=== PATIENT | female | born 1935 | race Caucasian/White ===

== ENCOUNTER 2018-08-12 13:33 | Emergency (ER) | payer OTHER, MEDICARE ==
--- OUTSIDE RECORDS SUMMARY | 2018-08-12 13:35 | XMS REPORT | Clinical Summary ---
:1935 Author Organization [facility] Address [address] [place] [address] Care Team Providers Name Role Phone Gilbert Peña MD Primary Care Provider Allergies Active Allergy Reactions Severity Noted Date Comments Gentamicin Rash Low 08/01/2018 Iodine And Iodide Containing Products Rash Low 08/01/2018 Levofloxacin Itching, Rash Low 08/01/2018 Penicillins Itching, Rash Low 08/01/2018 Current Medications Prescription Sig. Disp. Refills Start Date End Date Status furosemide (LASIX) Take 1 tablet 90 tablet 3 06/27/2018 Active 40 mg tablet (40 mg total) by 9 mouth daily. thyroid, pork, Take 120 mg by Active (ARMOUR THYROID) mouth daily. 120 mg tablet HYDROcodone-acetami Take 1 tablet by Active nophen (NORCO) mouth as needed 5-325 mg per tablet for moderate pain. metoprolol tartrate Take 25 mg by Active (LOPRESSOR) 25 mg mouth daily. tablet ciprofloxacin Take 500 mg by Active (CIPRO) 500 MG mouth 2 (two) tablet times a day. magnesium oxide Take 400 mg by Active (MAG-OX) 400 mg mouth daily. tablet pravastatin Take 40 mg by Active (PRAVACHOL) 40 MG mouth daily. tablet levETIRAcetam Take 500 mg by Active (KEPPRA) 500 MG mouth daily. tablet apixaban (ELIQUIS) Take by mouth 2 Active 5 mg tablet (two) times a day. digOXIN (LANOXIN) Take 125 mcg by Active 125 mcg tablet mouth daily. Acetic Acid 0.125% Irrigate with Active Irrigation 1,000 mL as directed once. mupirocin Apply 1 Active (BACTROBAN) 2 % application ointment topically as needed. acetic acid 0.25 % U TO WASH WOUNDS 1 06/07/2018 Discontinued irrigation D UTD. 8 ELIQUIS 5 mg tablet TK 1 T PO BID 3 05/15/2018 Discontinued 8 DIGOX 125 mcg TK 1 T PO QAM 6 06/21/2018 Discontinued tablet 8 metoprolol tartrate TK 1 T PO QD 6 06/19/2018 Discontinued (LOPRESSOR) 25 mg 8 tablet mupirocin APPLY TO WOUND 2 06/20/2018 Discontinued (BACTROBAN) 2 % QD DIRECTED. 8 ointment ARMOUR THYROID 120 TK 1 T PO QD 6 06/12/2018 Discontinued mg tablet 8 pravastatin TK 1 T PO QD 6 06/02/2018 Discontinued (PRAVACHOL) 40 MG 8 tablet metoprolol tartrate TK 1 T PO QD 90 tablet 3 06/27/2018 Discontinued (LOPRESSOR) 25 mg 8 tablet predniSONE Take 2 tablets 4 tablet 0 08/03/2018 (DELTASONE) 20 mg (40 MG total) 8 tablet night before and 2 tablet (40 MG total) the morning of procedure. Active Problems Problem Noted Date Angina pectoris 08/01/2018 Abnormal stress test 08/01/2018 SOB (shortness of breath) 06/27/2018 Atrial fibrillation 06/27/2018 Encounters Date Type Specialty Care Team Description 08/10/2018 Hospital Encounter Procedural Atilio Soler Atrial fibrillation, unspecified type; Cardiology MD Christopher Angina pectoris; SOB (shortness of breath) 08/10/2018 Procedure Pass Procedural Cardiology 08/10/2018 Surgery Procedural Atilio Soler Cv left heart cath w Silva White MD lv gram cors [89928 (CPT)] 08/08/2018 Orders Only Cardiology Atilio Soler MD 08/03/2018 Telephone Cardiology Ty Eldridge MA Appointment (CATH) 08/03/2018 Orders Only Cardiology Ty Eldridge MA 08/03/2018 Orders Only Cardiology Ty Eldridge MA Atrial fibrillation, unspecified type (Primary Dx); Angina pectoris; SOB (shortness of breath) 08/01/2018 Office Visit Cardiology Atilio Soler Angina pectoris (Primary Dx ); MD Christopher Abnormal stress test; SOB (shortness of breath); Atrial fibrillation, unspecified type 06/27/2018 Office Visit Cardiology Atilio Soler SOB (shortness of breath) ( Primary Dx); MD Christopher Dyspnea, unspecified type; Atrial fibrillation, unspecified type after 08/11/2017 Family History Medical History Relation Name Comments Stroke Father Relation Name Status Comments Father Mother Social History Tobacco Use Types Packs/Day Years Used Date Never Smoker Smokeless Tobacco: Never Used Alcohol Use Drinks/Week oz/Week Comments No Sex Assigned at Date Recorded Not on file Last Filed Vital Signs Vital Sign Reading Time Taken Blood Pressure 115/60 08/10/2018 6:30 PM CDT Pulse 80 08/10/2018 6:30 PM CDT Temperature 36.4 C (97.6 F) 08/10/2018 4:00 PM CDT Respiratory Rate 21 08/10/2018 6:30 PM CDT Oxygen Saturation 93% 08/10/2018 6:30 PM CDT Inhaled Oxygen Concentration - - Weight 79.3 kg (174 lb 12.8 oz) 08/10/2018 10:27 AM CDT Height 165.1 cm (5' 5") 08/10/2018 10:27 AM CDT Body Mass Index 29.09 08/10/2018 10:27 AM CDT Plan of Treatment Health Maintenance Due Date Last Done Comments SHINGRIX VACCINE (#1) 1985 ZOSTER VACCINE 1995 PNEUMOCOCCAL POLYSACCHARIDE VACCINE AGE 65 AND OVER 2000 PNEUMOCOCCAL-13 2000 INFLUENZA VACCINE 06/28/2018 Procedures Procedure Name Priority Date/Time Associated Comments Diagnosis CV LEFT HEART CATH LV Routine 08/10/2018 3:40 Angina pectoris Results for this GRAM WITH CORS PM CDT SOB (shortness of procedure are in breath) the results Atrial section. fibrillation, unspecified type ECG PRE/POST OP Routine 08/10/2018 11:28 Results for this AM CDT procedure are in the results section. [id number] Routine 08/08/2018 12:00 AM CDT NM MYOCARDIAL PERFUSION Routine 07/27/2018 12:00 AM CDT ECHOCARDIOGRAM 2D Routine 07/03/2018 3:40 SOB (shortness of Results for this COMPLETE W MMODE PM CDT breath) procedure are in SPECTRAL COLOR DOPPLER Atrial the results (80004) fibrillation, section. unspecified type ECG 12-LEAD Routine 06/27/2018 1:36 Dyspnea, Results for this PM CDT unspecified type procedure are in the results section. after 08/11/2017 Results Cv cardiac cath tech procedure (08/10/2018 3:40 PM) Narrative Performed At [facility] Left main- 20% ostial left main disease. LAD- Normal, 30% lesion seen in mid LAD. LCX- Normal RCA- Normal, 30% lesion seen in mid RCA. 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 The right groin was prepped and draped in normal sterile fashion. The right femoral artery was located, skin was infiltrated was lidocaine. The artery was accessed using the Modified Seldinger technique, and a 4 Fr sheath was inserted. Coronaries were visualized with JL5 and 3DRC catheters. Patient tolerated procedure without difficulty. COMPLICATIONS None PLAN Patient to be discharged home after routine post op monitoring in PACU Continue medical management for non-obstructive CAD. Performing Organization Address [facility] Phone Number [facility] [employer] [address] [place] [address] ECG Pre/Post Op (08/10/2018 11:28 AM) Ventricular rate 70 [facility] Atrial rate 79 [facility] QRSD interval 88 [facility] QT interval 372 [facility] QTC interval 401 [facility] QRS axis 1 -8 [facility] T wave axis 265 [facility] EKG impression Atrial fibrillation-Minimal voltage criteria for LVH, may be normal variant-Septal infarct (cited on or before 27-JUN-2018)-ST & T wave abnormality, consider anterolateral ischemia or digitalis effect-Abnormal ECG- In automated comparison with ECG of [facility] 27-JUN-2018 13:36,-Inverted T waves have replaced nonspecific T wave abnormality in Anterior leads- Performing Organization Address [facility] Phone Number [facility] [address] [place] [address] Miscellaneous Lab Result (08/08/2018) Specimen Blood Narrative Performed At Nm myocardial perfusion (07/27/2018) Narrative Performed At Echocardiogram complete w contrast and 3D if needed (07/03/2018 3:40 PM) Narrative Performed At [facility] Echocardiography Report Pat.Name:SHIRLEY ZULETA Pat.ID:[id number] .Date: 07/03/2018Refer.MD:ATILIO SOLER MD Exam Time: 3:57:00 PMStudy Type:Routine Echo Height:65inWeight: 178lb BSA: 1.88 m2 DOBAge:1935,82Y Sex: FEMALEBP:140/60 HR:72 bpmSonogrphr: Francisco Romero RDCS Pat. Stat.:OutpatientRoom:[address] Study Status:Final Echo Event ID:[id number] Order ID:[id number] Reason for Study:Atrial fibrillation, SOB, suspected cardiac etiology History / Clinical:Atrial Fibrillation, Obesity, Shortness of Breath Procedures:2D Echo, Colorflow Doppler Race:C SUMMARY: LV EF is normal. RV systolic function is normal. There is severe concentric LV hypertrophy. LA volume is severely enlarged. FINDINGS: LV: LV size is normal. There is severe concentric LV hypertrophy.LV EF is normal. Estimated EF is 60-64%. Overallwall motion is normal. RV: RV size is normal. RV systolic function is normal. RV wall motionis normal. LA: LA volume is severely enlarged. RA: RA size is normal. AO: Aortic root diameter is normal. ALLEN: No pericardial effusion. IAS:Interatrial septum is thickened consistent with lipomatous hypertrophy. AV: Mild calcification of AV leaflets. Mild aortic regurgitation. MV: Mild mitral annular calcification. PV: No structural PV abnormalities noted. A trace of pulmonic regurgitation. TV: No structural TV abnormalities noted. Mild tricuspid regurgitation Other:Estimated PA systolic pressure is 34 mmHg, assuming a mean RAPof 5 mmHg. MEASUREMENTS: 2D Parasternal [place] LVOT 2 cmLA Ds4 cm LVIDd4.5 cmIndex2.4 cm/m Ao Rtd 3.6 cm Index1.9 cm/m LVIDs2.5 cmLV Sjle783.1 g(87-129) LV%fs 43.8 % LVM Twpin336 g/m2 IVSd 1.3 cmRWT0.7 LVPWd1.5 cm LA Sng Plane LA Area 42.9 cm2(8.8-23.4) LA Vol 200.9 ml Zazbt480.9 ml/m LA LngAx 7.6 cm RA Sng Plane RA Area 17 cm2(8.3-19.5) RA Vol40.7 ml Index21.7 ml/m RA LngAx 6.1 cm DOPPLER LVOT For Flow LVOT Area3.1 cm2 LVOT SV 53.9 ml LVOTpkVel 98 cm/sHR72.9 bpm LVOTpkPG 3.8 mmHgLVOT CO3.9 l/min LVOTmnPG 1.9 mmHgLVOT CI2.1 l/m/m2 LVOT TVI17.1 cm Signed 07/04/2018 05:49 PM Milena No M.D. Procedure Note Interface, Radiology Results In - 07/04/2018 5:49 PM CDT [facility] Echocardiography Report Pat.Name: SHIRLEY ZULETA Pat.ID: [id number] .Date: 07/03/2018 Refer.MD: ATILIO SOLER MD Exam Time: 3:57:00 PM Study Type:Routine Echo Height: 65in Weight: 178lb BSA: 1.88 m2 Age: 8 1935,82Y Sex: FEMALE BP: 140/60 HR: 72 bpm Sonogrphr: Francisco Romero VICKI Pat. Stat.:Outpatient Room: [address] Study Status:Final Echo Event ID:[id number] Order ID: [id number] Reason for Study:Atrial fibrillation, SOB, suspected cardiac etiology History / Clinical:Atrial Fibrillation, Obesity, Shortness of Breath Procedures:2D Echo, Colorflow Doppler Race: C SUMMARY: LV EF is normal. RV systolic function is normal. There is severe concentric LV hypertrophy. LA volume is severely enlarged. FINDINGS: LV: LV size is normal. There is severe concentric LV hypertrophy. LV EF is normal. Estimated EF is 60-64%. Overall wall motion is normal. RV: RV size is normal. RV systolic function is normal. RV wall motion is normal. LA: LA volume is severely enlarged. RA: RA size is normal. AO: Aortic root diameter is normal. ALLEN: No pericardial effusion. IAS: Interatrial septum is thickened consistent with lipomatous hypertrophy. AV: Mild calcification of AV leaflets. Mild aortic regurgitation. MV: Mild mitral annular calcification. PV: No structural PV abnormalities noted. A trace of pulmonic regurgitation. TV: No structural TV abnormalities noted. Mild tricuspid regurgitation Other: Estimated PA systolic pressure is 34 mmHg, assuming a mean RAP of 5 mmHg. MEASUREMENTS: 2D Parasternal [place] LVOT 2 cm LA Ds 4 cm LVIDd 4.5 cm Index 2.4 cm/m Ao Rtd 3.6 cm Index 1.9 cm/m LVIDs 2.5 cm LV Mass 250.1 g (87-129) LV%fs 43.8 % LVM Index 133 g/m2 IVSd 1.3 cm RWT 0.7 LVPWd 1.5 cm LA Sng Plane LA Area 42.9 cm2 (8.8-23.4) LA Vol 200.9 ml Index 106.9 ml/m LA LngAx 7.6 cm RA Sng Plane RA Area 17 cm2 (8.3-19.5) RA Vol 40.7 ml Index 21.7 ml/m RA LngAx 6.1 cm DOPPLER LVOT For Flow LVOT Area 3.1 cm2 LVOT SV 53.9 ml LVOTpkVel 98 cm/s HR 72.9 bpm LVOTpkPG 3.8 mmHg LVOT CO 3.9 l/min LVOTmnPG 1.9 mmHg LVOT CI 2.1 l/m/m2 LVOT TVI 17.1 cm Signed 07/04/2018 05:49 PM Milena No M.D. Performing Organization Address [facility] Phone Number [facility] [address] [place] [address] ECG 12 lead (06/27/2018 1:36 PM) Ventricular rate 65 [facility] MUSE Atrial rate [address] [facility] MUSE QRSD interval 82 [facility] MUSE QT interval 372 [facility] QTC interval [address] [facility] MUSE QRS axis 1 40 [facility] T wave axis -[address] [facility] MUSE EKG impression Atrial fibrillation with premature ventricular or aberrantly conducted complexes-Septal infarct , age undetermined-ST & T wave abnormality, consider lateral ischemia-Abnormal ECG-No previous ECGs available- Performing Organization Address [facility] Phone Number [facility] [address] [place] [address] after 08/11/2017 Insurance Payer Benefit Plan / Group Subscriber ID Type Phone Address MEDICARE MEDICARE PART A AND B xxxxxxxxxx Medicare [place], [place] AARP AARP SUPPLEMENT xxxxxxxxxxx Commercial [phone] [place] [address]
[2018-08-12] MEDS ORDERED: predniSONE 20 MG TAB ONE (14:39)
--- NOTE | 2018-08-12 14:55 | ER ---
Nurse's Notes [facility] Name: Lilo Zuleta Age: 83 yrs Sex: Female : 1935 Arrival Date: 08/12/2018 Time: 13:36 Bed 5 Private MD: Gilbert Peña Diagnosis: Acute Allergic Reaction Presentation: 08/12 13:47 Presenting complaint: Patient states: Patient woke up this AM and was itching and felt aj flushed all over. NAD, respirations are even and unlabored. Patient has clear voice with no SOB. Transition of care: patient was not received from another setting of care. Onset: The symptoms/episode began/occurred this morning. Anaphylaxis evaluation, no signs or symptoms of anaphylaxis were noted. Onset of symptoms was August 12, 2018. Risk Assessment: Do you want to hurt yourself or someone else? Patient reports no desire to harm self or others. Initial Sepsis Screen: Does the patient meet any 2 criteria? No. Patient's initial sepsis screen is negative. Does the patient have a suspected source of infection? No. Patient's initial sepsis screen is negative. Note Patient believes she is allergic to Iodine, reports heart cath on and believes iodine may have been used. Care prior to arrival: None. 13:47 Method Of Arrival: Wheelchair aj 13:47 Acuity: HAVEN 4 aj Triage Assessment: 13:49 General: Appears in no apparent distress. comfortable, Behavior is calm, cooperative, aj appropriate for age. Pain: Denies pain. Neuro: Level of Consciousness is awake, alert, obeys commands, Oriented to person, place, time, situation, Appropriate for age. Respiratory: Airway is patent Respiratory effort is even, unlabored, Respiratory pattern is regular, symmetrical. Derm: Skin is intact, is healthy with good turgor, Skin is flushed, Reports itching. Historical: - Allergies: 13:49 gentamicin sulfate (PF); aj 13:49 Iodine; aj 13:49 Levofloxacin; aj 13:49 PENICILLINS; aj - Home Meds: 13:49 digoxin 125 mcg Oral tab 1 tab once daily [Active]; Eliquis 5 mg Oral tab 1 tab 2 times aj per day [Active]; levetiracetam 50 mg Oral [Active]; MagOx 40 mg Oral [Active]; metoprolol tartrate 25 mg Oral tab 1 tab once daily [Active]; mupirocin 2 % Topical oint 3 times per day [Active]; pravastatin 40 mg Oral tab 1 tab once daily [Active]; thyroid (pork) 2 gm Oral [Active]; Cipro 500 mg Oral tab 1 tab every 12 hours [Active]; - PMHx: 13:49 Hypertension; TIA; aj - PSHx: 13:49 skin grafts; Thyroidectomy; aj - Immunization history:: Adult Immunizations up to date. - Social history:: Smoking status: Patient/guardian denies using tobacco. - Ebola Screening: : Patient negative for fever greater than or equal to 101.5 degrees Fahrenheit, and additional compatible Ebola Virus Disease symptoms Patient denies exposure to infectious person Patient denies travel to an Ebola-affected area in the 21 days before illness onset No symptoms or risks identified at this time. Screenin:36 Abuse screen: Denies threats or abuse. Nutritional screening: No deficits noted. la1 Tuberculosis screening: No symptoms or risk factors identified. Fall Risk None identified. Assessment: 14:36 General: Appears in no apparent distress. Behavior is calm, cooperative, appropriate la1 for age. Neuro: Level of Consciousness is awake, alert, obeys commands, Oriented to person, place, time, situation. Cardiovascular: Capillary refill < 3 seconds Patient's skin is warm and dry. Respiratory: Airway is patent Respiratory effort is even, unlabored, Respiratory pattern is regular, symmetrical, Breath sounds are clear bilaterally. GI: No signs and/or symptoms were reported involving the gastrointestinal system. Vital Signs: 13:49 BP 119 / 78; Pulse 90; Resp 19; Temp 98.0; Pulse Ox 98% on R/A; Weight 78.93 kg; Height aj 5 ft. 5 in. (165.10 cm); 13:49 Body Mass Index 28.95 (78.93 kg, 165.10 cm) aj ED Course: 13:36 Patient arrived in ED. mr 13:36 Gilbert Peña MD is Private Physician. mr 13:48 Triage completed. aj 13:49 Arm band placed on left wrist. Patient placed in an exam room. aj 13:57 Luis Lynne MD is Attending Physician. wa 14:04 Josh Marley RN is Primary Nurse. la1 14:36 Bed in low position. Call light in reach. la1 14:36 No provider procedures requiring assistance completed. Patient did not have IV access la1 during this emergency room visit. Administered Medications: 14:36 Drug: predniSONE 60 mg Route: PO; la1 15:07 Follow up: Response: No adverse reaction la1 Outcome: 14:54 Discharge ordered by . heena 15:06 Discharged to home ambulatory. la1 15:06 Condition: stable 15:06 Discharge instructions given to patient, Instructed on discharge instructions, follow up and referral plans. medication usage, Demonstrated understanding of instructions, follow-up care, medications, Prescriptions given X 1. 15:06 Patient left the ED. la1 Signatures: Sabrina Walker, iMsa Avila RN, Lee, RN RN la1 Luis Lynne MD MD wa
--- NOTE | 2018-08-12 14:55 | EDPHYS ---
Physician Documentation [facility] Name: Lilo Zuleta Age: 83 yrs Sex: Female : 1935 Arrival Date: 08/12/2018 Time: 13:36 Bed 5 Private MD: Gilbert Peña ED Physician Luis Lynne HPI: 08/12 14:46 This 83 yrs old Female presents to ER via Wheelchair with complaints of wa Allergic Reaction. 14:46 The patient presents with itching, redness to chest and back. denies SOB or dizziness wa or swelling. states allergic to iodine dye. recently had heart cath and believes she was given iodine dye. itching began after the procedure. 14:50 Onset: The symptoms/episode began/occurred 3 day(s) ago. Associated signs and symptoms: wa Pertinent positives: hives, rash, Pertinent negatives: chest pain, shortness of breath, swelling. Possible causes: iodine dye. At home the patient or guardian has treated the symptoms with Benadryl. Severity of symptoms: At their worst the symptoms were mild in the emergency department the symptoms are unchanged. The patient has not experienced similar symptoms in the past. The patient has not recently seen a physician. Historical: - Allergies: 13:49 gentamicin sulfate (PF); aj 13:49 Iodine; aj 13:49 Levofloxacin; aj 13:49 PENICILLINS; aj - Home Meds: 13:49 digoxin 125 mcg Oral tab 1 tab once daily [Active]; Eliquis 5 mg Oral tab 1 tab 2 times aj per day [Active]; levetiracetam 50 mg Oral [Active]; MagOx 40 mg Oral [Active]; metoprolol tartrate 25 mg Oral tab 1 tab once daily [Active]; mupirocin 2 % Topical oint 3 times per day [Active]; pravastatin 40 mg Oral tab 1 tab once daily [Active]; thyroid (pork) 2 gm Oral [Active]; Cipro 500 mg Oral tab 1 tab every 12 hours [Active]; - PMHx: 13:49 Hypertension; TIA; aj - PSHx: 13:49 skin grafts; Thyroidectomy; aj - Immunization history:: Adult Immunizations up to date. - Social history:: Smoking status: Patient/guardian denies using tobacco. - Ebola Screening: : Patient negative for fever greater than or equal to 101.5 degrees Fahrenheit, and additional compatible Ebola Virus Disease symptoms Patient denies exposure to infectious person Patient denies travel to an Ebola-affected area in the 21 days before illness onset No symptoms or risks identified at this time. ROS: 14:51 Constitutional: Negative for fever, chills, and weight loss, Eyes: Negative for injury, wa pain, redness, and discharge, ENT: Negative for injury, pain, and discharge, Neck: Negative for injury, pain, and swelling, Cardiovascular: Negative for chest pain, palpitations, and edema, Respiratory: Negative for shortness of breath, cough, wheezing, and pleuritic chest pain, Abdomen/GI: Negative for abdominal pain, nausea, vomiting, diarrhea, and constipation, Back: Negative for injury and pain, : Negative for injury, bleeding, discharge, and swelling, MS/Extremity: Negative for injury and deformity, Neuro: Negative for headache, weakness, numbness, tingling, and seizure, Psych: Negative for depression, anxiety, suicide ideation, homicidal ideation, and hallucinations. 14:51 Skin: Positive for itching and redness to abd and back.. 14:51 All other systems are negative. Exam: 14:52 Constitutional: This is a well developed, well nourished patient who is awake, alert, wa and in no acute distress. Head/Face: Normocephalic, atraumatic. Eyes: Pupils equal round and reactive to light, extra-ocular motions intact. Lids and lashes normal. Conjunctiva and sclera are non-icteric and not injected. Cornea within normal limits. Periorbital areas with no swelling, redness, or edema. ENT: Nares patent. No nasal discharge, no septal abnormalities noted. Tympanic membranes are normal and external auditory canals are clear. Oropharynx with no redness, swelling, or masses, exudates, or evidence of obstruction, uvula midline. Mucous membranes moist. Neck: Trachea midline, no thyromegaly or masses palpated, and no cervical lymphadenopathy. Supple, full range of motion without nuchal rigidity, or vertebral point tenderness. No Meningismus. Chest/axilla: Normal chest wall appearance and motion. Nontender with no deformity. No lesions are appreciated. Cardiovascular: Regular rate and rhythm with a normal S1 and S2. No gallops, murmurs, or rubs. Normal PMI, no JVD. No pulse deficits. Respiratory: Lungs have equal breath sounds bilaterally, clear to auscultation and percussion. No rales, rhonchi or wheezes noted. No increased work of breathing, no retractions or nasal flaring. Abdomen/GI: Soft, non-tender, with normal bowel sounds. No distension or tympany. No guarding or rebound. No evidence of tenderness throughout. Back: No spinal tenderness. No costovertebral tenderness. Full range of motion. MS/ Extremity: Pulses equal, no cyanosis. Neurovascular intact. Full, normal range of motion. Neuro: Awake and alert, GCS 15, oriented to person, place, time, and situation. Cranial nerves II-XII grossly intact. Motor strength 5/5 in all extremities. Sensory grossly intact. Cerebellar exam normal. Normal gait. Psych: Awake, alert, with orientation to person, place and time. Behavior, mood, and affect are within normal limits. 14:52 Skin: on the abd and back. diffuse. fine rash with associated redness. Vital Signs: 13:49 BP 119 / 78; Pulse 90; Resp 19; Temp 98.0; Pulse Ox 98% on R/A; Weight 78.93 kg; Height aj 5 ft. 5 in. (165.10 cm); 13:49 Body Mass Index 28.95 (78.93 kg, 165.10 cm) MDM: 13:57 Patient medically screened. ia 14:52 Differential diagnosis: allergic reaction? no resp compromise. pt taking benadryl. will wa add prednisone. Data reviewed: vital signs, nurses notes. Response to treatment: the patient's symptoms have mildly improved after treatment. Administered Medications: 14:36 Drug: predniSONE 60 mg Route: PO; la1 15:07 Follow up: Response: No adverse reaction la1 Disposition: 08/12/18 14:54 Discharged to Home. Impression: Acute Allergic Reaction. - Condition is Stable. - Prescriptions for Prednisone 20 mg Oral Tablet - take 2 tablet by ORAL route once daily for 5 days; 10 tablet. - Medication Reconciliation Form, Thank You Letter, Antibiotic Education, Prescription Opioid Use form. - Follow up: Private Physician; When: 2 - 3 days; Reason: Recheck today's complaints. - Problem is new. - Symptoms have improved. - Notes: take medicine as prescribed. follow up with your doctor or return here if rapidly worsening concerns. Signatures: Sabrina Walker RN RN aj Josh Marley RN RN la1 Luis Lynne MD MD wa Corrections: (The following items were deleted from the chart) 15:06 14:54 08/12/2018 14:54 Discharged to Home. Impression: Acute Allergic Reaction. la1 Condition is Stable. Forms are Medication Reconciliation Form, Thank You Letter, Antibiotic Education, Prescription Opioid Use. Follow up: Private Physician; When: 2 - 3 days; Reason: Recheck today's complaints. Problem is new. Symptoms have improved. wa
[2018-08-12 15:18] VITALS: BP 119/78; TEMP 98; O2SAT 98
== END 2018-08-12 15:06 | disposition home or self-care (01) ==
LOC: ER 13:33
DX: T78.40XA Allergy, unspecified, initial encounter (principal); I10 Essential (primary) hypertension; X58.XXXA Exposure to other specified factors, initial encounter; Z88.0 Allergy status to penicillin; Z91.09 Other allergy status, other than to drugs and biological substances; Z88.3 Allergy status to other anti-infective agents; Z86.73 Personal history of transient ischemic attack (TIA), and cerebral infarction without residual deficits
CPT/HCPCS: 99283; J7512

== ENCOUNTER 2019-01-04 13:27 | Observation (INO) | payer OTHER, MEDICARE ==
[2019-01-04 15:18] LABS: Absolute Lymphocytes (CBC) 2.3 K/uL (0.7-4.9); Absolute Monocytes 0.7 K/uL (0.1-1.3); Absolute Neutrophil 5.3 K/uL (1.8-8.0); Basophils % 0.8 % (0-1.3); Eosinophils % 1.4 % (0-4.4); Hematocrit 44.1 % (36.0-45.0); Lymphocytes % 26.9 % (15.3-44.8); Monocytes % 8.8 % (3.3-12.3); RBC Red Blood Cell Count 4.81 M/uL (3.86-4.86)
--- NOTE | 2019-01-04 15:20 | RAD REPORT ---
EXAM DESCRIPTION: RAD - Chest Pa And Lat (2 Views) - 01/04/2019 3:03 pm CLINICAL HISTORY: hypotension Chest pain. COMPARISON: Chest Pa And Lat (2 Views) dated 05/23/2018; Chest Single View dated 01/04/2018; Chest Pa A nd Lat (2 Views) dated 09/20/2016; CHEST SINGLE VIEW dated 02/02/2016 FINDINGS: The lungs are emphysematous but clear. The heart is moderately prominent in size. No displ aced fractures. Aortic atherosclerosis. IMPRESSION: COPD suspected. Moderate cardiomegaly.
[2019-01-04 15:50] LABS: Urine Appearance CLOUDY; Urine Bilirubin NEGATIVE (NEG); Urine Blood 1+ (NEG); Urine Color DK YELLOW; Urine Glucose NEGATIVE (NEG); Urine Protein 1+ (NEG); Urine Specific Gravity >=1.030 (1.005-1.030); Urine Urobilinogen 0.2 mg/dL (0.2-1.0)
[2019-01-04 15:50] LABS: Albumin 3.5 g/dL (3.4-5.0); Bilirubin Total 0.5 mg/dL (0.2-1.0); Digoxin Level 1.2 ng/mL (0.80-2.00); Magnesium 2.2 mg/dL (1.8-2.4); Potassium 4.4 mmol/L (3.5-5.1); Thyroid Stimulating Hormone 1.75 uIU/mL (0.360-3.740)
[2019-01-04 16:08] VITALS: BMI 28.6
[2019-01-04 16:09] LABS: Urine Bacteria >50 /HPF (<20); Urine Culture Reflex Order REFLEXED; Urine RBC <5 /HPF (NONE SEEN)
[2019-01-04] MEDS: NA CHLORIDE 0.9% 1,000 ML IV SCH (16:19)
[2019-01-04] MEDS ORDERED: PNEUMOCOCCAL VACCINE 0.5 ML IMVAC ONE (17:00)
[2019-01-04] MEDS ORDERED: CEFTRIAXONE/SWI 1gm 1 GM/10 ML SYR ONE (20:10)
[2019-01-04] MEDS ORDERED: HOME MED 1 EA UNK (Apixaban [Eliquis] 5 MG) PO SCH (21:00)
[2019-01-04] MEDS ORDERED: CEFTRIAXONE 1 GM/NS 50 ML 1 GM/50 ML BAG IV SCH (21:00)
[2019-01-05] MEDS: NA CHLORIDE 0.9% 1,000 ML IV SCH ×2 (04:07→17:55)
[2019-01-05] MEDS ORDERED: D50W 25 GM/50 ML SYRINGE IV PRN (07:36)
[2019-01-05] MEDS ORDERED: GLUCAGON 1 MG/VIAL IM PRN (07:36)
[2019-01-05] MEDS ORDERED: MAGNESIUM OXIDE PO SCH (09:00)
[2019-01-05] MEDS ORDERED: HOME MED 1 EA UNK (Pravastatin [Pravachol*] 40 MG) PO SCH (09:00)
[2019-01-05] MEDS ORDERED: DIGOXIN 0.125 MG PO SCH (09:00)
[2019-01-05] MEDS ORDERED: HOME MED 1 EA UNK (Thyroid,Pork [Armour Thyroid] 120 MG) PO SCH (09:00)
[2019-01-05] MEDS ORDERED: HOME MED 1 EA UNK (Furosemide [Furosemide] 40 MG) PO SCH (09:00)
[2019-01-05] MEDS ORDERED: HOME MED 1 EA UNK (Metoprolol Tartrate [Lopressor*] 25 MG) PO SCH (09:00)
[2019-01-05] MEDS: CEFTRIAXONE/SWI 1gm 1 GM/10 ML SYR IV SCH ×2 (09:17→20:38)
[2019-01-05] MEDS: INSULIN -REGULAR HUMAN 50 UNIT/0.5 ML ML SQ SCH ×3 (11:30→20:44)
--- NOTE | 2019-01-05 17:05 | HP ---
Date of Admission: 01/04/2019 Chief Complaint: Not feeling good, tired, and fall. History Of Present Illness: This is an 83-year-old female patient who lives at home, has chronic lef t leg wound problem for which she [facility] a physician [facility] about almost every 2 w eeks and requires antibiotic use on a frequent basis. Last time she was seen by the physician at [facility] was last week on Tuesday, and she was started on Cipro 750 mg twice a day for 2 week s for infection in her left leg, which is once again is a recurrent problem for her. The patient norma es all her medications as prescribed, but in last 1 week, she is not feeling good at all. States daniel t she fell down 1 week ago as she was coming home from grocery shopping and as she was walking from t he car, she tripped over the edge of the driveway and fell forward on her right knee and had a small abrasion. No head injury and no other injury after this fall. That small right knee abrasion has he aled very well, but she says in last 1 week, she is feeling weak, tired, reduced appetite and overall just not feeling good at all. Denies any vomiting, diarrhea, no bleeding. No fever, chills, cough, cold, or congestion. After she was evaluated at office, she was admitted to the hospital. Allergies: TO IODINE, LEVAQUIN CAUSING RASH, PENICILLIN CAUSING RASH, AND SILVER SULFADIAZINE CAUSIN G SKIN IRRITATION. Medications: Ranson Thyroid 120 mg p.o. daily, digoxin 125 mcg p.o. daily, Eliquis 5 mg p.o. 2 times a day, furosemide 40 mg daily, magnesium oxide 400 mg p.o. daily, metformin 500 mg daily with evenin g meal, metoprolol 25 mg daily, pravastatin 40 mg p.o. daily and in the past she was taking levetirac etam 500 mg p.o. daily, but she has not listed it in her home medication and that was controlled by n eurologist, so we will have to confirm with her if she is still currently taking it or not. Review of Systems: Constitutional: As mentioned above. Musculoskeletal: As mentioned above. All other systems reviewed and negative. Past Surgical History: Right foot hammertoe surgery, thyroid cancer in 1969, and had thyroidectomy f or that and a cataract surgery in the past. Family History: Significant for stroke, hypertension, and coronary artery disease. Social History: Negative for smoking and alcohol use. Past Medical History: Significant for TIA, atrial fibrillation, type 2 diabetes mellitus, hypomagnes emia, depression, hyperlipidemia, osteoarthritis, hypothyroidism, and long-term anticoagulation. Physical Examination: Vital Signs: At office when she came in today with her son, her weight was 174 pounds, height 64 inc hes. Blood pressure 97/67, pulse 62, respiratory rate 15, temperature 97. General: The patient appears weaker than normal, not in any distress. HEENT: Head atraumatic, normocephalic. Conjunctivae nonerythematous. Sclerae white. Mouth, no thr ush or edema noted. Ears/Nose, no mass, lesion, discharge noted. Neck: Supple. No JVD, lymph nodes, bruit, thyromegaly noted. Lungs: Bilateral good equal air entry. Clear to auscultation. No rhonchi. No rales. Heart: Normal heart sounds, no murmur or gallop. Abdomen: Soft, bowel sounds normal. No guarding, rigidity, tenderness, mass, hepatosplenomegaly, dis tention, or bruit noted. Extremities: Left leg has dressing present which [facility] 2 [facility] when she goes there, so this was not opened for examination. Skin: No rash, ulcer, cellulitis. Lymphatics: No lymph node enlargement in neck, supraclavicular, infraclavicular region. Neuro: No focal neurological deficit. Chest: Unremarkable. External Genitalia: Deferred. Rectal: Deferred. Laboratory Data: White count 8.5, hemoglobin 14.4, platelets 201. Sodium 142, potassium 4.4, chlori de 105, bicarb 34, BUN 24, creatinine 1.1, glucose 132. Liver function tests unremarkable. Procalci tonin 0.10. TSH 1.75. Urinalysis positive for nitrite, 2+ esterase, wbc 20-50, bacteria more than 5 0, and digoxin level 1.20. Her chest x-ray COPD suspected, moderate cardiomegaly. Impression: 1.Urinary tract infection. 2.Chronic atrial fibrillation. 3.Type 2 diabetes mellitus. 4.Depression. 5.Hyperlipidemia. 6.Osteoarthritis, multiple sites. 7.Hypothyroidism. 8.Chronic anticoagulation therapy. Plan: Admit the patient to hospital for further evaluation and management of this problem. The eb ent's right knee abrasion has healed, has very small area of scratch navneet. No evidence of infection or swelling. No need for further intervention there. We will continue her home medications per yehuda chau. Follow up on urine culture results. Start her on empiric antibiotics for urinary tract infection using ceftriaxone. IV fluid will be given, and I will see her tomorrow for followup. We will go ah ead and get an echocardiogram with the Doppler to evaluate left ventricular ejection fraction. LOVE/MODL Voice ID: [id number]
--- NOTE | 2019-01-05 17:10 | ECHO ---
HEIGHT: 5 ft 5 in WEIGHT: 172 lb 4.8 oz DATE OF STUDY: 01/05/[address]: Gilbert Peña MD 2-DIMENSIONAL: YES M.MODE: YES DOPPLER: YES COLOR FLOW: YES TDS: PORTABLE: DEFINITY: BUBBLE STUDY: DIAGNOSIS: ATRIAL FIBRILLATION. CARDIAC HISTORY: CATHERIZATION: YES SURGERY: NO PROSTHETIC VALVE: NO PACEMAKER: NO MEASUREMENTS (cm) DIASTOLIC (NORMALS) SYSTOLIC (NORMALS) IVSd 1.2 (0.6-1.2) LA Diam 4.1 (1.9-4.0) LVEF 69% LVIDd 4.4 (3.5-5.7) LVIDs 2.7 (2.0-3.5) %FS 39% LVPWd 1.3 (0.6-1.2) Ao Diam 3.2 (2.0-3.7) 2 DIMENSIONAL ASSESSMENT: RIGHT ATRIUM: NORMAL LEFT ATRIUM: DILATED RIGHT VENTRICLE: NORMAL LEFT VENTRICLE: LEFT VENTRICULAR HYPERTROPHY TRICUSPID VALVE: NORMAL MITRAL VALVE: NORMAL PULMONIC VALVE: NORMAL AORTIC VALVE: NORMAL PERICARDIAL EFFUSION: NONE AORTIC ROOT: NORMAL LEFT VENTRICULAR WALL MOTION: NORMAL DOPPLER/COLOR FLOW: MILD AORTIC REGURGITATION. MILD TRICUSPID REGURGITATION. MILD PULMONARY HYPERTENSION. ESTIMATED RIGHT VENTRICULAR SYSTOLIC PRESSURE 45 mmHg. COMMENTS: NORMAL LEFT VENTRICULAR EJECTION FRACTION. LEFT VENTRICULAR HYPERTROPHY. MILD AORTIC REGURGITATION AND TRICUSPID REGURGITATION. MILD PULMONARY HYPERTENSION. TECHNOLOGIST: JOANIE LOWERY
--- NOTE | 2019-01-05 23:04 | PN ---
Date of Progress Note: 01/05/2019 Subjective: The patient was seen this morning for followup. Lying in bed, not in distress. Feeling much better than yesterday. Objective: Vital Signs: Reviewed. HEENT: Unremarkable. Lungs: Clear to auscultation. Cardiac: Heart sounds normal. Abdomen: Soft. Bowel sounds normal. No guarding, rigidity, tenderness, distention. Extremities: No leg edema on the right leg. Left leg has dressing present. Laboratory Data: Urine culture growing gram-negative rods. Impression: 1.Urinary tract infection. 2.Atrial fibrillation. 3.Hypertension. 4.Hypothyroidism. 5.Noninsulin dependent diabetes mellitus. Plan: We will continue current antibiotic. Patient has urinary tract infection with gram-negative r ods in spite of taking Cipro for almost 10 days on outpatient basis for her left leg infection. With that in mind, I am concerned about resistant bacteria, so we will continue current IV antibiotics un til we get the final culture results and then we will decide culture specific antibiotics whether it is going to be oral or IV antibiotics for her. I will see her tomorrow for followup. LOVE/MODL Voice ID: [id number] Report ID: [id number]
[2019-01-05 23:48] VITALS: O2SAT 95
[2019-01-06] MEDS: NA CHLORIDE 0.9% 1,000 ML IV SCH (05:59)
[2019-01-06 10:45] VITALS: BP 181/80; TEMP 97.3
--- NOTE | 2019-01-06 13:41 | DS ---
Date of Discharge: 01/06/2019 Disposition: Discharged to go home. Physical Examination: HEENT: Unremarkable. Lungs: Clear to auscultation. Heart: Sounds normal. Abdomen: Soft. Bowel sounds normal. No guarding, rigidity, tenderness, or distention. Extremities: No leg edema on the right leg. Left leg dressing present. Laboratory Data: Urine culture, final result came back today, growing Escherichia coli, and it is se nsitive to nitrofurantoin, Bactrim, and tetracycline as oral antibiotics, and sensitive to some other IV antibiotics. White count upon admission was 8.5, hemoglobin 14.4, platelets 201. Sodium 142, po tassium 4.4, chloride 105, bicarb 34, BUN 24, creatinine 1.11, glucose 132. Procalcitonin 0.10. Ech ocardiogram; ejection fraction 69%, left ventricular hypertrophy, mild aortic regurgitation and tricu spid regurgitation, and mild pulmonary hypertension. Hospital Course: An 83-year-old female patient admitted to the hospital after she came into office c omplaining of not feeling good, feeling tired, and falling down at home. Please see dictated H and P for more information. After patient was evaluated at the office, she was admitted to the hospital. Further evaluation revealed presence of urinary tract infection. The patient was started on IV anti biotics ceftriaxone and IV fluid was given. Her home medications were continued. Overall, her condi tion improved. Chest x-ray showed COPD type of changes and moderate cardiomegaly, so that so we did echocardiogram showing normal ejection fraction. Once the patient got IV fluid and IV antibiotics, s he started feeling much better. She started to ambulate very well without any problems. She is feel ing much better today, and she feels like she is ready to go home. Medically, she is stable for disc [facility]. Final Diagnoses: 1.Urinary tract infection. 2.Chronic atrial fibrillation. 3.Type 2 diabetes mellitus. 4.Depression. 5.Hyperlipidemia. 6.Osteoarthritis, multiple sites. 7.Hypothyroidism. 8.Chronic anticoagulation therapy. Discharge Medications And Instructions: 1.Continue all prior home medications. 2.Take nitrofurantoin 100 mg 2 times a day for 10 days. 3.Follow up at my office per scheduled appointment. LOVE/MODL Voice ID: [id number] Report ID: [id number]
== END 2019-01-06 09:55 | disposition home or self-care (01) ==
LOC: 2ND 14:12
PROVIDERS: ADMIT Internal Medicine; ATTEND Internal Medicine
DX: N39.0 Urinary tract infection, site not specified (principal); B96.20 Unspecified Escherichia coli [E. coli] as the cause of diseases classified elsewhere; I48.2 Chronic atrial fibrillation; E11.9 Type 2 diabetes mellitus without complications; F32.9 Major depressive disorder, single episode, unspecified; E78.5 Hyperlipidemia, unspecified; M19.90 Unspecified osteoarthritis, unspecified site; E03.9 Hypothyroidism, unspecified; I51.7 Cardiomegaly; Z79.01 Long term (current) use of anticoagulants; Z88.0 Allergy status to penicillin; Z86.73 Personal history of transient ischemic attack (TIA), and cerebral infarction without residual deficits
CPT/HCPCS: 36415; 71046; 80053; 80162; 81001; 82962 ×2; 83735; 84145; 84443; 85025; 87077; 87086; 87088; 87186; 93306; G0378; G0379; J0696 ×4; J7030 ×4; 90670

== ENCOUNTER 2019-09-30 16:16 | Emergency (ER) | payer OTHER, MEDICARE ==
[2019-09-30] MEDS ORDERED: TRAMADOL HCL 50 MG TAB ONE (17:23)
[2019-09-30] MEDS ORDERED: ACETAMINOPHEN 325 MG TABLET ONE (17:23)
[2019-09-30] MEDS ORDERED: IBUPROFEN 400 MG TAB ONE (17:23)
[2019-09-30] MEDS ORDERED: HYDROCODONE/APAP 5/325 MG TAB ONE (17:35)
--- NOTE | 2019-09-30 17:42 | RAD REPORT ---
EXAM DESCRIPTION: RAD - Hip Right 2 View - 09/30/2019 5:32 pm CLINICAL HISTORY: PAIN COMPARISON: No comparisons FINDINGS: Mild arthritic changes involve the right hip. No fracture, dislocation or AVN pattern.
--- NOTE | 2019-09-30 17:43 | RAD REPORT ---
EXAM DESCRIPTION: RAD - Knee Right 3 View - 09/30/2019 5:32 pm CLINICAL HISTORY: PAIN COMPARISON: Knee Right 3 View dated 01/25/2012 FINDINGS: The bones are osteopenic. Small suprapatellar joint effusion is noted. No acute fracture o r dislocation seen.
--- NOTE | 2019-09-30 18:25 | EDPHYS ---
Physician Documentation [facility] Name: Lilo Zuleta Age: 84 yrs Sex: Female : 1935 Arrival Date: 09/30/2019 Time: 16:18 Bed 15 Private MD: Gilbert Peña ED Physician Leo Melendez HPI: 09/30 16:54 This 84 yrs old Female presents to ER via Wheelchair with complaints of Knee cp Pain, Foot Pain, Hip Pain. 16:55 The patient presents with pain, that is acute, tenderness. cp 16:55 The complaints affect the right hip and right knee. Context: resulted from an unknown cp cause, the patient can fully bear weight, the patient is able to ambulate, with mild difficulty, Problem is a result from a previous injury: No. Onset: The symptoms/episode began/occurred 1 week(s) ago. Modifying factors: the symptoms are aggravated by weight bearing. Associated signs and symptoms: Pertinent negatives calf tenderness, fever, numbness, warmth, weakness. Treatment prior to arrival includes: prescription medications, Ultram or Ultracet. Severity of symptoms: in the emergency department the symptoms are unchanged, despite home interventions. Historical: - Allergies: 16:33 gentamicin sulfate (PF); la1 16:33 Iodine; la1 16:33 Levofloxacin; la1 16:33 PENICILLINS; la1 - PMHx: 16:33 Hypertension; TIA; la1 - Immunization history:: Adult Immunizations up to date. - Social history:: Smoking status: Patient/guardian denies using tobacco. - Ebola Screening: : No symptoms or risks identified at this time. ROS: 17:00 Constitutional: Negative for body aches, chills, fever, poor PO intake. cp 17:00 Eyes: Negative for injury, pain, redness, and discharge. cp 17:00 ENT: Negative for drainage from ear(s), ear pain, sore throat, difficulty swallowing, difficulty handling secretions. 17:00 Cardiovascular: Negative for chest pain, palpitations. 17:00 Respiratory: Negative for cough, shortness of breath, wheezing. 17:00 Abdomen/GI: Negative for abdominal pain, nausea, vomiting, and diarrhea, black/tarry stool, rectal bleeding. 17:00 Back: Negative for pain at rest, pain with movement, radiated pain. 17:00 : Negative for urinary symptoms. 17:00 MS/extremity: Positive for pain, of the right hip and right knee, Negative for injury or acute deformity, decreased range of motion, paresthesias. 17:00 Skin: Negative for cellulitis, rash. 17:00 Neuro: Negative for altered mental status, headache, weakness. 17:00 All other systems are negative. Exam: 17:10 Constitutional: The patient appears in no acute distress, alert, awake, non-toxic, well cp developed, well nourished. 17:10 Head/Face: Normocephalic, atraumatic. cp 17:10 Eyes: Periorbital structures: appear normal, Conjunctiva: normal, no exudate, no injection, Sclera: no appreciated abnormality, Lids and lashes: appear normal, bilaterally. 17:10 ENT: External ear(s): are unremarkable, Nose: is normal, Mouth: Lips: moist, Oral mucosa: moist, Posterior pharynx: Airway: no evidence of obstruction, patent. 17:10 Neck: ROM/movement: is normal, is supple, without pain, no range of motions limitations, no nuchal rigidity. 17:10 Chest/axilla: Inspection: normal. 17:10 Cardiovascular: Rate: normal. 17:10 Respiratory: the patient does not display signs of respiratory distress, Respirations: normal, no use of accessory muscles, no retractions, no splinting, no tachypnea. 17:10 Abdomen/GI: Inspection: abdomen appears normal, Palpation: abdomen is soft and non-tender, in all quadrants. 17:10 Back: pain, is absent, ROM is normal. 17:10 Musculoskeletal/extremity: Perfusion: the extremity is normally perfused throughout, Sensation intact. Joints: All joints are normal except the right hip displays mild tenderness, minimal pain and no restriction with passive ROM, the right knee displays pain at rest, painful range of motion, swelling, tenderness. 17:10 Skin: cellulitis, is not appreciated, no rash present. Vital Signs: 16:34 BP 114 / 76; Pulse 70; Resp 16; Temp 98.6; Pulse Ox 100% on R/A; Weight 73.94 kg; la1 Height 5 ft. 5 in. (165.10 cm); 17:32 BP 131 / 77; Pulse 65; Resp 17; Pulse Ox 95% on R/A; rb1 18:30 BP 131 / 83; Pulse 65; Resp 16; Pulse Ox 95% on R/A; Pain 5/10; rb1 16:34 Body Mass Index 27.12 (73.94 kg, 165.10 cm) la1 MDM: 16:40 Patient medically screened. cp 17:00 Differential diagnosis: sprain, joint effusion, fracture. cp 18:24 Data reviewed: vital signs, nurses notes, radiologic studies, plain films, and as a cp result, I will discharge patient. 18:24 Test interpretation: by ED physician or midlevel provider: plain radiologic studies. cp Counseling: I had a detailed discussion with the patient and/or guardian regarding: the historical points, exam findings, and any diagnostic results supporting the discharge/admit diagnosis, radiology results, the need for outpatient follow up, for definitive care, a family practitioner, a orthopedic surgeon, to return to the emergency department if symptoms worsen or persist or if there are any questions or concerns that arise at home. Response to treatment: the patient's symptoms have markedly improved after treatment, and as a result, I will discharge patient. ED course: VSS. Pain improved with meds. Will discharge to home for continued monitoring. 09/30 16:54 Order name: XRAY Hip RIGHT 2 view; Complete Time: 18:23 cp 09/30 18:23 Interpretation: Report reviewed. cp 09/30 16:54 Order name: XRAY Knee RIGHT 3 view; Complete Time: 18:23 cp 09/30 18:23 Interpretation: Report reviewed. cp Administered Medications: 17:37 Drug: Tylenol 650 mg Route: PO; rb1 18:14 Follow up: Response: No adverse reaction; Pain is decreased rb1 17:37 Drug: Gonvick 5 mg-325 mg 1 tabs Route: PO; rb1 18:14 Follow up: Response: No adverse reaction; Pain is decreased rb1 17:38 Not Given (Patient Refused): traMADol 50 mg PO once; RASS on ADMIN: Combtv4, Very rb1 Agttd3, Agttd2, Rstlss1, AlertClm0, Drwsy-1, Lt Sdtn-2, Mod Sdtn-3, Dp Sdtn-4, UnArsble-5 17:38 Drug: Ibuprofen 800 mg Route: PO; rb1 18:14 Follow up: Response: No adverse reaction; Pain is decreased rb1 Disposition: 09/30/19 18:24 Discharged to Home. Impression: Pain in right hip, Pain in right knee. - Condition is Stable. - Discharge Instructions: Knee Pain, Hip Pain. - Prescriptions for Tramadol 50 mg Oral Tablet - take 1 tablet by ORAL route every 8 hours as needed; 20 tablet. Mobic 7.5 mg Oral Tablet - take 1 tablet by ORAL route once daily take with food; 20 tablet. - Medication Reconciliation Form, Thank You Letter, Antibiotic Education, Prescription Opioid Use form. - Follow up: Jimmy Bess MD; When: 2 - 3 days; Reason: Recheck today's complaints. - Problem is new. - Symptoms have improved. Addendum: 10/03/2019 00:43 Co-signature as Attending Physician, Leo Melendez MD. r n Signatures: Dispatcher [employer] EDMS Leo Melendez MD MD rn Josh Marley RN RN la1 Radnall Day PA PA Conchis Zabala RN RN rb1 Corrections: (The following items were deleted from the chart) 09/30 19:01 18:24 09/30/2019 18:24 Discharged to Home. Impression: Pain in right hip; Pain in right rb1 knee. Condition is Stable. Forms are Medication Reconciliation Form, Thank You Letter, Antibiotic Education, Prescription Opioid Use. Follow up: Jimmy Bess; When: 2 - 3 days; Reason: Recheck today's complaints. Problem is new. Symptoms have improved. cp
--- NOTE | 2019-09-30 18:25 | ER ---
Nurse's Notes [facility] Name: Lilo Zuleta Age: 84 yrs Sex: Female : 1935 Arrival Date: 09/30/2019 Time: 16:18 Bed 15 Private MD: Gilbert Peña Diagnosis: Pain in right hip;Pain in right knee Presentation: 09/30 16:33 Presenting complaint: Patient states: right knee and right hip pain, no known trauma, la1 pain since Tuesday. Transition of care: patient was not received from another setting of care. Onset of symptoms was September 30, 2019. Risk Assessment: Do you want to hurt yourself or someone else? Patient reports no desire to harm self or others. Initial Sepsis Screen: Does the patient meet any 2 criteria? No. Patient's initial sepsis screen is negative. Does the patient have a suspected source of infection? No. Patient's initial sepsis screen is negative. Care prior to arrival: None. 16:33 Method Of Arrival: Wheelchair la1 16:33 Acuity: HAVEN 4 la1 Historical: - Allergies: 16:33 gentamicin sulfate (PF); la1 16:33 Iodine; la1 16:33 Levofloxacin; la1 16:33 PENICILLINS; la1 - PMHx: 16:33 Hypertension; TIA; la1 - Immunization history:: Adult Immunizations up to date. - Social history:: Smoking status: Patient/guardian denies using tobacco. - Ebola Screening: : No symptoms or risks identified at this time. Screenin:40 Abuse screen: Denies threats or abuse. Nutritional screening: No deficits noted. rb1 Tuberculosis screening: No symptoms or risk factors identified. Fall Risk No fall in past 12 months (0 pts). Secondary diagnosis (15 points) impaired mobility, No IV (0 pts). Ambulatory Aid- Crutches/Cane/Walker (15 pts). Gait- Impaired (20 pts.). Mental Status- Oriented to own ability (0 pts). Total Short Fall Scale indicates High Risk Score (45 or more points). Fall prevention measures have been instituted. Side Rails Up X 2 Placed Close to Nursing Station 1:1 Attendant Assigned Frequent Obs/Assessments Occuring Family Present and informed to notify staff if the need to leave the bedside As available patient and family educated on Fall Prevention Program and Strategies. Assessment: 16:40 General: Appears in no apparent distress. comfortable, Behavior is calm, cooperative, rb1 Denies fever. Pain: Complains of pain in right knee, rigth foot, right hip Pain currently is 7 out of 10 on a pain scale. Pain began last Tuesday Aggravated by weight bearing. Neuro: Level of Consciousness is awake, alert, obeys commands, Oriented to person, place, time, situation. Cardiovascular: Capillary refill < 3 seconds is brisk in bilateral toes. Respiratory: Airway is patent Respiratory effort is even, unlabored, Respiratory pattern is regular, symmetrical. GI: No signs and/or symptoms were reported involving the gastrointestinal system. : No signs and/or symptoms were reported regarding the genitourinary system. Derm: Skin is pink, warm \T\ dry. Musculoskeletal: Range of motion: intact in all extremities. 17:40 Reassessment: Patient appears in no apparent distress at this time. No changes from rb1 previously documented assessment. Daughter at the bedside. 18:39 Reassessment: Patient appears in no apparent distress at this time. Patient and/or rb1 family updated on plan of care and expected duration. Pain level reassessed. Patient is alert, oriented x 3, equal unlabored respirations, skin warm/dry/pink. Vital Signs: 16:34 BP 114 / 76; Pulse 70; Resp 16; Temp 98.6; Pulse Ox 100% on R/A; Weight 73.94 kg; la1 Height 5 ft. 5 in. (165.10 cm); 17:32 BP 131 / 77; Pulse 65; Resp 17; Pulse Ox 95% on R/A; rb1 18:30 BP 131 / 83; Pulse 65; Resp 16; Pulse Ox 95% on R/A; Pain 5/10; rb1 16:34 Body Mass Index 27.12 (73.94 kg, 165.10 cm) la1 ED Course: 16:18 Patient arrived in ED. ag5 16:18 Gilbert Peña MD is Private Physician. ag5 16:33 Triage completed. la1 16:34 Arm band placed on left wrist. la1 16:38 Randall Day PA is PHCP. cp 16:38 Leo Melendez MD is Attending Physician. cp 16:40 Patient has correct armband on for positive identification. Bed in low position. Call rb1 light in reach. Side rails up X 1. Pulse ox on. NIBP on. Warm blanket given. Pillow given. 17:15 Conchis Givens, RN is Primary Nurse. rb1 17:32 XRAY Hip RIGHT 2 view In Process Unspecified. EDMS 17:32 XRAY Knee RIGHT 3 view In Process Unspecified. EDMS 18:23 Jimmy Bess MD is Referral Physician. cp 19:00 No provider procedures requiring assistance completed. Patient did not have IV access rb1 during this emergency room visit. Administered Medications: 17:37 Drug: Tylenol 650 mg Route: PO; rb1 18:14 Follow up: Response: No adverse reaction; Pain is decreased rb1 17:37 Drug: Ruston 5 mg-325 mg 1 tabs Route: PO; rb1 18:14 Follow up: Response: No adverse reaction; Pain is decreased rb1 17:38 Not Given (Patient Refused): traMADol 50 mg PO once; RASS on ADMIN: Combtv4, Very rb1 Agttd3, Agttd2, Rstlss1, AlertClm0, Drwsy-1, Lt Sdtn-2, Mod Sdtn-3, Dp Sdtn-4, UnArsble-5 17:38 Drug: Ibuprofen 800 mg Route: PO; rb1 18:14 Follow up: Response: No adverse reaction; Pain is decreased rb1 Outcome: 18:24 Discharge ordered by MD. cp 19:00 Discharged to home via wheelchair, with family. rb1 19:00 Condition: stable 19:00 Discharge instructions given to patient, Instructed on discharge instructions, follow up and referral plans. medication usage, Demonstrated understanding of instructions, follow-up care, medications, Prescriptions given X 2. 19:01 Patient left the ED. rb1 Signatures: Dispatcher [employer] EDMS Josh Marley RN RN la1 Randall Day PA PA cp Conchis Givens, RN RN rb1 Neeraj Mercedes ag5 Corrections: (The following items were deleted from the chart) 17:43 16:40 Pain: Complains of pain in right knee Pain currently is 7 out of 10 on a pain rb1 scale. Pain began last Tuesday Aggravated by weight bearing, rb1
[2019-09-30 21:58] VITALS: TEMP 98.6
[2019-09-30 21:59] VITALS: O2SAT 95
[2019-09-30 22:01] VITALS: BP 131/83
== END 2019-09-30 19:01 | disposition home or self-care (01) ==
LOC: ER 16:16
DX: M25.561 Pain in right knee (principal); M25.551 Pain in right hip; Z88.0 Allergy status to penicillin; Z88.3 Allergy status to other anti-infective agents; Z91.09 Other allergy status, other than to drugs and biological substances
CPT/HCPCS: 99284

== ENCOUNTER 2020-01-16 15:36 | Observation (INO) | payer MEDICARE, OTHER ==
[2020-01-16] MEDS ORDERED: NA CHLORIDE 0.9% 500 ML ONE (16:40)
[2020-01-16 16:57] LABS: Urine Blood NEGATIVE (NEG); Urine Glucose NEGATIVE (NEG); Urine Protein NEGATIVE (NEG); Urine Specific Gravity 1.015 (1.005-1.030)
--- NOTE | 2020-01-16 16:57 | RAD REPORT ---
EXAM DESCRIPTION: CT - Head Brain Wo Cont - 01/16/2020 4:28 pm CLINICAL HISTORY: Alteration of awareness/confusion COMPARISON: 2018 TECHNIQUE: Computed axial tomography of the head was obtained. IV contrast was not requested. All CT scans are performed using dose optimization technique as appropriate and may include automated exposure control or mA/KV adjustment according to patient size. FINDINGS: An intracranial bleed is not seen . The ventricles are normal in caliber. No extra-axial fluid collection is noted. Moderate low-density areas within periventricular, deep and subcortical white matter bilaterally. The re has been progression in white matter low-density areas within the left parietal lobe. . Fluid within the sinuses/ mastoids is not seen. IMPRESSION: Moderate low-density areas within periventricular, deep and subcortical white matter lik pravin ischemic changes secondary to small vessel disease Progression in low-density area within the white matter left parietal lobe. This may represent progre ssion a ischemia, a demyelinating process or small infarction. MRI the brain with contrast recommende d for further evaluation
[2020-01-16 17:03] LABS: Absolute Lymphocytes (CBC) 1.6 K/uL (0.7-4.9); Basophils % 0.8 % (0-1.3); Hematocrit 42.4 % (36.0-45.0); MPV 9.8 fL (7.6-11.3); RBC Red Blood Cell Count 4.63 M/uL (3.86-4.86)
[2020-01-16 17:26] LABS: ALT/SGPT 18 U/L (12-78); AST/SGOT 14 U/L (15-37); Albumin 3.4 g/dL (3.4-5.0); Alkaline Phosphatase 59 U/L (45-117); BUN Blood Urea Nitrogen 24 mg/dL (7-18); Bicarbonate 31 mmol/L (21-32); Bilirubin Direct 0.1 mg/dL (0-0.2); Bilirubin Total 0.4 mg/dL (0.2-1.0); Glucose Level 122 mg/dL (74-106); Lipase 114 U/L (73-393); Protein, Total 6.8 g/dL (6.4-8.2); Sodium Level 141 mmol/L (136-145); Troponin (Emerg Dept Use Only) < 0.02 ng/mL (0.0-0.045)
[2020-01-16 17:40] LABS: Urine Bacteria 20-50 /HPF (<20); Urine RBC <5 /HPF (NONE SEEN); Urine Urothelial Cells <5 /HPF (NONE SEEN)
--- NOTE | 2020-01-16 17:47 | ER ---
Nurse's Notes [facility] Name: Lilo Zuleta Age: 84 yrs Sex: Female : 1935 Arrival Date: 01/16/2020 Time: 15:41 Bed 7 Private MD: Gilbert Peña Diagnosis: Altered mental status, unspecified;Dehydration Presentation: 01/16 15:47 Presenting complaint: Patient states: Pt. reports that the home health nurse said her rb1 blood sugar was high and she needed to be seen. Pt. went to Dr. Peña and he sent her here. Transition of care: patient was not received from another setting of care. Onset of symptoms was January 15, 2020. Risk Assessment: Do you want to hurt yourself or someone else? Patient reports no desire to harm self or others. Initial Sepsis Screen: Does the patient meet any 2 criteria? No. Patient's initial sepsis screen is negative. Does the patient have a suspected source of infection? No. Patient's initial sepsis screen is negative. Care prior to arrival: None. 15:47 Method Of Arrival: Wheelchair rb1 15:47 Acuity: HAVEN 3 rb1 Triage Assessment: 15:47 General: Appears in no apparent distress. comfortable, Behavior is calm, cooperative, rb1 Denies fever, Pt stated, "I feel heavy headed. I just don't feel right. My body feels heavy, like I can't maneuver.". General: Home health nurse checked her blood sugar and said that it was elevated. Pt. went to Dr. Peña and he sent her here.. Pain: Complains of pain in headache Pain currently is 2 out of 10 on a pain scale. Pain began 1 day ago. Neuro: Level of Consciousness is awake, alert, obeys commands, Oriented to person, place, time, situation. Neuro: Reports headache frontal area. Cardiovascular: Capillary refill < 3 seconds is brisk in bilateral fingers. Respiratory: Airway is patent Respiratory effort is even, unlabored, Respiratory pattern is regular, symmetrical, Denies cough, shortness of breath. GI: Reports diarrhea. GI: Reports nausea. : No signs and/or symptoms were reported regarding the genitourinary system. Derm: Skin is pink, warm \\T\\ dry. Musculoskeletal: Range of motion: intact in all extremities. Historical: - Allergies: 15:47 gentamicin sulfate (PF); rb1 15:47 Iodine; rb1 15:47 Levofloxacin; rb1 15:47 PENICILLINS; rb1 - Home Meds: 15:47 Cipro 500 mg Oral tab 1 tab every 12 hours [Active]; digoxin 125 mcg Oral tab 1 tab rb1 once daily [Active]; Eliquis 5 mg Oral tab 1 tab 2 times per day [Active]; levetiracetam 50 mg Oral [Active]; MagOx 40 mg Oral [Active]; metoprolol tartrate 25 mg Oral tab 1 tab once daily [Active]; mupirocin 2 % Topical oint 3 times per day [Active]; pravastatin 40 mg Oral tab 1 tab once daily [Active]; thyroid (pork) 2 gm Oral [Active]; - PMHx: 15:47 Hypertension; TIA; rb1 - Immunization history:: Adult Immunizations up to date. - Coronavirus screen:: The patient has NOT traveled to [place] in the past 14 days. The patient has NOT had contact with known/suspected case of Coronavirus?. - Social history:: Smoking status: Patient/guardian denies using. - Family history:: not pertinent. - Ebola Screening: : Patient negative for fever greater than or equal to 101.5 degrees Fahrenheit, and additional compatible Ebola Virus Disease symptoms. - Hospitalizations: : No recent hospitalization is reported. Screenin:47 Abuse screen: Denies threats or abuse. Nutritional screening: No deficits noted. rb1 Tuberculosis screening: No symptoms or risk factors identified. Fall Risk None identified. Assessment: 15:47 General: See triage assessment. rb1 16:47 Reassessment: Patient appears in no apparent distress at this time. Patient states rb1 feeling better. 17:45 Reassessment: Patient appears in no apparent distress at this time. Patient and/or rb1 family updated on plan of care and expected duration. Pain level reassessed. Patient is alert, oriented x 3, equal unlabored respirations, skin warm/dry/pink. Family at the bedside. 18:40 Reassessment: Patient appears in no apparent distress at this time. No changes from rb1 previously documented assessment. Patient states feeling better. 19:45 General: Appears in no apparent distress. Pain: Denies pain. Neuro: Level of ea Consciousness is awake, alert, obeys commands, Oriented to person, place, time, situation. Cardiovascular: Patient's skin is warm and dry. Respiratory: Airway is patent Respiratory effort is even, unlabored, Respiratory pattern is regular, symmetrical. Derm: Skin is fragile, is thin, Skin is pink, warm \\T\\ dry. 20:44 Reassessment: Patient and/or family updated on plan of care and expected duration. Pain ea level reassessed. Patient is alert, oriented x 3, equal unlabored respirations, skin warm/dry/pink. Pt alert and oriented to self and place, denies pain at this time. Respirations even and unlabored. Pt admitted to fourth floor, left ED via wheelchair per tech, pt tolerating well. Pt accompanied by daughter. Vital Signs: 15:47 BP 157 / 95; Pulse 89; Resp 19; Temp 97.7(O); Pulse Ox 95% on R/A; Weight 75.3 kg (R); rb1 Height 5 ft. 5 in. (165.10 cm) (R); Pain 2/10; 16:47 BP 154 / 82; Pulse 78; Resp 17; Pulse Ox 96% on R/A; rb1 17:45 BP 146 / 80; Pulse 78; Resp 21; Pulse Ox 97% on R/A; rb1 18:39 BP 144 / 90; Pulse 73; Resp 24; Pulse Ox 94% on R/A; rb1 19:46 BP 171 / 84; Pulse 90; Resp 18; Pulse Ox 95% ; ea 15:47 Body Mass Index 27.62 (75.30 kg, 165.10 cm) rb1 ED Course: 15:41 Patient arrived in ED. mr 15:42 Gilbert Peña MD is Private Physician. mr 15:47 Arm band placed on right wrist. rb1 15:47 Patient has correct armband on for positive identification. Placed in gown. Bed in low rb1 position. Call light in reach. Side rails up X 1. ekg monitor tech on. Pulse ox on. NIBP on. Warm blanket given. 15:49 Conchis Givens, ANASTASIIA is Primary Nurse. rb1 15:49 Leo Melendez MD is Attending Physician. rn 15:53 Conchis Givens, RN is Primary Nurse. rb1 16:00 Urine collected: clean catch specimen, clear, dayron colored. jp3 16:18 Triage completed. rb1 16:37 CT Head Brain wo Cont In Process Unspecified. EDMS 16:45 Inserted saline lock: 22 gauge in right antecubital area, using aseptic technique. rb1 Blood collected. 17:45 Gilbert Peña MD is Hospitalizing Provider. rn 18:36 IV discontinued, intact, bleeding controlled, No redness/swelling at site. Pressure rb1 dressing applied, IV would not flush. 19:39 No provider procedures requiring assistance completed. Inserted saline lock: 22 gauge ea in right antecubital area, using aseptic technique. Administered Medications: 16:47 Drug: NS 0.9% 500 ml Route: IV; Rate: bolus; Site: right antecubital; rb1 19:43 Drug: NS 0.9% 250 ml Route: IV; Rate: bolus; Site: right antecubital; ea 20:45 Follow up: IV Status: Completed infusion; IV Intake: 250ml ea Point of Care Testing: Blood Glucose: 16:00 Blood Glucose: 127 mg/dL; rb1 Ranges: Intake: 20:45 IV: 250ml; Total: 250ml. ea Outcome: 17:46 Decision to Hospitalize by Provider. rn 19:40 Instructed on the need for admit, Demonstrated understanding of instructions. ea 20:30 Admitted to Med/surg accompanied by tech, room 431, Report called to Maddie LAURENT ea 20:30 Condition: stable 20:45 Patient left the ED. ea Signatures: Dispatcher [employer] Sylvia Johnson Roman, MD MD rn Barber, Rebecca, RN RN Martha Scales RN RN Dameon King jp3
--- NOTE | 2020-01-16 17:47 | EDPHYS ---
Physician Documentation [facility] Name: Lilo Zuleta Age: 84 yrs Sex: Female : 1935 Arrival Date: 01/16/2020 Time: 15:41 Bed 7 Private MD: Gilbert Peña ED Physician Leo Melendez HPI: 01/16 16:23 This 84 yrs old Female presents to ER via Wheelchair with complaints of High rn Blood Sugar. 16:23 Reports doesn't feel right, began yesterday, can't describe exactly what doesn't feel rn right, states "whole body feels heavy". No recent head injury. Reports nausea but no vomiting/abd pain. + diarrhea. No fever. NO chest pain/cough. . 16:25 Onset: The symptoms/episode began/occurred yesterday. Severity of symptoms: At their rn worst the symptoms were mild in the emergency department the symptoms are unchanged. The patient has experienced a previous episode. The patient has not recently seen a physician. Historical: - Allergies: 15:47 gentamicin sulfate (PF); rb1 15:47 Iodine; rb1 15:47 Levofloxacin; rb1 15:47 PENICILLINS; rb1 - Home Meds: 15:47 Cipro 500 mg Oral tab 1 tab every 12 hours [Active]; digoxin 125 mcg Oral tab 1 tab rb1 once daily [Active]; Eliquis 5 mg Oral tab 1 tab 2 times per day [Active]; levetiracetam 50 mg Oral [Active]; MagOx 40 mg Oral [Active]; metoprolol tartrate 25 mg Oral tab 1 tab once daily [Active]; mupirocin 2 % Topical oint 3 times per day [Active]; pravastatin 40 mg Oral tab 1 tab once daily [Active]; thyroid (pork) 2 gm Oral [Active]; - PMHx: 15:47 Hypertension; TIA; rb1 - Immunization history:: Adult Immunizations up to date. - Coronavirus screen:: The patient has NOT traveled to [place] in the past 14 days. The patient has NOT had contact with known/suspected case of Coronavirus?. - Social history:: Smoking status: Patient/guardian denies using. - Family history:: not pertinent. - Ebola Screening: : Patient negative for fever greater than or equal to 101.5 degrees Fahrenheit, and additional compatible Ebola Virus Disease symptoms. - Hospitalizations: : No recent hospitalization is reported. ROS: 16:25 Constitutional: Negative for fever, chills, and weight loss, Eyes: Negative for injury, rn pain, redness, and discharge, Neck: Negative for injury, pain, and swelling, Cardiovascular: Negative for chest pain, palpitations, and edema, Respiratory: Negative for shortness of breath, cough, wheezing, and pleuritic chest pain, Abdomen/GI: Negative for abdominal pain, vomiting, and constipation, MS/Extremity: Negative for injury and deformity, Skin: Negative for injury, rash, and discoloration, Neuro: Negative for headache, numbness, tingling, and seizure. Exam: 16:25 Constitutional: This is a well developed, well nourished patient who is awake, alert, rn and in no acute distress. Seems anxious Head/Face: Normocephalic, atraumatic. Eyes: Right eye with evident previous surgery, otherwise normal sclera and periorbital regions without swelling ENT: dry MM Cardiovascular: Regular rate and rhythm. No pulse deficits. Respiratory: No increased work of breathing, no retractions or nasal flaring. Abdomen/GI: soft, non-tender Skin: Warm, dry MS/ Extremity: Pulses equal, no cyanosis. Neurovascular intact. Full, normal range of motion. Equal circumference. Neuro: Awake and alert, GCS 15, oriented to person, place, time, and situation. Cranial nerves II-XII grossly intact. Motor strength 5/5 bilateral upper ext without drift, bilateral lower ext 4/5 strength. Sensory grossly intact. Vital Signs: 15:47 BP 157 / 95; Pulse 89; Resp 19; Temp 97.7(O); Pulse Ox 95% on R/A; Weight 75.3 kg (R); rb1 Height 5 ft. 5 in. (165.10 cm) (R); Pain 2/10; 16:47 BP 154 / 82; Pulse 78; Resp 17; Pulse Ox 96% on R/A; rb1 17:45 BP 146 / 80; Pulse 78; Resp 21; Pulse Ox 97% on R/A; rb1 18:39 BP 144 / 90; Pulse 73; Resp 24; Pulse Ox 94% on R/A; rb1 19:46 BP 171 / 84; Pulse 90; Resp 18; Pulse Ox 95% ; ea 15:47 Body Mass Index 27.62 (75.30 kg, 165.10 cm) rb1 MDM: 15:49 Patient medically screened. rn 17:44 Differential Diagnosis TIA, dehydration, UTI, CVA, electrolyte disturbance. Data rn reviewed: vital signs, nurses notes, lab test result(s), EKG, radiologic studies, CT scan, and as a result, I will admit patient. Counseling: I had a detailed discussion with the patient and/or guardian regarding: the historical points, exam findings, and any diagnostic results supporting the discharge/admit diagnosis, lab results, radiology results, the need for further work-up and treatment in the hospital. Response to treatment: the patient's symptoms have mildly improved after treatment, and as a result, I will admit patient. Admission orders: after a detailed discussion of the patient's condition and case, the admit orders are written by me. 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 Peña, will observe overnight and get MRI brain in AM to rule out small changes. . 01/16 16:03 Order name: Basic Metabolic Panel; Complete Time: 17:29 rn 01/16 16:03 Order name: CBC with Diff; Complete Time: 17:29 rn 01/16 16:03 Order name: Hepatic Function; Complete Time: 17:29 rn 01/16 16:03 Order name: Lipase; Complete Time: 17:29 rn 01/16 16:03 Order name: Troponin (emerg Dept Use Only); Complete Time: 17:29 rn 01/16 16:04 Order name: Urine Dipstick--Ancillary (enter results); Complete Time: 17:04 bd 01/16 16:03 Order name: CT Head Brain wo Cont; Complete Time: 17:17 rn 01/16 16:04 Order name: Urine Microscopic Only; Complete Time: 17:42 rn 01/16 16:05 Order name: Flu; Complete Time: 17:25 rn 01/16 16:21 Order name: Glucose, Ancillary Testing; Complete Time: 16:24 EDMS 01/16 16:29 Order name: Digoxin; Complete Time: 17:42 rn 01/16 16:45 Order name: TSH rn 01/16 16:45 Order name: T4 Free rn 01/16 17:49 Order name: Urine Culture EDFL 01/16 16:03 Order name: EKG; Complete Time: 16:05 rn 01/16 16:03 Order name: Cardiac monitoring; Complete Time: 17:17 rn 01/16 16:03 Order name: EKG - Nurse/Tech; Complete Time: 17:17 rn 01/16 16:03 Order name: IV Saline Lock; Complete Time: 17:17 rn 01/16 16:03 Order name: Labs collected and sent; Complete Time: 17: rn 01/16 16:03 Order name: NPO; Complete Time: 17: rn 01/16 16:03 Order name: O2 Per Protocol; Complete Time: 17: rn 01/16 16:03 Order name: O2 Sat Monitoring; Complete Time: 17: rn 01/16 16:03 Order name: Urine Dipstick-Ancillary (obtain specimen); Complete Time: 16:23 rn 01/16 16:04 Order name: Glucose Level; Complete Time: 16:20 rn Administered Medications: 16:47 Drug: NS 0.9% 500 ml Route: IV; Rate: bolus; Site: right antecubital; rb1 19:43 Drug: NS 0.9% 250 ml Route: IV; Rate: bolus; Site: right antecubital; ea 20:45 Follow up: IV Status: Completed infusion; IV Intake: 250ml ea Point of Care Testing: Blood Glucose: 16:00 Blood Glucose: 127 mg/dL; rb1 Ranges: Critical Glucose Levels:Adult <50 mg/dl or >400 mg/dl <40 mg/dl or >180 mg/dl Disposition: 01/16/20 17:46 Hospitalization ordered by Gilbert Peña for Observation. Preliminary diagnosis are Altered mental status, unspecified, Dehydration. - Bed requested for Telemetry/MedSurg (observation). - Status is Observation. ea - Condition is Stable. - Problem is new. - Symptoms have improved. Signatures: Dispatcher [employer] EDFL Deirdre Egan Roman, MD MD rn Barber, Rebecca, RN Martha Leary RN RN ea Corrections: (The following items were deleted from the chart) 18:49 17:46 Hospitalization Ordered by Gilbert Peña MD for Observation. Preliminary diagnosis bd is Altered mental status, unspecified; Dehydration. Bed requested for Telemetry/MedSurg (observation). Status is Observation. Condition is Stable. Problem is new. Symptoms have improved. rn 20:45 18:49 01/16/2020 17:46 Hospitalization Ordered by Gilbert Peña MD for Observation. ea Preliminary diagnosis is Altered mental status, unspecified; Dehydration. Bed requested for Telemetry/MedSurg (observation). Status is Observation. Condition is Stable. Problem is new. Symptoms have improved. bd
[2020-01-16] MEDS ORDERED: NA CHLORIDE 0.9% 250 ML ONE (18:18)
[2020-01-16 18:25] LABS: Thyroid Stimulating Hormone 0.594 uIU/mL (0.360-3.740)
[2020-01-16] MEDS ORDERED: NA CHLORIDE 0.9% 1,000 ML IV SCH (20:53)
[2020-01-16] MEDS ORDERED: ONDANSETRON 4 MG/2 ML VIAL IV PRN (20:53)
[2020-01-16 21:05] VITALS: BMI 27.3
--- NOTE | 2020-01-17 00:43 | HP ---
Date of Admission: 01/16/2020 Chief Complaint: Not feeling good. History Of Present Illness: An 84-year-old very pleasant female patient, who came into office with h er son today with very vague complaints of not feeling good as of yesterday. The patient feels very tired, weak, and sleepy. She denies any other specific complaints. She has chronic wound of her lef t leg [facility] which [facility] and that has not changed in many, many yea rs. From time to time, she has infection in form of cellulitis of the left leg, but she has not had any such problem lately. She denies any fall, head injury. No cough, cold, congestion. No abdomina l pain, nausea, vomiting. No urinary complaints. She was brought into office by her son and after I talked to her, examined her, she was advised to go to the emergency room and I did call and discuss details with the ER physician, requested evaluation and after her evaluation completed, test result w as discussed with ER physician and decision was made to admit her to hospital for observation. Medications: List reviewed. Review of Systems: Constitutional: As mentioned above. All other systems reviewed and negative. Allergies: TO IODINE, LEVAQUIN CAUSING RASH, PENICILLIN CAUSING RASH, SILVER SULFADIAZINE CAUSING SK IN IRRITATION. Past Surgical History: Right foot hammertoe surgery, thyroid cancer in 1969, and had thyroidectomy f or that, and cataract surgery in the past. Family History: Significant for stroke, hypertension, and coronary artery disease. Social History: Negative for smoking and alcohol use. Past Medical History: Significant for TIA, atrial fibrillation, type 2 diabetes mellitus, hypomagnes emia, depression, hypertension, hyperlipidemia, hypothyroidism, and long-term anticoagulation. Physical Examination: Vital Signs: Blood pressure 157/95, respiratory rate 19, pulse 89, temperature 97, oxygen saturation 95%, weight 75.3 kg, height 5 feet 5 inches. General: The patient appears weaker than normal, appears tired, not in any respiratory distress. HEENT: Head atraumatic, normocephalic. Conjunctivae nonerythematous. Sclerae white. Mouth, no thr ush or edema noted. Ears/Nose, no mass, lesion, discharge noted. Neck: Supple. No JVD, lymph nodes, bruit, thyromegaly noted. Lungs: Bilateral good equal air entry. Clear to auscultation. No rhonchi. No rales. Heart: Normal heart sounds, no murmur or gallop. Abdomen: Soft, bowel sounds normal. No guarding, rigidity, tenderness, mass, hepatosplenomegaly, dis tention, or bruit noted. Extremities: No leg edema. No calf tenderness. Skin: No rash, ulcer, cellulitis. Lymphatics: No lymph node enlargement in neck, supraclavicular, infraclavicular region. Neuro: No focal neurological deficit. Chest: Unremarkable. External Genitalia: Deferred. Rectal: Deferred. Laboratory Data: White count 6.9, hemoglobin 13.9, platelets 232. Sodium 141, potassium 4, chloride 104, bicarb 31, BUN 24, creatinine 0.87, glucose 122. Liver function tests unremarkable. Troponin less than 0.02. TSH 0.594. Lipase 114 . Digoxin level 0.70. Urinalysis; 20-50 bacteria, otherwise negative. CAT scan of the brain shows moderate low density area within the periventricular region a nd deep and subcortical white matter likely due to chronic ischemic changes due to small vessel disea se, progression in low density area within white matter of left parietal lobe. Impression: 1.Volume depletion. 2.Atrial fibrillation, chronic. 3.Type 2 diabetes mellitus. 4.Hypertension. 5.Hyperlipidemia. 6.Depression. 7.Osteoarthritis, multiple sites. 8.Hypothyroidism. 9.Chronic anticoagulation therapy. Plan: We will go ahead and admit the patient to hospital for observation. We will get a chest x-ray done. Continue home medications per order. Monitor blood pressure and if necessary adjust her meto prolol dose. Continue anticoagulation therapy, IV fluid, which was started in emergency room and she started to feel better after IV fluid was given to her. I will see her tomorrow morning for followu p. Possible discharge to go home tomorrow depending on her condition. We will plan to get an MRI of the brain tomorrow. LOVE/MODL Voice ID: [id number]
[2020-01-17 04:08] LABS: Absolute Lymphocytes (CBC) 1.8 K/uL (0.7-4.9); Basophils % 0.9 % (0-1.3); Hematocrit 38.4 % (36.0-45.0); Lymphocytes % 21.2 % (15.3-44.8); MPV 10.2 fL (7.6-11.3); RBC Red Blood Cell Count 4.19 M/uL (3.86-4.86)
[2020-01-17 04:34] LABS: Potassium 4.1 mmol/L (3.5-5.1)
--- NOTE | 2020-01-17 07:20 | EKG ---
Test Date: 2020-01-16 Test Time: 17:08:52 Disposal Plant Operator: MATEO MEASUREMENT RESULTS: Intervals: Rate: 66 ND: QRSD: 82 QT: 396 QTc: 415 [place]: P: ND: QRS: 0 T: 12 INTERPRETIVE STATEMENTS: Atrial fibrillation with premature ventricular or aberrantly conducted complexes Septal infarct, age undetermined Abnormal ECG Compared to ECG 01/04/2018 17:03:53 Ventricular premature complex(es) now present Myocardial infarct finding now present T-wave abnormality no longer present Electronically Signed On 01-17-20 07:19:16 EMERGENCY MEDICAL TECHNICIAN/DRIVER by Rafael Caldera
[2020-01-17] MEDS ORDERED: THYROID 30 MG TAB PO SCH (08:00)
[2020-01-17 08:31] VITALS: O2SAT 93
[2020-01-17] MEDS ORDERED: LEVETIRACETAM 500 MG PO SCH (09:00)
[2020-01-17] MEDS ORDERED: APIXABAN 5 MG TABLET PO SCH (09:00)
[2020-01-17] MEDS ORDERED: METOPROLOL TAR 25 MG TAB PO SCH (09:00)
[2020-01-17] MEDS ORDERED: MAGNESIUM OXIDE 400 MG TAB PO SCH (09:00)
[2020-01-17] MEDS ORDERED: DIGOXIN 0.125 MG TABLET PO SCH (09:00)
[2020-01-17 09:05] VITALS: BP 140/90
--- NOTE | 2020-01-17 09:48 | RAD REPORT ---
EXAM DESCRIPTION: MRI - Brain W/Wo Cont - 01/17/2020 9:35 am CLINICAL HISTORY: DIZZINESS, NEAR SYNCOPE, AMS COMPARISON: MRA Head Wo Cont dated 01/17/2020; Head Brain Wo Cont dated 01/16/2020; Brain Wo Cont date d 01/04/2018 TECHNIQUE: Sagittal and axial T1-weighted images were obtained. Axial PD/heavily T2-weighted and T2- FLAIR images were obtained along with axial DWI/ADC mapping sequences. Coronal heavily T2 weighted s equence obtained. Axial and coronal post-contrast T1-weighted images were also obtained. A 16 ml Mul tihance contrast following utilized. FINDINGS: No intracranial hemorrhage, mass or acute infarction. There is no edema or shift of midli ne structures. No extra-axial fluid collections. Elizabeth-matter/white matter junction is preserved. Sig nal voids are seen as a normal finding in the major intracranial vessels. Patient has mild for age at rophy matching comparison study. Advanced chronic ischemic change present in the cerebral white matte r and brainstem also similar to comparison. Ventricles are in proportion to the volume loss. 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 Post-contrast images show normal enhancement. No dural thickening. Mastoid air cells and paranasal sinuses are clear. No globe or orbital content acute finding. No sella or supra sella abnormality. IMPRESSION: No acute infarction changes. No mass, hemorrhage or other acute intracranial finding. Patient atrophy is mild. Advanced chronic ischemic changes are present. These are both stable from 2017 imaging.
--- NOTE | 2020-01-17 09:50 | RAD REPORT ---
EXAM DESCRIPTION: MRI - MRA Head Wo Cont - 01/17/2020 9:35 am CLINICAL HISTORY: Dizziness, syncope, AMS COMPARISON: None. TECHNIQUE: Axial and coronal 3D [id number] image acquisition was performed. 3D rotational images were generated with source and reconstruction images reviewed. Horizontal and vertical axis rotation al views generated using MIP protocol. FINDINGS: Vertebrobasilar mild tortuosity noted with no stenosis dissection or acute finding. Modera te severity atherosclerotic change seen with multiple areas of moderate severity luminal narrowing in the each posterior cerebral artery. Significant luminal narrowing is present in the distal aspect of the right anterior cerebral artery A1 segment. Proximal middle cerebral artery show no significant d isease. Anterior communicating artery is present. Moderate atherosclerotic change present in the haresh pheral branches of each middle cerebral artery distribution. No aneurysm or vascular malformation. IMPRESSION: Moderate severity atherosclerotic change in the intracranial circulation. Severity of di sease is compatible with the extent of chronic ischemic change.
--- NOTE | 2020-01-17 09:55 | RAD REPORT ---
EXAM DESCRIPTION: MRI - MRA Neck W/Wo Cont - 01/17/2020 9:35 am CLINICAL HISTORY: Dizziness, syncope, transient alteration of awareness TECHNIQUE: MR angiography of the cervical vasculature performed. Coronal imaging plane acquisition u tilized. A 16 MultiHance contrast volume was utilized. Coronal reformatted images were generated and reviewed. Vertical axis 3D rotational projections obtained using maximum intensity projection protoco l. FINDINGS: Aortic arch is 3 vessel configuration. No origins stenoses identified. Both vertebral rigoberto augustina are tortuous with the origins mildly narrowed. Vertebral arteries are codominant. Right common c arotid artery is quite tortuous. Mild tortuosity of the left common carotid artery. No carotid artery stenosis or dissection. No significant atherosclerotic change. No aneurysm or vascular malformation. IMPRESSION: No stenosis, dissection or significant cervical vascular finding.
--- NOTE | 2020-01-17 10:09 | RAD REPORT ---
EXAM DESCRIPTION: RAD - Chest Pa And Lat (2 Views) - 01/17/2020 9:42 am CLINICAL HISTORY: fatigue COMPARISON: Chest Pa And Lat (2 Views) dated 01/04/2019; CT ABDOMEN PELVIS WO CONTRAST dated 06/13/2015 TECHNIQUE: Frontal and lateral views of the chest were obtained. FINDINGS: The lungs are clear of a peripheral mass or consolidation. Chronic interstitial lung dise ase is present. Pattern is not substantially different from comparison. Heart size is upper normal bu t stable. Vasculature stable as well. No pleural effusion or pneumothorax seen. Degenerative bony ch anges are present with prominent scoliotic curvature in the upper thoracic spine. Aortic tortuosity n oted. Aortic calcifications are seen. IMPRESSION: No focal mass or consolidation. Patient has prominent chronic interstitial lung disease present. This is similar to comparison. Sever ity could mask early interstitial edema or infiltrate.
[2020-01-17 11:51] VITALS: TEMP 97.1
--- NOTE | 2020-01-19 02:20 | DS ---
Date of Discharge: 01/17/2020 Disposition: Patient was discharged to go home. Physical Examination: HEENT: Unremarkable. Lungs: Clear to auscultation. Heart: Heart sounds normal. Abdomen: Soft, bowel sounds normal. No guarding, rigidity, tenderness, or distention. Extremities: No leg edema. Hospital Course: An 84-year-old female patient admitted to the hospital after she came into office a nd was sent to emergency room with vague complaints of not feeling good. Please see dictated H and P for more information. Patient was admitted to the hospital with volume depletion. She was given IV fluid and started to feel better in the emergency room after IV fluid was started. Her blood work w as unremarkable with white count 6.9, hemoglobin 13.9, platelets 232, sodium 141, potassium 4, chlori de 104, bicarb 31, BUN 24, and creatinine 0.87 with glucose 122. Liver function tests were unremarka ble. CAT scan of the brain shows moderate low intensity area. Please see report for details. After patient was admitted to the hospital. IV fluid continued. Home medications were continued. Today, we did obtain an MRI of the brain. Results reviewed and a chest x-ray. There was no acute intracra nial or intrathoracic changes and the patient was discharged to go home in stable condition with inst ruction to continue all prior home medications and follow up at my office next week. Final Diagnoses: 1.Volume depletion. 2.Atrial fibrillation, chronic. 3.Type 2 diabetes mellitus. 4.Hypertension. 5.Hyperlipidemia. 6.Depression. 7.Osteoarthritis, multiple sites. 8.Hypothyroidism. 9.Chronic anticoagulation therapy. LOVE/MODL Voice ID: [id number] Report ID: [id number]
== END 2020-01-17 13:15 | disposition home health service (06) ==
LOC: ER 15:36 → ERHOLD 17:48 → 4TH 20:27
PROVIDERS: ADMIT Internal Medicine; ATTEND Internal Medicine
DX: E86.9 Volume depletion, unspecified (principal); I48.20 Chronic atrial fibrillation, unspecified; E11.9 Type 2 diabetes mellitus without complications; I10 Essential (primary) hypertension; E78.5 Hyperlipidemia, unspecified; F32.9 Major depressive disorder, single episode, unspecified; M15.9 Polyosteoarthritis, unspecified; E03.9 Hypothyroidism, unspecified; Z79.01 Long term (current) use of anticoagulants
CPT/HCPCS: 93005; 87088; 85025 ×2; 87086; 80048 ×2; 36415; 80162; 82947; 80076; 84443; 87077; 87186; 84484; 84439; 83690; 87804 ×2; 70450; 71046; 70553; 70544; 70549; 96360; 99285; A9577; J7030 ×2; J7040; G0378 ×3; 81003; 81015; 96365

== ENCOUNTER 2021-01-15 11:49 | Observation (INO) | payer OTHER ==
--- NOTE | 2021-01-15 14:22 | RAD REPORT ---
EXAM DESCRIPTION: CT - [id number] - 01/15/2021 2:07 pm CLINICAL HISTORY: Trauma, head and neck injury. PAIN COMPARISON: No comparisons TECHNIQUE: Axial 5 mm thick images of the head were obtained. Axial 2 mm thick images of the cervical spine were obtained with sagittal and coronal reconstruction images generated and reviewed. All CT scans are performed using dose optimization technique as appropriate and may include automated exposure control or mA/KV adjustment according to patient size. FINDINGS: CT HEAD WITHOUT CONTRAST: No acute hemorrhage, hydrocephalus or extra-axial collection is identified.Mild generalized brain atr ophy is present with moderate periventricular and deep white matter chronic microvascular ischemic ch anges.No areas of brain edema or midline shift. The paranasal sinuses and mastoids are clear.The calvarium is intact. CT CERVICAL SPINE WITHOUT CONTRAST: No fracture or subluxation.No prevertebral soft tissues swelling is identified. IMPRESSION: No acute intracranial or cervical spine findings. Moderate cervical degenerative spondylosis.
--- NOTE | 2021-01-15 14:38 | RAD REPORT ---
EXAM DESCRIPTION: RAD - Chest Single View - 01/15/2021 2:20 pm CLINICAL HISTORY: COUGH Chest pain. COMPARISON: Chest Pa And Lat (2 Views) dated 01/17/2020; Chest Pa And Lat (2 Views) dated 01/04/2019; C hest Pa And Lat (2 Views) dated 05/23/2018; Chest Single View dated 01/04/2018 FINDINGS: Portable technique limits examination quality. The lungs are grossly clear. The heart is moderately enlarged in size. No displaced fractures. IMPRESSION: Moderate cardiomegaly.
[2021-01-15 15:09] LABS: Absolute Lymphocytes (CBC) 1.8 K/uL (0.7-4.9); Basophils % 0.8 % (0-1.3); MPV 10.1 fL (7.6-11.3); RBC Red Blood Cell Count 5.16 M/uL (3.86-4.86)
[2021-01-15] MEDS ORDERED: NA CHLORIDE 0.9% 1,000 ML ONE (15:09)
[2021-01-15 15:10] LABS: Albumin 3.6 g/dL (3.4-5.0); Bilirubin Direct 0.1 mg/dL (0-0.2); Bilirubin Total 0.5 mg/dL (0.2-1.0); Magnesium 2.5 mg/dL (1.8-2.4); Potassium 4.1 mmol/L (3.5-5.1); Protein, Total 7.2 g/dL (6.4-8.2); Protime INR 1.58; Troponin (Emerg Dept Use Only) 0.02 ng/mL (0.0-0.045)
[2021-01-15] MEDS ORDERED: NA CHLORIDE 0.9% 500 ML ONE (15:10)
[2021-01-15] MEDS ORDERED: SILVER SULFADIAZINE 1% 25 GM TOP ONE (15:10)
--- NOTE | 2021-01-15 16:00 | ER ---
Nurse's Notes [facility] Name: Lilo Zuleta Age: 85 yrs Sex: Female : 1935 Arrival Date: 01/15/2021 Time: 11:51 Bed 5 Private MD: Diagnosis: Repeated falls;Dizziness and giddiness;Atrial fibrillation and flutter;Cellulitis and acute lymphangitis of other parts of limb-LEFT LOWER EXTREMITY Presentation: 01/15 11:58 Chief complaint: Patient states: Dizziness since Tuesday. Fell yesterday. Abrasion to ll1 head that bleed a little last night. +blood thinners, eloquis. Coronavirus screen: Client denies travel out of the [place] in the last 14 days. At this time, the client does not indicate any symptoms associated with coronavirus-19. Ebola Screen: Patient denies travel to an Ebola-affected area in the 21 days before illness onset. Initial Sepsis Screen: Does the patient meet any 2 criteria? No. Patient's initial sepsis screen is negative. Does the patient have a suspected source of infection? Yes: Skin breakdown/wound. Risk Assessment: Do you want to hurt yourself or someone else? Patient reports no desire to harm self or others. Onset of symptoms was January 12, 2021. 11:58 Method Of Arrival: Wheelchair ll1 11:58 Acuity: HAVEN 3 ll1 Historical: - Allergies: 12:01 gentamicin sulfate (PF); ll1 12:01 Iodine; ll1 12:01 Levofloxacin; ll1 12:01 PENICILLINS; ll1 - Home Meds: 14:57 digoxin 125 mcg Oral tab 1 tab once daily [Active]; Eliquis 5 mg Oral tab 1 tab 2 times hb per day [Active]; levetiracetam 50 mg Oral [Active]; MagOx 40 mg Oral [Active]; metoprolol tartrate 25 mg Oral tab 1 tab once daily [Active]; mupirocin 2 % Topical oint 3 times per day [Active]; pravastatin 40 mg Oral tab 1 tab once daily [Active]; thyroid (pork) 2 gm Oral [Active]; - PMHx: 12:01 Hypertension; TIA; Seizures; ll1 - Immunization history:: Flu vaccine is not up to date. - Social history:: Smoking status: Patient denies any tobacco usage or history of. Screenin:06 Abuse screen: Denies threats or abuse. Nutritional screening: No deficits noted. jd3 Tuberculosis screening: No symptoms or risk factors identified. Fall Risk Ambulatory Aid- None/Bed Rest/Nurse Assist (0 pts). Gait- Normal/Bed Rest/Wheelchair (0 pts) Mental Status- Oriented to own ability (0 pts). Total Short Fall Scale indicates No Risk (0-24 pts). Assessment: 14:05 Reassessment: daughter giving home medication for pain of hydrocodone. jd3 14:45 General: Appears in no apparent distress. comfortable, Behavior is calm, cooperative, jd3 appropriate for age. Pain: Complains of pain in left ankle and back of head Quality of pain is described as aching. Neuro: Level of Consciousness is awake, alert, obeys commands, Oriented to person, place, time, situation. Cardiovascular: Denies chest pain, Capillary refill < 3 seconds Patient's skin is warm and dry. Respiratory: Airway is patent Respiratory effort is even, unlabored, Respiratory pattern is regular, symmetrical, Denies cough, shortness of breath. GI: No signs and/or symptoms were reported involving the gastrointestinal system. : No signs and/or symptoms were reported regarding the genitourinary system. EENT: No signs and/or symptoms were reported regarding the EENT system. Derm: Skin is intact, Skin is dry, Skin is normal, Skin temperature is warm small abrasion noted to back of head. healing chronic wound noted to inner and out aspect of left ankle, wound cleaned and wrapped. 15:40 Reassessment: Patient appears in no apparent distress at this time. Patient and/or jd3 family updated on plan of care and expected duration. Pain level reassessed. Patient is alert, oriented x 3, equal unlabored respirations, skin warm/dry/pink. 16:38 Reassessment: Patient appears in no apparent distress at this time. Patient and/or jd3 family updated on plan of care and expected duration. Pain level reassessed. Patient is alert, oriented x 3, equal unlabored respirations, skin warm/dry/pink. 17:22 Reassessment: Patient appears in no apparent distress at this time. Patient and/or jd3 family updated on plan of care and expected duration. Pain level reassessed. Patient is alert, oriented x 3, equal unlabored respirations, skin warm/dry/pink. provider at bedside discussing plan of care. report attempt made, 4th floor reported they will call back. 18:30 Reassessment: Patient appears in no apparent distress at this time. Patient and/or jd3 family updated on plan of care and expected duration. Pain level reassessed. Patient is alert, oriented x 3, equal unlabored respirations, skin warm/dry/pink. Vital Signs: 11:58 BP 104 / 51; Pulse 52; Resp 17; Temp 97.7; Pulse Ox 94% ; Weight 72.57 kg; Height 5 ft. ll1 4 in. (162.56 cm); Pain 0/10; 15:25 BP 122 / 80; Pulse 57; Resp 17 S; Pulse Ox 97% on R/A; jd3 16:38 BP 134 / 73; Pulse 60; Resp 17 S; Pulse Ox 97% on R/A; jd3 17:28 BP 112 / 61; Pulse 60; Resp 16 S; Pulse Ox 96% on R/A; jd3 19:12 BP 139 / 67; Pulse 60; Resp 17 S; Pulse Ox 95% on R/A; jd3 21:35 BP 139 / 65; Pulse 59; Resp 18; Pulse Ox 95% on R/A; mg2 11:58 Body Mass Index 27.46 (72.57 kg, 162.56 cm) ll1 ED Course: 11:51 Patient arrived in ED. as 12:00 Triage completed. ll1 12:01 Arm band placed on. ll1 13:50 Randall Weir MD is Attending Physician. [facility] 14:00 Elvis Ybarra RN is Primary Nurse. jd3 14:05 Patient has correct armband on for positive identification. Bed in low position. Call jd3 light in reach. Side rails up X 1. Adult w/ patient. desk monitor on. Pulse ox on. NIBP on. 14:07 CT Head C Spine In Process Unspecified. EDMS 14:18 XRAY Chest (1 view) In Process Unspecified. EDMS 14:45 Inserted saline lock: 22 gauge in right antecubital area, using aseptic technique. jd3 Blood collected. 15:57 Padmini Peña MD is Hospitalizing Provider. [facility] 19:16 Primary Nurse role handed off by Elvis Ybarra, ANASTASIIA mw2 19:31 Marilyn Menon, RN is Primary Nurse. iw 20:42 No provider procedures requiring assistance completed. Patient admitted, IV remains in mg2 place. 21:47 Report given to receiving RN. oseas Administered Medications: 15:26 Drug: NS 0.9% 500 ml Route: IV; Rate: bolus; Site: right antecubital; jd3 16:20 Follow up: Response: No adverse reaction; IV Status: Completed infusion jd3 15:26 Drug: NS 0.9% 1000 ml Route: IV; Rate: 125 ml/hr; Site: right antecubital; jd3 19:13 Follow up: Response: No adverse reaction; IV Status: Infusion continued upon admission jd3 15:26 Drug: Silvadene Cream 1 % 1 application Route: Topical; Site: affected area; jd3 16:20 Follow up: Response: No adverse reaction jd3 Outcome: 15:59 Decision to Hospitalize by Provider. [facility] 21:48 Admitted to Tele accompanied by tech, via stretcher, room 428. mg2 21:48 Condition: stable 21:48 Instructed on the need for admit, Demonstrated understanding of instructions. 21:48 Patient left the ED. mg2 Signatures: Dispatcher [employer] EDMS Randall Weir MD MD cha Martinez, Amelia as Ballard, Brenda, RN RN bb Williams, Irene, ANASTASIIA LAURENT Dana Silva RN RN hb Davies, Jonathon, RN RN jSu Estes mw2 Arvin Baxter RN RN mg2 Dawn Villagomez RN RN ll1
--- NOTE | 2021-01-15 16:00 | EDPHYS ---
Physician Documentation [facility] Name: Lilo Zuleta Age: 85 yrs Sex: Female : 1935 Arrival Date: 01/15/2021 Time: 11:51 Bed 5 Private MD: ED Physician Randall Weir HPI: 01/15 14:39 This 85 yrs old Female presents to ER via Wheelchair with complaints of Fall se Injury - yest, Dizziness. 14:39 Details of fall: The patient fell from an upright position, while standing, while se walking. Onset: The symptoms/episode began/occurred 1 day(s) ago. Associated injuries: The patient sustained injury to the head. Severity of symptoms: At their worst the symptoms were mild. The patient has not experienced similar symptoms in the past. Historical: - Allergies: 12:01 gentamicin sulfate (PF); ll1 12:01 Iodine; ll1 12:01 Levofloxacin; ll1 12:01 PENICILLINS; ll1 - Home Meds: 14:57 digoxin 125 mcg Oral tab 1 tab once daily [Active]; Eliquis 5 mg Oral tab 1 tab 2 times hb per day [Active]; levetiracetam 50 mg Oral [Active]; MagOx 40 mg Oral [Active]; metoprolol tartrate 25 mg Oral tab 1 tab once daily [Active]; mupirocin 2 % Topical oint 3 times per day [Active]; pravastatin 40 mg Oral tab 1 tab once daily [Active]; thyroid (pork) 2 gm Oral [Active]; - PMHx: 12:01 Hypertension; TIA; Seizures; ll1 - Immunization history:: Flu vaccine is not up to date. - Social history:: Smoking status: Patient denies any tobacco usage or history of. ROS: 14:40 Constitutional: Negative for fever, chills, and weight loss, Eyes: Negative for injury, se pain, redness, and discharge, ENT: Negative for injury, pain, and discharge, Neck: Negative for injury, pain, and swelling, Cardiovascular: Negative for chest pain, palpitations, and edema, Respiratory: Negative for shortness of breath, cough, wheezing, and pleuritic chest pain, Abdomen/GI: Negative for abdominal pain, nausea, vomiting, diarrhea, and constipation, Back: Negative for injury and pain, : Negative for injury, bleeding, discharge, and swelling, Psych: Negative for depression, anxiety, suicide ideation, homicidal ideation, and hallucinations, Allergy/Immunology: Negative for hives, rash, and allergies, Endocrine: Negative for neck swelling, polydipsia, polyuria, polyphagia, and marked weight changes, Hematologic/Lymphatic: Negative for swollen nodes, abnormal bleeding, and unusual bruising. 14:40 MS/extremity: Positive for pain, swelling, tenderness, of the lateral aspect of left calf, medial aspect of left calf and left mendes. Exam: 14:40 Constitutional: This is a well developed, well nourished patient who is awake, alert, se and in no acute distress. Head/Face: Normocephalic, atraumatic. Eyes: Pupils equal round and reactive to light, extra-ocular motions intact. Lids and lashes normal. Conjunctiva and sclera are non-icteric and not injected. Cornea within normal limits. Periorbital areas with no swelling, redness, or edema. ENT: Nares patent. No nasal discharge, no septal abnormalities noted. Tympanic membranes are normal and external auditory canals are clear. Oropharynx with no redness, swelling, or masses, exudates, or evidence of obstruction, uvula midline. Mucous membranes moist. Neck: Trachea midline, no thyromegaly or masses palpated, and no cervical lymphadenopathy. Supple, full range of motion without nuchal rigidity, or vertebral point tenderness. No Meningismus. Chest/axilla: Normal chest wall appearance and motion. Nontender with no deformity. No lesions are appreciated. Cardiovascular: Regular rate and rhythm with a normal S1 and S2. No gallops, murmurs, or rubs. Normal PMI, no JVD. No pulse deficits. Respiratory: Lungs have equal breath sounds bilaterally, clear to auscultation and percussion. No rales, rhonchi or wheezes noted. No increased work of breathing, no retractions or nasal flaring. Abdomen/GI: Soft, non-tender, with normal bowel sounds. No distension or tympany. No guarding or rebound. No evidence of tenderness throughout. Back: No spinal tenderness. No costovertebral tenderness. Full range of motion. Female : Normal external genitalia. MS/ Extremity: Pulses equal, no cyanosis. Neurovascular intact. Full, normal range of motion. Psych: Awake, alert, with orientation to person, place and time. Behavior, mood, and affect are within normal limits. 14:40 Skin: cellulitis, that is mild, on the lateral aspect of left calf, medial aspect of left calf and left mendes. 14:40 Neuro: Orientation: is normal, appropriate for stated age, no acute changes, Mentation: is normal, appropriate for stated age, no acute changes, Memory: is normal, appropriate for stated age, no acute changes, Cerebellar function: is grossly normal, Motor: is normal, moves all fours, strength is normal, Sensation: is normal, no obvious gross deficits, appropriate no acute changes, Gait: not tested. seizure activity, is not displayed by the patient. 16:17 ECG was reviewed by the Attending Physician. se Vital Signs: 11:58 BP 104 / 51; Pulse 52; Resp 17; Temp 97.7; Pulse Ox 94% ; Weight 72.57 kg; Height 5 ft. ll1 4 in. (162.56 cm); Pain 0/10; 15:25 BP 122 / 80; Pulse 57; Resp 17 S; Pulse Ox 97% on R/A; jd3 16:38 BP 134 / 73; Pulse 60; Resp 17 S; Pulse Ox 97% on R/A; jd3 17:28 BP 112 / 61; Pulse 60; Resp 16 S; Pulse Ox 96% on R/A; jd3 19:12 BP 139 / 67; Pulse 60; Resp 17 S; Pulse Ox 95% on R/A; jd3 21:35 BP 139 / 65; Pulse 59; Resp 18; Pulse Ox 95% on R/A; mg2 11:58 Body Mass Index 27.46 (72.57 kg, 162.56 cm) ll1 MDM: 13:50 Patient medically screened. se 14:45 Differential diagnosis: contusion. Differential diagnosis: closed head injury, se contusion, multiple trauma, sprain, cardiac arrhythmia, generalized weakness, head injury, sepsis, vertigo. Data reviewed: vital signs, nurses notes, lab test result(s), EKG, radiologic studies, plain films. Data interpreted: monitoring specialist: rate is 52 beats/min, rhythm is regular, Pulse oximetry: on room air is 94 %. Test interpretation: by ED physician or midlevel provider: ECG, plain radiologic studies. Counseling: I had a detailed discussion with the patient and/or guardian regarding: the historical points, exam findings, and any diagnostic results supporting the discharge/admit diagnosis, lab results, radiology results. 01/15 13:55 Order name: Basic Metabolic Panel [facility] 01/15 13:55 Order name: CBC with Diff [facility] 01/15 13:55 Order name: LFT's; Complete Time: 15:54 [facility] 01/15 13:55 Order name: Magnesium; Complete Time: 15:54 [facility] 01/15 13:55 Order name: NT PRO-BNP; Complete Time: 15:54 [facility] 01/15 13:55 Order name: PT-INR; Complete Time: 15:54 [facility] 01/15 13:55 Order name: Troponin (emerg Dept Use Only); Complete Time: 15:54 [facility] 01/15 13:55 Order name: XRAY Chest (1 view); Complete Time: 15:54 [facility] 01/15 13:55 Order name: CT Head C Spine; Complete Time: 15:54 [facility] 01/15 13:55 Order name: Basic Metabolic Panel; Complete Time: 15:54 [facility] 01/15 13:55 Order name: CBC with Automated Diff; Complete Time: 15:54 [facility] 01/15 15:04 Order name: Digoxin; Complete Time: 17:06 [facility] 01/15 16:18 Order name: COVID-19 : Document "Date of Symptom Onset" if Symptomatic. em1 01/15 19:21 Order name: SARS-COV-2 RT PCR [facility] 01/15 13:55 Order name: EKG; Complete Time: 13:56 [facility] 01/15 13:55 Order name: Cardiac monitoring; Complete Time: 14:51 [facility] 01/15 13:55 Order name: EKG - Nurse/Tech; Complete Time: 14:51 [facility] 01/15 13:55 Order name: IV Saline Lock; Complete Time: 14:38 [facility] 01/15 13:55 Order name: Labs collected and sent; Complete Time: 14:38 [facility] 01/15 13:55 Order name: O2 Per Protocol; Complete Time: 14:07 [facility] 01/15 13:55 Order name: O2 Sat Monitoring; Complete Time: 14:07 [facility] 01/15 14:38 Order name: Wound Care; Complete Time: 15:26 [facility] 01/15 16:13 Order name: CONS Physician Consult EDMS EC:17 Rate is 57 beats/min. Rhythm is irregular. QRS [place] is Normal. ID interval is normal. se QRS interval is normal. QT interval is normal. No Q waves. T waves are Normal. No ST changes noted. Clinical impression: Atrial Fibrillation. Interpreted by me. Reviewed by me. Administered Medications: 15:26 Drug: NS 0.9% 500 ml Route: IV; Rate: bolus; Site: right antecubital; jd3 16:20 Follow up: Response: No adverse reaction; IV Status: Completed infusion jd3 15:26 Drug: NS 0.9% 1000 ml Route: IV; Rate: 125 ml/hr; Site: right antecubital; jd3 19:13 Follow up: Response: No adverse reaction; IV Status: Infusion continued upon admission jd3 15:26 Drug: Silvadene Cream 1 % 1 application Route: Topical; Site: affected area; jd3 16:20 Follow up: Response: No adverse reaction jd3 Disposition: 01/15/21 15:59 Hospitalization ordered by Padmini Peña for Observation. Preliminary diagnosis are Repeated falls, Dizziness and giddiness, Atrial fibrillation and flutter, Cellulitis and acute lymphangitis of other parts of limb - LEFT LOWER EXTREMITY. - Bed requested for Telemetry/MedSurg (observation). - Status is Observation. mg2 - Condition is Fair. - Problem is new. - Symptoms have improved. Signatures: Dispatcher [employer] EDRandall Brower MD MD cha Baxter, Heather RN ANASTASIIA Elvis Ybarra RN RN jRob Roque RN RN ja1 Arvin Baxter RN RN mg2 Dawn Villagomez RN RN 1 Corrections: (The following items were deleted from the chart) 16:47 15:59 Hospitalization Ordered by A Mariana MORE for Observation. Preliminary diagnosis is ja1 Repeated falls; Dizziness and giddiness; Atrial fibrillation and flutter; Cellulitis and acute lymphangitis of other parts of limb - LEFT LOWER EXTREMITY. Bed requested for Telemetry/MedSurg (observation). Status is Observation. Condition is Fair. Problem is new. Symptoms have improved. [facility] 21:48 16:47 01/15/2021 15:59 Hospitalization Ordered by A Mariana MORE for Observation. mg2 Preliminary diagnosis is Repeated falls; Dizziness and giddiness; Atrial fibrillation and flutter; Cellulitis and acute lymphangitis of other parts of limb - LEFT LOWER EXTREMITY. Bed requested for Telemetry/MedSurg (observation). Status is Observation. Condition is Fair. Problem is new. Symptoms have improved. ja1
[2021-01-15] MEDS: INSULIN -REGULAR HUMAN 50 UNIT/0.5 ML ML SQ SCH (22:38)
[2021-01-15] MEDS ORDERED: GLUCAGON 1 MG/VIAL IM PRN (22:38)
[2021-01-15] MEDS: SILVER SULFADIAZINE 1% 25 GM TOP SCH (22:38)
[2021-01-15] MEDS ORDERED: ACETAMINOPHEN 325 MG TABLET PO PRN (22:38)
[2021-01-15] MEDS ORDERED: ONDANSETRON 4 MG/2 ML VIAL IV PRN (22:38)
[2021-01-15] MEDS ORDERED: IPRATROPIUM BROM 0.5MG/2.5ML NEB PRN (22:38)
[2021-01-15] MEDS ORDERED: D50W 25 GM/50 ML SYRINGE IV PRN (22:38)
[2021-01-15] MEDS ORDERED: ALBUTEROL 2.5 MG/3 ML NEB SOL NEB PRN (22:38)
[2021-01-15] MEDS: levETIRAcetam 500 MG TAB PO SCH (23:10)
[2021-01-15] MEDS: APIXABAN 5 MG TABLET PO SCH (23:11)
[2021-01-15] MEDS: FAMOTIDINE 20 MG/2 ML VIAL IV SCH (23:11)
[2021-01-15] MEDS: ATORVASTATIN 10 MG TAB PO SCH (23:11)
[2021-01-15] MEDS: GABAPENTIN 100 MG CAP PO SCH (23:11)
[2021-01-16 03:40] LABS: Absolute Lymphocytes (CBC) 1.6 K/uL (0.7-4.9); Basophils % 0.7 % (0-1.3); Hematocrit 39.9 % (36.0-45.0); Lymphocytes % 29.3 % (15.3-44.8); MPV 10.2 fL (7.6-11.3); RBC Red Blood Cell Count 4.43 M/uL (3.86-4.86)
[2021-01-16] MEDS ORDERED: METOPROLOL TAR 25 MG TAB PO SCH (06:00)
[2021-01-16] MEDS: THYROID 30 MG TAB PO SCH (06:22)
[2021-01-16] MEDS: INSULIN -REGULAR HUMAN 50 UNIT/0.5 ML ML SQ SCH ×4 (07:30→21:00)
[2021-01-16] MEDS ORDERED: INFLUENZA VACCINE (for 3y+) 0.5 ML DOSE IMVAC ONE (08:00)
[2021-01-16] MEDS ORDERED: PNEUMOCOCCAL VACCINE 0.5 ML IMVAC ONE (08:00)
[2021-01-16 08:19] LABS: Digoxin Level 0.9 ng/mL (0.80-2.00); Potassium 3.9 mmol/L (3.5-5.1); Thyroid Stimulating Hormone 1.19 uIU/mL (0.360-3.740)
[2021-01-16] MEDS: levETIRAcetam 500 MG TAB PO SCH ×2 (08:25→21:50)
[2021-01-16] MEDS: GABAPENTIN 100 MG CAP PO SCH ×3 (08:25→21:50)
[2021-01-16] MEDS: METFORMIN ER 500 MG TAB PO SCH ×2 (08:25→17:13)
[2021-01-16] MEDS: MAGNESIUM OXIDE 400 MG TAB PO SCH (08:25)
[2021-01-16] MEDS: APIXABAN 5 MG TABLET PO SCH ×2 (08:26→21:51)
[2021-01-16] MEDS: FAMOTIDINE 20 MG/2 ML VIAL IV SCH ×2 (08:28→21:50)
[2021-01-16] MEDS: SILVER SULFADIAZINE 1% 25 GM TOP SCH ×2 (08:29→21:00)
[2021-01-16] MEDS ORDERED: DIGOXIN 0.125 MG TABLET PO SCH (09:00)
[2021-01-16] MEDS ORDERED: FUROSEMIDE 20 MG/ 2ML VIAL IV SCH (09:00)
--- NOTE | 2021-01-16 11:25 | RAD REPORT ---
EXAM DESCRIPTION: US - CP - 01/16/2021 10:55 am CLINICAL HISTORY: dizziness, Afib Headache, drowsiness, CVA symptomology COMPARISON: Head C Spine Mpr Wo Con dated 01/15/2021; MRA Neck W/Wo Cont dated 01/17/2020; Brain W/Wo Cont dated 01/17/2020; MRA Head Wo Cont dated 01/17/2020 TECHNIQUE: Real-time sonographic evaluation of both carotid systems was performed. Doppler interroga tion was performed with waveform tracing bilaterally. FINDINGS: Normal high resistance waveforms are noted in both external carotid arteries. The common c arotid arteries and internal carotid arteries show normal low resistance waveforms. Mild soft plaque is seen in the carotid bulbs bilaterally. Peak systolic and end diastolic velocity v alues and the ICA/CCA ratios are in the non-hemodynamically significant range. Antegrade flow seen in both vertebral arteries. IMPRESSION: Mild soft plaque is seen in both carotid bulbs. No evidence of a hemodynamically significant stenosis.
--- NOTE | 2021-01-16 12:09 | RAD REPORT ---
EXAM DESCRIPTION: MRI - Brain W/Wo Cont - 01/16/2021 11:53 am CLINICAL HISTORY: dizziness, afib Headache, drowsiness, CVA symptomology. COMPARISON: MRA Head Wo Cont dated 01/16/2021; Brain W/Wo Cont dated 01/17/2020; MRA Head Wo Cont date d 01/17/2020 TECHNIQUE: Multi-sequence, multiplanar MR imaging of the brain was performed with contrast. FINDINGS: No intracranial hemorrhage, hydrocephalus, or extra-axial fluid collection.Moderate conflu ent T2/FLAIR hyperintensity in the periventricular and deep white matter is present compatible with c hronic microvascular ischemic changes. No edema or shift of midline structures. No intracranial mass. DWI is negative for acute CVA. The midline structures are normally formed. Mastoid air cells and paranasal sinuses are clear. Post-contrast images show no abnormal enhancement to suggest tumor or infection. IMPRESSION: Negative for acute CVA or other acute intracranial abnormality. No pathologic post-contr ast enhancement observed.
--- NOTE | 2021-01-16 12:12 | RAD REPORT ---
EXAM DESCRIPTION: MRI - MRA Head Wo Cont - 01/16/2021 11:49 am CLINICAL HISTORY: dizziness, afib CVA COMPARISON: Head Brain Wo Cont dated 12/29/2020 FINDINGS: 3D noncontrast [id number] MR angiography of the [place] was performed. No aneurysm, flow-limiting stenosis or vascular malformation is seen. Forward flow seen in codominant vertebral arteries. The visualized dural venous sinuses appear patent. IMPRESSION: No significant flow abnormality of the [place] is identified.
--- NOTE | 2021-01-16 12:18 | HP ---
Date of Admission: 01/16/2021 Chief Complaint: Dizziness and fall. History Of Present Illness: This is an 85-year-old female patient who has been feeling dizzy and fel l down couple of times at home recently, so she was brought into emergency room. She did have a head injury with one of this fall. No loss of consciousness. Her family member had to assist her to get up after she fell down. After she was evaluated in the emergency room, she was admitted to the [facility]. She denies any headache. Medications: List reviewed. 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 Her speech has been slow, but this has started about a month and a half ag o or so. An outpatient CAT scan done 2 weeks ago was negative for any acute changes. All other systems reviewed and negative. Allergies: TO IODINE, LEVAQUIN CAUSING RASH. PENICILLIN CAUSING RASH. SILVER SULFADIAZINE CAUSING SKIN IRRITATION. Past Surgical History: Right foot hammertoe surgery, thyroid cancer surgery in 1969 and had thyroide ctomy for that and cataract surgery in the past. Family History: Significant for stroke, hypertension, coronary artery disease. Social History: Negative for smoking or alcohol use. Past Medical History: Significant for atrial fibrillation, TIA, type 2 diabetes mellitus, hypomagnes emia, depression, hypertension, hyperlipidemia, hypothyroidism, and chronic long-term anticoagulation therapy. The patient also has chronic left leg wound for many many years and she comes to [facility] every 2-3 weeks for ongoing management of this left leg wound. Physical Examination: Vital Signs: Height 5 feet 4 inches. Weight 160 pounds, temperature 97.7, pulse 69, respiratory rat e 16, blood pressure 164/88, oxygen saturation 95% on room air. General: Awake, alert, oriented, not in distress. HEENT: Head atraumatic, normocephalic. Conjunctivae nonerythematous. Sclerae white. Mouth, no thr ush or edema noted. Ears/Nose, no mass, lesion, discharge noted. Neck: Supple. No JVD, lymph nodes, bruit, thyromegaly noted. Lungs: Bilateral good equal air entry. Clear to auscultation. No rhonchi. No rales. Heart: Normal heart sounds, no murmur or gallop. Abdomen: Soft, bowel sounds normal. No guarding, rigidity, tenderness, mass, hepatosplenomegaly, dis tention, or bruit noted. Extremities: Left leg from the knee all the way down to her foot has old scarring from the ceron and left medial and lateral lower leg has superficial excoriation of skin. This is her chronic wound pr oblem. Skin: No rash, ulcer, cellulitis. Lymphatics: No lymph node enlargement in neck, supraclavicular, infraclavicular region. Neuro: No focal neurological deficit. Chest: Unremarkable. External Genitalia: Deferred. Rectal: Deferred. Laboratory Data: Yesterday white count 6.5, hemoglobin 15, platelets 184. Today, white count 5.5, h emoglobin 13, platelets 150. Yesterday, sodium 143, potassium 4.1, chloride 104, bicarb 30, BUN 20, creatinine 1.07, glucose 127. Liver function tests unremarkable, troponin 0.02. ProBNP 1225. This morning ProBNP 946, TSH 1.19, LDL 57, sodium 143, potassium 3.9, chloride 107, bicarb 28, BUN 19, cre atinine 1.02, glucose 172. Hemoglobin A1c 6.9. Digoxin level this morning 0.9. COVID-19 test negat tawanna. Chest x-ray shows moderate cardiomegaly. CAT scan of the head, no acute intracranial changes n oted. CAT scan of the neck shows moderate cervical spondylosis. Impression: 1.Dizziness. 2.Atrial fibrillation, chronic. 3.Hypertension. 4.Hyperlipidemia. 5.Type 2 diabetes mellitus. 6.Chronic left leg wound. 7.Hypomagnesemia. 8.Depression. 9.Hypothyroidism, postsurgical. Plan: Admit patient to hospital for further evaluation and management of this problem. We will go a head and continue home medications per order. This morning her EKG had shown atrial fibrillation wit h heart rate 39 per minute. She already had received her morning dose of digoxin and metoprolol and subsequently her heart rate came up to 60-65 range. I have asked nursing staff to discontinue her di goxin and metoprolol. She takes metoprolol 12.5 mg daily and digoxin 125 mcg daily. We will discont inue both of these medications. Consult Cardiology and consult Neurology service. We will get echo with carotid Doppler and MRI per stroke protocol and once we have all those results back, we will dec noreen about further plan of treatment. Continue her chronic anticoagulation, which is Eliquis 5 mg 2 t imes a day. LOVE/MODL Voice ID: [id number]
--- NOTE | 2021-01-16 12:19 | RAD REPORT ---
EXAM DESCRIPTION: MRI - MRA Neck W/Wo Cont - 01/16/2021 12:00 pm CLINICAL HISTORY: dizziness, afib Headache, drowsiness COMPARISON: MRA Neck W/Wo Cont dated 01/17/2020 FINDINGS: Contrast enhance 2D [id number] MR angiography of the neck vessels was performed. A left-sided aortic arch is present. Both subclavian and common carotid arteries are widely patent. N o significant internal carotid artery stenosis identified. Antegrade flow is present in both vertebra l arteries. IMPRESSION: No significant flow abnormality of the neck vessels identified.
--- NOTE | 2021-01-16 13:06 | ECHO ---
HEIGHT: 5 ft 4 in WEIGHT: 160 lb 0 oz DATE OF STUDY: 01/16/[address]: Gilbert Peña MD 2-DIMENSIONAL: YES M.MODE: YES DOPPLER: YES COLOR FLOW: YES TDS: NO PORTABLE: NO DEFINITY: NO BUBBLE STUDY: NO DIAGNOSIS: DIZZINESS, ATRIAL FIBRILLATION CARDIAC HISTORY: CATHERIZATION: NO SURGERY: NO PROSTHETIC VALVE: NO PACEMAKER: NO MEASUREMENTS (cm) DIASTOLIC (NORMALS) SYSTOLIC (NORMALS) IVSd 1.2 (0.6-1.2) LA Diam 3.6 (1.9-4.0) LVEF 55-60% LVIDd 4.2 (3.5-5.7) LVIDs 2.7 (2.0-3.5) %FS 37% LVPWd 1.3 (0.6-1.2) Ao Diam 3.0 (2.0-3.7) 2 DIMENSIONAL ASSESSMENT: RIGHT ATRIUM: NORMAL LEFT ATRIUM: ENLARGED RIGHT VENTRICLE: NORMAL LEFT VENTRICLE: NORMAL TRICUSPID VALVE: MILD TRICUSPID REGURGITATION MITRAL VALVE: MILD MITRAL REGURGITATION PULMONIC VALVE: NORMAL AORTIC VALVE: MILD AORTIC INSUFFICIENCY PERICARDIAL EFFUSION: NONE AORTIC ROOT: NORMAL LEFT VENTRICULAR WALL MOTION: NORMAL. DOPPLER/COLOR FLOW: SEE BELOW. COMMENTS: NORMAL LEFT VENTRICULAR EJECTION FRACTION 55-60% WITH NORMAL WALL MOTION. MILD TRICUSPID REGURGITATION, MILD MITRAL REGURGITATION, MILD AORTIC INSUFFICIENCY. GRADE ONE DIASTOLIC DYSFUNCTION. LEFT ATRIAL ENLARGEMENT. TECHNOLOGIST: ROXANN ABEBE
[2021-01-16] MEDS: ATORVASTATIN 10 MG TAB PO SCH (21:52)
[2021-01-17] MEDS: THYROID 30 MG TAB PO SCH (06:44)
[2021-01-17] MEDS: INSULIN -REGULAR HUMAN 50 UNIT/0.5 ML ML SQ SCH ×2 (07:30→11:30)
[2021-01-17] MEDS: APIXABAN 5 MG TABLET PO SCH (08:15)
[2021-01-17] MEDS: GABAPENTIN 100 MG CAP PO SCH ×2 (08:16→14:00)
[2021-01-17] MEDS: levETIRAcetam 500 MG TAB PO SCH (08:16)
[2021-01-17] MEDS: METFORMIN ER 500 MG TAB PO SCH (08:16)
[2021-01-17] MEDS: MAGNESIUM OXIDE 400 MG TAB PO SCH (08:16)
[2021-01-17] MEDS: FAMOTIDINE 20 MG/2 ML VIAL IV SCH ×2 (08:17→08:29)
[2021-01-17] MEDS: SILVER SULFADIAZINE 1% 25 GM TOP SCH ×2 (08:26→09:00)
[2021-01-17 11:40] VITALS: O2SAT 91
[2021-01-17 14:29] VITALS: BP 130/78; TEMP 98.3
[2021-01-17] MEDS ORDERED: INFLUENZA VACCINE (for 3y+) 0.5 ML DOSE IMVAC ONE (15:00)
--- NOTE | 2021-01-18 11:35 | DS ---
Date of Discharge: 01/17/2021 Disposition: Discharged to go home. Physical Examination: HEENT: Unremarkable. Lungs: Clear to auscultation. Heart: Sounds normal. Abdomen: Soft, bowel sounds normal. No guarding, rigidity, tenderness, or distention. Extremities: No leg edema. Hospital Course: An 85-year-old female patient admitted to hospital after she came into emergency ro om with fall and complaining of feeling dizzy. Please see dictated H and P for more information. Th e patient was admitted to the hospital, was seen in consultation by neurologist and social insurance adviser. Sh neo has chronic atrial fibrillation. She was noted while she was on hall monitor that she had sig nificantly slow heart rate to the extent that she had significant pauses. Her EKG had shown atrial f ibrillation with slow ventricular response with heart rate 39 beats per minute and same day she had m ultiple pauses with the longest one was around 7 seconds. She was asymptomatic at that time. This p articular day, her digoxin and metoprolol were discontinued, so this was on January 16, 2021 and bef ore I could discontinue this medication, the patient already had received her morning doses. After w e discontinued these medications, the patient was kept on hall monitor. She still continues to have pauses, but now the longest one is around 2.5 seconds. Overall, she feels better. Details were discussed with social insurance adviser. Cardiology consultation was requested. Echocardiogram was unremarkabl e with normal ejection fraction and carotid Doppler showed some plaquing of carotid, but no evidence of stenosis. CAT scan of the head was negative for any stroke. MRI of the brain per stroke protocol was negative for stroke also. For her chronic atrial fibrillation, she is on Eliquis 5 mg 2 times a day, which was continued. I did discuss details with social insurance adviser regarding this significant long p auses and we believe that the patient has sick sinus syndrome at this point and we will evaluate her for any possibility of pacemaker placement in near future. Right now, other important thing to do is to discontinue her digoxin and metoprolol which we already have stopped it. Last dose she received was on 01/16/2021. I will see her at office for followup and the patient was advised to follow up wi social insurance adviser as well and the patient should have outpatient Holter monitor done through cardiologi st office and that should be done in next 1-2 weeks, and decision should be made if she needs any pac emaker placement or not. Details were discussed with social insurance adviser and he agrees with this plan. Eliseo elam also called the patient's daughter and details were discussed with her also. The patient was adv ised to use a walker to ambulate to avoid any risk of fall and injuries. Final Diagnoses: 1.Sick sinus syndrome. 2.Atrial fibrillation, chronic. 3.Dizziness. 4.Hypertension. 5.Hyperlipidemia. 6.Type 2 diabetes mellitus. 7.Chronic left leg wound. 8.Hypomagnesemia. 9.Depression. 10.Hypothyroidism, postsurgical. Discharge Medications And Instructions: 1.Continue all prior home medication except discontinue digoxin and discontinue metoprolol. 2.Follow up at my office this coming week on Tuesday or and follow up with social insurance adviser i n week after next and the patient also to follow up with Dr. Arellano, neurologist. LOVE/MODL Voice ID: [id number] Report ID: [id number]
--- NOTE | 2021-01-19 19:09 | CON ---
Date of Consultation: 01/16/2021 Reason For Consultation: Atrial fibrillation with slow ventricular response and dizziness. History Of Present Illness: This is an 85-year-old female who presented with dizziness and had 2 fal ls at home. No true syncope. Upon evaluation, she was running atrial fibrillation rhythm with very slow ventricular rate and pauses that were very long. At the time of evaluation, she is asymptomatic . Does not have any chest pain or dizziness. Lying comfortably in bed. Past Medical History: Atrial fibrillation, TIA, diabetes, hypertension, hypothyroidism, dyslipidemia . Medications: Refer consultation sheet for detailed list. Allergies: PENICILLIN, GENTAMICIN, IODINE, AND SOME OTHER MEDICATIONS. THE LIST WAS REVIEWED AND PL EASE REFER TO NURSE'S NOTE FOR FULL LIST. Family History: No premature coronary artery disease, cancer. Social History: Does not smoke or drink. Does not use any drugs. Review of Systems: All systems reviewed. They were negative except for mentioned in the HPI. Physical Examination: Vital Signs: Temperature was 98.4, pulse is 63, breathing at 18, blood pressure 167/85, saturating 9 9% on room air. General: Pleasant elderly female, in no apparent distress. Head and Neck: Pupils are equal, reactive to light. Intact eye movements. No JVD. No cervical lym phadenopathy. Neck: Supple. Thyroid is not enlarged. Lungs: Clear to auscultation bilaterally. No rhonchi, rales or crackles. No accessory muscle use. Heart: Irregularly irregular. No extra sounds. Abdomen: Soft, nontender. Bowel sounds positive. No organomegaly. No rigidity or rebound. Extremities: No clubbing, cyanosis. Intact pulses. Skin: No rash. Neurologic: Alert, awake, oriented x3. No acute focal deficits appreciated. Investigations: Creatinine 1.02. TSH is 1.1. Troponin is negative. Hemoglobin is 15.0. Assessment And Recommendation: 1.Atrial fibrillation with slow ventricular response. Agree with holding digoxin and metoprolol and revaluate recovery. At this point, there is no reason to consider pacemaker unless she continues to be symptomatic off beta-willi and digoxin. If the patient continues stable in the next 24 hours o ff above medications can be released home and to follow her up as an outpatient for 1 week Holter mon itor off the AV node blocking agents. 2.Atrial fibrillation with high SALVADOR-VASc stroke and risk of stroke. She is not a candidate for ant icoagulation due to multiple falls. She will be, however, a candidate for left atrial appendage clos ure, which we will discuss with the patient on outpatient settings. Thank you for consult. RICCO Voice ID: [id number] Report ID: [id number]
== END 2021-01-17 14:50 | disposition home or self-care (01) ==
LOC: ER 11:49 → ERHOLD 17:10 → 4TH 19:35
PROVIDERS: ADMIT Internal Medicine; ATTEND Internal Medicine
DX: I48.20 Chronic atrial fibrillation, unspecified (principal); I49.5 Sick sinus syndrome; I10 Essential (primary) hypertension; E11.9 Type 2 diabetes mellitus without complications; E83.42 Hypomagnesemia; E89.0 Postprocedural hypothyroidism; E78.5 Hyperlipidemia, unspecified; I48.92 Unspecified atrial flutter; S81.802S Unspecified open wound, left lower leg, sequela; L03.116 Cellulitis of left lower limb; I89.1 Lymphangitis; F32.9 Major depressive disorder, single episode, unspecified; Z86.73 Personal history of transient ischemic attack (TIA), and cerebral infarction without residual deficits; Z91.81 History of falling; Z85.850 Personal history of malignant neoplasm of thyroid; Z79.01 Long term (current) use of anticoagulants; Z88.0 Allergy status to penicillin; Z88.3 Allergy status to other anti-infective agents; Z91.041 Radiographic dye allergy status; Z20.822 Contact with and (suspected) exposure to COVID-19; Z23 Encounter for immunization
CPT/HCPCS: 96361; 93005; 93306; 85025 ×2; 80048 ×2; 36415; 83735; 85610; 80061; 80162 ×2; 82947 ×7; 80076; 84443; 83036; 84484 ×3; 83880 ×2; 70450; 72125; 71045; 90471; 93880; 70553; 70544; 70549; 97116; 97161; 96360; 99285; U0003; A9577; J1940; Q2035; J7040; J7030; G0378 ×4

== ENCOUNTER 2021-04-12 20:47 | Inpatient (IN) | payer OTHER ==
[2021-04-13] MEDS ORDERED: NA CHLORIDE 0.9% 1,000 ML ONE ×3 (00:04→22:25)
[2021-04-13 00:05] LABS: Absolute Lymphocytes (CBC) 0.9 K/uL (0.7-4.9); Basophils % 0.6 % (0-1.3); Hematocrit 42.8 % (36.0-45.0); Lymphocytes % 34.3 % (15.3-44.8); MPV 10.2 fL (7.6-11.3); RBC Red Blood Cell Count 4.88 M/uL (3.86-4.86)
[2021-04-13 00:07] LABS: Protime INR 1.36
[2021-04-13 00:10] LABS: Urine Blood Trace-intact (Negative); Urine Glucose Negative (Negative); Urine Protein 1+ (Negative); Urine Specific Gravity >=1.030 (1.005-1.030); Urine pH 5.5 (5.0-7.0)
[2021-04-13 00:16] LABS: ALT/SGPT 18 U/L (12-78); AST/SGOT 22 U/L (15-37); Albumin 3.3 g/dL (3.4-5.0); Alkaline Phosphatase 62 U/L (45-117); BUN Blood Urea Nitrogen 25 mg/dL (7-18); Bicarbonate 27 mmol/L (21-32); Bilirubin Direct 0.1 mg/dL (0-0.2); Bilirubin Total 0.3 mg/dL (0.2-1.0); Glucose Level 141 mg/dL (74-106); Magnesium 2.2 mg/dL (1.8-2.4); NT PRO-BNP 739 pg/mL (<450); Potassium 4.3 mmol/L (3.5-5.1); Protein, Total 7.4 g/dL (6.4-8.2); Sodium Level 136 mmol/L (136-145); Troponin (Emerg Dept Use Only) < 0.02 ng/mL (0.0-0.045)
[2021-04-13 00:41] LABS: Urine Specific Gravity/Preg >1.030 (1.005-1.030)
[2021-04-13 01:28] LABS: Blood Morphology Comment NOT SEEN (NOT SEEN); Platelet Estimate ADEQ; White Blood Cell Scan OK (OK)
[2021-04-13 02:15] LABS: Urine Bacteria >50 /HPF (<20); Urine RBC <5 /HPF (NONE SEEN); Urine Urothelial Cells <5 /HPF (NONE SEEN)
[2021-04-13] MEDS ORDERED: METOPROLOL XL 50 MG TAB PO ONE (02:34)
--- NOTE | 2021-04-13 05:40 | ER ---
Nurse's Notes [facility] Name: Lilo Zuleta Age: 85 yrs Sex: Female : 1935 Arrival Date: 04/12/2021 Time: 20:52 Bed 25 Private MD: Gilbert Peña Diagnosis: Altered mental status. Positive Covid 19 Presentation: 04/12 21:05 Chief complaint: Patient's son or daughter states: Tripped and fell yesterday, hurt her ca1 R elbow but seems fine. Did not hit her head and no LOC. But today, she has just been very quiet, ate just once today, she seems very weak, when we got here she couldn't recall her doctor's name. I am concerned she has a UTI, cause she's been going to the bathroom a whole lot. My daughter who lives with us, was just diagnosed of Covid. Coronavirus screen: Client denies travel out of the [place] in the last 14 days. At this time, the client does not indicate any symptoms associated with coronavirus-19. Ebola Screen: Patient negative for fever greater than or equal to 101.5 degrees Fahrenheit, and additional compatible Ebola Virus Disease symptoms Patient denies exposure to infectious person. Patient denies travel to an Ebola-affected area in the 21 days before illness onset. No symptoms or risks identified at this time. Initial Sepsis Screen: Does the patient meet any 2 criteria? No. Patient's initial sepsis screen is negative. Does the patient have a suspected source of infection? No. Patient's initial sepsis screen is negative. Risk Assessment: Do you want to hurt yourself or someone else? Patient reports no desire to harm self or others. Onset of symptoms was April 12, 2021. 21:05 Method Of Arrival: Wheelchair ca1 21:05 Acuity: HAVEN 3 ca1 Historical: - Allergies: 21:12 gentamicin sulfate (PF); ca1 21:12 Iodine; ca1 21:12 Levofloxacin; ca1 21:12 PENICILLINS; ca1 - Home Meds: 21:12 digoxin 125 mcg Oral tab 1 tab once daily [Active]; Eliquis 5 mg Oral tab 1 tab 2 times ca1 per day [Active]; levetiracetam 50 mg Oral [Active]; MagOx 40 mg Oral [Active]; metoprolol tartrate 25 mg Oral tab 1 tab once daily [Active]; pravastatin 40 mg Oral tab 1 tab once daily [Active]; thyroid (pork) 2 gm Oral [Active]; mupirocin 2 % Topical oint 3 times per day [Active]; - PMHx: 21:12 Hypertension; Seizures; TIA; ca1 - Immunization history:: Client reports having NOT received the Covid vaccine. Pneumococcal vaccine status is unknown, Flu vaccine is up to date. - Social history:: Smoking status: Patient denies any tobacco usage or history of. Screenin:42 Abuse screen: Denies threats or abuse. Nutritional screening: No deficits noted. ea Tuberculosis screening: No symptoms or risk factors identified. Fall Risk None identified. Assessment: 22:42 General: Appears in no apparent distress. Behavior is calm, cooperative, appropriate ea for age. Pain: Denies pain. Neuro: Level of Consciousness is awake, alert, obeys commands, Oriented to person, place, time. Cardiovascular: Patient's skin is warm and dry. Respiratory: Airway is patent Respiratory effort is even, unlabored, Respiratory pattern is regular, symmetrical. Derm: Skin is pink, warm \T\ dry. 23:00 Reassessment: Patient and/or family updated on plan of care and expected duration. Pain ea level reassessed. Patient is alert, oriented x 3, equal unlabored respirations, skin warm/dry/pink. 04/13 00:00 Reassessment: Patient and/or family updated on plan of care and expected duration. Pain ea level reassessed. Patient is alert, oriented x 3, equal unlabored respirations, skin warm/dry/pink. 01:50 Reassessment: Patient and/or family updated on plan of care and expected duration. Pain ea level reassessed. Patient is alert, oriented x 3, equal unlabored respirations, skin warm/dry/pink. 02:20 Reassessment: Patient and/or family updated on plan of care and expected duration. Pain ea level reassessed. Pt resting with eyes closed with respirations even and unlabored, chest expansions even and symmetrical. 04:13 Reassessment: Patient and/or family updated on plan of care and expected duration. Pain ea level reassessed. Patient is alert, oriented x 3, equal unlabored respirations, skin warm/dry/pink. Vital Signs: 04/12 21:05 BP 122 / 72; Pulse 92; Resp 16 S; Temp 97.2(TE); Pulse Ox 94% on R/A; Weight 73.03 kg ca1 (R); Height 5 ft. 5 in. (165.10 cm) (R); Pain 4/10; 23:45 BP 151 / 80; Pulse 86; Resp 18; Pulse Ox 96% on R/A; lp1 04/13 00:39 BP 134 / 92; Pulse 88; Resp 22; Pulse Ox 95% on R/A; lp1 01:24 BP 158 / 99; Pulse 82; Resp 19; Pulse Ox 95% on R/A; ea 02:53 BP 146 / 86; Pulse 92; Resp 20; Pulse Ox 95% on R/A; ea 04/12 21:05 Body Mass Index 26.79 (73.03 kg, 165.10 cm) ca1 ED Course: 04/12 20:52 Patient arrived in ED. es 20:53 Gilbert Peña MD is Private Physician. es 21:10 Triage completed. ca1 21:12 Arm band placed on right wrist. ca1 22:42 Martha Mena RN is Primary Nurse. ea 22:42 Patient has correct armband on for positive identification. Bed in low position. Call ea light in reach. Side rails up X2. 22:54 Dmitri Carpenter MD is Attending Physician. pkl 23:30 Inserted saline lock: 20 gauge in left antecubital area, using aseptic technique. Blood lp1 collected. 23:30 Initial lab(s) drawn, by ct, sent to lab. First set of blood cultures drawn. lp1 23:32 XRAY Chest (1 view) In Process Unspecified. EDMS 23:52 CT Head Brain wo Cont In Process Unspecified. EDMS 04/13 00:00 Straight cath inserted, using sterile technique, 16 Fr. Specimen obtained. lp1 00:39 Jill Avila, ANASTASIIA is Primary Nurse. lp1 05:38 Gilbert Peña MD is Hospitalizing Provider. pkl 06:43 No provider procedures requiring assistance completed. Patient admitted, IV remains in ea place. 09:49 Primary Nurse role handed off by Jill Avila, ANASTASIIA sv Administered Medications: 00:00 Drug: NS 0.9% 1000 ml Route: IV; Rate: 125 ml/hr; Site: left antecubital; lp1 02:17 Drug: Metoprolol TARTRATE 50 mg Route: PO; amandeep Outcome: 05:40 Decision to Hospitalize by Provider. pkl 06:44 Instructed on the need for admit, Demonstrated understanding of instructions. amandeep 04/14 17:12 Patient left the ED. sv Signatures: Dispatcher [employer] Monika Rodriguez RN RN sv Lam, Pin, MD MD pkl Salyer, Edna es Pena, Laura, RN RN lp1 Martha Mena RN RN ea Acob, Cheryl RN RN ca1 Corrections: (The following items were deleted from the chart) 04/12 21:12 21:05 Chief complaint: Patient's son or daughter states: Tripped and fell yesterday, ca1 hurt her R elbow but seems fine. Did not hit her head and no LOC. But today, she has just been very quiet, she seems very weak, when we got here she couldn't recall her doctor's name. I am concerned she has a UTI, cause she's been going to the bathroom a whole lot. My daughter who lives with us, was just diagnosed of Covid. ca1
--- NOTE | 2021-04-13 05:40 | EDPHYS ---
Physician Documentation [facility] Name: Lilo Zuleta Age: 85 yrs Sex: Female : 1935 Arrival Date: 04/12/2021 Time: 20:52 Bed 25 Private MD: Gilbert Peña ED Physician Dmitri Carpenter HPI: 04/12 23:18 This 85 yrs old Female presents to ER via Wheelchair with complaints of pkl General Weakness, Decreased Appetite, wITHDRAWN. 23:18 The patient presents with decreased mental status, decreased responsiveness. Onset: The pkl symptoms/episode began/occurred this morning. Patient tripped and fell and hurt her right elbow. Denies any pain or limitation of movement. Patient was exposed to her grand daughter was tested Positive for Covid 19 recently. Historical: - Allergies: 21:12 gentamicin sulfate (PF); ca1 21:12 Iodine; ca1 21:12 Levofloxacin; ca1 21:12 PENICILLINS; ca1 - Home Meds: 21:12 digoxin 125 mcg Oral tab 1 tab once daily [Active]; Eliquis 5 mg Oral tab 1 tab 2 times ca1 per day [Active]; levetiracetam 50 mg Oral [Active]; MagOx 40 mg Oral [Active]; metoprolol tartrate 25 mg Oral tab 1 tab once daily [Active]; pravastatin 40 mg Oral tab 1 tab once daily [Active]; thyroid (pork) 2 gm Oral [Active]; mupirocin 2 % Topical oint 3 times per day [Active]; - PMHx: 21:12 Hypertension; Seizures; TIA; ca1 - Immunization history:: Client reports having NOT received the Covid vaccine. Pneumococcal vaccine status is unknown, Flu vaccine is up to date. - Social history:: Smoking status: Patient denies any tobacco usage or history of. ROS: 23:18 Eyes: Negative for injury, pain, redness, and discharge, ENT: Negative for injury, pkl pain, and discharge, Neck: Negative for injury, pain, and swelling, Cardiovascular: Negative for chest pain, palpitations, and edema, Respiratory: Negative for shortness of breath, cough, wheezing, and pleuritic chest pain, Abdomen/GI: Negative for abdominal pain, nausea, vomiting, diarrhea, and constipation, Back: Negative for injury and pain, : Negative for injury, bleeding, discharge, and swelling, MS/Extremity: Negative for injury and deformity, Skin: Negative for injury, rash, and discoloration. 23:18 Neuro: Positive for altered mental status. Exam: 23:18 Head/Face: Normocephalic, atraumatic. Eyes: Pupils equal round and reactive to light, pkl extra-ocular motions intact. Lids and lashes normal. Conjunctiva and sclera are non-icteric and not injected. Cornea within normal limits. Periorbital areas with no swelling, redness, or edema. ENT: Nares patent. No nasal discharge, no septal abnormalities noted. Tympanic membranes are normal and external auditory canals are clear. Oropharynx with no redness, swelling, or masses, exudates, or evidence of obstruction, uvula midline. Mucous membranes moist. Neck: Trachea midline, no thyromegaly or masses palpated, and no cervical lymphadenopathy. Supple, full range of motion without nuchal rigidity, or vertebral point tenderness. No Meningismus. Chest/axilla: Normal chest wall appearance and motion. Nontender with no deformity. No lesions are appreciated. Cardiovascular: Regular rate and rhythm with a normal S1 and S2. No gallops, murmurs, or rubs. Normal PMI, no JVD. No pulse deficits. Respiratory: Lungs have equal breath sounds bilaterally, clear to auscultation and percussion. No rales, rhonchi or wheezes noted. No increased work of breathing, no retractions or nasal flaring. Abdomen/GI: Soft, non-tender, with normal bowel sounds. No distension or tympany. No guarding or rebound. No evidence of tenderness throughout. Back: No spinal tenderness. No costovertebral tenderness. Full range of motion. Skin: Warm, dry with normal turgor. Normal color with no rashes, no lesions, and no evidence of cellulitis. MS/ Extremity: Pulses equal, no cyanosis. Neurovascular intact. Full, normal range of motion. 23:18 Neuro: Orientation: appropriate for stated age, Mentation: is normal, Cranial nerves: grossly normal, Cerebellar function: normal finger to nose testing, Motor: is normal. Vital Signs: 21:05 BP 122 / 72; Pulse 92; Resp 16 S; Temp 97.2(TE); Pulse Ox 94% on R/A; Weight 73.03 kg ca1 (R); Height 5 ft. 5 in. (165.10 cm) (R); Pain 4/10; 23:45 BP 151 / 80; Pulse 86; Resp 18; Pulse Ox 96% on R/A; lp1 04/13 00:39 BP 134 / 92; Pulse 88; Resp 22; Pulse Ox 95% on R/A; lp1 01:24 BP 158 / 99; Pulse 82; Resp 19; Pulse Ox 95% on R/A; ea 02:53 BP 146 / 86; Pulse 92; Resp 20; Pulse Ox 95% on R/A; ea 04/12 21:05 Body Mass Index 26.79 (73.03 kg, 165.10 cm) ca1 MDM: 04/12 22:54 Patient medically screened. pkl 04/13 05:37 Data reviewed: vital signs, nurses notes, lab test result(s), EKG, radiologic studies, pkl CT scan, plain films. ED course: . 04/12 22:42 Order name: SARS-COV-2 RT PCR; Complete Time: 22:57 EDMS 04/12 23:13 Order name: Basic Metabolic Panel pkl 04/12 23:13 Order name: CBC with Diff pkl 04/12 23:13 Order name: LFT's pkl 04/12 23:13 Order name: Magnesium pkl 04/12 23:13 Order name: NT PRO-BNP pkl 04/12 23:13 Order name: PT-INR; Complete Time: 02:02 pkl 04/12 23:13 Order name: Troponin (emerg Dept Use Only); Complete Time: 02:02 pkl 04/12 23:13 Order name: Blood Culture Adult (2) pkl 04/12 23:13 Order name: Lactate; Complete Time: 02:02 pkl 04/12 23:13 Order name: D-Dimer; Complete Time: 02:02 pkl 04/12 23:13 Order name: Basic Metabolic Panel; Complete Time: 02:02 EDMS 04/12 23:13 Order name: CBC with Automated Diff; Complete Time: 02:02 EDMS 04/12 23:13 Order name: Liver (Hepatic) Function; Complete Time: 02:02 EDMS 04/12 23:13 Order name: Magnesium; Complete Time: 02:02 EDMS 04/12 23:13 Order name: NT PRO-BNP; Complete Time: 02:02 EDMS 04/13 00:10 Order name: Urine Dipstick-Ancillary; Complete Time: 00:14 EDMS 04/13 00:21 Order name: Urine Culture [facility] 04/13 00:21 Order name: Urine --Ancillary (enter results); Complete Time: 02:02 [facility] 04/13 00:24 Order name: CBC Smear Scan; Complete Time: 02:02 EDMS 04/13 02:07 Order name: Urine Microscopic Only; Complete Time: 05:51 lp1 04/13 02:07 Order name: Urine Microscopic Only [facility] 04/13 05:51 Order name: Basic Metabolic Panel EDMS 04/13 05:51 Order name: Basic Metabolic Panel EDMS 04/13 05:51 Order name: CBC with Automated Diff EDMS 04/13 05:51 Order name: CBC with Automated Diff EDMS 04/14 06:00 Order name: C-Reactive Protein EDMS 04/14 06:26 Order name: CBC Smear Scan EDMS 04/12 23:13 Order name: XRAY Chest (1 view) pkl 04/12 23:13 Order name: EKG; Complete Time: 23:14 pkl 04/12 23:13 Order name: Cardiac monitoring; Complete Time: 23:43 pkl 04/12 23:13 Order name: EKG - Nurse/Tech; Complete Time: 00:37 pkl 04/12 23:13 Order name: IV Saline Lock; Complete Time: 23:43 pkl 04/12 23:13 Order name: Labs collected and sent; Complete Time: 23:43 pkl 04/12 23:13 Order name: O2 Per Protocol; Complete Time: 23:43 pkl 04/12 23:13 Order name: O2 Sat Monitoring; Complete Time: 23:43 pkl 04/12 23:13 Order name: CT Head Brain wo Cont pkl 04/12 23:15 Order name: Straight Cath - Urine: verbal order by Dr. Carpenter; Complete Time: 00:21 [facility] 04/13 05:51 Order name: Regular EDTN 04/14 08:00 Order name: CT EDMS Administered Medications: 00:00 Drug: NS 0.9% 1000 ml Route: IV; Rate: 125 ml/hr; Site: left antecubital; 1 02:17 Drug: Metoprolol TARTRATE 50 mg Route: PO; ea Disposition: 05/17/21 05:40 Hospitalization ordered by Gilbert Peña for Inpatient Admission. Preliminary diagnosis is Altered mental status. Positive Covid 19. - Bed requested for Intensive Care Unit. - Status is Inpatient Admission. sv - Condition is Stable. - Problem is new. - Symptoms are unchanged. Signatures: Dispatcher [employer] EDTN Deirdre Egan bd Monika Sandoval RN RN sv Dmitri Carpenter MD MD pkl Jill Avila RN RN lp1 Gilbert Cummins, DELIVERY MANAGER DELIVERY MANAGER pm1 Martha Mena RN RN ea Laura May RN RN ca1 Corrections: (The following items were deleted from the chart) 04/12 21:28 21:13 CORONAVIRUS+MR.LAB.BRZ ordered. EDTN EDTN 04/13 02:08 02:08 Urine Microscopic Only ordered. EDTN EDMS 02:08 02:08 Urine Microscopic Only ordered. EDTN EDTN 07:23 05:40 Hospitalization Ordered by Gilbert Peña MD for Inpatient Admission. Preliminary sv diagnosis is Altered mental status. Positive Covid 19. Bed requested for Telemetry/MedSurg (Inpatient). Status is Inpatient Admission. Condition is Stable. Problem is new. Symptoms are unchanged. pkl 04/14 16:10 04/13 07:23 04/13/2021 05:40 Hospitalization Ordered by Gilbert Peña MD for Inpatient bd Admission. Preliminary diagnosis is Altered mental status. Positive Covid 19. Bed requested for [facility] ER HOLD. Status is Inpatient Admission. Condition is Stable. Problem is new. Symptoms are unchanged. sv 04/14 17:12 16:10 04/13/2021 05:40 Hospitalization Ordered by Gilbert Peña MD for Inpatient sv Admission. Preliminary diagnosis is Altered mental status. Positive Covid 19. Bed requested for Intensive Care Unit. Status is Inpatient Admission. Condition is Stable. Problem is new. Symptoms are unchanged. bd
--- NOTE | 2021-04-13 07:30 | RAD REPORT ---
EXAM DESCRIPTION: Gui Single View04/12/2021 11:32 pm CLINICAL HISTORY: Chest pain COMPARISON: December 2020 FINDINGS: The lungs appear clear of acute infiltrate. The heart is moderately enlarged IMPRESSION: No acute abnormalities displayed
[2021-04-13] MEDS ORDERED: MAGNESIUM OXIDE 400 MG TAB ONE (08:55)
[2021-04-13] MEDS ORDERED: CEFTRIAXONE/SWI 1gm 1 GM/10 ML SYR ONE ×2 (08:56→19:56)
[2021-04-13] MEDS ORDERED: APIXABAN 5 MG TABLET ONE ×2 (08:56→19:56)
[2021-04-13] MEDS ORDERED: CEFTRIAXONE 1000 MG/VIAL ONE (08:56)
[2021-04-13] MEDS: MAGNESIUM OXIDE 400 MG TAB PO SCH (09:00)
[2021-04-13] MEDS: NA CHLORIDE 0.9% 1,000 ML IV SCH ×3 (09:17→23:06)
[2021-04-13] MEDS: IVERMECTIN 3 MG TABLET PO SCH (09:18)
[2021-04-13] MEDS: GABAPENTIN 100 MG CAP PO SCH ×3 (09:18→21:20)
[2021-04-13] MEDS: APIXABAN 5 MG TABLET PO SCH ×2 (09:18→21:19)
[2021-04-13] MEDS: levETIRAcetam 500 MG TAB PO SCH ×2 (09:18→21:19)
[2021-04-13] MEDS: CEFTRIAXONE/SWI 1gm 1 GM/10 ML SYR IV SCH ×2 (09:18→21:19)
[2021-04-13] MEDS ORDERED: levETIRAcetam 500 MG TAB ONE ×2 (09:31→19:56)
[2021-04-13 10:19] VITALS: BMI 26.8
--- NOTE | 2021-04-13 12:19 | RAD REPORT ---
EXAM DESCRIPTION: CT - Head Brain Wo Cont - 04/13/2021 6:27 am COMPARISON: MRI brain January 16, 2021 TECHNIQUE: [facility] MAIN altered mental status TECHNIQUE: Axial images were obtained from skull base to vertex without intravenous contrast. Imag es viewed on bone and brain windows. Multiplanar reformats were performed. Automated exposure contr ol was utilized on this examination as a dose lowering technique. FINDINGS: Brain parenchyma, ventricles, dura, meninges, and extra-axial spaces: Mild generalized cer ebral and cerebellar volume loss is present. Small chronic infarct of the posterior lateral left fron seymour lobe. Moderate hypodensities in the subcortical white matter of both hemispheres are nonspecific but likely relate to chronic small vessel disease. No acute intracranial hemorrhage or abnormal extra -axial fluid collections. Vascular structures: No hyperdense arteries or veins. Calvarium, mastoid air cells, paranasal sinuses and orbits: The calvarium is normal. The mastoid air cells are clear. Visualized paranasal sinuses are unremarkable. Orbital structures are unremarkable. IMPRESSION: 1. No acute intracranial abnormality. 2. 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 3. Moderate senescent changes. Electronically signed by: Blake Green MD 04/13/2021 12:07 AM CDT Due to temporary technical issues with the PACS/Fluency reporting system, reports are being signed by the in house radiologist without review as a courtesy to ensure prompt reporting. The interpreting r adiologist is fully responsible for the content of the report.
[2021-04-13] MEDS ORDERED: ATORVASTATIN 10 MG TAB ONE (19:59)
[2021-04-13] MEDS: ATORVASTATIN 10 MG TAB PO SCH (21:19)
[2021-04-13] MEDS: HYDROCODONE/APAP 5/325 MG TAB PO PRN (22:10)
[2021-04-13] MEDS ORDERED: HYDROCODONE/APAP 5/325 MG TAB ONE (22:24)
--- NOTE | 2021-04-14 04:29 | HP ---
Date of Admission: 04/13/2021 Chief Complaint: Weakness. History Of Present Illness: 85-year-old female patient, who was living with her son until about 2 we eks ago, her son had a stroke, so patient moved into daughter's house and started living with her emmett nara. Recently, the patient's granddaughter came back positive with COVID-19 and obviously patient living in the same house got exposed to her and yesterday she was brought into emergency room with ge neralized weakness and daughter was concerned that the patient was not looking same as usual. After the patient was evaluated in the ER, she was diagnosed as having urinary tract infection and COVID-19 infection and was admitted to the hospital. This morning when I saw her, she was still in the emerg ency room lying in bed. Her room air oxygen saturation is normal and the patient has not required an y supplemental oxygen. She recognized me, communicated with me and denied any other complaints. No shortness of breath. No nausea, vomiting. No diarrhea. Allergies: TO IODINE CAUSING RASH, LEVAQUIN CAUSING RASH, PENICILLIN CAUSING RASH AND SILVADENE CAUS ING RASH AND ITCHING. Medications: [place] 5, Eliquis 5 mg 2 times a day, gabapentin 100 mg 2 times a day, levetiracetam 250 mg 2 times a day, magnesium oxide 400 mg daily, metformin 500 mg she takes 2 tablets by mouth daily with evening meal, pravastatin 40 mg daily, Clements Thyroid 120 mg daily. Review of Systems: Constitutional: As mentioned above. All other systems reviewed and negative. Past Medical History: Significant for TIA, thyroid cancer, hypothyroidism, type 2 diabetes mellitus, hypertension, hyperlipidemia, chronic diastolic congestive heart failure, chronic atrial fibrillatio n, sick sinus syndrome, osteoarthritis at multiple sites, and hypomagnesemia, anemia, and depression. Past Surgical History: Cataract surgery, thyroidectomy, which was total thyroidectomy in 1969, foot surgery. Family History: Father had stroke. Mother, coronary artery disease and hypertension. Sister had st roke. Social History: Negative for smoking and alcohol use. Physical Examination: Vital Signs: Blood pressure 122/72, pulse 92, respiratory rate 16, temperature 97.2, oxygen saturati on 94%. Height 5 feet 5 inches, weight 73 kg. General: Awake, alert, oriented, not in distress. HEENT: Head atraumatic, normocephalic. Conjunctivae nonerythematous. Sclerae white. Mouth, no thr ush or edema noted. Ears/Nose, no mass, lesion, discharge noted. Neck: Supple. No JVD, lymph nodes, bruit, thyromegaly noted. Lungs: Bilateral good equal air entry. Clear to auscultation. No rhonchi. No rales. Heart: Normal heart sounds, no murmur or gallop. Abdomen: Soft, bowel sounds normal. No guarding, rigidity, tenderness, mass, hepatosplenomegaly, dis tention, or bruit noted. Extremities: Left lower extremity has dressing present and the patient has chronic leg ulcer for whi ch she [facility]. Skin: No rash, ulcer, cellulitis. Lymphatics: No lymph node enlargement in neck, supraclavicular, infraclavicular region. Neuro: No focal neurological deficit. Chest: Unremarkable. External Genitalia: Deferred. Rectal: Deferred. Laboratory Data: White count 2.6, hemoglobin 13.9, platelets 120. INR 1.36. D-dimer 66. Sodium 136 , potassium 4.3, chloride 102, bicarb 27, BUN 25, creatinine 0.98, glucose 141. Liver function tests unremarkable. Troponin less than 0.02. Lactic acid 1.5. Urinalysis positive for nitrite, bacteria more than 50, wbc less than 5. COVID-19 test positive. Chest x-ray, no acute cardiopulmonary gutierrez e. Impression: 1.COVID-19 infection. 2.Urinary tract infection. 3.Atrial fibrillation, chronic. 4.Chronic anticoagulation therapy. 5.Hypertension. 6.Hyperlipidemia. 7.Type 2 diabetes mellitus. 8.Chronic left leg wound. 9.Hypomagnesemia. 10.Depression. 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 12.Leukocytopenia. 13.Thrombocytopenia. Plan: We will admit the patient to hospital for further evaluation and management of this problem. The patient is appropriate for inpatient and is expected to spend 2 midnights in hospital. We will c ontinue home medications per order tomorrow. We will get a CRP level done along with her routine blo od work. Empiric antibiotic for urinary tract infection will be given. We will follow up on culture results. Depending on culture results, we will decide about culture specific antibiotics. We will consult Dr. Veliz from Pulmonary Service and continue her Eliquis. Details of plan of treatment d iscussed with the patient. We will also start her on Ivermectin 5 tablets today and 5 tablets to be given day after tomorrow. LOVE/MODL Voice ID: [id number]
[2021-04-14] MEDS: THYROID 30 MG TAB PO SCH (05:18)
[2021-04-14 05:36] LABS: Absolute Lymphocytes (CBC) 0.8 K/uL (0.7-4.9); Lymphocytes % 32.7 % (15.3-44.8); RBC Red Blood Cell Count 4.31 M/uL (3.86-4.86)
[2021-04-14 05:59] LABS: C-Reactive Protein 21.8 mg/L (<3.00); Potassium 4.1 mmol/L (3.5-5.1)
[2021-04-14] MEDS: NA CHLORIDE 0.9% 1,000 ML IV SCH ×4 (06:17→23:48)
[2021-04-14 06:26] LABS: Blood Morphology Comment NOT SEEN (NOT SEEN); Platelet Estimate DECR; White Blood Cell Scan OK (OK)
[2021-04-14] MEDS ORDERED: NA CHLORIDE 0.9% 1,000 ML ONE ×2 (06:35→07:28)
[2021-04-14] MEDS ORDERED: levETIRAcetam 500 MG TAB ONE (07:27)
[2021-04-14] MEDS ORDERED: APIXABAN 5 MG TABLET ONE (07:27)
[2021-04-14] MEDS ORDERED: CEFTRIAXONE/SWI 1gm 1 GM/10 ML SYR ONE (07:28)
[2021-04-14] MEDS ORDERED: MAGNESIUM OXIDE 400 MG TAB ONE (07:28)
--- NOTE | 2021-04-14 07:59 | RAD REPORT ---
EXAM DESCRIPTION: CT - Thorax Wo Yair - 04/14/2021 7:29 am CLINICAL HISTORY: COVIDpneumonia, fall, chest pain COMPARISON: No comparisons TECHNIQUE: Axial 5 mm thick images of the chest were obtained without IV contrast. All CT scans are performed using dose optimization technique as appropriate and may include automated exposure control or mA/KV adjustment according to patient size. FINDINGS: Patient has very minimal interstitial alveolar opacification that is nonspecific. Atelecta sis and scarring account for most if not all of the opacification. Trace bilateral pleural effusions are present. No pneumothorax. No abnormal mediastinal or hilar masses or lymphadenopathy seen. Cardiomegaly is present without haresh cardial effusion. Aorta and pulmonary arterial tree assessment is very limited in the absence of cont rast. No chest wall mass or abnormal axillary lymphadenopathy. Thoracic spine degenerative changes are pre sent. No displaced rib fracture. No nondisplaced fractures suspected. IMPRESSION: Atelectasis and scarring changes are present in the chest. Trace pleural effusions.
[2021-04-14] MEDS: APIXABAN 5 MG TABLET PO SCH ×2 (08:02→20:21)
[2021-04-14] MEDS: GABAPENTIN 100 MG CAP PO SCH ×3 (08:02→20:22)
[2021-04-14] MEDS: CEFTRIAXONE/SWI 1gm 1 GM/10 ML SYR IV SCH ×2 (08:02→20:22)
[2021-04-14] MEDS: levETIRAcetam 500 MG TAB PO SCH ×2 (08:03→20:21)
[2021-04-14] MEDS: MAGNESIUM OXIDE 400 MG TAB PO SCH (08:03)
[2021-04-14] MEDS ORDERED: HYDROCODONE/APAP 5/325 MG TAB ONE (10:54)
[2021-04-14] MEDS: HYDROCODONE/APAP 5/325 MG TAB PO PRN (11:27)
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
[2021-04-14] MEDS: ATORVASTATIN 10 MG TAB PO SCH (20:21)
[2021-04-14] MEDS ORDERED: METOPROLOL TAR 25 MG TAB PO ONE (20:57)
[2021-04-14] MEDS: METHYLPREDNISOLONE 40 MG INJ IV SCH (23:48)
[2021-04-15 05:29] LABS: Absolute Lymphocytes (CBC) 0.4 K/uL (0.7-4.9); Basophils % 0.3 % (0-1.3); Hematocrit 39.1 % (36.0-45.0); Lymphocytes % 20.4 % (15.3-44.8); RBC Red Blood Cell Count 4.47 M/uL (3.86-4.86)
[2021-04-15 05:46] LABS: Potassium 4.1 mmol/L (3.5-5.1)
[2021-04-15] MEDS: METHYLPREDNISOLONE 40 MG INJ IV SCH ×4 (05:55→23:46)
[2021-04-15] MEDS ORDERED: METOPROLOL TAR 25 MG TAB PO SCH (06:00)
[2021-04-15] MEDS: THYROID 30 MG TAB PO SCH (06:00)
[2021-04-15 06:52] LABS: Blood Morphology Comment NOT SEEN (NOT SEEN); Platelet Estimate DECR; White Blood Cell Scan OK (OK)
[2021-04-15] MEDS: MAGNESIUM OXIDE 400 MG TAB PO SCH (09:00)
[2021-04-15] MEDS: CEFTRIAXONE/SWI 1gm 1 GM/10 ML SYR IV SCH ×2 (09:00→20:57)
[2021-04-15] MEDS: LOSARTAN POTASSIUM 50 MG TABLET PO SCH (09:00)
[2021-04-15] MEDS: GABAPENTIN 100 MG CAP PO SCH ×3 (09:00→20:57)
[2021-04-15] MEDS: levETIRAcetam 500 MG TAB PO SCH ×2 (09:00→20:57)
[2021-04-15] MEDS: APIXABAN 5 MG TABLET PO SCH ×2 (09:00→20:57)
--- NOTE | 2021-04-15 09:57 | PN ---
Date of Progress Note: 04/14/2021 Subjective: The patient was seen this morning for followup. New complaints or problems reported by the patient. She was lying in bed, not in distress. Objective: Vital Signs: Reviewed. HEENT: Unremarkable. Lungs: Clear to auscultation. Heart: Sounds normal. Abdomen: Soft. Bowel sounds normal. No guarding, rigidity, tenderness, or distention. Extremities: No leg edema. Laboratory Data: White count 2.3, hemoglobin 12.3, platelets 93. Sodium 135, potassium 4.1, chlorid e 106, bicarb 24, BUN 16, creatinine 0.67, glucose 95. CRP 21.8. Impression: 1.COVID-19 infection. 2.Atrial fibrillation. 3.Thrombocytopenia. 4.Leukocytopenia. Plan: Nursing staff reported that the patient was using oxygen 1-2 L/minute nasal cannula yesterday. This morning when I saw her, she was on room air oxygen, maintaining adequate oxygenation around 94 % to 95%, not in any distress. CAT scan of the chest was ordered without contrast and that came back unremarkable, showed some atelectasis in the lung base, but no evidence of COVID-19 pneumonia. We w ill see her tomorrow for followup. We will continue to follow with Dr. Veliz. LOVE/MODL Voice ID: [id number] Report ID: [id number]
[2021-04-15] MEDS: IVERMECTIN 3 MG TABLET PO SCH (10:26)
[2021-04-15] MEDS ORDERED: REMDESIVIR (EUA) 200 MG in NA CHLORIDE 0.9% 250 ML IV ONE (17:00)
[2021-04-15] MEDS: ATORVASTATIN 10 MG TAB PO SCH (20:57)
[2021-04-16 05:43] LABS: Absolute Lymphocytes (CBC) 0.5 K/uL (0.7-4.9); Basophils % 0.2 % (0-1.3); Lymphocytes % 16.7 % (15.3-44.8); MPV 10.2 fL (7.6-11.3)
[2021-04-16 05:47] LABS: Albumin 2.8 g/dL (3.4-5.0); Bilirubin Total 0.3 mg/dL (0.2-1.0); C-Reactive Protein 27.7 mg/L (<3.00); Magnesium 2.2 mg/dL (1.8-2.4); Protein, Total 6.3 g/dL (6.4-8.2)
[2021-04-16] MEDS: THYROID 30 MG TAB PO SCH (05:56)
[2021-04-16] MEDS: METHYLPREDNISOLONE 40 MG INJ IV SCH ×4 (05:56→23:58)
--- NOTE | 2021-04-16 07:47 | RAD REPORT ---
EXAM DESCRIPTION: Gui Single View04/16/2021 6:29 am CLINICAL HISTORY: Chest pain COMPARISON: April 15, 2021 FINDINGS: A few areas of subsegmental atelectasis within the lung bases are unchanged Remainder of the lungs appear clear The heart is moderately enlarged. Small pleural effusions
[2021-04-16] MEDS: GABAPENTIN 100 MG CAP PO SCH ×3 (08:16→20:40)
[2021-04-16] MEDS: LOSARTAN POTASSIUM 50 MG TABLET PO SCH (08:16)
[2021-04-16] MEDS: CEFTRIAXONE/SWI 1gm 1 GM/10 ML SYR IV SCH ×2 (08:16→20:40)
[2021-04-16] MEDS: levETIRAcetam 500 MG TAB PO SCH ×2 (08:16→20:40)
[2021-04-16] MEDS: APIXABAN 5 MG TABLET PO SCH ×2 (08:16→20:40)
[2021-04-16] MEDS: MAGNESIUM OXIDE 400 MG TAB PO SCH (08:16)
[2021-04-16] MEDS: REMDESIVIR (EUA) 100 MG in NA CHLORIDE 0.9% 250 ML IV SCH (09:21)
--- NOTE | 2021-04-16 10:13 | PN ---
Date of Progress Note: 04/15/2021 Subjective: The patient was seen for followup in the morning. No new complaints or problems reporte d. She was lying in bed in ICU. Denies any complaints. She has had some hypoxia and maintaining ad equate oxygenation with nasal cannula oxygen 2 L/minute. Denies any abdominal pain, nausea, vomiting . No chest pain. Objective: Vital Signs: Reviewed. HEENT: Unremarkable. Lungs: Clear to auscultation. Heart: Sounds normal. Abdomen: Soft. Bowel sounds normal. No guarding, rigidity, tenderness, distention. Extremities: No leg edema. Laboratory Data: White count 1.9, hemoglobin 12.7, and a platelet count of 97. Sodium 138, potassiu m 4.1, chloride 104, bicarb 28, BUN 13, creatinine 0.73, glucose 152. CRP 30, yesterday it was 21.8. Impression: 1.COVID-19 infection. 2.Thrombocytopenia. 3.Leukocytopenia. 4.Urinary tract infection. Plan: We will continue current antibiotics, follow up on urine culture results. We will continue to follow with Pulmonary physician, Dr. Veliz. We will continue IV steroid that was started for thi s COVID-19 infection with hypoxia problem now. Initially, the patient did not require oxygen supplem entation, but later on as her oxygen level dropped down, she did require oxygen supplementation and w e will need to continue to monitor her closely for any worsening. We will continue to follow with Dr Sravani Veliz from Pulmonary for further management. Continue current home medications and we will cont inue to monitor leukocytopenia and thrombocytopenia, which does not require any intervention at this point. LOVE/MODL Voice ID: [id number] Report ID: [id number]
[2021-04-16 11:55] LABS: C.diff Antigen/Toxin Ag neg : Tox neg (NEG : NEG)
[2021-04-16 17:37] LABS: ALT/SGPT 16 U/L (12-78); AST/SGOT 12 U/L (15-37); Albumin 2.9 g/dL (3.4-5.0); Alkaline Phosphatase 55 U/L (45-117); Bilirubin Direct < 0.1 mg/dL (0-0.2); Bilirubin Total 0.2 mg/dL (0.2-1.0); Protein, Total 6.4 g/dL (6.4-8.2)
[2021-04-16] MEDS: ATORVASTATIN 10 MG TAB PO SCH (20:40)
[2021-04-16] MEDS: HYDROCODONE/APAP 5/325 MG TAB PO PRN (21:30)
--- NOTE | 2021-04-17 00:19 | PN ---
Date of Progress Note: 04/16/2021 Subjective: The patient was seen this morning for followup. No new complaints or problems reported by the patient. Lying in bed, not in any distress in ICU, on supplemental nasal cannula oxygen betwe en 1.5 to 2 L/minute, maintaining adequate oxygenation. Objective: Vital Signs: Reviewed. HEENT: Unremarkable. Lungs: Clear to auscultation. Heart: Sounds normal. Abdomen: Soft. Bowel sounds normal. No guarding, rigidity, tenderness, or distention. Extremities: No leg edema. Laboratory Data: White count 3.1, hemoglobin 13.1, platelets 115. Sodium 143, potassium 4, chloride 107, bicarb 29, BUN 22, creatinine 0.77, glucose 162. Liver function tests unremarkable. CRP 27.7. Impression: 1.COVID-19 infection. 2.Acute respiratory failure with hypoxia. 3.Thrombocytopenia. 4.Leukocytopenia. 5.Hypothyroidism. 6.Atrial fibrillation. 7.Chronic anticoagulation therapy. Plan: We will continue current Eliquis and thyroid supplement therapy per order. The patient is jefferson ntaining adequate oxygenation on 2 L nasal cannula oxygen, we will continue that. She is on IV stero id, we will continue that along with remdesivir, which was started. We will continue to follow with Dr. Veliz. I will see her tomorrow for followup. LOVE/MODL Voice ID: [id number] Report ID: [id number]
[2021-04-17] MEDS: METHYLPREDNISOLONE 40 MG INJ IV SCH (05:32)
[2021-04-17] MEDS: THYROID 30 MG TAB PO SCH (05:32)
[2021-04-17] MEDS: LOSARTAN POTASSIUM 50 MG TABLET PO SCH (07:42)
[2021-04-17] MEDS: APIXABAN 5 MG TABLET PO SCH ×2 (07:42→20:32)
[2021-04-17] MEDS: MAGNESIUM OXIDE 400 MG TAB PO SCH (07:42)
[2021-04-17] MEDS: CEFTRIAXONE/SWI 1gm 1 GM/10 ML SYR IV SCH ×2 (07:42→20:35)
[2021-04-17] MEDS: GABAPENTIN 100 MG CAP PO SCH ×3 (07:42→20:33)
[2021-04-17] MEDS: levETIRAcetam 500 MG TAB PO SCH ×2 (07:42→20:32)
[2021-04-17] MEDS ORDERED: predniSONE 20 MG TAB PO ONE (09:17)
[2021-04-17] MEDS: REMDESIVIR (EUA) 100 MG in NA CHLORIDE 0.9% 250 ML IV SCH (09:24)
--- NOTE | 2021-04-17 14:32 | PN ---
Date of Progress Note: 04/17/2021 Subjective: The patient was seen this morning for followup. No new complaints or problems reported by her. She was lying in bed in ICU, not in distress and as per my discussion with the patient and [facility] staff, the patient has not required any oxygen as of yesterday afternoon and she is maintainin g adequate oxygenation on room air. When I saw her, her oxygen saturation was ranging between 91% to 94%. She was not in any respiratory distress. She denies any shortness of breath, chest pain. No vomiting, diarrhea. Has a good appetite. Objective: Vital Signs: Reviewed. HEENT: Unremarkable. Lungs: Clear to auscultation. Heart: Sounds normal. Abdomen: Soft. Bowel sounds normal. No guarding, rigidity, tenderness, distention. Extremities: No leg edema. Laboratory Data: CRP level 14.3 today. Impression: 1.COVID-19 infection. 2.Acute respiratory failure with hypoxia. 3.Atrial fibrillation with rapid ventricular rate. 4.Hypothyroidism. 5.Urinary tract infection. Plan: We will go ahead and continue ceftriaxone for urinary tract infection. Continue other home me dications. Continue Eliquis. We will continue remdesivir per order. So far patient has received IV steroid. Starting today, we will change from IV to oral steroid. We will repeat blood work tomorro w morning and depending on her condition tomorrow, we will decide if we can plan to discharge her to go home tomorrow or not. The patient is anxious to go home as she reported today. LOVE/MODL Voice ID: [id number] Report ID: [id number]
[2021-04-17] MEDS: predniSONE 20 MG TAB PO SCH (20:32)
[2021-04-17] MEDS: ATORVASTATIN 10 MG TAB PO SCH (20:33)
[2021-04-17] MEDS: HYDROCODONE/APAP 5/325 MG TAB PO PRN (20:33)
[2021-04-18 05:17] LABS: Absolute Lymphocytes (CBC) 0.6 K/uL (0.7-4.9); Basophils % 0.4 % (0-1.3); Hematocrit 37.3 % (36.0-45.0); Lymphocytes % 12.7 % (15.3-44.8); MPV 10.2 fL (7.6-11.3); RBC Red Blood Cell Count 4.29 M/uL (3.86-4.86)
[2021-04-18 05:19] VITALS: BP 119/79; TEMP 97.2
[2021-04-18 05:34] LABS: Albumin 2.7 g/dL (3.4-5.0); Bilirubin Total 0.2 mg/dL (0.2-1.0); C-Reactive Protein 11.8 mg/L (<3.00); Magnesium 2.1 mg/dL (1.8-2.4); Potassium 3.8 mmol/L (3.5-5.1); Protein, Total 5.7 g/dL (6.4-8.2)
[2021-04-18] MEDS: THYROID 30 MG TAB PO SCH (05:58)
[2021-04-18] MEDS: LOSARTAN POTASSIUM 50 MG TABLET PO SCH (08:04)
[2021-04-18] MEDS: predniSONE 20 MG TAB PO SCH (08:04)
[2021-04-18] MEDS: levETIRAcetam 500 MG TAB PO SCH (08:04)
[2021-04-18] MEDS: APIXABAN 5 MG TABLET PO SCH (08:04)
[2021-04-18] MEDS: MAGNESIUM OXIDE 400 MG TAB PO SCH (08:04)
[2021-04-18] MEDS: GABAPENTIN 100 MG CAP PO SCH (08:04)
[2021-04-18] MEDS: CEFTRIAXONE/SWI 1gm 1 GM/10 ML SYR IV SCH (08:05)
[2021-04-18 08:25] VITALS: O2SAT 94
[2021-04-18] MEDS: REMDESIVIR (EUA) 100 MG in NA CHLORIDE 0.9% 250 ML IV SCH (09:00)
--- NOTE | 2021-04-18 10:57 | P.PN ---
Subjective Date of Service: 04/18/21 Chief Complaint: Kern virus infection significant nocturnal desaturation Subjective: Improving Patient is doing much better does experience nighttime desaturation Review of Systems General: Weakness Physical Examination - Vital Signs Temperature: 97.2 F Blood Pressure: 119/79 Pulse: 74 Respirations: 15 Pulse Ox (%): 96 - Studies Microbiology Data (last 24 hrs): 04/13/21 00:50 Blood - Blood Aerobic Blood Culture - Final No growth in 5 days. 04/13/21 00:50 Blood - Blood Anaerobic Blood Culture - Final 04/12/21 23:30 Blood - Blood Aerobic Blood Culture - Final No growth in 5 days. 04/12/21 23:30 Blood - Blood Anaerobic Blood Culture - Final No growth in 5 days. Assessment & Plan - Problems (Diagnosis) (1) COVID-19 Current Visit: Yes Status: Acute Plan: Doing much better requiring O2 room-air saturation satisfactory plan to discharge (2) Sleep apnea Current Visit: Yes Status: Acute Plan: Possible sleep apnea patient experiencing significant nighttime desaturation and plan to arrange for sleep study as an outpatient patient came in with a UTI final signs stable Qualifiers: Sleep apnea type: unspecified type Qualified Code(s): G47.30 - Sleep apnea, unspecified
--- NOTE | 2021-04-19 11:10 | DS ---
Date of Discharge: 04/18/2021 Disposition: Discharged to go home. Physical Examination: HEENT: Unremarkable. Lungs: Clear to auscultation. Heart: Sounds normal. Abdomen: Soft. Bowel sounds normal. No guarding, rigidity, tenderness, distention. Extremities: No leg edema. Laboratory Data: Upon admission; white count 2.6, hemoglobin 13.9, platelets 122. Lowest white coun t during this hospital admission was on 04/15/2021 and WBC count was 1.9. Lowest platelet count was 93, which was on 04/14/2021. Last CBC today; white count 5.1, hemoglobin 12.2, platelets 141. Her l ast chemistry today; sodium 142, potassium 3.8, chloride 105, bicarb 31, BUN 25, creatinine 0.73, glu cose 186. Liver function tests unremarkable. CRP 11.80. Highest CRP during this hospital stay was 30, which was on 04/15/2021. Initial CRP was 21.80 on 04/14/2021. Her stool for C diff was negative . COVID-19 test was positive. Urine culture grew E coli. Chest x-ray and CAT scan of the chest wer e negative for any evidence of pneumonia. Hospital Course: An 85-year-old female patient, admitted to the hospital with complaints of weakness . Please see dictated H and P for more information. After the patient was evaluated in the ER, she was admitted to the hospital with COVID-19 infection and urinary tract infection. She was started on IV antibiotic ceftriaxone, which was continued throughout this hospital stay. Urine culture grew E coli and it is sensitive to ceftriaxone and also sensitive to nitrofurantoin that will be discharging her to take it on outpatient basis. Initially when she came in, her oxygen level was normal, but woods bsequently she did have hypoxia requiring supplemental oxygen anywhere between 1-2 L nasal cannula ox ygen. As of last 48 hours or so, she has not required any more supplemental oxygen. Nursing staff med elam noted that during nighttime while she was sleeping, her oxygen saturation dropped down into range of 85%, but the moment they wake her up and she starts to take a deeper breath, her oxygen saturatio n comes back up to 92% to 94% with use of oxygen. Dr. Veliz had ordered a blood gas and she refus ed that. I did talk to Dr. Veliz today and he is going to arrange for outpatient sleep study to jose curtis if she has sleep apnea or not and informed me that she would not qualify for [facility], but we will see if she has sleep apnea or not. So, overall the patient's condition is medicall y stable. She is ready to go home. Dr. Veliz has released her to go home from Pulmonary point of view and we will see her on outpatient basis. Details were discussed with her. The patient will be living with her daughter and she was instructed to continue all her prior home medications as she wa s taking before and take following new medications upon discharge: 1.Nitrofurantoin 100 mg 2 times a day for 1 week. 2.Prednisone 10 mg, the patient to take 3 tablets daily for 3 days, then 2 tablets daily for 3 days, 1 tab daily for 3 days, then stop. 3.Follow up at my office via tele visit next week and the patient will call for appointment and Dr. Veliz's office will schedule outpatient sleep study to be done at home to rule out sleep apnea. Final Diagnoses: 1.COVID-19 infection. 2.Acute respiratory failure with hypoxia. 3.Rule out sleep apnea. 4.Urinary tract infection, organism Escherichia coli. 5.Atrial fibrillation, chronic. 6.Chronic anticoagulation therapy. 7.Hypertension. 8.Hyperlipidemia. 9.Type 2 diabetes mellitus. 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 11.Depression. 12.Hypomagnesemia. 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 14.Leukocytopenia. 15.Thrombocytopenia. LOVE/MODL Voice ID: [id number] Report ID: [id number]
== END 2021-04-18 13:45 | disposition home or self-care (01) | DRG 177 ==
LOC: ER 20:47 → ERHOLD 04-13 05:45 → 3RD-ICU 04-14 16:23
PROVIDERS: ADMIT Internal Medicine; ATTEND Internal Medicine
PROC: XW033E5 Introduction of Remdesivir Anti-infective into Peripheral Vein, Percutaneous Approach, New Technology Group 5 (ICD-10-PCS; principal; 2021-04-15)
DX: U07.1 COVID-19 (principal); J96.01 Acute respiratory failure with hypoxia; N39.0 Urinary tract infection, site not specified; I50.32 Chronic diastolic (congestive) heart failure; I48.20 Chronic atrial fibrillation, unspecified; I11.0 Hypertensive heart disease with heart failure; E78.5 Hyperlipidemia, unspecified; M19.90 Unspecified osteoarthritis, unspecified site; E11.9 Type 2 diabetes mellitus without complications; W01.0XXA Fall on same level from slipping, tripping and stumbling without subsequent striking against object, initial encounter; Z88.0 Allergy status to penicillin; Z88.1 Allergy status to other antibiotic agents; Z88.8 Allergy status to other drugs, medicaments and biological substances; Z79.01 Long term (current) use of anticoagulants; Z79.899 Other long term (current) drug therapy; Z86.73 Personal history of transient ischemic attack (TIA), and cerebral infarction without residual deficits; Z79.84 Long term (current) use of oral hypoglycemic drugs; Z85.850 Personal history of malignant neoplasm of thyroid; E83.42 Hypomagnesemia; F32.9 Major depressive disorder, single episode, unspecified; E03.9 Hypothyroidism, unspecified; D72.819 Decreased white blood cell count, unspecified; D69.6 Thrombocytopenia, unspecified; G47.30 Sleep apnea, unspecified; B96.20 Unspecified Escherichia coli [E. coli] as the cause of diseases classified elsewhere
CPT/HCPCS: 36415; 51702; 70450; 71045; 71250; 80048; 80053; 80076; 81003; 81015; 81025; 83605; 83735; 83880; 84484; 85025; 85379; 85610; 86140; 87040; 87077; 87086; 87088; 87186; 87324; 87449; 93005; 99284; J0696; J2920; J7030; J7050; J7512; U0003

== ENCOUNTER 2021-05-04 11:45 | Emergency (ER) | payer OTHER ==
--- NOTE | 2021-05-04 14:16 | RAD REPORT ---
EXAM DESCRIPTION: RAD - Chest Pa And Lat (2 Views) - 05/04/2021 2:09 pm CLINICAL HISTORY: SOB Chest pain. COMPARISON: Chest Single View dated 04/16/2021; Chest Single View dated 04/12/2021; Chest Single View dated 01/15/2021; Chest Pa And Lat (2 Views) dated 01/17/2020 FINDINGS: Mild interstitial pulmonary edema is seen. Heart is moderately enlarged in size. No displa yolanda fractures. Tortuous thoracic aorta. IMPRESSION: Mild CHF.
[2021-05-04 15:18] LABS: Protime INR 1.2
[2021-05-04 15:21] LABS: ALT/SGPT 26 U/L (12-78); Albumin 3.2 g/dL (3.4-5.0); Alkaline Phosphatase 63 U/L (45-117); BUN Blood Urea Nitrogen 18 mg/dL (7-18); Bicarbonate 31 mmol/L (21-32); Bilirubin Direct 0.1 mg/dL (0-0.2); Bilirubin Total 0.6 mg/dL (0.2-1.0); Glucose Level 137 mg/dL (74-106); NT PRO-BNP 580 pg/mL (<450); Sodium Level 140 mmol/L (136-145); Troponin (Emerg Dept Use Only) < 0.02 ng/mL (0.0-0.045)
[2021-05-04 15:29] LABS: AST/SGOT 28 U/L (15-37); Magnesium 2.4 mg/dL (1.8-2.4); Potassium 4.5 mmol/L (3.5-5.1)
[2021-05-04 15:47] LABS: Absolute Lymphocytes (CBC) 1.2 K/uL (0.7-4.9); Basophils % 1.2 % (0-1.3); Hematocrit 44.1 % (36.0-45.0); Lymphocytes % 18.2 % (15.3-44.8); MPV 10.1 fL (7.6-11.3); RBC Red Blood Cell Count 4.94 M/uL (3.86-4.86)
--- NOTE | 2021-05-04 15:49 | ER ---
Nurse's Notes [facility] Name: Lilo Zuleta Age: 85 yrs Sex: Female : 1935 Arrival Date: 05/04/2021 Time: 11:47 Bed 16 Private MD: Padmini Peña C Diagnosis: Chronic diastolic (congestive) heart failure-exacerbation Presentation: 05/04 11:53 Chief complaint: Patient states: "My home health nurse said I was not breathing right. jd3 I feel like I am not getting enough oxygen. hospitalized in March with COVID.". Coronavirus screen: At this time, the client does not indicate any symptoms associated with coronavirus-19. Ebola Screen: Patient negative for fever greater than or equal to 101.5 degrees Fahrenheit, and additional compatible Ebola Virus Disease symptoms. Initial Sepsis Screen: Does the patient meet any 2 criteria? No. Patient's initial sepsis screen is negative. Does the patient have a suspected source of infection? No. Patient's initial sepsis screen is negative. Risk Assessment: Do you want to hurt yourself or someone else? Patient reports no desire to harm self or others. Onset of symptoms was May 04, 2021. 11:53 Method Of Arrival: Wheelchair jd3 11:53 Acuity: HAVEN 3 jd3 Triage Assessment: 13:00 General: Appears distressed, comfortable, Behavior is cooperative, appropriate for age, bp anxious. Pain: Denies pain. EENT: No deficits noted. Neuro: No deficits noted. Cardiovascular: No deficits noted. Respiratory: Reports shortness of breath Onset: The symptoms/episode began/occurred at an unknown time. the patient has mild shortness of breath. GI: No signs and/or symptoms were reported involving the gastrointestinal system. : No signs and/or symptoms were reported regarding the genitourinary system. Derm: No deficits noted. Musculoskeletal: No deficits noted. Historical: - Allergies: 11:56 gentamicin sulfate (PF); jd3 11:56 Iodine; jd3 11:56 Levofloxacin; jd3 11:56 PENICILLINS; jd3 - Home Meds: 11:56 digoxin 125 mcg Oral tab 1 tab once daily [Active]; Eliquis 5 mg Oral tab 1 tab 2 times jd3 per day [Active]; levetiracetam 50 mg Oral [Active]; metoprolol tartrate 25 mg Oral tab 1 tab once daily [Active]; mupirocin 2 % Topical oint 3 times per day [Active]; MagOx 40 mg Oral [Active]; pravastatin 40 mg Oral tab 1 tab once daily [Active]; thyroid (pork) 2 gm Oral [Active]; - PMHx: 11:56 Hypertension; Seizures; TIA; jd3 - Immunization history:: Adult Immunizations up to date. - Social history:: Smoking status: Patient denies any tobacco usage or history of. Patient/guardian denies using alcohol. Screenin:00 Abuse screen: Denies threats or abuse. Denies injuries from another. Nutritional bp screening: No deficits noted. Tuberculosis screening: No symptoms or risk factors identified. Fall Risk None identified. Assessment: 12:36 Reassessment: Received VO from Dr Melendez for CXR. sv 13:00 General: SEE TRIAGE NOTE. bp 14:00 Reassessment: Patient appears in no apparent distress at this time. Patient and/or bp family updated on plan of care and expected duration. Pain level reassessed. Patient is alert, oriented x 3, equal unlabored respirations, skin warm/dry/pink. 15:00 Reassessment: No changes from previously documented assessment. Patient and/or family bp updated on plan of care and expected duration. Pain level reassessed. Patient is alert, oriented x 3, equal unlabored respirations, skin warm/dry/pink. Cardiovascular: Rhythm is sinus rhythm. Respiratory: Airway is patent Respiratory effort is even, unlabored, Breath sounds are clear bilaterally. 16:14 Reassessment: PT D/C HOME VIA W/C WITH FAMILY, DX WITH CHF EXACERBATION. bp Vital Signs: 11:56 BP 135 / 79; Pulse 99; Resp 19 S; Temp 97.9(TE); Pulse Ox 97% on R/A; Weight 73.03 kg jd3 (R); Height 5 ft. 5 in. (165.10 cm) (R); Pain 4/10; 14:00 BP 141 / 81; Pulse 95; Resp 19; Pulse Ox 97% ; bp 16:00 BP 137 / 75; Pulse 94; Resp 19; Pulse Ox 97% ; bp 11:56 Body Mass Index 26.79 (73.03 kg, 165.10 cm) [facility] ED Course: 11:47 Patient arrived in ED. as 11:47 Padmini Peña MD is Private Physician. as 11:55 Triage completed. jd3 11:57 Arm band placed on. jd3 12:53 Sam Grey, RN is Primary Nurse. bp 12:57 Christine Monet FNP-C is PHCP. kb 12:57 Leo Melendez MD is Attending Physician. kb 13:00 Patient has correct armband on for positive identification. Bed in low position. Call bp light in reach. Side rails up X2. Adult w/ patient. 14:05 Chest Pa And Lat (2 Views) XRAY In Process Unspecified. EDMS 14:50 Inserted saline lock: 20 gauge in right antecubital area, using aseptic technique. sv Blood collected. Flushed right antecubital with 5 ml normal saline. 14:55 Basic Metabolic Panel Sent. sv 14:55 CBC with Diff Sent. sv 15:48 Padmini Peña MD is Referral Physician. kb 16:16 No provider procedures requiring assistance completed. IV discontinued, intact, bp bleeding controlled, No redness/swelling at site. Pressure dressing applied. Administered Medications: 15:50 Drug: Lasix (furosemide) 40 mg Route: IVP; Site: right antecubital; bp 16:14 Follow up: Response: Medication administered at discharge. bp Outcome: 15:49 Discharge ordered by MD. kb 16:00 Discharged to home via wheelchair, with family. bp 16:00 Condition: stable 16:00 Discharge instructions given to patient, family, Instructed on discharge instructions, follow up and referral plans. medication usage, Demonstrated understanding of instructions, follow-up care, medications, Prescriptions given X 1. 16:17 Patient left the ED. bp Signatures: Dispatcher [employer] EDPR Christine Monet FNP-C FNP-Ckb Verde, Stephanie, RN RN sv Martinez, Amelia as Davies, Jonathon, RN RN jd3 Peltier, Brian, RN RN bp Corrections: (The following items were deleted from the chart) 11:57 11:53 Chief complaint: Patient states: "My home health nurse said I was not breathing jd3 right. I feel like I am not getting enough oxygen." jd3 11:57 11:56 BP 135 / 79; Pulse 99bpm; Resp 19bpm; Spontaneous; Pulse Ox 97% RA; Temp 97.9F jd3 Temporal; 73.03 kg Reported; Height 5 ft. 5 in. Reported; BMI: 26.7; Pain 5/10; jd3
--- NOTE | 2021-05-04 15:49 | EDPHYS ---
Physician Documentation [facility] Name: Lilo Zuleta Age: 85 yrs Sex: Female : 1935 Arrival Date: 05/04/2021 Time: 11:47 Bed 16 Private MD: Padmini Peña C ED Physician Leo Melendez HPI: 05/04 20:14 This 85 yrs old Female presents to ER via Wheelchair with complaints of kb Shortness Of Breath. 20:14 The patient has shortness of breath at rest, with light activity. Onset: The kb symptoms/episode began/occurred last week, and became worse today. Duration: The symptoms are continuous, and are unchanged since they started. The patient's shortness of breath is aggravated by exertion, is alleviated by nothing. Associated signs and symptoms: The patient has no apparent associated signs or symptoms. Severity of symptoms: At their worst the symptoms were mild moderate in the emergency department the symptoms are unchanged. The patient has experienced similar episodes in the past, a few times. The patient has been recently been admitted at [facility], was discharged a couple of weeks ago. Pt reports she was in the hospital a couple of weeks ago for COVID. Has been having shortness of breath for the last week, worse today. . Historical: - Allergies: 11:56 gentamicin sulfate (PF); jd3 11:56 Iodine; jd3 11:56 Levofloxacin; jd3 11:56 PENICILLINS; jd3 - Home Meds: 11:56 digoxin 125 mcg Oral tab 1 tab once daily [Active]; Eliquis 5 mg Oral tab 1 tab 2 times jd3 per day [Active]; levetiracetam 50 mg Oral [Active]; metoprolol tartrate 25 mg Oral tab 1 tab once daily [Active]; mupirocin 2 % Topical oint 3 times per day [Active]; MagOx 40 mg Oral [Active]; pravastatin 40 mg Oral tab 1 tab once daily [Active]; thyroid (pork) 2 gm Oral [Active]; - PMHx: 11:56 Hypertension; Seizures; TIA; jd3 - Immunization history:: Adult Immunizations up to date. - Social history:: Smoking status: Patient denies any tobacco usage or history of. Patient/guardian denies using alcohol. ROS: 20:13 Constitutional: Negative for fever, chills, and weight loss. kb 20:13 Respiratory: Positive for dyspnea on exertion, shortness of breath, Negative for cough, hemoptysis, orthopnea, pleurisy, sputum production, wheezing. 20:13 All other systems are negative. Exam: 20:13 Constitutional: This is a well developed, well nourished patient who is awake, alert, kb and in no acute distress. Head/Face: Normocephalic, atraumatic. ENT: Moist Mucous membranes Cardiovascular: Regular rate and rhythm with a normal S1 and S2. No gallops, murmurs, or rubs. No pulse deficits. Respiratory: Respirations even and unlabored. No increased work of breathing, no retractions or nasal flaring. Abdomen/GI: Soft, non-tender. No distention Skin: Warm, dry with normal turgor. Normal color. MS/ Extremity: Pulses equal, no cyanosis. Neurovascular intact. Full, normal range of motion. Neuro: Awake and alert, GCS 15, oriented to person, place, time, and situation. Moves all extremities. Normal gait. Psych: Awake, alert, with orientation to person, place and time. Behavior, mood, and affect are within normal limits. Vital Signs: 11:56 BP 135 / 79; Pulse 99; Resp 19 S; Temp 97.9(TE); Pulse Ox 97% on R/A; Weight 73.03 kg jd3 (R); Height 5 ft. 5 in. (165.10 cm) (R); Pain 4/10; 14:00 BP 141 / 81; Pulse 95; Resp 19; Pulse Ox 97% ; bp 16:00 BP 137 / 75; Pulse 94; Resp 19; Pulse Ox 97% ; bp 11:56 Body Mass Index 26.79 (73.03 kg, 165.10 cm) jd3 MDM: 12:57 Patient medically screened. kb 15:44 Data reviewed: vital signs, nurses notes. Data interpreted: Pulse oximetry: on room air kb is 97 %. Interpretation: normal. ED course: Discussed case with ERP. Recommended lasix for 3 days and follow up with Dr Peña outpatient. 20:13 Counseling: I had a detailed discussion with the patient and/or guardian regarding: the kb historical points, exam findings, and any diagnostic results supporting the discharge/admit diagnosis, lab results, radiology results, the need for outpatient follow up, a family practitioner, to return to the emergency department if symptoms worsen or persist or if there are any questions or concerns that arise at home. 05/04 13:02 Order name: Basic Metabolic Panel kb 05/04 13:02 Order name: CBC with Diff kb 05/04 13:02 Order name: LFT's; Complete Time: 15:30 kb 05/04 13:02 Order name: Magnesium; Complete Time: 15:30 kb 05/04 13:02 Order name: NT PRO-BNP; Complete Time: 15:30 kb 05/04 13:02 Order name: PT-INR; Complete Time: 15:23 kb 05/04 12:36 Order name: Chest Pa And Lat (2 Views) XRAY; Complete Time: 14:22 sv 05/04 13:02 Order name: Troponin (emerg Dept Use Only); Complete Time: 15:30 kb 05/04 13:02 Order name: Cardiac monitoring; Complete Time: 15:06 kb 05/04 13:03 Order name: EKG - Nurse/Tech; Complete Time: 15:06 kb 05/04 13:03 Order name: Basic Metabolic Panel; Complete Time: 15:30 EDMS 05/04 13:03 Order name: CBC with Automated Diff; Complete Time: 15:48 EDMS 05/04 13:03 Order name: IV Saline Lock; Complete Time: 14:55 kb 05/04 13:03 Order name: Labs collected and sent; Complete Time: 14:55 kb 05/04 13:03 Order name: O2 Per Protocol; Complete Time: 13:08 kb 05/04 13:03 Order name: O2 Sat Monitoring; Complete Time: 13:08 kb Administered Medications: 15:50 Drug: Lasix (furosemide) 40 mg Route: IVP; Site: right antecubital; bp 16:14 Follow up: Response: Medication administered at discharge. bp Disposition: 05/05 07:03 Co-signature as Attending Physician, Leo Melendez MD. rn Disposition: 05/04/21 15:49 Discharged to Home. Impression: Chronic diastolic (congestive) heart failure - exacerbation. - Condition is Stable. - Discharge Instructions: Heart Failure, [id number]-ro-Espw. - Prescriptions for Lasix 20 mg Oral Tablet - take 1 tablet by ORAL route once daily for 3 days; 3 tablet. - Medication Reconciliation Form, Thank You Letter, Antibiotic Education, Prescription Opioid Use form. - Follow up: Emergency Department; When: As needed; Reason: Worsening of condition. Follow up: Padmini Peña MD; When: 2 - 3 days; Reason: Recheck today's complaints, Continuance of care, Re-evaluation by your physician. Signatures: Dispatcher [employer] EDUT Christine Monet, SKEIN MERCERIZING MACHINE OPERATOR-C SKEIN MERCERIZING MACHINE OPERATOR-Ckb Leo Melendez MD MD rn Davies, Jonathon, RN RN jd3 Peltier, Brian, RN RN bp Corrections: (The following items were deleted from the chart) 05/04 16:17 15:49 05/04/2021 15:49 Discharged to Home. Impression: Chronic diastolic (congestive) bp heart failure - exacerbation. Condition is Stable. Forms are Medication Reconciliation Form, Thank You Letter, Antibiotic Education, Prescription Opioid Use. Follow up: Emergency Department; When: As needed; Reason: Worsening of condition. Follow up: Padmini Peña; When: 2 - 3 days; Reason: Recheck today's complaints, Continuance of care, Re-evaluation by your physician. kb
[2021-05-04] MEDS ORDERED: FUROSEMIDE 40 MG/4 ML VIAL ONE (16:14)
[2021-05-04 16:24] VITALS: TEMP 97.9; O2SAT 97
[2021-05-04 16:26] VITALS: BP 137/75
== END 2021-05-04 16:17 | disposition home or self-care (01) ==
LOC: ER 11:45
DX: I11.0 Hypertensive heart disease with heart failure (principal); I50.33 Acute on chronic diastolic (congestive) heart failure; Z86.73 Personal history of transient ischemic attack (TIA), and cerebral infarction without residual deficits
CPT/HCPCS: 85025; 80048; 36415; 83735; 85610; 80076; 84484; 83880; 71046; 96374; 99284; J1940

== ENCOUNTER 2021-10-08 17:26 | Inpatient (IN) | payer OTHER ==
[2021-10-08 20:38] LABS: Absolute Lymphocytes (CBC) 1.3 K/uL (0.7-4.9); Basophils % 0.8 % (0-1.3); Hematocrit 40.8 % (36.0-45.0); Lymphocytes % 23.2 % (15.3-44.8); MPV 9.2 fL (7.6-11.3); RBC Red Blood Cell Count 4.62 M/uL (3.86-4.86)
--- NOTE | 2021-10-08 20:56 | RAD REPORT ---
EXAM DESCRIPTION: RAD - Chest Pa And Lat (2 Views) - 10/08/2021 8:08 pm CLINICAL HISTORY: CHF COMPARISON: September 29 TECHNIQUE: Frontal and lateral views of the chest were obtained. FINDINGS: The lungs are fibrotic. Chronic interstitial pattern is present not substantially differen t from comparison. Cardiomegaly is present. No abnormal vascular engorgement. Trachea is midline. No pleural effusion or pneumothorax seen. No acute bony finding noted. No aortic abnormality. IMPRESSION: Cardiomegaly without other findings of significant failure or volume overload. Chronic interstitial lung disease similar to comparison.
[2021-10-08] MEDS ORDERED: FUROSEMIDE 20 MG/ 2ML VIAL IV SCH (21:00)
[2021-10-08 21:02] LABS: Albumin 3.7 g/dL (3.4-5.0); Bilirubin Total 0.4 mg/dL (0.2-1.0); Magnesium 2.3 mg/dL (1.8-2.4); Potassium 4.3 mmol/L (3.5-5.1); Protein, Total 7.1 g/dL (6.4-8.2); Thyroid Stimulating Hormone 2.76 uIU/mL (0.360-3.740)
--- NOTE | 2021-10-09 08:42 | HP ---
Date of Admission: 10/08/2021 Chief Complaint: Weight gain and shortness of breath. History Of Present Illness: This is an 86-year-old female patient who progressively has gained weigh t over last 1 year. She has gained approximately 25 to 30 pounds and over a period of time she is jorgensen ving increasing shortness of breath and feeling tired with day-to-day activities. Denies any paroxys mal nocturnal dyspnea or orthopnea. No fever, chills. No expectoration. No hemoptysis. After she was evaluated in office today, she was admitted to the hospital with congestive heart failure problem . Medications: List reviewed. Review of Systems: Respiratory: As mentioned above. Constitutional: As mentioned above. Cardiovascular: As mentioned above. All other systems reviewed and negative. Allergies: TO IODINE, CAUSING RASH; LEVAQUIN, CAUSING RASH; PENICILLIN, CAUSING RASH; AND SILVADENE, CAUSING RASH AND ITCHING. Medications: List reviewed. Past Medical History: Significant for TIA, thyroid cancer, hypothyroidism, type 2 diabetes mellitus, hypertension, hyperlipidemia, chronic diastolic congestive heart failure, chronic atrial fibrillatio n, sick sinus syndrome, osteoarthritis at multiple sites, hypomagnesemia, anemia, depression. Past Surgical History: Cataract surgery; thyroidectomy, which was in form of total thyroidectomy in 1969; and foot surgery. Family History: Father had stroke. Mother had coronary artery disease, hypertension. Sister had st roke. Social History: Negative for smoking and alcohol use. Physical Examination: Vital Signs: When she first came into the hospital, height 5 feet 5 inches, weight 190 pounds. Temp erature 98.1, pulse 88, respiratory rate 18, blood pressure 186/93. General: Awake, alert, oriented, not in distress. HEENT: Head atraumatic, normocephalic. Conjunctivae nonerythematous. Sclerae white. Mouth, no thr ush or edema noted. Ears/Nose, no mass, lesion, discharge noted. Neck: Supple. No JVD, lymph nodes, bruit, thyromegaly noted. Lungs: Diminished air entry in the lower lung bass in both lungs. Not using accessory muscles of respiration. Heart: Normal heart sounds, no murmur or gallop. Abdomen: Soft, bowel sounds normal. No guarding, rigidity, tenderness, mass, hepatosplenomegaly, dis tention, or bruit noted. Extremities: Bilateral leg edema present. No calf tenderness. Skin: No rash, ulcer, cellulitis. Lymphatics: No lymph node enlargement in neck, supraclavicular, infraclavicular region. Neuro: No focal neurological deficit. Chest: Unremarkable. External Genitalia: Deferred. Rectal: Deferred. Laboratory Data: COVID-19 test negative. Sodium 142, potassium 4.3, chloride 107, bicarb 31, BUN 22 , creatinine 0.92, glucose 120. Liver function tests unremarkable. ProBNP 687. TSH 2.76. White co unt 5.6, hemoglobin 13.1, platelets 161. Chest x-ray, cardiomegaly with increased interstitial lung markings. Impression: 1.Congestive heart failure, chronic, diastolic, with acute exacerbation. 2.Atrial fibrillation, chronic. 3.Chronic anticoagulation therapy. 4.Hypertension. 5.Hyperlipidemia. 6.Type 2 diabetes mellitus. 7.Depression. 8.Hypomagnesemia. 9.Hypothyroidism, postsurgical. Plan: We will admit the patient to hospital for further evaluation and management of this problem. The patient is appropriate for inpatient and is expected to spend 2 midnights in the hospital. We wi ll continue home medications per order. We will start the patient on IV Lasix. Her thyroid test alpesh ears normal, so this weight gain that she has gained 25 to 30 pounds in last 1 year is not because of hypothyroidism. We will get echo with Doppler tomorrow and will monitor intake/output, daily weight . I will see her tomorrow for followup. LOVE/MODL Voice ID: [id number]
[2021-10-09] MEDS ORDERED: HOME MED 1 EA UNK (Pravastatin [Pravachol*] 40 MG/TAB Tab) PO SCH (09:00)
[2021-10-09] MEDS: MUPIROCIN 2% OINT 22GM TUBE TOP SCH ×3 (09:00→21:00)
[2021-10-09] MEDS: MAGNESIUM OXIDE 400 MG TAB PO SCH (09:00)
[2021-10-09] MEDS: METOPROLOL TAR 25 MG TAB PO SCH ×2 (11:05→21:03)
[2021-10-09] MEDS: APIXABAN 5 MG TABLET PO SCH ×2 (11:06→21:01)
[2021-10-09] MEDS: FUROSEMIDE 40 MG/4 ML VIAL IV SCH ×2 (11:10→21:02)
[2021-10-09] MEDS: LEVETIRACETAM 250 MG PO SCH ×2 (11:12→21:02)
--- NOTE | 2021-10-09 20:36 | EKG ---
Test Date: 2021-10-08 Test Time: 23:44:59 Core Man: AF MEASUREMENT RESULTS: Intervals: Rate: 90 [place]: QRSD: 82 QT: 378 QTc: 462 [place]: P: WA: QRS: -14 T: 10 INTERPRETIVE STATEMENTS: Atrial fibrillation Abnormal ECG Compared to ECG 04/13/2021 00:29:41 Myocardial infarct finding no longer present Electronically Signed On 10-09-21 20:35:02 CARDIOPULMONARY SUPERVISOR by Rafael Caldera
[2021-10-09] MEDS: ATORVASTATIN 10 MG TAB PO SCH (21:02)
[2021-10-10 00:59] VITALS: O2SAT 96
[2021-10-10] MEDS: THYROID 30 MG TAB PO SCH (05:24)
[2021-10-10 06:21] LABS: Magnesium 2.1 mg/dL (1.8-2.4); Potassium 3.7 mmol/L (3.5-5.1)
[2021-10-10] MEDS: MAGNESIUM OXIDE 400 MG TAB PO SCH (09:00)
[2021-10-10] MEDS: LEVETIRACETAM 250 MG PO SCH ×2 (09:00→21:40)
[2021-10-10] MEDS ORDERED: POTASSIUM CL SA 10 MEQ TAB PO ONE (09:00)
[2021-10-10] MEDS: MUPIROCIN 2% OINT 22GM TUBE TOP SCH ×3 (09:00→21:42)
[2021-10-10] MEDS: APIXABAN 5 MG TABLET PO SCH ×2 (09:01→21:41)
[2021-10-10] MEDS: METOPROLOL TAR 25 MG TAB PO SCH ×2 (09:01→21:41)
[2021-10-10] MEDS: FUROSEMIDE 40 MG/4 ML VIAL IV SCH ×2 (09:02→21:41)
[2021-10-10] MEDS: ATORVASTATIN 10 MG TAB PO SCH (21:41)
[2021-10-11] MEDS: THYROID 30 MG TAB PO SCH (06:28)
[2021-10-11] MEDS ORDERED: POTASSIUM CL SA 10 MEQ TAB PO ONE (07:33)
[2021-10-11] MEDS: METOPROLOL TAR 25 MG TAB PO SCH ×2 (08:54→20:58)
[2021-10-11] MEDS: MAGNESIUM OXIDE 400 MG TAB PO SCH (08:54)
[2021-10-11] MEDS: APIXABAN 5 MG TABLET PO SCH ×2 (08:55→20:57)
[2021-10-11] MEDS: LEVETIRACETAM 250 MG PO SCH ×2 (08:55→20:57)
[2021-10-11] MEDS: MUPIROCIN 2% OINT 22GM TUBE TOP SCH ×3 (08:56→20:59)
[2021-10-11] MEDS: FUROSEMIDE 40 MG/4 ML VIAL IV SCH ×2 (08:56→20:59)
[2021-10-11 10:03] LABS: Magnesium 1.9 mg/dL (1.8-2.4); Potassium 3.7 mmol/L (3.5-5.1)
--- NOTE | 2021-10-11 10:48 | PN ---
Date of Progress Note: 10/10/2021 Subjective: The patient was seen this morning for followup. Lying in bed, not in distress, overall feels much better. No paroxysmal nocturnal dyspnea or orthopnea. She is urinating well after Lasix and has lost 6 pounds. Today, her weight is 184. Upon admission, it was 190 pounds. Objective: Vital Signs: Reviewed. HEENT: Unremarkable. Lungs: Clear to auscultation. Heart: Sounds normal. Abdomen: Soft. Bowel sounds normal. No guarding, rigidity, tenderness, distention. Extremity: No leg edema. Laboratory Data: Sodium 141, potassium 3.7, chloride 102, bicarb 35, BUN 18, creatinine 0.84, glucos e 103, magnesium 2.1. ProBNP 751. Impression: 1.Congestive heart failure. 2.Atrial fibrillation, chronic. 3.Hypertension. 4.Chronic anticoagulation therapy. Plan: We will continue current medications. Continue diuretic therapy. Echocardiogram was done, bu t result is still not available. We will continue to monitor intake, output, daily weight. Repeat b lood work tomorrow and I will see her tomorrow for followup. LOVE/MODL Voice ID: [id number] Report ID: [id number]
--- NOTE | 2021-10-11 11:10 | PN ---
Date of Progress Note: 10/11/2021 Subjective: The patient was seen this morning for followup. No new complaints or problems reported. She was sitting in the chair. Denies any new complaints. Objective: Vital Signs: Reviewed. HEENT: Unremarkable. Lungs: Clear to auscultation. Heart: Sounds normal. Abdomen: Soft. Bowel sounds normal. No guarding, rigidity, tenderness, distention. Extremities: No leg edema. Impression: 1.Congestive heart failure. 2.Hypertension. 3.Atrial fibrillation. 4.Chronic anticoagulation therapy. Plan: We will continue current diuretic therapy which is Lasix 40 mg IV every 12 hours. Blood work from this morning result was pending, we will follow up on that. Monitor daily weight and intake and output. We will repeat blood work tomorrow morning. I will see her in the morning for followup. D epending on her overall condition, we will decide whether we can discharge her to go home tomorrow or not. Echocardiogram result is still pending. LOVE/MODL Voice ID: [id number] Report ID: [id number]
[2021-10-11] MEDS: ATORVASTATIN 10 MG TAB PO SCH (20:57)
[2021-10-12] MEDS: THYROID 30 MG TAB PO SCH (05:48)
[2021-10-12 06:12] LABS: Absolute Lymphocytes (CBC) 1.7 K/uL (0.7-4.9); Basophils % 0.5 % (0-1.3); Hematocrit 42.6 % (36.0-45.0); Lymphocytes % 25.6 % (15.3-44.8); MPV 9.1 fL (7.6-11.3); RBC Red Blood Cell Count 4.88 M/uL (3.86-4.86)
[2021-10-12 06:24] LABS: Magnesium 2.2 mg/dL (1.8-2.4); Potassium 3.8 mmol/L (3.5-5.1)
[2021-10-12] MEDS ORDERED: POTASSIUM 25 MEQ EFFERV TAB PO ONE (06:31)
--- NOTE | 2021-10-12 08:20 | ECHO ---
HEIGHT: 5 ft 5 in WEIGHT: 181 lb 12.8 oz DATE OF STUDY: 10/09/[address]: Gilbert Peña MD 2-DIMENSIONAL: YES M.MODE: YES DOPPLER: YES COLOR FLOW: YES TDS: NO PORTABLE: NO DEFINITY: NO BUBBLE STUDY: NO DIAGNOSIS: CONGESTIVE HEART FAILURE CARDIAC HISTORY: CATHERIZATION: NO SURGERY: NO PROSTHETIC VALVE: NO PACEMAKER: NO MEASUREMENTS (cm) DIASTOLIC (NORMALS) SYSTOLIC (NORMALS) IVSd 1.2 (0.6-1.2) LA Diam 3.6 (1.9-4.0) LVEF 55% LVIDd 2.7 (3.5-5.7) LVIDs 2.0 (2.0-3.5) %FS 28% LVPWd 1.2 (0.6-1.2) Ao Diam 3.4 (2.0-3.7) 2 DIMENSIONAL ASSESSMENT: RIGHT ATRIUM: NORMAL LEFT ATRIUM: NORMAL RIGHT VENTRICLE: NORMAL LEFT VENTRICLE: NORMAL TRICUSPID VALVE: NORMAL MITRAL VALVE: MITRAL ANNULAR CALCIFICATION PULMONIC VALVE: NORMAL AORTIC VALVE: SCLEROSIS PERICARDIAL EFFUSION: NONE AORTIC ROOT: NORMAL LEFT VENTRICULAR WALL MOTION: DECREASED LEFT VENTRICULAR COMPLIANCE. DOPPLER/COLOR FLOW: COMMENTS: DECREASED LEFT VENTRICULAR COMPLIANCE, CONTINOUS WITH DIASTOLIC DYSFUNCTION. MITRAL ANNULAR CALCIFICATION. AORTIC SCERLOSIS WITH NO STENOSIS. NORMAL LEFT VENTRICULAR EJECTION FRACTION. TECHNOLOGIST: Kiersten ABEBE
[2021-10-12] MEDS: APIXABAN 5 MG TABLET PO SCH ×2 (09:35→22:56)
[2021-10-12] MEDS: METOPROLOL TAR 25 MG TAB PO SCH ×2 (09:36→22:56)
[2021-10-12] MEDS: MAGNESIUM OXIDE 400 MG TAB PO SCH (09:36)
[2021-10-12] MEDS: FUROSEMIDE 40 MG/4 ML VIAL IV SCH ×2 (09:37→22:55)
[2021-10-12] MEDS: LEVETIRACETAM 250 MG PO SCH ×2 (09:37→22:56)
[2021-10-12] MEDS: MUPIROCIN 2% OINT 22GM TUBE TOP SCH ×3 (09:37→22:57)
--- NOTE | 2021-10-12 12:21 | RAD REPORT ---
EXAM DESCRIPTION: CTChest Abd Pelvis Wo Con - 10/12/2021 9:04 am CLINICAL HISTORY: weight gain COMPARISON: Thorax Wo Con dated 04/14/2021; CT ABDOMEN PELVIS WO CONTRAST dated 06/13/2015; CT ABDOMEN PELVIS WO CONTRAST dated 01/01/2015 TECHNIQUE: CT of the chest, abdomen, and pelvis was performed. All CT scans are performed using dose optimization technique as appropriate and may include automated exposure control or mA/KV adjustment according to patient size. FINDINGS: Thorax: Chest Wall: No abnormal mass Lungs: No acute abnormality. Pleura: No effusions or pneumothorax. Juliana/Mediastinum: No lymphadenopathy. Aorta/Pulmonary Arteries: Unremarkable Heart: Multi-vessel coronary artery disease. Cardiomegaly. Abdomen/Pelvis: Liver: Several low-density liver lesions which are unchanged and have benign imaging features. Larges t lesion measures 2.2 cm is present in the right hepatic lobe. Intrahepatic biliary ductal dilatation is noted. This is similar to 06/13/2015. Biliary: Similar extrahepatic biliary ductal dilatation. Cholelithiasis. Stomach: No significant focal abnormality. Duodenum: No significant focal abnormality. Pancreas: Pancreatic atrophy. There are several nodules in the pancreatic body and tail which are inc ompletely characterized without contrast. The largest measures 14 millimeters and is in the body. On previous CTs, this area was not well visualized as the pancreatic atrophy was less pronounced and the lesions were less conspicuous. . Spleen: No significant abnormality. Adrenal: No suspicious lesions. Kidney/ureter: No hydronephrosis. No renal calculi. Retroperitoneum: No retroperitoneal adenopathy. Vascular: No aneurysm. Atherosclerosis. Bowel: No significant focal abnormality. Normal appendix. Peritoneum: No ascites or free air. Bladder: Grossly unremarkable. Reproductive: Left adnexal cystic lesion measuring 3.8 cm is unchanged since 06/13/2015. Bones: No acute fracture. Other: n/a IMPRESSION: Multiple chronic incidental findings as noted above. No specific CT findings to explain reported weight gain. 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 Consider 12 month follow-up MRCP or CT to assess for stability.
--- NOTE | 2021-10-12 20:46 | PN ---
Date of Progress Note: 10/12/2021 Subjective: The patient was seen this morning for followup. She was lying in bed, not in any distre ss. Vital signs reviewed. No paroxysmal nocturnal dyspnea or orthopnea. Overall, her bloating feel ing and feeling of stuffiness that she had prior to hospital admission has improved with her diuretic therapy. Vital signs reviewed. Her weight today is 181 pounds. Her weight upon admission was 190 pounds. Objective: HEENT: Examination unremarkable. Lungs: Clear to auscultation. Heart: Sounds normal. Abdomen: Soft. Bowel sounds normal. No guarding, rigidity, tenderness, distention. Extremities: No leg edema. Laboratory Data: White count 6.8, hemoglobin 13.9, platelets 166. Sodium 142, potassium 3.8, chlori de 102, bicarb 34, BUN 34, creatinine 0.94, glucose 119. Echocardiogram had shown normal ejection fr action with diastolic dysfunction. Impression: 1.Chronic diastolic congestive heart failure, with acute exacerbation. 2.Chronic atrial fibrillation. 3.Chronic anticoagulation therapy. 4.Hypothyroidism. Plan: We will continue current diuretic therapy. Monitor intake, output, daily weight. We will rep eat blood work tomorrow morning, and depending on her blood work tomorrow, we will decide if we can c ontinue to aggressively diurese her or not, and depending on that decision will be made regarding discharge. All these details were discussed with her. I will see he r in the morning for followup. LOVE/MODL Voice ID: [id number] Report ID: [id number]
[2021-10-12] MEDS: ATORVASTATIN 10 MG TAB PO SCH (22:56)
[2021-10-13 04:07] VITALS: BMI 29.9
[2021-10-13 04:10] LABS: Magnesium 2.4 mg/dL (1.8-2.4); Potassium 3.9 mmol/L (3.5-5.1)
[2021-10-13] MEDS: THYROID 30 MG TAB PO SCH (06:00)
[2021-10-13 08:49] VITALS: BP 108/64; TEMP 97.3
[2021-10-13] MEDS: MAGNESIUM OXIDE 400 MG TAB PO SCH (09:00)
[2021-10-13] MEDS: METOPROLOL TAR 25 MG TAB PO SCH (09:39)
[2021-10-13] MEDS: APIXABAN 5 MG TABLET PO SCH (09:39)
[2021-10-13] MEDS: LEVETIRACETAM 250 MG PO SCH (09:40)
[2021-10-13] MEDS: MUPIROCIN 2% OINT 22GM TUBE TOP SCH (09:41)
--- NOTE | 2021-10-14 08:00 | DS ---
Date of Discharge: 10/13/2021 Disposition: Discharged to go home. Physical Examination: HEENT: Unremarkable. Lungs: Clear to auscultation. Heart: Heart sounds normal. Abdomen: Soft, bowel sounds normal. No guarding, rigidity, tenderness, distention. Extremities: No leg edema. Laboratory Data: Last chemistry today; sodium 141, potassium 3.9, chloride 101, bicarb 32, BUN 51, c reatinine 1.30, glucose 127. Discharge Medications And Instructions: 1.Continue all prior home medications. 2.Take furosemide 40 mg daily and potassium chloride 10 mEq daily. 3.Follow up at my office on 10/19/2021 at 10 a.m. Hospital Course: This is an 86-year-old female patient admitted to the hospital with weight gain pro blem. Please see dictated H and P for more information. After patient was evaluated in office, she was admitted to the hospital with concerns about congestive heart failure. She was started on IV Las ix. Her admission weight was 190 pounds and last weight today was 174 pounds. With IV diuretic ther apy, she diuresed very well and has lost 16 pounds in the last 5 days. The patient's weight was 160 pounds over 1 year ago, so she has gained about 30 pounds in the last 1 year. She was feeling very b loated and stuffy as she describes, but with dialysis she is feeling much better. Echocardiogram michelle wed normal ejection fraction with diastolic dysfunction. Today, she was discharged to go home in sta ble condition with above-mentioned medication instruction. Final Diagnoses: 1.Congestive heart failure, chronic, diastolic, with acute exacerbation. 2.Chronic atrial fibrillation. 3.Hypertension. 4.Hyperlipidemia. LOVE/MODL Voice ID: [id number] Report ID: [id number]
== END 2021-10-13 10:33 | disposition home health service (06) | DRG 291 ==
LOC: 2ND 17:42
PROVIDERS: ADMIT Internal Medicine; ATTEND Internal Medicine
DX: I11.0 Hypertensive heart disease with heart failure (principal); I50.33 Acute on chronic diastolic (congestive) heart failure; I48.20 Chronic atrial fibrillation, unspecified; E78.5 Hyperlipidemia, unspecified; E11.9 Type 2 diabetes mellitus without complications; F32.A Depression, unspecified; E83.42 Hypomagnesemia; E89.0 Postprocedural hypothyroidism; Z85.850 Personal history of malignant neoplasm of thyroid; Z88.0 Allergy status to penicillin; Z79.01 Long term (current) use of anticoagulants; Z20.822 Contact with and (suspected) exposure to COVID-19
CPT/HCPCS: 36415; 71046; 71250; 74176; 80048; 80053; 83735; 83880; 84443; 85025; 93005; 93306; J1940; U0003

== ENCOUNTER 2022-02-18 16:33 | Emergency (ER) | payer OTHER ==
--- OUTSIDE RECORDS SUMMARY | 2022-02-18 16:36 | XMS REPORT | Continuity of Care Document ---
:1935 Author Organization [facility] t Address [address] [place] [address] Care Team Providers Name Role Phone Leander Peña MD Primary Care Physician Problems Condition Condition Condition Status Onset Resolution Last Treating Co mments Source Name Details Category Date Date Treatment Clinician Date Angina Angina Disease Active [facility]i pectoris pectoris 08-01 00:00: Hospita 00 l Abnormal Abnormal Disease Active Metho di stress stress 08-01 test test 00:00: Hospita 00 l SOB SOB Disease Active Methodi (shortness (shortness 06-27 st of breath) of breath) 00:00: Ho spita 00 l Atrial Atrial Disease Active [facility]i fibrillati fibrillati 06-27 st on on 00:00: Hospita 00 l Allergies, Adverse Reactions, Alerts Allergy Allergy Status Severity Reaction(s) Onset Inactive Treating Comm ents Source Name Type Date Date Clinician Gentamic Propensi Active Rash Method i in ty to 08-01 st adverse 00:00: Hospita reaction 00 l s to drug Iodine Propensi Active Rash Methodi And ty to 08-01 st Iodide adverse 00:00: Hospita Containi reaction 00 l ng s to Products drug Levoflox Propensi Active Rash Method i acin ty to 08-01 st adverse 00:00: Hospita reaction 00 l s to drug Penicill Propensi Active Rash Method i ins ty to 08-01 st adverse 00:00: Hospita reaction 00 l s to drug Family History Family Member Diagnosis Comments Start Date Stop Date Source Natural father Stroke [facility] Natural mother [facility] Social History Social Habit Start Date Stop Date Quantity Comments Source Alcohol intake 2019-01-08 2019-01-08 Current [facility] 00:00:00 00:00:00 non-drinker of Hospital alcohol (finding) Tobacco use and 2018-06-27 2018-06-27 Smokeless tobacco [facility] exposure 00:00:00 00:00:00 non-user Hospital Sex Assigned At [birth year] [facility] 00:00:00 00:00:00 Hospital Smoking Status Start Date Stop Date Source Never smoked tobacco [facility] Medications Ordered Filled Start Stop Current Ordering Indication Dosage Frequency Signature Comments Components Source Medication Medication Date Date Medication? Clinician (SIG) Name Name metoprolol Yes TAKE 1 Metho di tartrate 1-[address] (LOPRESSOR) 00:00: MOUTH Hospi ta 25 mg 00 EVERY DAY l tablet furosemide Yes TAKE 1 Metho di (LASIX) 40 9-30 TABLET(40 st mg tablet 00:00: MG) BY Hospit a 00 MOUTH l DAILY thyroid, Yes 120mg QD Take 120 Meth senait pork, 9-[address] (ARMOUR 19:53: mouth Hospita THYROID) 49 daily. l 120 mg tablet HYDROcodone Yes 1{tbl} Take 1 Me thodi -acetaminop 9-[address] hen (NORCO) 19:53: mouth as Ho spita 5-325 mg 49 needed for l per tablet moderate pain. metoprolol Yes 25mg QD Take 25 mg M ethodi tartrate 9-[address] (LOPRESSOR) 19:53: daily. Hosp rosas 25 mg 49 l tablet ciprofloxac Yes 500mg Q.5D Take 500 M ethodi in (CIPRO) 9-[address] 500 MG 19:53: mouth 2 Hospita tablet 49 (two) l times a day. magnesium Yes 400mg QD Take 400 Met hodi oxide 9-[address] (MAG-OX) 19:53: mouth Hospita 400 mg 49 daily. l tablet pravastatin Yes 40mg QD Take 40 mg Methodi (PRAVACHOL) 9-[address] 40 MG 19:53: daily. Hospita tablet 49 l levETIRAcet Yes 500mg QD Take 500 M ethodi am (KEPPRA) 08-[address] 500 MG 19:53: mouth Hospita tablet 49 daily. l apixaban Yes Q.5D Take by Method i (ELIQUIS) 5 08-[address] mg tablet 19:53: (two) Hospita 49 times a l day. digOXIN Yes 125ug QD Take 125 Metho di (LANOXIN) 08-[address] 125 mcg 19:53: mouth Hospita tablet 49 daily. l Acetic Acid Yes 1000mL Irrigate Methodi 0.125% 08-[address] Irrigation 19:53: mL as Hospit a 49 directed l once. mupirocin Yes 1{appli Apply 1 Me thodi (BACTROBAN) 08-10 cation} applicatio st 2 % 19:53: n Hospita ointment 49 topically l as needed. Procedures This patient has no known procedures. Plan of Care Planned Activity Planned Date Details Comments Source Future Scheduled 2021-11-18 COVID-19 VACCINE (1) [facility] Test 18:22:21 [code = COVID-19 VACCINE (1)] Future Scheduled 2021-11-18 65+ PNEUMOCOCCAL [facility] Test 18:22:21 VACCINE (1 of 2 - PPSV23) [code = 65+ PNEUMOCOCCAL VACCINE (1 of 2 - PPSV23)] Future Scheduled 2021-11-18 SHINGLES VACCINES (#1) [facility] Test 18:22:21 [code = SHINGLES VACCINES (#1)] Future Scheduled 2021-11-18 INFLUENZA VACCINE [facility] Hospital Test 18:22:21 [code = INFLUENZA VACCINE] Encounters Start End Encounter Admission Attending Care Care Encounter Source Date/Time Date/Time Type Type Clinicians Facility Department ID 2021-12-23 Outpatient [facility] [id number] [facility] 14:25:00 [id number] [facility] Results This patient has no known results.
[2022-02-18 17:33] LABS: Absolute Lymphocytes (CBC) 1.4 K/uL (0.7-4.9); Hematocrit 39.2 % (36.0-45.0); Lymphocytes % 27.7 % (15.3-44.8); MPV 9.7 fL (7.6-11.3); RBC Red Blood Cell Count 4.41 M/uL (3.86-4.86)
--- NOTE | 2022-02-18 17:40 | RAD REPORT ---
EXAM DESCRIPTION: RAD - Chest Single View - 02/18/2022 5:30 pm CLINICAL HISTORY: CHEST PAIN Chest pain. COMPARISON: Chest Pa And Lat (2 Views) dated 10/08/2021; Chest Pa And Lat (2 Views) dated 09/29/2021; Chest Pa And Lat (2 Views) dated 05/04/2021; Chest Single View dated 04/16/2021 FINDINGS: Portable technique limits examination quality. The lungs are emphysematous but grossly clear. The heart is moderately enlarged. No displaced fractur es.
--- NOTE | 2022-02-18 17:58 | RAD REPORT ---
EXAM DESCRIPTION: CT - [id number] - 02/18/2022 5:47 pm CLINICAL HISTORY: Trauma, head and neck injury. NUMBNESS/TINGLING COMPARISON: Head C Spine Mpr Wo Con dated 01/15/2021 TECHNIQUE: Axial 5 mm thick images of the head were obtained. Axial 2 mm thick images of the cervical spine were obtained with sagittal and coronal reconstruction images generated and reviewed. All CT scans are performed using dose optimization technique as appropriate and may include automated exposure control or mA/KV adjustment according to patient size. FINDINGS: CT HEAD WITHOUT CONTRAST: No acute hemorrhage, hydrocephalus or extra-axial collection is identified.Advanced generalized brain atrophy is present with advanced periventricular and deep white matter chronic microvascular ischemi c changes.No areas of brain edema or midline shift. The paranasal sinuses and mastoids are clear.The calvarium is intact. CT CERVICAL SPINE WITHOUT CONTRAST: No fracture or subluxation.Mild cervical degenerative spondylosis.No prevertebral soft tissues swelli ng is identified. IMPRESSION: No acute intracranial or cervical spine findings.
[2022-02-18 18:03] LABS: Magnesium 2.2 mg/dL (1.8-2.4); Potassium 3.9 mmol/L (3.5-5.1); Troponin High Sensitivity 12.5 pg/mL (<58.9)
--- NOTE | 2022-02-18 19:43 | EDPHYS ---
Physician Documentation [facility] Name: Lilo Zuleta Age: 86 yrs Sex: Female : 1935 Arrival Date: 02/18/2022 Time: 16:47 Bed 27 Private MD: Gilbert Peña ED Physician Crispin Best HPI: 02/18 18:03 This 86 yrs old Female presents to ER via EMS with complaints of L hand numbness and jr8 weakness. 18:03 The patient's problem is reported as weakness, in the left upper extremity, and jr8 numbness. Onset: The symptoms/episode began/occurred acutely, this morning. Duration: The episode is continuous. 86-year-old female presents to the ER complaining of left hand numbness and weakness since this morning. She has a history of a stroke with right-sided deficits, speech deficits, and visual changes 5 years ago. The patient reported that it felt like her hand was falling asleep, and that she was unable to lift her hand to open a drawer.. Historical: - Allergies: 17:15 gentamicin sulfate (PF); lr4 17:15 Iodine; lr4 17:15 Levofloxacin; lr4 17:15 PENICILLINS; lr4 - Home Meds: 17:15 digoxin 125 mcg Oral tab 1 tab once daily [Active]; Eliquis 5 mg Oral tab 1 tab 2 times lr4 per day [Active]; levetiracetam 50 mg Oral [Active]; metoprolol tartrate 25 mg Oral tab 1 tab once daily [Active]; pravastatin 40 mg Oral tab 1 tab once daily [Active]; potassium chloride 10 mEq Oral cpER [Active]; Furosemide Oral [Active]; 17:38 MagOx 40 mg Oral [Active]; mupirocin 2 % Topical oint 3 times per day [Active]; lr4 17:38 thyroid (pork) 2 gm Oral [Active]; lr4 - PMHx: 17:25 Hypertension; Seizures; TIA; Myocardial infarction; Atrial fibrillation; Congestive lr4 heart failure; Cerebrovascular accident; - Immunization history:: Adult Immunizations not up to date, Client reports having NOT received the Covid vaccine. Flu vaccine is up to date. - Social history:: Smoking status: Patient denies any tobacco usage or history of. ROS: 18:03 Constitutional: Negative for fever, chills, and weight loss, Eyes: Negative for injury, jr8 pain, redness, and discharge, Neck: Negative for injury, pain, and swelling, Cardiovascular: Negative for chest pain, palpitations, and edema, Respiratory: Negative for shortness of breath, cough, wheezing, and pleuritic chest pain, Abdomen/GI: Negative for abdominal pain, nausea, vomiting, diarrhea, and constipation. 18:03 Neuro: Positive for numbness. Exam: 18:09 Radiologist reports: no acute findings jr8 18:09 Constitutional: This is a well developed, well nourished patient who is awake, alert, and in no acute distress. Head/Face: Normocephalic, atraumatic. Eyes: Pupils equal round and reactive to light, extra-ocular motions intact. Lids and lashes normal. Conjunctiva and sclera are non-icteric and not injected. Cornea within normal limits. Periorbital areas with no swelling, redness, or edema. Neck: Trachea midline, no thyromegaly or masses palpated, and no cervical lymphadenopathy. Supple, full range of motion without nuchal rigidity, or vertebral point tenderness. No Meningismus. Respiratory: Lungs have equal breath sounds bilaterally, clear to auscultation and percussion. No rales, rhonchi or wheezes noted. No increased work of breathing, no retractions or nasal flaring. 18:09 Cardiovascular: Rhythm: irregularly irregular. 18:09 Neuro: Orientation: is normal, Mentation: is normal, Memory: is normal, Motor: strength is 5/5 in the right arm and left arm, Sensation: numbness, that is mild, of the left hand. Vital Signs: 17:11 BP 136 / 79; Pulse 65; Resp 18; Temp 98.5(O); Pulse Ox 95% on R/A; Weight 84.82 kg; lr4 Height 5 ft. 5 in. (165.10 cm); Pain 4/10; 20:00 BP 131 / 84; Pulse 95; Resp 20; Pulse Ox 96% on R/A; lr4 17:11 Body Mass Index 31.12 (84.82 kg, 165.10 cm) lr4 NIH Stroke Scale Scores: 19:36 NIHSS Score: 4 jr8 Renate Coma Score: 18:09 Eye Response: spontaneous(4). Verbal Response: oriented(5). Motor Response: obeys jr8 commands(6). Total: 15. MDM: 16:58 Patient medically screened. jr8 19:36 Data reviewed: vital signs, nurses notes, lab test result(s), EKG, radiologic studies, jr8 CT scan, plain films. Data interpreted: Pulse oximetry: on room air is 95 %. Interpretation: normal. Counseling: I had a detailed discussion with the patient and/or guardian regarding: the historical points, exam findings, and any diagnostic results supporting the discharge/admit diagnosis, lab results, radiology results, the need for outpatient follow up, a neurologist, to return to the emergency department if symptoms worsen or persist or if there are any questions or concerns that arise at home. 19:36 ED course: The CT scan was negative for acute abnormality. Labs stable, EKG unchanged jr8 from previous visit. Patient on Eliquis currently. The patient remained hemodynamically stable throughout the entire ER visit. Advised to follow-up with neurology, if symptoms return or worsen return to the ER. The patient and family understood the plan of care. . 02/18 17:13 Order name: Glucose, Ancillary Testing; Complete Time: 17:51 EDMT 02/18 17:17 Order name: Basic Metabolic Panel; Complete Time: 18:07 jr8 02/18 17:17 Order name: CBC with Diff; Complete Time: 17:51 jr8 02/18 17:17 Order name: Magnesium; Complete Time: 18:07 jr8 02/18 17:17 Order name: Troponin HS; Complete Time: 18:07 jr8 02/18 17:17 Order name: XRAY Chest (1 view); Complete Time: 17:51 jr8 02/18 17:17 Order name: EKG; Complete Time: 17:18 jr8 02/18 17:17 Order name: Cardiac monitoring; Complete Time: 17:40 jr8 02/18 17:17 Order name: EKG - Nurse/Tech; Complete Time: 17:40 jr8 02/18 17:17 Order name: IV Saline Lock; Complete Time: 17:40 jr8 02/18 17:17 Order name: Labs collected and sent; Complete Time: 17:40 jr8 02/18 17:17 Order name: O2 Per Protocol; Complete Time: 17:40 jr8 02/18 17:17 Order name: O2 Sat Monitoring; Complete Time: 17:40 jr8 02/18 17:17 Order name: CT Head C Spine; Complete Time: 18:07 jr8 Administered Medications: No medications were administered Disposition: 19:36 Co-signature as Attending Physician, Crispin Best MD I agree with the assessment and kdr plan of care. Disposition Summary: 02/18/22 19:42 Discharge Ordered Location: Home jr8 Problem: new jr8 Symptoms: have improved jr8 Condition: Stable jr8 Diagnosis - Paresthesia of skin jr8 Followup: jr8 - With: Ambrocio Arellano MD - When: 2 - 3 days - Reason: Re-evaluation by your physician Discharge Instructions: - Discharge Summary Sheet jr8 - Paresthesia jr8 Forms: - Medication Reconciliation Form jr8 - Thank You Letter jr8 - Antibiotic Education jr8 - Prescription Opioid Use jr8 NIH Stroke Scale - NIH Stroke Score Date: 02/18/2022 Time: 19:36 Total Score = 4 1a. Level of Consciousness (LOC) - 0(Alert) 1b. Level of Consciousness (LOC) (Month \T\ Age) - 0(Both) 1c. LOC Commands (Open \T\ Closes Eyes/Psychiatric Clinician) - 0(Both) 2. Best Gaze (Lateral Gaze Paresis) - 0(Normal) 3. Visual Field Loss - 0(No visual loss) 4. Facial Palsy - 0(Normal) 5a. Left Arm: Motor (10-second hold) - 0(No drift) 5b. Right Arm: Motor (10-second hold) - 0(No drift) 6a. Left Leg: Motor (5-second hold - always test supine) - 1(Drift) 6b. Right Leg: Motor (5-second hold - always test supine) - 1(Drift) 7. Limb Ataxia (finger/nose \T\ heel/mendes - test with eyes open) - 0(Absent) 8. Sensory Loss (pinprick arms/legs/face) - 1(Mild to moderate loss) 9. Best Language: Aphasia (description/naming/reading) - 0(No aphasia) 10. Dysarthria (speech clarity - read or repeat words) - 1(Mild to Moderate) 11. Extinction and Inattention (visual/tactile/auditory/spatial/personal) - 0(No abnormality) Initials: jr8 Signatures: Dispatcher [employer] EDMT Crispin Best MD MD kdr Roszak, Josh, PA PA jr8 Sonal Valles RN RN lr4 Corrections: (The following items were deleted from the chart) 17:29 17:15 Home Meds: MagOx 40 mg Oral; lr4 lr4 17: 17:15 Home Meds: mupirocin 2 % Topical oint 3 times per day; lr4 lr4 17:29 17:15 Home Meds: thyroid (pork) 2 gm Oral; lr4 lr4 17:29 17:25 Home Meds: MagOx 40 mg Oral; lr4 lr4 17:29 17:25 Home Meds: mupirocin 2 % Topical oint 3 times per day; lr4 lr4 17:29 17:25 Home Meds: thyroid (pork) 2 gm Oral; lr4 lr4 17:38 17:37 Home Meds: MagOx 40 mg Oral; lr4 lr4 17:38 17:37 Home Meds: mupirocin 2 % Topical oint 3 times per day; lr4 lr4 17:38 17:37 Home Meds: thyroid (pork) 2 gm Oral; lr4 lr4 17:39 17:38 Home Meds: thyroid (pork) 2 gm Oral; lr4 lr4
--- NOTE | 2022-02-18 19:43 | ER ---
Nurse's Notes [facility] Name: Lilo Zuleta Age: 86 yrs Sex: Female : 1935 Arrival Date: 02/18/2022 Time: 16:47 Bed 27 Private MD: Gilbert Peña Diagnosis: Paresthesia of skin Presentation: 02/18 17:11 Chief complaint: Patient states: Pt bib EMS for L hand weakness starting this morning lr4 at 9am. Pt states she didn't "feel right" when she woke up. Pt also c/o pain on L side as well. Pt is aaox4, resp even and unlabored, vss. PMH of afib, MT, ChF, stroke in the past. Coronavirus screen: Vaccine status: Patient reports being unvaccinated. Client denies travel out of the [place] in the last 14 days. At this time, the client does not indicate any symptoms associated with coronavirus-19. Ebola Screen: Patient negative for fever greater than or equal to 101.5 degrees Fahrenheit, and additional compatible Ebola Virus Disease symptoms. Initial Sepsis Screen: Does the patient meet any 2 criteria? No. Patient's initial sepsis screen is negative. Does the patient have a suspected source of infection? No. Patient's initial sepsis screen is negative. Risk Assessment: Do you want to hurt yourself or someone else? Patient reports no desire to harm self or others. Onset of symptoms was February 18, 2022. Care prior to arrival: Medication(s) given: IV initiated. 20 GA, in the right wrist, Glucose check: 178. Activity prior to arrival: None. Transition of care: patient was not received from another setting of care. 17:11 Method Of Arrival: EMS lr4 17:11 Acuity: HAVEN 2 lr4 Triage Assessment: 17:25 General: Appears in no apparent distress. comfortable, Behavior is calm, cooperative. lr4 Pain: Complains of pain in left hand Pain currently is 4 out of 10 on a pain scale. Quality of pain is described as aching, Pain began suddenly, Is continuous. Neuro: No deficits noted. Neuro: No deficits noted. Neuro: Level of Consciousness is awake, alert, obeys commands, Oriented to person, place, time, situation, Fleet Dispatch Manager are equal bilaterally Moves all extremities. Weakness in left Speech is normal, Facial symmetry appears normal, Pupils are PERRLA, Intact. Cardiovascular: Capillary refill < 3 seconds Rhythm is atrial fibrillation with rapid ventricular response Chest pain is denied. Respiratory: No deficits noted. Historical: - Allergies: 17:15 gentamicin sulfate (PF); lr4 17:15 Iodine; lr4 17:15 Levofloxacin; lr4 17:15 PENICILLINS; lr4 - Home Meds: 17:15 digoxin 125 mcg Oral tab 1 tab once daily [Active]; Eliquis 5 mg Oral tab 1 tab 2 times lr4 per day [Active]; levetiracetam 50 mg Oral [Active]; metoprolol tartrate 25 mg Oral tab 1 tab once daily [Active]; pravastatin 40 mg Oral tab 1 tab once daily [Active]; potassium chloride 10 mEq Oral cpER [Active]; Furosemide Oral [Active]; 17:38 MagOx 40 mg Oral [Active]; mupirocin 2 % Topical oint 3 times per day [Active]; lr4 17:38 thyroid (pork) 2 gm Oral [Active]; lr4 - PMHx: 17:25 Hypertension; Seizures; TIA; Myocardial infarction; Atrial fibrillation; Congestive lr4 heart failure; Cerebrovascular accident; - Immunization history:: Adult Immunizations not up to date, Client reports having NOT received the Covid vaccine. Flu vaccine is up to date. - Social history:: Smoking status: Patient denies any tobacco usage or history of. Screenin:35 Abuse screen: Denies threats or abuse. Nutritional screening: No deficits noted. lr4 Tuberculosis screening: No symptoms or risk factors identified. Fall Risk No fall in past 12 months (0 pts). Secondary diagnosis (15 points) IV access (20 points). Ambulatory Aid- Crutches/Cane/Walker (15 pts). Gait- Weak (10 pts.). Total Short Fall Scale indicates High Risk Score (45 or more points). Frequent Obs/Assessments Occuring Family Present and informed to notify staff if the need to leave the bedside As available patient and family educated on Fall Prevention Program and Strategies. Assessment: 20:01 Reassessment: Patient is alert, oriented x 3, equal unlabored respirations, skin lr4 warm/dry/pink. Patient states feeling better. Patient states symptoms have improved. Vital Signs: 17:11 BP 136 / 79; Pulse 65; Resp 18; Temp 98.5(O); Pulse Ox 95% on R/A; Weight 84.82 kg; lr4 Height 5 ft. 5 in. (165.10 cm); Pain 4/10; 20:00 BP 131 / 84; Pulse 95; Resp 20; Pulse Ox 96% on R/A; lr4 17:11 Body Mass Index 31.12 (84.82 kg, 165.10 cm) lr4 Renate Coma Score: 18:09 Eye Response: spontaneous(4). Verbal Response: oriented(5). Motor Response: obeys jr8 commands(6). Total: 15. NIH Stroke Scale Scores: 19:36 NIHSS Score: 4 jr8 ED Course: 16:47 Patient arrived in ED. em1 16:49 EKG done, by ED staff. lr4 16:51 Gilbert Peña MD is Private Physician. am2 16:53 Moreno Perez PA is PHCP. jr8 16:53 Crispin Best MD is Attending Physician. jr8 17:11 Sonal Valles, ANASTASIIA is Primary Nurse. lr4 17:15 Triage completed. lr4 17:32 XRAY Chest (1 view) In Process Unspecified. EDMS 17:36 Arm band placed on left wrist. lr4 17:36 No provider procedures requiring assistance completed. lr4 17:39 Patient has correct armband on for positive identification. Bed in low position. Call lr4 light in reach. Side rails up X 1. Adult w/ patient. Door closed. Noise minimized. Warm blanket given. 17:40 CT Head C Spine Sent. lr4 17:40 Maintain EMS IV. Dressing intact. Good blood return noted. Site clean \\T\\ dry. Gauge \\T\\ lr 4 site: 20g Rwrist. 17:48 CT Head C Spine In Process Unspecified. EDMS 19:42 Ambrocio Arellano MD is Referral Physician. jr8 20:01 IV discontinued, intact, bleeding controlled, No redness/swelling at site. Pressure lr4 dressing applied. Administered Medications: No medications were administered Outcome: 17:39 Condition: stable lr4 19:42 Discharge ordered by . jr8 20:01 Discharged to home via wheelchair. lr4 20:01 Discharge instructions given to patient, family. 20:01 Patient left the ED. lr4 NIH Stroke Scale - NIH Stroke Score Date: 02/18/2022 Time: 19:36 Total Score = 4 1a. Level of Consciousness (LOC) - 0(Alert) 1b. Level of Consciousness (LOC) (Month \\T\\ Age) - 0(Both) 1c. LOC Commands (Open \\T\\ Closes Eyes/Starch Cooker) - 0(Both) 2. Best Gaze (Lateral Gaze Paresis) - 0(Normal) 3. Visual Field Loss - 0(No visual loss) 4. Facial Palsy - 0(Normal) 5a. Left Arm: Motor (10-second hold) - 0(No drift) 5b. Right Arm: Motor (10-second hold) - 0(No drift) 6a. Left Leg: Motor (5-second hold - always test supine) - 1(Drift) 6b. Right Leg: Motor (5-second hold - always test supine) - 1(Drift) 7. Limb Ataxia (finger/nose \\T\\ heel/mendes - test with eyes open) - 0(Absent) 8. Sensory Loss (pinprick arms/legs/face) - 1(Mild to moderate loss) 9. Best Language: Aphasia (description/naming/reading) - 0(No aphasia) 10. Dysarthria (speech clarity - read or repeat words) - 1(Mild to Moderate) 11. Extinction and Inattention (visual/tactile/auditory/spatial/personal) - 0(No abnormality) Initials: colleen Signatures: Dispatcher [employer] EDMS Carlos A Knowles em1 Moreno Perez PA PA jr8 Sabrina Cruz am2 Sonal Valles RN RN lr4 Corrections: (The following items were deleted from the chart) 17:29 17:15 Home Meds: MagOx 40 mg Oral; lr4 lr4 17:29 17:15 Home Meds: mupirocin 2 % Topical oint 3 times per day; lr4 lr4 17:29 17:15 Home Meds: thyroid (pork) 2 gm Oral; lr4 lr4 17:29 17:25 Home Meds: MagOx 40 mg Oral; lr4 lr4 17:29 17:25 Home Meds: mupirocin 2 % Topical oint 3 times per day; lr4 lr4 17:29 17:25 Home Meds: thyroid (pork) 2 gm Oral; lr4 lr4 17:37 Home Meds: MagOx 40 mg Oral; lr4 lr4 17:37 Home Meds: mupirocin 2 % Topical oint 3 times per day; lr4 lr4 17:37 Home Meds: thyroid (pork) 2 gm Oral; lr4 lr4 1739 17:38 Home Meds: thyroid (pork) 2 gm Oral; lr4 lr4
[2022-02-18 20:49] VITALS: TEMP 98.5
[2022-02-18 20:51] VITALS: BP 131/84; O2SAT 96
== END 2022-02-18 20:01 | disposition home or self-care (01) ==
LOC: ER 16:33
DX: R20.2 Paresthesia of skin (principal); R53.1 Weakness; I10 Essential (primary) hypertension; I50.9 Heart failure, unspecified; I48.91 Unspecified atrial fibrillation; Z86.73 Personal history of transient ischemic attack (TIA), and cerebral infarction without residual deficits; Z79.01 Long term (current) use of anticoagulants; Z88.0 Allergy status to penicillin; Z88.3 Allergy status to other anti-infective agents; Z88.8 Allergy status to other drugs, medicaments and biological substances; Z91.048 Other nonmedicinal substance allergy status
CPT/HCPCS: 36415; 70450; 71045; 72125; 80048; 82947; 83735; 84484; 85025; 93005; 99284

== ENCOUNTER 2022-02-20 17:02 | Inpatient (IN) | payer OTHER ==
--- OUTSIDE RECORDS SUMMARY | 2022-02-20 17:05 | XMS REPORT | Continuity of Care Document ---
:1935 Author Organization [facility] t Address [address] [place] [address] Care Team Providers Name Role Phone Leander [...] Date Stop Date Source Natural father Stroke [facility] Natural mother [facility] Social History Social Habit Start Date Stop Date Quantity Comments Source Alcohol intake 2019-01-08 2019-01-08 Current Yazidism 00:00:00 00:00:00 non-drinker of Hospital alcohol (finding) Tobacco use and 2018-06-27 2018-06-27 Smokeless tobacco [facility] exposure 00:00:00 00:00:00 non-user Hospital Sex Assigned At [birth year] Y[employer]idism 00:00:00 00:00:00 Hospital Smoking Status Start Date Stop Date Source Never smoked tobacco [facility] Medications Ordered Filled Start Stop Current [...] Source Future Scheduled 2021-11-18 COVID-19 VACCINE (1) [facility] Test 18:22:21 [code = COVID-19 VACCINE (1)] Future Scheduled 2021-11-18 65+ [facility]CCAL [facility] 18:22:21 VACCINE (1 of 2 - PPSV23) [code = 65+ PNEUMOCOCCAL VACCINE (1 of 2 - PPSV23)] Future Scheduled 2021-11-18 SHINGLES VACCINES (#1) [facility] Hospital Test 18:22:21 [code = SHINGLES VACCINES (#1)] Future Scheduled 2021-11-18 INFLUENZA VACCINE [facility] 18:22:21 [code = INFLUENZA VACCINE] Encounters Start End Encounter Admission Attending Care Care Encounter Source Date/Time Date/Time Type Type Clinicians Facility Department ID 2021-12-23 Outpatient [facility] [id number] [facility] 14:25:00 [id number] [facility] Results This patient has no known results.
[2022-02-20 19:12] LABS: Absolute Lymphocytes (CBC) 1.3 K/uL (0.7-4.9); Hematocrit 42.2 % (36.0-45.0); Lymphocytes % 23.9 % (15.3-44.8); MPV 9.7 fL (7.6-11.3); RBC Red Blood Cell Count 4.65 M/uL (3.86-4.86)
[2022-02-20 19:13] LABS: Protime INR 1.43
[2022-02-20] MEDS ORDERED: NA CHLORIDE 0.9% 1,000 ML ONE (19:17)
[2022-02-20] MEDS ORDERED: FOLIC ACID 5 MG/ML VIAL ONE (19:20)
--- NOTE | 2022-02-20 19:20 | RAD REPORT ---
EXAM DESCRIPTION: RAD - Chest Single View - 02/20/2022 7:08 pm CLINICAL HISTORY: COUGH COMPARISON: Chest Single View dated 02/18/2022; Chest Pa And Lat (2 Views) dated 10/08/2021; Chest Pa And Lat (2 Views) dated 09/29/2021; Chest Pa And Lat (2 Views) dated 05/04/2021 FINDINGS: Lines: None. Lungs: No evidence of edema or pneumonia. Pleural: No significant pleural effusions or pneumothorax. Cardiac: Cardiomegaly. Bones: No acute fractures. Other: IMPRESSION: No acute cardiopulmonary disease.
[2022-02-20] MEDS ORDERED: THIAMINE 200 MG/2 ML INJ ONE (19:21)
[2022-02-20] MEDS ORDERED: NA CHLORIDE 0.9% 100 ML IV ONE (19:22)
--- NOTE | 2022-02-20 19:22 | RAD REPORT ---
EXAM DESCRIPTION: US - Extrem Venous W Compress Ty - 02/20/2022 7:10 pm CLINICAL HISTORY: Tingling COMPARISON: None. TECHNIQUE: Real-time sonographic evaluation of the bilateral lower extremity deep venous systems was performed. FINDINGS: Normal compressibility, flow augmentation, phasic flow and spontaneous flow is identified in both the left and right lower extremity deep venous systems. No intraluminal filling defects seen. IMPRESSION: No DVT in either lower extremity.
[2022-02-20 19:35] LABS: Potassium 3.9 mmol/L (3.5-5.1)
--- NOTE | 2022-02-20 19:44 | RAD REPORT ---
EXAM DESCRIPTION: CT - CTHCSPWOC - 02/20/2022 7:24 pm CLINICAL HISTORY: Trauma, head and neck injury. PAIN COMPARISON: Extremity Nonvascular Complete dated 07/05/2018Head C Spine Mpr Wo Con dated 02/18/2022; He ad C Spine Mpr Wo Con dated 01/15/2021 TECHNIQUE: Axial 5 mm thick images of the head were obtained. Axial 2 mm thick images of the cervical spine were obtained with sagittal and coronal reconstruction images generated and reviewed. All CT scans are performed using dose optimization technique as appropriate and may include automated exposure control or mA/KV adjustment according to patient size. FINDINGS: CT HEAD WITHOUT CONTRAST: No acute hemorrhage, hydrocephalus or extra-axial collection is identified.No areas of brain edema or midline shift. Moderate alkalosis status. The paranasal sinuses and mastoids are clear.The calvarium is intact. CT CERVICAL SPINE WITHOUT CONTRAST: No fracture or subluxation.No prevertebral soft tissues swelling is identified. Multilevel cervical s pondylosis with varying degrees of foraminal narrowing. IMPRESSION: No acute intracranial or cervical spine findings.No significant change compared with .
--- NOTE | 2022-02-20 19:45 | EDPHYS ---
Physician Documentation [facility] Name: Lilo Zuleta Age: 86 yrs Sex: Female : 1935 Arrival Date: 02/20/2022 Time: 17:03 Bed 14 Private MD: LEONIDAS Physician Randall Weir HPI: 02/20 18:59 This 86 yrs old Female presents to ER via Wheelchair with complaints of se Numbness - left side. 18:59 The patient's problem is reported as paresthesias, in left upper extremity, in left se lower extremity. Onset: The symptoms/episode began/occurred 3 day(s) ago. Duration: The episode is continuous. Context: the episode(s) was witnessed, by family, daughter, occurred at an unknown location. The symptoms are alleviated by nothing. The symptoms are aggravated by nothing. Associated signs and symptoms: Pertinent positives: decreased sensation left arm and leg. Severity of symptoms: At their worst the symptoms were mild in the emergency department the symptoms are unchanged. Patient's baseline: Neuro: alert and fully oriented. It is unknown whether or not the patient has had similar symptoms in the past. Historical: - Allergies: 17:22 gentamicin sulfate (PF); iw 17:22 Levofloxacin; iw 17:22 Iodine; iw 17:22 PENICILLINS; iw - Home Meds: 17:22 digoxin 125 mcg Oral tab 1 tab once daily [Active]; Eliquis 5 mg Oral tab 1 tab 2 times iw per day [Active]; Furosemide Oral [Active]; levetiracetam 50 mg Oral [Active]; MagOx 40 mg Oral [Active]; metoprolol tartrate 25 mg Oral tab 1 tab once daily [Active]; mupirocin 2 % Topical oint 3 times per day [Active]; potassium chloride 10 mEq Oral cpER [Active]; pravastatin 40 mg Oral tab 1 tab once daily [Active]; thyroid (pork) 2 gm Oral [Active]; - PMHx: 17:22 Atrial fibrillation; Cerebrovascular accident; Congestive heart failure; Hypertension; iw Myocardial infarction; Seizures; TIA; - PSHx: 17:23 Thyroidectomy; skin grafts on left leg; iw - Immunization history:: Client reports having NOT received the Covid vaccine. - Social history:: Smoking status: Patient denies any tobacco usage or history of. - Family history:: not pertinent. ROS: 18:59 Constitutional: Negative for fever, chills, and weight loss, Eyes: Negative for injury, se pain, redness, and discharge, ENT: Negative for injury, pain, and discharge, Neck: Negative for injury, pain, and swelling, Cardiovascular: Negative for chest pain, palpitations, and edema, Respiratory: Negative for shortness of breath, cough, wheezing, and pleuritic chest pain, Abdomen/GI: Negative for abdominal pain, nausea, vomiting, diarrhea, and constipation, Back: Negative for injury and pain, : Negative for injury, bleeding, discharge, and swelling, Skin: Negative for injury, rash, and discoloration, Neuro: Negative for headache, weakness, numbness, tingling, and seizure, Psych: Negative for depression, anxiety, suicide ideation, homicidal ideation, and hallucinations, Allergy/Immunology: Negative for hives, rash, and allergies, Endocrine: Negative for neck swelling, polydipsia, polyuria, polyphagia, and marked weight changes. 18:59 MS/extremity: Positive for paresthesias, tenderness, of the left arm and left leg. Exam: 18:59 Constitutional: This is a well developed, well nourished patient who is awake, alert, se and in no acute distress. Head/Face: Normocephalic, atraumatic. Eyes: Pupils equal round and reactive to light, extra-ocular motions intact. Lids and lashes normal. Conjunctiva and sclera are non-icteric and not injected. Cornea within normal limits. Periorbital areas with no swelling, redness, or edema. ENT: Nares patent. No nasal discharge, no septal abnormalities noted. Tympanic membranes are normal and external auditory canals are clear. Oropharynx with no redness, swelling, or masses, exudates, or evidence of obstruction, uvula midline. Mucous membranes moist. Neck: Trachea midline, no thyromegaly or masses palpated, and no cervical lymphadenopathy. Supple, full range of motion without nuchal rigidity, or vertebral point tenderness. No Meningismus. Chest/axilla: Normal chest wall appearance and motion. Nontender with no deformity. No lesions are appreciated. Cardiovascular: Regular rate and rhythm with a normal S1 and S2. No gallops, murmurs, or rubs. Normal PMI, no JVD. No pulse deficits. Respiratory: Lungs have equal breath sounds bilaterally, clear to auscultation and percussion. No rales, rhonchi or wheezes noted. No increased work of breathing, no retractions or nasal flaring. Abdomen/GI: Soft, non-tender, with normal bowel sounds. No distension or tympany. No guarding or rebound. No evidence of tenderness throughout. Back: No spinal tenderness. No costovertebral tenderness. Full range of motion. Female : Normal external genitalia. Skin: Warm, dry with normal turgor. Normal color with no rashes, no lesions, and no evidence of cellulitis. MS/ Extremity: Pulses equal, no cyanosis. Neurovascular intact. Full, normal range of motion. Psych: Awake, alert, with orientation to person, place and time. Behavior, mood, and affect are within normal limits. 18:59 Neuro: Orientation: is normal, appropriate for stated age, no acute changes, Mentation: is normal, appropriate for stated age, Memory: is normal, appropriate for stated age, no acute changes, Cranial nerves: grossly normal, is grossly normal based on the patient's age, no acute changes, Cerebellar function: is grossly normal based on the patient's age, Motor: moves all fours, Sensation: numbness, Gait: not tested. Babinski testing is normal, seizure activity, is not displayed by the patient. 20:03 Radiologist reports: negative x2 [facility] 20:04 ECG was reviewed by the Attending Physician. [facility] Vital Signs: 17:18 BP 128 / 85; Pulse 114; Resp 16; Temp 97.3; Pulse Ox 96% on R/A; Weight 84.37 kg; iw Height 5 ft. 5 in. (165.10 cm); 18:24 BP 105 / 77; Pulse 100; Resp 18; Pulse Ox 95% ; bp 19:37 BP 110 / 80; Pulse 108; Resp 16; Pulse Ox 94% on R/A; st1 20:35 BP 136 / 86; Pulse 94; Resp 16; Pulse Ox 99% on R/A; st1 21:10 BP 103 / 71; Pulse 80; Resp 16; Pulse Ox 94% on R/A; st1 17:18 Body Mass Index 30.95 (84.37 kg, 165.10 cm) MDM: 18:24 Patient medically screened. [facility] 19:07 Differential diagnosis: CVA, TIA. Data reviewed: vital signs, nurses notes, lab test se result(s), EKG, radiologic studies, CT scan, plain films. Data interpreted: playground monitor: rate is 100 beats/min, rhythm is regular, Pulse oximetry: is not applicable for this patient encounter. Test interpretation: by ED physician or midlevel provider: ECG, plain radiologic studies. Counseling: I had a detailed discussion with the patient and/or guardian regarding: the historical points, exam findings, and any diagnostic results supporting the discharge/admit diagnosis, lab results, radiology results. 02/20 18:36 Order name: Basic Metabolic Panel; Complete Time: 21:25 [facility] 02/20 18:36 Order name: CBC with Diff; Complete Time: 19:32 [facility] 02/20 18:36 Order name: LFT's; Complete Time: 21:25 [facility] 02/20 18:36 Order name: Magnesium; Complete Time: 21: [facility] 02/20 18:36 Order name: NT PRO-BNP; Complete Time: 21:25 [facility] 02/20 18:36 Order name: PT-INR; Complete Time: 19:32 [facility] 02/20 18:36 Order name: Troponin HS; Complete Time: 21:25 [facility] 02/20 18:36 Order name: XRAY Chest (1 view); Complete Time: 19:32 [facility] 02/20 18:36 Order name: CT Head C Spine; Complete Time: 20:03 [facility] 02/20 19:04 Order name: SARS-COV-2 RT PCR (Document "Date of Onset" if Symptomatic); Complete Time: ds4 20:42 02/20 19:11 Order name: Extrem Venous W Compress Ty; Complete Time: 19:32 [facility] 02/20 19:18 Order name: Digoxin Level; Complete Time: 21:25 [facility] 02/20 18:36 Order name: EKG; Complete Time: 18:37 [facility] 02/20 18:36 Order name: Cardiac monitoring; Complete Time: 19:03 [facility] 02/20 18:36 Order name: EKG - Nurse/Tech; Complete Time: 19:39 [facility] 02/20 18:36 Order name: IV Saline Lock; Complete Time: 19:03 [facility] 02/20 18:36 Order name: Labs collected and sent; Complete Time: 19:03 [facility] 02/20 18:36 Order name: O2 Per Protocol; Complete Time: 18:39 [facility] 02/20 18:36 Order name: O2 Sat Monitoring; Complete Time: 18:39 se 02/20 19:51 Order name: CONS Physician Consult [facility] 02/20 20:04 Order name: C Spine Wo Cont EDMS EC:04 Rate is 108 beats/min. Rhythm is irregularly irregular. QRS Labadie is Normal. OK interval se is normal. QRS interval is normal. QT interval is normal. No Q waves. T waves are Normal. No ST changes noted. Clinical impression: Atrial Fibrillation and No evidence of ischemia. Interpreted by me. Reviewed by me. Administered Medications: 19:33 Drug: NS 0.9% 1000 ml Route: IV; Rate: 125 ml/hr; Site: left antecubital; st1 21:13 Follow up: Response: No adverse reaction st1 19:33 Drug: Thiamine 100 mg Route: IV; Rate: per protocol; Site: left antecubital; st1 21:12 Follow up: Response: No adverse reaction st1 19:33 Drug: foLIC Acid 1 mg Route: IVPB; Site: left antecubital; st1 21:12 Follow up: Response: No adverse reaction st1 19:56 Drug: Lopressor (metoprolol TARTRATE)) 25 mg Route: PO; st1 21:12 Follow up: Response: No adverse reaction st1 20:12 Drug: Decadron - Dexamethasone 6 mg Route: IVP; Site: left antecubital; st1 21:12 Follow up: Response: No adverse reaction st1 Disposition Summary: 02/20/22 19:44 Hospitalization Ordered Hospitalization Status: Observation se Provider: Padmini Peña cha Location: Telemetry/MedSurg (observation) se Condition: Stable se Problem: new se Symptoms: have improved se Bed/Room Type: Standard se Room Assignment: 212(02/20/22 20:26) mw Diagnosis - Weakness se - Persistent atrial fibrillation - with RVR se - Paresthesia of skin se Forms: - Medication Reconciliation Form se - SBAR form se Signatures: Dispatcher [employer] [facility] Christine Monet FNP-C FNP-Kasia Chavez RN RN mw Anderson, Corey, MD MD cha Williams, Irene, RN RN iw Holmes, Maurice, MD MD [facility] Tingle, Marianna, RN RN st1 Corrections: (The following items were deleted from the chart) 19:11 18:25 Extremity Venous Uni Ltd+US.RAD.BRZ ordered. EDMS EDMS 19:18 19:04 DIGOXIN+C.LAB.BRZ ordered. EDMS EDMS 19:30 19:19 Angio Aorta For Dissection+CT.RAD.BRZ ordered. EDMS EDMS 20:26 19:44 se mw
--- NOTE | 2022-02-20 19:45 | ER ---
Nurse's Notes [facility] Name: Lilo Zuleta Age: 86 yrs Sex: Female : 1935 Arrival Date: 02/20/2022 Time: 17:03 Bed 14 Private MD: Diagnosis: Weakness;Persistent atrial fibrillation-with RVR;Paresthesia of skin Presentation: 02/20 17:18 Chief complaint: Patient's son or daughter states: had numbness and tingling on her iw left side on , was seen here, she had a CT and labs and they didn't diagnose her with anything, today she can't get up and go to the bathroom by herself anymore , and her foot and hand on left side feel cooler to touch , pt is also having pain in her left arm and leg. Coronavirus screen: At this time, the client does not indicate any symptoms associated with coronavirus-19. Ebola Screen: Patient negative for fever greater than or equal to 101.5 degrees Fahrenheit, and additional compatible Ebola Virus Disease symptoms Patient denies exposure to infectious person. Patient denies travel to an Ebola-affected area in the 21 days before illness onset. No symptoms or risks identified at this time. Initial Sepsis Screen: Does the patient meet any 2 criteria? No. Patient's initial sepsis screen is negative. Does the patient have a suspected source of infection? No. Patient's initial sepsis screen is negative. Risk Assessment: Do you want to hurt yourself or someone else? Patient reports no desire to harm self or others. Onset of symptoms was February 18, 2022. 17:18 Method Of Arrival: Wheelchair iw 17:18 Acuity: HAVEN 3 iw Triage Assessment: 17:20 General: Appears in no apparent distress. comfortable, obese, Behavior is calm, bp cooperative, appropriate for age. Pain: Denies pain. EENT: No deficits noted. Neuro: Reports numbness in left leg. Cardiovascular: No deficits noted. Respiratory: No deficits noted. GI: No signs and/or symptoms were reported involving the gastrointestinal system. : No signs and/or symptoms were reported regarding the genitourinary system. Derm: No deficits noted. Musculoskeletal: No deficits noted. Historical: - Allergies: 17:22 gentamicin sulfate (PF); iw 17:22 Levofloxacin; iw 17:22 Iodine; iw 17:22 PENICILLINS; iw - Home Meds: 17:22 digoxin 125 mcg Oral tab 1 tab once daily [Active]; Eliquis 5 mg Oral tab 1 tab 2 times iw per day [Active]; Furosemide Oral [Active]; levetiracetam 50 mg Oral [Active]; MagOx 40 mg Oral [Active]; metoprolol tartrate 25 mg Oral tab 1 tab once daily [Active]; mupirocin 2 % Topical oint 3 times per day [Active]; potassium chloride 10 mEq Oral cpER [Active]; pravastatin 40 mg Oral tab 1 tab once daily [Active]; thyroid (pork) 2 gm Oral [Active]; - PMHx: 17:22 Atrial fibrillation; Cerebrovascular accident; Congestive heart failure; Hypertension; iw Myocardial infarction; Seizures; TIA; - PSHx: 17:23 Thyroidectomy; skin grafts on left leg; iw - Immunization history:: Client reports having NOT received the Covid vaccine. - Social history:: Smoking status: Patient denies any tobacco usage or history of. - Family history:: not pertinent. Screenin:20 Abuse screen: Denies threats or abuse. Denies injuries from another. Nutritional bp screening: No deficits noted. Tuberculosis screening: No symptoms or risk factors identified. Fall Risk None identified. Assessment: 17:20 General: SEE TRIAGE NOTE. bp 18:24 Reassessment: FAMILY NOW STATING NUMBNESS HAS ADVANCED UP RIGHT SIDE TO ARM AND EAR AND bp IS CONCERNED FOR CLOT CAUSING THOSE SYMPTOMS. U/S PENDING. NO NOTED CHANGE IN ROM OR NEUROMUSCULAR STATUS. 18:30 Reassessment: U/S AT B/S. bp Vital Signs: 17:18 BP 128 / 85; Pulse 114; Resp 16; Temp 97.3; Pulse Ox 96% on R/A; Weight 84.37 kg; iw Height 5 ft. 5 in. (165.10 cm); 18:24 BP 105 / 77; Pulse 100; Resp 18; Pulse Ox 95% ; bp 19:37 BP 110 / 80; Pulse 108; Resp 16; Pulse Ox 94% on R/A; st1 20:35 BP 136 / 86; Pulse 94; Resp 16; Pulse Ox 99% on R/A; st1 21:10 BP 103 / 71; Pulse 80; Resp 16; Pulse Ox 94% on R/A; st1 17:18 Body Mass Index 30.95 (84.37 kg, 165.10 cm) ED Course: 17:03 Patient arrived in ED. am2 17:20 Patient has correct armband on for positive identification. Bed in low position. Call bp light in reach. Side rails up X2. Adult w/ patient. 17:22 Triage completed. iw 17:24 Arm band placed on. iw 17:26 Sam Grey, ANASTASIIA is Primary Nurse. bp 18:24 Randall Weir MD is Attending Physician. se 19:04 Inserted saline lock: 22 gauge in left forearm, using aseptic technique. Blood bp collected. 19:06 X-ray completed. Portable x-ray completed in exam room. Patient tolerated procedure bq well. 19:10 XRAY Chest (1 view) In Process Unspecified. EDMS 19:11 Extrem Venous W Compress Ty In Process Unspecified. EDMS 19:26 CT Head C Spine In Process Unspecified. EDMS 19:34 Digoxin Level Sent. st1 19:35 SARS-COV-2 RT PCR (Document "Date of Onset" if Symptomatic) Sent. st1 19:43 Padmini Peña MD is Hospitalizing Provider. [facility] 19:56 THE PATIENT AND HER SON WERE NOTIFIED OF ADMISSION TO THE HOSPITAL. st1 19:57 No provider procedures requiring assistance completed. st1 20:35 ATTEMPTED TO CALL REPORT. WAS ON HOLD FOR 5 MINUTES, ANASTASIIA ELLIOTT IS NOT AVAILABLE TO TAKE st1 REPORT WAS TOLD SHE WILL CALL ME BACK IN A FEW MINUTES. 20:35 Patient admitted, IV remains in place. st1 20:52 ANASTASIIA ELLIOTT WAS GIVEN REPORT ON THE PATIENT. ALL QUESTIONS AND CONCERNS ADDRESSED. st1 Administered Medications: 19:33 Drug: NS 0.9% 1000 ml Route: IV; Rate: 125 ml/hr; Site: left antecubital; st1 21:13 Follow up: Response: No adverse reaction st1 19:33 Drug: Thiamine 100 mg Route: IV; Rate: per protocol; Site: left antecubital; st1 21:12 Follow up: Response: No adverse reaction st1 19:33 Drug: foLIC Acid 1 mg Route: IVPB; Site: left antecubital; st1 21:12 Follow up: Response: No adverse reaction st1 19:56 Drug: Lopressor (metoprolol TARTRATE)) 25 mg Route: PO; st1 21:12 Follow up: Response: No adverse reaction st1 20:12 Drug: Decadron - Dexamethasone 6 mg Route: IVP; Site: left antecubital; st1 21:12 Follow up: Response: No adverse reaction st1 Outcome: 19:44 Decision to Hospitalize by Provider. se 20:34 Admitted to Med/surg accompanied by tech, via stretcher, room 212, with chart. st1 20:34 Condition: good 20:34 Instructed on the need for admit, Demonstrated understanding of instructions. 21:40 Patient left the ED. st1 Signatures: Dispatcher [employer] EDMS Randall Weir MD MD cha Quilty, Betty bq Williams, Irene, ANASTASIIA RN iw Sabrina Cruz Brian, RN RN Marianna Arrieta, ANASTASIIA RN st1 Corrections: (The following items were deleted from the chart) 18:15 17:18 BP 86 / 62; Pulse 114bpm; Resp 16bpm; Pulse Ox 96% RA; Temp 97.3F; 84.37 kg; iw Height 5 ft. 5 in.; BMI: 30.9; iw
[2022-02-20] MEDS ORDERED: METOPROLOL TAR 25 MG TAB ONE (19:57)
[2022-02-20 20:03] LABS: Albumin 3.4 g/dL (3.4-5.0); Bilirubin Direct 0.1 mg/dL (0-0.2); Bilirubin Total 0.4 mg/dL (0.2-1.0); Protein, Total 6.6 g/dL (6.4-8.2)
[2022-02-20] MEDS ORDERED: dexAMETHasone 4 MG/ML VIAL ONE (20:14)
[2022-02-20 21:11] LABS: Digoxin Level 0.1 ng/mL (0.80-2.00); Magnesium 2.3 mg/dL (1.8-2.4); Troponin High Sensitivity 13.6 pg/mL (<58.9)
[2022-02-20] MEDS ORDERED: MORPHINE 4 MG/ML SYR IV PRN (22:13)
[2022-02-20] MEDS ORDERED: ONDANSETRON 4 MG/2 ML VIAL IV PRN (22:13)
[2022-02-20] MEDS ORDERED: FAMOTIDINE 20 MG/2 ML VIAL IV SCH (22:13)
[2022-02-20 22:29] VITALS: BMI 31.5
[2022-02-20] MEDS: APIXABAN 5 MG TABLET PO SCH (23:33)
[2022-02-21 03:37] LABS: Absolute Lymphocytes (CBC) 0.8 K/uL (0.7-4.9); Lymphocytes % 18.9 % (15.3-44.8); MPV 9.2 fL (7.6-11.3); RBC Red Blood Cell Count 4.46 M/uL (3.86-4.86)
[2022-02-21 04:02] LABS: Potassium 4.6 mmol/L (3.5-5.1)
[2022-02-21] MEDS: METOPROLOL TAR 25 MG TAB PO SCH ×2 (06:37→17:02)
[2022-02-21] MEDS: MAGNESIUM OXIDE 400 MG TAB PO SCH (09:00)
[2022-02-21] MEDS ORDERED: HOME MED 1 EA UNK (Pravastatin [Pravachol*] 40 MG/TAB Tab) PO SCH (09:00)
[2022-02-21] MEDS ORDERED: HOME MED 1 EA UNK (Levetiracetam [Keppra] 250 MG Tablet) PO SCH (09:00)
[2022-02-21 09:11] LABS: Folic Acid, (Folate) 15.9 ng/mL (3.1-17.5); Thyroid Stimulating Hormone 0.046 uIU/mL (0.360-3.740)
[2022-02-21] MEDS: DIGOXIN 0.125 MG TABLET PO SCH (09:23)
[2022-02-21] MEDS: APIXABAN 5 MG TABLET PO SCH ×2 (09:24→23:08)
[2022-02-21] MEDS: MUPIROCIN 2% OINT 22GM TUBE TOP SCH (15:04)
[2022-02-21] MEDS: ACETAMINOPHEN 500 MG TAB PO PRN ×2 (17:59→23:09)
[2022-02-21] MEDS ORDERED: MUPIROCIN 2% OINT 22GM TUBE TOP SCH (21:00)
[2022-02-21] MEDS: levETIRAcetam 500 MG TAB PO SCH (23:08)
[2022-02-22] MEDS: MUPIROCIN 2% OINT 22GM TUBE TOP SCH (02:52)
[2022-02-22] MEDS: THYROID 30 MG TAB PO SCH (06:17)
[2022-02-22] MEDS: METOPROLOL TAR 25 MG TAB PO SCH ×2 (06:17→17:46)
--- NOTE | 2022-02-22 08:38 | RAD REPORT ---
EXAM DESCRIPTION: MRI - Brain W/Wo Cont - 02/22/2022 8:26 am CLINICAL HISTORY: left side numbness COMPARISON: MRA Head Wo Cont dated 02/22/2022; Brain W/Wo Cont dated 01/16/2021; MRA Head Wo Cont date d 01/16/2021; Brain W/Wo Cont dated 01/17/2020 TECHNIQUE: Sagittal T1-weighted images were obtained along with PD/heavily T2-weighted and T2-FLAIR images. Axial DWI and ADC mapping sequences were also obtained along with coronal heavily T2-weighted images were obtained. Post contrast enhanced images were obtained. FINDINGS: Approximately 7 mm acute infarct in the right posterior aspect of the claire. Moderate to se rosalie chronic small vessel ischemic changes. Remote left posterior frontal lobe infarct. No extra-axia l fluid collections. Signal voids are seen as a normal finding in the major intracranial vessels. No abnormal enhancement. No mastoid effusion.Paranasal sinuses are clear. IMPRESSION: Right posterior acute pontine infarct. No abnormal enhancement. No other acute process i dentified.
--- NOTE | 2022-02-22 08:40 | RAD REPORT ---
EXAM DESCRIPTION: MRI - MRA Neck W/Wo Cont - 02/22/2022 8:26 am CLINICAL HISTORY: lefdt side numbness COMPARISON: MRA Neck W/Wo Cont dated 01/16/2021; MRA Neck W/Wo Cont dated 01/17/2020 FINDINGS: Contrast enhance 2D [id number] MR angiography of the neck vessels was performed. The bilateral carotid systems are widely patent. The bilateral vertebral arteries are patent. IMPRESSION: No significant flow abnormality within the neck vessels.
--- NOTE | 2022-02-22 08:41 | RAD REPORT ---
EXAM DESCRIPTION: MRI - MRA Head Wo Cont - 02/22/2022 8:26 am CLINICAL HISTORY: lefdt side numbness CVA COMPARISON: Brain W/Wo Cont dated 01/16/2021; MRA Head Wo Cont dated 01/16/2021; Brain W/Wo Cont dated 01/17/2020; MRA Head Wo Cont dated 01/17/2020 FINDINGS: 3D noncontrast [id number] MR angiography of the [place] was performed. No aneurysm, flow-limiting stenosis or vascular malformation is seen. Forward flow seen in codominant vertebral arteries. The visualized dural venous sinuses appear patent. IMPRESSION: No significant flow abnormality of the [place] is identified.
[2022-02-22] MEDS: MAGNESIUM OXIDE 400 MG TAB PO SCH (09:00)
[2022-02-22] MEDS ORDERED: ATORVASTATIN 10 MG TAB PO SCH (09:00)
[2022-02-22] MEDS: APIXABAN 5 MG TABLET PO SCH ×2 (09:02→21:20)
[2022-02-22] MEDS: levETIRAcetam 500 MG TAB PO SCH ×2 (09:02→21:19)
[2022-02-22] MEDS: DIGOXIN 0.125 MG TABLET PO SCH (09:03)
[2022-02-22] MEDS: ACETAMINOPHEN 500 MG TAB PO PRN ×2 (09:07→16:37)
--- NOTE | 2022-02-22 09:28 | EKG ---
Test Date: 2022-02-20 Test Time: 19:35:55 Jboss Architect: NICOLE MEASUREMENT RESULTS: Intervals: Rate: 108 WI: QRSD: 80 QT: 348 QTc: 466 Thomson: P: WI: QRS: -8 T: 35 INTERPRETIVE STATEMENTS: Atrial fibrillation with rapid ventricular response Abnormal ECG Compared to ECG 02/18/2022 16:49:10 Myocardial infarct finding no longer present Electronically Signed On 02-22-22 09:25:56 CDT by Rafael Caldera
--- NOTE | 2022-02-22 11:31 | HP ---
Date of Admission: 02/22/2022 Chief Complaint: Tingling and numbness of left arm and left leg. History Of Present Illness: This is an 86-year-old female patient, who came into emergency room yest erday with tingling and numbness of left upper and left lower extremity. The patient reports that kurtis larson started to have initially tingling and numbness of the left lower extremity several days ago and in last few days, she is having similar problem with the left upper extremity. Denies any headache. N o fall. No injury. No nausea, vomiting. No visual complaints. With this, she came into emergency room and after she was evaluated, she was admitted to the hospital. She came into ER few days prior to this with similar complaint and after CAT scan of the head and C-spine and other blood work were d one, she was released to go home, but with worsening symptoms now involving left upper extremity also , she came into ER and after she was evaluated at this time, she was admitted to hospital. Medications: List reviewed. Review of Systems: TELLER VAULT: As mentioned above. Dermatology: She has chronic left lower extremity wound. All other systems reviewed and negative. Allergies: TO IODINE CAUSING RASH, LEVAQUIN CAUSING RASH, PENICILLIN CAUSING RASH, AND SILVADENE CAU SING RASH AND ITCHING. Past Medical History: Significant for TIA and thyroid cancer, hypothyroidism, type 2 diabetes [facility], hypertension, hyperlipidemia, chronic diastolic heart failure, chronic atrial fibrillation, sick sinus syndrome, osteoarthritis at multiple sites, hypomagnesemia, anemia, depression. Past Surgical History: Cataract surgery, thyroidectomy which was in form of total thyroidectomy in , and foot surgery. Social History: Negative for smoking and alcohol use. Family History: Father had stroke. Mother had coronary artery disease and hypertension. Sister had stroke. Physical Examination: Vital Signs: This morning; temperature 97.4, pulse 87, respiratory rate 19, blood pressure 149/81, o xygen saturation 92%. Height 5 feet 5 inches, weight 189 pounds. General: Awake, alert, oriented, not in distress. HEENT: Head atraumatic, normocephalic. Conjunctivae nonerythematous. Sclerae white. Mouth, no thr ush or edema noted. Ears/Nose, no mass, lesion, discharge noted. Neck: Supple. No JVD, lymph nodes, bruit, thyromegaly noted. Lungs: Bilateral good equal air entry. Clear to auscultation. No rhonchi. No rales. Heart: Normal heart sounds, no murmur or gallop. Abdomen: Soft, bowel sounds normal. No guarding, rigidity, tenderness, mass, hepatosplenomegaly, dis tention, or bruit noted. Extremities: Left lower extremity has extensive scarring. Left lower leg just above medial and late ral malleolus has superficial chronic wounds on the medial aspect. She has 3 small wounds approximat pravin 2-3 cm in size and on the lateral aspect, she has about 3 cm to 4 cm wounds. There is no dischar ge no bleeding. No soft tissue edema. Skin: No rash, ulcer, cellulitis. Lymphatics: No lymph node enlargement in neck, supraclavicular, infraclavicular region. Neuro: No focal neurological deficit. Chest: Unremarkable. External Genitalia: Deferred. Rectal: Deferred. Laboratory Data: Yesterday; white count 5.3, hemoglobin 13.7, platelets 176. Today; white count 4, hemoglobin 13.1, platelets 177. Yesterday; sodium 141, potassium 3.9, chloride 103, bicarb 33, BUN 2 5, creatinine 1.13, glucose 140. Liver function tests unremarkable. Troponin 13.6. This morning; s odium 139, potassium 4.6, chloride 107, bicarb 28, BUN 25, creatinine 0.99, glucose 178. Digoxin lev el yesterday was 0.1, today 0.20. COVID-19 test negative. CAT scan of the head and cervical spine s hows no acute intracranial or cervical spine changes. Chest x-ray, no acute cardiopulmonary changes. Venous Doppler of lower extremity was negative for DVT. Impression: 1.Tingling and numbness of left upper and left lower extremity. 2.Chronic atrial fibrillation. 3.Chronic anticoagulation therapy. 4.Congestive heart failure, chronic, diastolic. 5.Hypertension. 6.Hyperlipidemia. 7.Type 2 diabetes mellitus. 8.Hypothyroidism, postsurgical. 9.Depression. 10.Hypomagnesemia. Plan: We will admit the patient to hospital for further evaluation and management of this problem. The patient is appropriate for inpatient and is expected to spend 2 midnights in hospital. We will g o ahead and continue home medications per order including her Eliquis. Continue her thyroid medicati on and metoprolol per order. We will continue to provide daily dressing changes to her left lower ex tremity wound. Consult Dr. Arellano from Neurology Service and we will get MRI of the brain and MRI of her cervical spine tomorrow. Fall precaution was ordered and we will consult Physical Therapy to help ambulate. Details and plan of treatment discussed with the patient. I will see her tomorrow fo r followup. LOVE/MODL Voice ID: [id number]
[2022-02-22] MEDS ORDERED: AMLODIPINE 5 MG TAB PO ONE (17:00)
--- NOTE | 2022-02-22 22:13 | CON ---
Consultation called because of stroke. History Of Present Illness: Ms. Zuleta is an 86-year-old right-handed patient with multip le strokes, localization-related seizures, hypertension, atrial fibrillation, congestive heart failur e, and she is on chronic Eliquis, who developed more left arm and leg weakness 3 days prior to her [facility] on 02[facility]20/2022. She had some more difficulty ambulating, tendency to lose balance on the left side, and did not hold onto objects on the left hand. She came to [facility] well past the window for possible tissue plasminogen activator and was therefore never considered a rosa date for tPA. Her head CT scan showed no acute ischemic or hemorrhagic changes. She had a cervical spine MRI due to concern of trauma and there was no fracture or subluxation. There was multilevel ce rvical spondylosis with varying degrees of foraminal narrowing. She was admitted and a brain MRI don e earlier today identified a 7 mm acute infarction in the right posterior aspect of the claire, in jaz tion to moderate to severe chronic small-vessel ischemic disease, also a remote left posterior fronta l lobe infarct. MRA of the head and neck showed normal findings in the major arteries. No abnormali ties there. Her extremity Doppler study showed no DVT in either lower extremity. She was evaluated by the physical therapist earlier today and ambulated 250 feet with contact guard assistance using a rolling walker with gait belt. It should be noted that earlier in her admission, her electrocardiogr am did confirm atrial fibrillation with a rapid ventricular response. She is managed by Dr. Mariana tello h rate control on the Eliquis. Past Medical History: As noted. Allergies: GENTAMICIN, LEVOFLOXACIN, IODINE, AND PENICILLIN. Home Medications: Digoxin 125 mcg daily, Eliquis 5 mg twice daily, furosemide daily, levetiracetam 5 00 mg twice daily, magnesium oxide 400 mg daily, metoprolol 25 mg daily, potassium 10 mEq daily, prav astatin 40 mg at night, and she is on Synthroid. Past Surgical History: Thyroidectomy, skin graft on the left leg, and she has ongoing infection of t he left leg. Social History: No alcohol, tobacco, or IV drug use. Review of Systems: She did mention difficulty using left upper and lower extremity due to more weakness, difficulty with coordination, balance, and gait. No problems with her speech or swallowing. No shortness of breath or cough. No abdominal pain. No gastrointestinal issues such as diarrhea or bleeding. No rash. Physical Examination: Vital Signs: Blood pressure 131 up to 182 over 70 up to 85, pulse 61 to 72, respiratory rate 14 to 1 8, temperature 97.5, oxygen saturation 94% on room air. Weight 189 pounds, height 5 feet 5 inches, B DC 31.5. General: Ms. Zuleta is resting in bed. She is in no acute distress. She is normocephalic, atrauma tic. Sclerae are anicteric. Oropharynx is pink and moist. Neck: Supple. Chest: Clear. Heart: Irregularly irregular. Abdomen: Soft. Extremities: No significant edema in the right lower extremity. Left lower extremity is bandaged fr om recent wound. Neurologic: Alert and oriented to situation, place, and person. Follows commands appropriately. Cr anial nerves, no obvious deficits despite the patient's stroke. In terms of motor, she has 4/5 stren gth in the left upper and lower extremity, 5/5 on the right. Decreased sensation in the left upper a nd lower extremity compared to the right side. Coordination intact in upper and lower extremities. Gait, she has tendency to drift to the left side when ambulating with a walker. Laboratory Studies: Complete blood count, differential is unremarkable. Coagulation panel, INR 1.43 . Chemistries show normal creatinine of 0.99, glucose range of 178. Hemoglobin A1c 6.0. TSH very l ow at 0.046. B12 of 384, folate 15.9. Liver function studies are normal. Digoxin level was low at 0.1 on her admission, now 0.2. Subsequently, COVID-19 test is negative. Assessment: Ms. Zuleta is an 86-year-old patient with multiple stroke risk factors including atrial fibrillation with rapid ventricular response. Digoxin level is low. She has had elevated high bloo d pressure and multiple stroke risk factors as noted above. Her stroke is not likely to be cardioemb olic given it is in the posterior circulation in the claire and those are typical right angle vessels a nd the etiology for those strokes are usually hypertension, but also things like diabetes or dyslipid emia or other factors. Therefore, she will not necessarily benefit from additional blood thinning me dication on top of Eliquis, but may be at higher risk of hemorrhagic conversion, especially brainstem , which could be catastrophic. At this point, hydration and blood pressure management and rate contr ol of the heart are probably the best options to reduce her risk of worsening. Plan: 1.We will evaluate to determine if she is a candidate for acute inpatient rehabilitation. 2.Aggressive management of hypertension, although in the acute setting of stroke within the first we ek to 2 weeks. Mild permissive hypertension. 3.She was advised on options for therapy, which will include both outpatient if she is doing well or inpatient therapy within our rehab unit as well as the options such as home health or skilled nursin g. She will make a choice in addition to our recommendation as to what is helpful. At this point, t he more aggressive therapy often provides the best results, which would be inpatient rehabilitation. ARIEL/NING Voice ID: [id number] Report ID: [id number]
--- NOTE | 2022-02-23 01:57 | PN ---
Date of Progress Note: 02/22/2022 Subjective: The patient was seen this morning for followup. No new complaints or problems reported by the patient. Her tingling and numbness of left upper and left lower extremity is somewhat better, but still persistent. No trouble swallowing. No speech difficulty. No headache. No nausea, vomit ing. No visual complaints. Objective: Vital Signs: Reviewed. HEENT: Unremarkable. Lungs: Clear to auscultation. Heart: Sounds normal. Abdomen: Soft. Bowel sounds normal. No guarding, rigidity, tenderness, or distention. Extremities: No leg edema. Laboratory Data: MRI of the brain and MRA of intracranial arteries and neck reviewed. The patient h as acute known hemorrhagic stroke in the right claire region. Impression: 1.Stroke. 2.Atrial fibrillation. 3.Hypertension. 4.Hyperlipidemia. 5.Hypothyroidism. Plan: We will go ahead and continue Eliquis. Dr. Arellano from Neurology evaluated her and we will have physical therapy continue to work with her. We did talk about any other intervention at this po int for her stroke and risk of adding aspirin on top of Eliquis will be more than the benefit and enrique l increase the risk of bleeding complications. So at this point, Dr. Arellano has suggested not to a dd any aspirin and continue her Eliquis the way she is taking. We will get a fasting lipid profile tomorrow and the patient to take high dose statin therapy. We will consult rehab. LOVE/MODL Voice ID: [id number] Report ID: [id number]
[2022-02-23 02:36] VITALS: O2SAT 92
[2022-02-23] MEDS: THYROID 30 MG TAB PO SCH (05:11)
[2022-02-23] MEDS: METOPROLOL TAR 25 MG TAB PO SCH (05:16)
[2022-02-23 08:31] VITALS: BP 129/80; TEMP 97.3
[2022-02-23] MEDS: MUPIROCIN 2% OINT 22GM TUBE TOP SCH (09:00)
[2022-02-23] MEDS ORDERED: ACETAMINOPHEN 325 MG TABLET PO PRN (09:00)
[2022-02-23] MEDS: DIGOXIN 0.125 MG TABLET PO SCH (09:24)
[2022-02-23] MEDS: levETIRAcetam 500 MG TAB PO SCH (09:24)
[2022-02-23] MEDS: APIXABAN 5 MG TABLET PO SCH (09:24)
[2022-02-23] MEDS: MAGNESIUM OXIDE 400 MG TAB PO SCH (09:24)
[2022-02-23] MEDS ORDERED: ATORVASTATIN 80 MG TAB PO ONE (09:30)
--- NOTE | 2022-02-24 06:25 | DS ---
Date of Discharge: 02/23/2022 Disposition: Discharged to go home. Physical Examination: HEENT: Unremarkable. Lungs: Clear to auscultation. Heart: Sounds normal. Abdomen: Soft. Bowel sounds normal. No guarding, rigidity, tenderness, or distention. Extremities: No leg edema. Neurological Exam: No focal neurological deficits. No weakness of upper or lower extremities. Laboratory Data: Upon admission, white count 5.3, hemoglobin 13.7, and platelets and on 0 02/21/2022, white count 4, hemoglobin 13.1, and platelets 176. Upon admission sodium , pota ssium 3.9, chloride 103, bicarb 33, BUN 25, creatinine 1.13, and glucose 140. Liver function tests u nremarkable. Vitamin B12 of 384, folic acid level 15.9, TSH was low at 0.046 and LDL 79. Total chol esterol 144, triglyceride 111, and HDL 43. Repeat BUN 25 and creatinine 0.99 on 02/21/2022. CAT sca n of the head and neck done upon admission was negative for any acute intracranial changes and no acu te cervical spine findings. MRI of brain done yesterday shows right posterior acute infarct in claire. No abnormal enhancement. No hemorrhage. Yibevqnh-qs-maywps chronic small-vessel ischemic changes noted. MRA of intracranial and neck arteries were unremarkable. Chest x-ray, no acute cardiopulmona ry changes. Discharge Medications And Instructions: 1.Continue all prior home medications except stop pravastatin 40 mg dose. 2.Start taking following new medication: a.Folic acid 1 mg take 1 tablet by mouth daily. b.Atorvastatin 80 mg take 1 tablet by mouth daily at bedtime starting tomorrow. 3.Follow up at my office next week on Tuesday, which is 03/02/2022. Hospital Course: This is an 86-year-old very pleasant female patient who was admitted to the [facility] with complaints of tingling and numbness of left arm and left leg that was going on for few days pr ior to her presentation to the emergency room. After she came into ER, she was evaluated and admitte d to the hospital. CAT scan of the brain was negative for any acute changes, but we were concerned a bout her presentation, so she was kept in the hospital over the weekend and yesterday, Dr. Adan patel [facility] evaluated her and she had MRI of the brain done yesterday, which definitely michelle ws acute right claire infarct. The patient is on chronic anticoagulation, which is Eliquis 5 mg 2 time s a day that she takes because of her atrial fibrillation and she claims that she is compliant with h er medications and takes it regularly as prescribed. Risk of adding aspirin on top of Eliquis is mor e than the benefit in terms of bleeding complications, so Dr. Arellano has suggested not to add any a spirin. We will continue her Eliquis the way she takes at home. Her TSH was suppressed and last we k outpatient blood work also showed TSH was suppressed, so she was given instruction as of last week to change her Lynn Thyroid to take 1 tablet daily from Tuesday through Tuesday and do not take it o n Tuesday and these changes were just made last week so we do not need to make any further changes on the thyroid medication at this time. Physical therapy was consulted. She ambulated very well yester day. She uses a walker to ambulate and does not have any focal deficit and she feels very comfortabl e going home. She does not need to go to inpatient rehab and she does not want to do that either and medically, she is stable for discharge. I talk to physical therapist this morning and he also recom mends the patient can go home. Final Diagnoses: 1.Stroke, right claire. 2.Chronic atrial fibrillation. 3.Chronic anticoagulation therapy. 4.Congestive heart failure, chronic, diastolic. 5.Hypertension. 6.Hyperlipidemia. 7.Type 2 diabetes mellitus. 8.Hypothyroidism, postsurgical. 9.Depression. 10.Hypomagnesemia. LOVE/MODL Voice ID: [id number] Report ID: [id number]
== END 2022-02-23 10:57 | disposition home or self-care (01) | DRG 65 ==
LOC: ER 17:02 → ERHOLD 20:13 → 2ND 20:34 → OBSVTOIN 02-22 09:59
PROVIDERS: ADMIT Internal Medicine; ATTEND Internal Medicine
DX: I63.9 Cerebral infarction, unspecified (principal); I50.32 Chronic diastolic (congestive) heart failure; I48.20 Chronic atrial fibrillation, unspecified; R20.2 Paresthesia of skin; E83.42 Hypomagnesemia; E11.9 Type 2 diabetes mellitus without complications; I11.0 Hypertensive heart disease with heart failure; E78.5 Hyperlipidemia, unspecified; M19.90 Unspecified osteoarthritis, unspecified site; E89.0 Postprocedural hypothyroidism; F32.A Depression, unspecified; Z86.73 Personal history of transient ischemic attack (TIA), and cerebral infarction without residual deficits; Z85.850 Personal history of malignant neoplasm of thyroid; Z79.01 Long term (current) use of anticoagulants; Z88.0 Allergy status to penicillin; Z20.822 Contact with and (suspected) exposure to COVID-19
CPT/HCPCS: 36415; 70450; 70544; 70549; 70553; 71045; 72125; 80048; 80061; 80076; 80162; 82607; 82746; 83036; 83735; 83880; 84443; 84484; 85025; 85610; 93005; 93970; 96374; 96375; 97112; 97116; 97161; 97530; 99285; A9577; G0378; J1100; J3411; J7030; U0003

== ENCOUNTER 2022-05-18 12:51 | Emergency (ER) | payer OTHER ==
--- OUTSIDE RECORDS SUMMARY | 2022-05-18 12:54 | XMS REPORT | Continuity of Care Document ---
:1935 Author Organization [facility] t Address [address] [place] [address] Care Team Providers Name Role Phone Leander [...] Date Stop Date Source Natural father Stroke [facility] Natural mother [facility] Social History Social Habit Start Date Stop Date Quantity Comments Source Alcohol intake 2019-01-08 2019-01-08 Current [facility] 00:00:00 00:00:00 non-drinker of Hospital alcohol (finding) Tobacco use and 2018-06-27 2018-06-27 Smokeless tobacco [facility] exposure 00:00:00 00:00:00 non-user Hospital Sex Assigned At [birth year] [facility] 00:00:00 00:00:00 Hospital Smoking Status Start Date Stop Date Source Never smoked tobacco [facility] Medications Ordered Filled Start Stop Current [...] Source Future Scheduled 2021-11-18 COVID-19 VACCINE (1) [facility] Test 18:22:21 [code = COVID-19 VACCINE (1)] Future Scheduled 2021-11-18 65+ [facility]AL [facility] 18:22:21 VACCINE (1 of 2 - PPSV23) [code = 65+ PNEUMOCOCCAL VACCINE (1 of 2 - PPSV23)] Future Scheduled 2021-11-18 SHINGLES VACCINES (#1) [facility] Test 18:22:21 [code = SHINGLES VACCINES (#1)] Future Scheduled 2021-11-18 INFLUENZA VACCINE [facility] 18:22:21 [code = INFLUENZA VACCINE] Encounters Start End Encounter Admission Attending Care Care Encounter Source Date/Time Date/Time Type Type Clinicians Facility Department ID 2021-12-[address] [facility] [id number] Common 14:25:00 [id number] [facility] Results This patient has no known results.
[2022-05-18 13:20] LABS: Absolute Lymphocytes (CBC) 1.1 K/uL (0.7-4.9); Hematocrit 41.6 % (36.0-45.0); Lymphocytes % 14.2 % (15.3-44.8); MPV 8.8 fL (7.6-11.3); RBC Red Blood Cell Count 4.57 M/uL (3.86-4.86)
[2022-05-18 13:23] LABS: Protime INR 1.34
[2022-05-18 13:39] LABS: Urine Blood Negative (Negative); Urine Glucose Negative (Negative); Urine Protein 2+ (Negative); Urine Specific Gravity 1.025 (1.005-1.030)
--- NOTE | 2022-05-18 13:43 | RAD REPORT ---
EXAM DESCRIPTION: RAD - Chest Single View - 05/18/2022 1:23 pm CLINICAL HISTORY: COUGH COMPARISON: Chest Single View dated 02/20/2022; Chest Single View dated 02/18/2022; Chest Pa And Lat ( 2 Views) dated 10/08/2021; Chest Pa And Lat (2 Views) dated 09/29/2021 FINDINGS: Lines: None. Lungs: No evidence of edema or pneumonia. Pleural: No significant pleural effusions or pneumothorax. Cardiac: Cardiomegaly. Bones: No acute fractures. Other: IMPRESSION: No acute cardiopulmonary disease.
[2022-05-18] MEDS ORDERED: NA CHLORIDE 0.9% 1,000 ML ONE (13:50)
[2022-05-18] MEDS ORDERED: FOLIC ACID 5 MG/ML VIAL ONE (13:52)
[2022-05-18 14:13] LABS: Albumin 3.4 g/dL (3.4-5.0); Bilirubin Direct 0.2 mg/dL (0-0.2); Bilirubin Total 0.7 mg/dL (0.2-1.0); Magnesium 2.1 mg/dL (1.8-2.4); Potassium 4.2 mmol/L (3.5-5.1); Protein, Total 7.1 g/dL (6.4-8.2); Troponin High Sensitivity 30.7 pg/mL (<58.9)
--- NOTE | 2022-05-18 14:13 | RAD REPORT ---
EXAM DESCRIPTION: CT - Head Brain Wo Cont - 05/18/2022 1:59 pm CLINICAL HISTORY: Mental status change, unknown cause COMPARISON: Head Brain Wo Cont dated 04/12/2021; Head Brain Wo Cont dated 12/29/2020; Brain W/Wo Cont d ated 02/22/2022Head Brain Wo Cont dated 04/12/2021; Head Brain Wo Cont dated 12/29/2020; Brain W/Wo Cont dated 02/22/2022; Head C Spine Mpr Wo Con dated 02/20/[address]: [address] scans are performed using dose optimization technique as appropriate and may inclu de automated exposure control or mA/KV adjustment according to patient size. FINDINGS: 19 mm by 14 mm intraparenchymal hemorrhage in the left basal ganglia. Chronic small vessel ischemic changes. No hydrocephalus. No intraventricular extension of hemorrhage.No areas of brain ed clarice or evidence of midline shift. Small remote right basal ganglia and remote pontine infarct. The paranasal sinuses and mastoids are clear. The calvarium is intact. IMPRESSION: Left basal ganglia hemorrhage. No interventricular extension or midline shift. Conveyed to Dr. Weir by Dr. Ramírez at 1405 on 05/18/22.
--- NOTE | 2022-05-18 14:40 | EDPHYS ---
Physician Documentation [facility] Name: Lilo Zuleta Age: 86 yrs Sex: Female : 1935 Arrival Date: 05/18/2022 Time: 12:59 Bed 5 Private MD: ED Physician Randall Weir HPI: 05/18 15:50 This 86 yrs old Female presents to ER via EMS with complaints of General se Weakness - family reports yesterday pt was walking, today son was unable to get her out of bed due to significant weakness, family reports worse on the left side, lkw 2300pm on 05/17/22. 15:37 Onset: The symptoms/episode began/occurred this morning. Possible causes: CVA or TIA, se head injury, low blood sugar, seizure, sepsis. Associated signs and symptoms: Pertinent positives: dizziness, headache, lightheadedness. Current symptoms: In the emergency department the patient's symptoms are unchanged from the initial presentation. Patient's baseline: Neuro: alert and fully oriented. Severity of symptoms: At their worst the symptoms were mild in the emergency department the symptoms are unchanged. The patient has experienced a previous episode, last month. 15:50 The patient complains of pain to the top of head and forehead. The patient describes se the headache as aching. Onset: The symptoms/episode began/occurred this morning. weak, jorgensen, ams , not acting normally, weal on left arm and leg. The patient presents with trouble concentrating. Associated signs and symptoms: Pertinent positives: dizziness. Severity of symptoms: At its worst the pain was mild, in the emergency department the pain is unchanged. Headache History: Denies prior headaches. Historical: - Allergies: 13:03 gentamicin sulfate (PF); jg9 13:03 Iodine; jg9 13:03 Levofloxacin; jg9 13:03 PENICILLINS; jg9 - Home Meds: 13:03 digoxin 125 mcg Oral tab 1 tab once daily [Active]; Eliquis 5 mg Oral tab 1 tab 2 times jg9 per day [Active]; Furosemide Oral [Active]; levetiracetam 50 mg Oral [Active]; MagOx 40 mg Oral [Active]; metoprolol tartrate 25 mg Oral tab 1 tab once daily [Active]; mupirocin 2 % Topical oint 3 times per day [Active]; potassium chloride 10 mEq Oral cpER [Active]; pravastatin 40 mg Oral tab 1 tab once daily [Active]; thyroid (pork) 2 gm Oral [Active]; - PMHx: 13:03 Atrial fibrillation; Cerebrovascular accident; Congestive heart failure; Hypertension; jg9 Myocardial infarction; Seizures; TIA; - PSHx: 13:03 skin grafts on left leg; Thyroidectomy; jg9 - Immunization history:: Client reports having NOT received the Covid vaccine. Pneumococcal vaccine is not up to date, Flu vaccine is up to date. - Social history:: Smoking status: Patient denies any tobacco usage or history of. ROS: 15:48 Constitutional: Negative for fever, chills, and weight loss, Eyes: Negative for injury, se pain, redness, and discharge, ENT: Negative for injury, pain, and discharge, Neck: Negative for injury, pain, and swelling, Cardiovascular: Negative for chest pain, palpitations, and edema, Respiratory: Negative for shortness of breath, cough, wheezing, and pleuritic chest pain, Abdomen/GI: Negative for abdominal pain, nausea, vomiting, diarrhea, and constipation, Back: Negative for injury and pain, : Negative for injury, bleeding, discharge, and swelling, MS/Extremity: Negative for injury and deformity, Skin: Negative for injury, rash, and discoloration, Psych: Negative for depression, anxiety, suicide ideation, homicidal ideation, and hallucinations, Allergy/Immunology: Negative for hives, rash, and allergies, Endocrine: Negative for neck swelling, polydipsia, polyuria, polyphagia, and marked weight changes, Hematologic/Lymphatic: Negative for swollen nodes, abnormal bleeding, and unusual bruising. 15:48 Neuro: Positive for altered mental status, gait disturbance, headache, weakness, of the left arm and left leg. Exam: 15:48 Constitutional: This is a well developed, well nourished patient who is awake, alert, se and in no acute distress. Head/Face: Normocephalic, atraumatic. Eyes: Pupils equal round and reactive to light, extra-ocular motions intact. Lids and lashes normal. Conjunctiva and sclera are non-icteric and not injected. Cornea within normal limits. Periorbital areas with no swelling, redness, or edema. ENT: Nares patent. No nasal discharge, no septal abnormalities noted. Tympanic membranes are normal and external auditory canals are clear. Oropharynx with no redness, swelling, or masses, exudates, or evidence of obstruction, uvula midline. Mucous membranes moist. Neck: Trachea midline, no thyromegaly or masses palpated, and no cervical lymphadenopathy. Supple, full range of motion without nuchal rigidity, or vertebral point tenderness. No Meningismus. Chest/axilla: Normal chest wall appearance and motion. Nontender with no deformity. No lesions are appreciated. Respiratory: Lungs have equal breath sounds bilaterally, clear to auscultation and percussion. No rales, rhonchi or wheezes noted. No increased work of breathing, no retractions or nasal flaring. Abdomen/GI: Soft, non-tender, with normal bowel sounds. No distension or tympany. No guarding or rebound. No evidence of tenderness throughout. Back: No spinal tenderness. No costovertebral tenderness. Full range of motion. Female : Normal external genitalia. Skin: Warm, dry with normal turgor. Normal color with no rashes, no lesions, and no evidence of cellulitis. MS/ Extremity: Pulses equal, no cyanosis. Neurovascular intact. Full, normal range of motion. Psych: Awake, alert, with orientation to person, place and time. Behavior, mood, and affect are within normal limits. 15:48 Cardiovascular: Rate: tachycardic, Rhythm: irregularly irregular, Pulses: Pulses are 4+ in bilateral radial, brachial, femoral, popliteal, posterior tibial and and dorsalis pedis arteries.. Heart sounds: normal, Edema: is not appreciated, JVD: is not appreciated. 15:48 ECG was reviewed by the Attending Physician. Vital Signs: 12:50 BP 166 / 96; Pulse 105; Resp 24 S; Temp 97.8(O); Pulse Ox 100% on R/A; Weight 81.65 kg jg9 (R); Height 5 ft. 5 in. (165.10 cm) (R); Pain 0/10; 13:56 BP 147 / 103; Pulse 108; Resp 19; Pulse Ox 99% ; jl7 14:00 BP 166 / 107; Pulse 105; Resp 20; Pulse Ox 100% ; jl7 14:30 BP 164 / 122; Pulse 112; Resp 16; Pulse Ox 100% ; jl7 14:45 BP 145 / 116; Pulse 109; Resp 20; Pulse Ox 99% ; jl7 15:15 BP 161 / 85; Pulse 108; Resp 20; Pulse Ox 94% ; jl7 15:25 BP 142 / 91; Pulse 103; Resp 20; Pulse Ox 97% on R/A; jl7 15:30 BP 153 / 90; Pulse 109; Resp 18; Pulse Ox 100% ; jl7 15:40 BP 139 / 72; Pulse 102; Resp 19; Pulse Ox 97% ; jl7 15:50 BP 133 / 95; Pulse 126; Resp 23; Pulse Ox 100% ; jl7 12:50 Body Mass Index 29.95 (81.65 kg, 165.10 cm) jg9 NIH Stroke Scale Scores: 13:05 NIHSS Score: 2 jl7 16:02 NIHSS Score: 2 se [place] Coma Score: 15:51 Eye Response: spontaneous(4). Verbal Response: oriented(5). Motor Response: obeys se commands(6). Total: 15. MDM: 13:04 Patient medically screened. se 15:51 Differential diagnosis: cerebral vascular accident, hypertensive headache, se hypoglycemia, hyponatremia, migraine, neoplasm, subarachnoid bleed, subdural hematoma, tension headache, vasomotor headache. Differential Diagnosis altered mental status. Differential Diagnosis: CVA, electrolyte abnormality, hypoglycemia, intracranial bleed, seizure, TIA, volume depletion. Data reviewed: vital signs, nurses notes, old medical records, lab test result(s), EKG, radiologic studies, CT scan, plain films. Data interpreted: monitoring manager: rate is 108 beats/min, rhythm is atrial fibrillation. Test interpretation: by ED physician or midlevel provider: ECG, plain radiologic studies. Counseling: I had a detailed discussion with the patient and/or guardian regarding: the historical points, exam findings, and any diagnostic results supporting the discharge/admit diagnosis, the presence of at least one elevated blood pressure reading (>120/80) during this emergency department visit, lab results, radiology results, the need to transfer to another facility. 05/18 13:07 Order name: Basic Metabolic Panel; Complete Time: 15:32 [facility] 05/18 13:07 Order name: CBC with Diff; Complete Time: 14:35 [facility] 05/18 13:07 Order name: LFT's; Complete Time: 15:32 [facility] 05/18 13:07 Order name: Magnesium; Complete Time: 15:32 [facility] 05/18 13:07 Order name: NT PRO-BNP; Complete Time: 15:32 [facility] 05/18 13:07 Order name: PT-INR; Complete Time: 14:35 [facility] 05/18 13:07 Order name: Troponin HS; Complete Time: 15:32 [facility] 05/18 13:07 Order name: Lipase; Complete Time: 15:32 [facility] 05/18 13:07 Order name: SARS-COV-2 RT PCR (Document "Date of Onset" if Symptomatic); Complete Time: [facility] 15:19 05/18 13:07 Order name: Urine Culture [facility] 05/18 13:07 Order name: Digoxin; Complete Time: 15:32 [facility] 05/18 13:23 Order name: Glucose, Ancillary Testing; Complete Time: 14:35 EDMN 05/18 13:39 Order name: Urine Dipstick-Ancillary; Complete Time: 14:35 EDMN 05/18 13:07 Order name: XRAY Chest (1 view); Complete Time: 14:35 [facility] 05/18 13:07 Order name: EKG; Complete Time: 13:07 [facility] 05/18 13:07 Order name: Cardiac monitoring; Complete Time: 13:11 [facility] 05/18 13:07 Order name: EKG - Nurse/Tech; Complete Time: 13:37 [facility] 05/18 13:07 Order name: CT Head Brain wo Cont; Complete Time: 14:35 [facility] 05/18 15:23 Order name: ABO/RH typing EDMS 05/18 15:26 Order name: Bb Add On bd 05/18 13:07 Order name: IV Saline Lock; Complete Time: 13:11 [facility] 05/18 13:07 Order name: Labs collected and sent; Complete Time: 13:11 [facility] 05/18 13:07 Order name: O2 Per Protocol; Complete Time: 13:11 [facility] 05/18 13:07 Order name: O2 Sat Monitoring; Complete Time: 13:11 [facility] 05/18 13:07 Order name: Urine Dipstick-Ancillary (obtain specimen); Complete Time: 13:37 [facility] 05/18 14:36 Order name: [place]; Complete Time: 16:06 [facility] EC:48 Rate is 102 beats/min. Rhythm is irregularly irregular. QRS [place] is Normal. VT interval se is normal. QRS interval is normal. QT interval is normal. No Q waves. T waves are Normal. No ST changes noted. Clinical impression: Atrial Fibrillation. Interpreted by me. Reviewed by me. Administered Medications: 13:30 Drug: foLIC Acid 1 mg Route: IVPB; Site: right wrist; 7 13:32 Follow up: Response: No adverse reaction; IV Status: Completed infusion jl7 13:45 Drug: NS 0.9% 500 ml Route: IV; Rate: bolus; Site: right wrist; 7 16:07 Follow up: IV Status: Completed infusion; IV Intake: 500ml j9 14:34 Drug: NS 0.9% 1000 ml Route: IV; Rate: 125 ml/hr; Site: right wrist; 7 16:27 Follow up: Response: No adverse reaction; IV Status: Infusion continued upon transfer jl 15:20 Drug: niCARdipine 5 mg/hr Route: IV; Rate: calculated rate; Site: right wrist; 7 16:26 Follow up: Response: No adverse reaction; IV Status: Infusion continued upon transfer [facility] 15:21 Not Given (Duplicate Order): Cardene (niCARdipine) 5 mg/hr IV at per protocol iw continuous; 5mg/hr 16:05 Drug: Digoxin 0.25 mg Route: IVP; Site: right wrist; j9 16:08 Follow up: Response: No adverse reaction j9 16:05 Drug: Keppra (levETIRAcetam) 1000 mg Route: IV; Rate: calculated rate; Site: left wrist;j9 16:26 Follow up: IV Status: Infusion continued upon transfer [facility] 16:08 CANCELLED (Duplicate Order): Zofran (Ondansetron) 4 mg IVP once; over 2 minutes se 16:10 Not Given (Physician Discretion): Rocephin (cefTRIAXone) 1 grams IV at per protocol jg9 once; Given slow IV push per pharmacy instructions Disposition Summary: 05/18/22 14:39 Transfer Ordered Transfer Location: [facility] se Reason: Higher level of care se Condition: Serious se Problem: new se Symptoms: have improved se Accepting Physician: to (05/18/22 16:30) jl7 Diagnosis - Nontraumatic intracranial hemorrhage, unspecified - [id number] MM LEFT basal ganglia se - Essential (primary) hypertension se - Chronic atrial fibrillation se - snf (current) use of anticoagulants se Forms: - Medication Reconciliation Form se - SBAR form se NIH Stroke Scale - NIH Stroke Score Date: 05/18/2022 Time: 13:05 Total Score = 2 1a. Level of Consciousness (LOC) - 0(Alert) 1b. Level of Consciousness (LOC) (Month \\T\\ Age) - 0(Both) 1c. LOC Commands (Open \\T\\ Closes Eyes/School Librarian) - 0(Both) 2. Best Gaze (Lateral Gaze Paresis) - 0(Normal) 3. Visual Field Loss - 0(No visual loss) 4. Facial Palsy - 0(Normal) 5a. Left Arm: Motor (10-second hold) - 1(Drift) 5b. Right Arm: Motor (10-second hold) - 0(No drift) 6a. Left Leg: Motor (5-second hold - always test supine) - 1(Drift) 6b. Right Leg: Motor (5-second hold - always test supine) - 0(No drift) 7. Limb Ataxia (finger/nose \\T\\ heel/mendes - test with eyes open) - 0(Absent) 8. Sensory Loss (pinprick arms/legs/face) - 0(Normal) 9. Best Language: Aphasia (description/naming/reading) - 0(No aphasia) 10. Dysarthria (speech clarity - read or repeat words) - 0(Normal) 11. Extinction and Inattention (visual/tactile/auditory/spatial/personal) - 0(No abnormality) Initials: jl7 NIH Stroke Scale - NIH Stroke Score Date: 05/18/2022 Time: 16:02 Total Score = 2 1a. Level of Consciousness (LOC) - 0(Alert) 1b. Level of Consciousness (LOC) (Month \\T\\ Age) - 0(Both) 1c. LOC Commands (Open \\T\\ Closes Eyes/School Librarian) - 0(Both) 2. Best Gaze (Lateral Gaze Paresis) - 0(Normal) 3. Visual Field Loss - 0(No visual loss) 4. Facial Palsy - 0(Normal) 5a. Left Arm: Motor (10-second hold) - 1(Drift) 5b. Right Arm: Motor (10-second hold) - 0(No drift) 6a. Left Leg: Motor (5-second hold - always test supine) - 1(Drift) 6b. Right Leg: Motor (5-second hold - always test supine) - 0(No drift) 7. Limb Ataxia (finger/nose \\T\\ heel/mendes - test with eyes open) - 0(Absent) 8. Sensory Loss (pinprick arms/legs/face) - 0(Normal) 9. Best Language: Aphasia (description/naming/reading) - 0(No aphasia) 10. Dysarthria (speech clarity - read or repeat words) - 0(Normal) 11. Extinction and Inattention (visual/tactile/auditory/spatial/personal) - 0(No abnormality) Initials: [facility] Signatures: Dispatcher [employer] EDMS Randall Weir MD MD cha Williams, Irene, RN RN iw Ginette Crespo RN RN jl7 Maria Alejandra Vasquez RN RN jg9 Corrections: (The following items were deleted from the chart) 14:39 14:39 to [facility] 16:08 16:08 Zofran (Ondansetron) 4 mg IVP once; over 2 minutes ordered. [facility] 16:27 15:20 FRESH FROZEN PLASMA+[id number].BRZ ordered. EDMS EDMS 16:30 14:39 to [facility] jl7
--- NOTE | 2022-05-18 14:40 | ER ---
Nurse's Notes [facility] Name: Lilo Zuleta Age: 86 yrs Sex: Female : 1935 Arrival Date: 05/18/2022 Time: 12:59 Bed 5 Private MD: Diagnosis: Nontraumatic intracranial hemorrhage, unspecified-[id number] MM LEFT basal ganglia;Essential (primary) hypertension;Chronic atrial fibrillation;MCFP (current) use of anticoagulants Presentation: 05/18 12:50 Chief complaint: EMS states: family believed patient was having a stroke because son allie was unable to get her out of bed, pt is weak and it's reported as worst on the left, however pt. was seen here 2 weeks ago for stroke like symptoms and the findings were negative, however pt had a follow up scan that showed she had a bleed-details vague. Coronavirus screen: Vaccine status: Patient reports being unvaccinated. Ebola Screen: Patient negative for fever greater than or equal to 101.5 degrees Fahrenheit, and additional compatible Ebola Virus Disease symptoms Patient denies exposure to infectious person. Patient denies travel to an Ebola-affected area in the 21 days before illness onset. Initial Sepsis Screen: Does the patient meet any 2 criteria? RR > 20 per min. No. Patient's initial sepsis screen is negative. Does the patient have a suspected source of infection? No. Patient's initial sepsis screen is negative. Risk Assessment: Do you want to hurt yourself or someone else? Patient reports no desire to harm self or others. Onset of symptoms is unknown. 12:50 Method Of Arrival: EMS: [facility] 9 12:50 Acuity: HAVEN 3 jg9 Triage Assessment: 12:50 General: Appears in no apparent distress. Behavior is calm, cooperative. Pain: Denies jg9 pain. EENT: No deficits noted. Neuro: Level of Consciousness is awake, Oriented to person, Hx of Alzheimer's/dementia. Historical: - Allergies: 13:03 gentamicin sulfate (PF); jg9 13:03 Iodine; jg9 13:03 Levofloxacin; jg9 13:03 PENICILLINS; jg9 - Home Meds: 13:03 digoxin 125 mcg Oral tab 1 tab once daily [Active]; Eliquis 5 mg Oral tab 1 tab 2 times jg9 per day [Active]; Furosemide Oral [Active]; levetiracetam 50 mg Oral [Active]; MagOx 40 mg Oral [Active]; metoprolol tartrate 25 mg Oral tab 1 tab once daily [Active]; mupirocin 2 % Topical oint 3 times per day [Active]; potassium chloride 10 mEq Oral cpER [Active]; pravastatin 40 mg Oral tab 1 tab once daily [Active]; thyroid (pork) 2 gm Oral [Active]; - PMHx: 13:03 Atrial fibrillation; Cerebrovascular accident; Congestive heart failure; Hypertension; jg9 Myocardial infarction; Seizures; TIA; - PSHx: 13:03 skin grafts on left leg; Thyroidectomy; jg9 - Immunization history:: Client reports having NOT received the Covid vaccine. Pneumococcal vaccine is not up to date, Flu vaccine is up to date. - Social history:: Smoking status: Patient denies any tobacco usage or history of. Screenin:05 Abuse screen: Denies threats or abuse. Denies injuries from another. Nutritional jg9 screening: No deficits noted. Tuberculosis screening: No symptoms or risk factors identified. Fall Risk None identified. 13:15 The patient has not been NPO before screening. The patient is currently on the jl7 following diet: home The patient is alert, able to follow commands. The patient does not exhibit slurred or garbled speech The patient is not exhibiting difficulty speaking. The patient does not exhibit difficulty understanding words. The patient is able to swallow own secretions with no drooling or need for suction. Patient tolerated one teaspoon of water. No drooling, immediate coughing, gurgling, or clearing of the throat was noted. The patient tolerated 90mL of water. No drooling, immediate coughing, gurgling, or clearing of the throat was noted. The patient passed the bedside swallow screening. Oral medications may be given as ordered. Contact Physician for further diet orders. Provider notified of bedside swallow screening results: Randall Weir MD. Assessment: 13:00 General: Appears in no apparent distress. uncomfortable, Behavior is cooperative, jl7 restless. Pain: Denies pain. Neuro: Level of Consciousness is awake, alert, obeys commands, Oriented to person, place. Cardiovascular: Patient's skin is warm and dry. Rhythm is atrial fibrillation with rapid ventricular response. Respiratory: Airway is patent Respiratory effort is even, unlabored, Respiratory pattern is regular, symmetrical. Derm: Skin is pink, warm \T\ dry. 13:00 Reassessment: EMS reports last known normal was last night prior to bed, pt reports jl7 going to sleep at 2300 last night. EMS reports pt has a hx of Alzheimer's, pt's family report's she hasn't been diagnosed by a neurologist but that Dr. Peña gave a preliminary diagnosis of dementia based off recent behaviors. 14:00 Reassessment: Patient appears in no apparent distress at this time. No changes from jl7 previously documented assessment. Patient and/or family updated on plan of care and expected duration. Pain level reassessed. 16:00 Reassessment: [facility] at bedside to transport pt. jl7 Vital Signs: 12:50 BP 166 / 96; Pulse 105; Resp 24 S; Temp 97.8(O); Pulse Ox 100% on R/A; Weight 81.65 kg j9 (R); Height 5 ft. 5 in. (165.10 cm) (R); Pain 0/10; 13:56 BP 147 / 103; Pulse 108; Resp 19; Pulse Ox 99% ; jl7 14:00 BP 166 / 107; Pulse 105; Resp 20; Pulse Ox 100% ; jl7 14:30 BP 164 / 122; Pulse 112; Resp 16; Pulse Ox 100% ; jl7 14:45 BP 145 / 116; Pulse 109; Resp 20; Pulse Ox 99% ; jl7 15:15 BP 161 / 85; Pulse 108; Resp 20; Pulse Ox 94% ; jl7 15:25 BP 142 / 91; Pulse 103; Resp 20; Pulse Ox 97% on R/A; jl7 15:30 BP 153 / 90; Pulse 109; Resp 18; Pulse Ox 100% ; jl7 15:40 BP 139 / 72; Pulse 102; Resp 19; Pulse Ox 97% ; jl7 15:50 BP 133 / 95; Pulse 126; Resp 23; Pulse Ox 100% ; jl7 12:50 Body Mass Index 29.95 (81.65 kg, 165.10 cm) jg9 Renate Coma Score: 15:51 Eye Response: spontaneous(4). Verbal Response: oriented(5). Motor Response: obeys se commands(6). Total: 15. NIH Stroke Scale Scores: 13:05 NIHSS Score: 2 jl7 16:02 NIHSS Score: 2 se ED Course: 12:59 Patient arrived in ED. bd 13:01 Maria Alejandra Vasquez, RN is Primary Nurse. jg9 13:03 Triage completed. jg9 13:04 Randall Weir MD is Attending Physician. se 13:05 Arm band placed on right wrist. jg9 13:05 Client placed on continuous cardiac and pulse oximetry monitoring. NIBP monitoring jl7 applied. 13:05 Warm blanket given. Pillow given. jl7 13:06 Patient has correct armband on for positive identification. Bed in low position. Call jg9 light in reach. Side rails up X 1. 13:25 XRAY Chest (1 view) In Process Unspecified. EDMS 13:30 Initial lab(s) drawn, by me, sent to lab. EKG done, by ED staff, reviewed by Randall Weir MD. Urine collected: straight cath specimen, clear. Straight cath inserted, using sterile technique, 14 Fr. Specimen obtained. Returned clear yellow urine. Inserted saline lock: 20 gauge in right wrist, using aseptic technique. Blood collected. 13:56 Primary Nurse role handed off by Maria Alejandra Vasquez, ANASTASIIA jl7 13:56 Ginette Crespo, RN is Primary Nurse. jl7 14:00 CT Head Brain wo Cont In Process Unspecified. EDMS 15:36 initiated transfer to [facility] as requested by pts family. bd 15:45 Branham cath inserted, using sterile technique, 16 Fr., by nc, balloon inflated, to jl7 gravity drainage. Inserted saline lock: 22 gauge in right wrist, using aseptic technique. 16:00 pt accepted in transfer to [facility] by dr alegria, admin approval given by Charu Andrade. 16:05 Bb Add On Sent. jg9 16:28 No provider procedures requiring assistance completed. jl7 16:28 Patient transferred, IV remains in place. intact, No redness/swelling at site. jl7 Administered Medications: 13:30 Drug: foLIC Acid 1 mg Route: IVPB; Site: right wrist; jl7 13:32 Follow up: Response: No adverse reaction; IV Status: Completed infusion jl7 13:45 Drug: NS 0.9% 500 ml Route: IV; Rate: bolus; Site: right wrist; 7 16:07 Follow up: IV Status: Completed infusion; IV Intake: 500ml j9 14:34 Drug: NS 0.9% 1000 ml Route: IV; Rate: 125 ml/hr; Site: right wrist; 7 16:27 Follow up: Response: No adverse reaction; IV Status: Infusion continued upon transfer jl7 15:20 Drug: niCARdipine 5 mg/hr Route: IV; Rate: calculated rate; Site: right wrist; 7 16:26 Follow up: Response: No adverse reaction; IV Status: Infusion continued upon transfer jl 15:21 Not Given (Duplicate Order): Cardene (niCARdipine) 5 mg/hr IV at per protocol iw continuous; 5mg/hr 16:05 Drug: Digoxin 0.25 mg Route: IVP; Site: right wrist; j9 16:08 Follow up: Response: No adverse reaction j9 16:05 Drug: Keppra (levETIRAcetam) 1000 mg Route: IV; Rate: calculated rate; Site: left wrist;j9 16:26 Follow up: IV Status: Infusion continued upon transfer jl 16:08 CANCELLED (Duplicate Order): Zofran (Ondansetron) 4 mg IVP once; over 2 minutes se 16:10 Not Given (Physician Discretion): Rocephin (cefTRIAXone) 1 grams IV at per protocol j9 once; Given slow IV push per pharmacy instructions Medication: 13:06 VIS not applicable for this client. jg9 Intake: 16:07 IV: 500ml; Total: 500ml. jg9 Outcome: 14:39 ER care complete, transfer ordered by . se 16:30 Transferred by helicopter to [facility], Transfer form completed. X-rays sent [facility] w/ patient. 16:30 Condition: stable 16:30 Discharge instructions given to patient, family, Instructed on the need for transfer, Demonstrated understanding of instructions. 16:30 Patient left the ED. jl7 NIH Stroke Scale - NIH Stroke Score Date: 05/18/2022 Time: 13:05 Total Score = 2 1a. Level of Consciousness (LOC) - 0(Alert) 1b. Level of Consciousness (LOC) (Month \T\ Age) - 0(Both) 1c. LOC Commands (Open \T\ Closes Eyes/Invoice Checker) - 0(Both) 2. Best Gaze (Lateral Gaze Paresis) - 0(Normal) 3. Visual Field Loss - 0(No visual loss) 4. Facial Palsy - 0(Normal) 5a. Left Arm: Motor (10-second hold) - 1(Drift) 5b. Right Arm: Motor (10-second hold) - 0(No drift) 6a. Left Leg: Motor (5-second hold - always test supine) - 1(Drift) 6b. Right Leg: Motor (5-second hold - always test supine) - 0(No drift) 7. Limb Ataxia (finger/nose \T\ heel/mendes - test with eyes open) - 0(Absent) 8. Sensory Loss (pinprick arms/legs/face) - 0(Normal) 9. Best Language: Aphasia (description/naming/reading) - 0(No aphasia) 10. Dysarthria (speech clarity - read or repeat words) - 0(Normal) 11. Extinction and Inattention (visual/tactile/auditory/spatial/personal) - 0(No abnormality) Initials: jl7 NIH Stroke Scale - NIH Stroke Score Date: 05/18/2022 Time: 16:02 Total Score = 2 1a. Level of Consciousness (LOC) - 0(Alert) 1b. Level of Consciousness (LOC) (Month \T\ Age) - 0(Both) 1c. LOC Commands (Open \T\ Closes Eyes/Invoice Checker) - 0(Both) 2. Best Gaze (Lateral Gaze Paresis) - 0(Normal) 3. Visual Field Loss - 0(No visual loss) 4. Facial Palsy - 0(Normal) 5a. Left Arm: Motor (10-second hold) - 1(Drift) 5b. Right Arm: Motor (10-second hold) - 0(No drift) 6a. Left Leg: Motor (5-second hold - always test supine) - 1(Drift) 6b. Right Leg: Motor (5-second hold - always test supine) - 0(No drift) 7. Limb Ataxia (finger/nose \T\ heel/mendes - test with eyes open) - 0(Absent) 8. Sensory Loss (pinprick arms/legs/face) - 0(Normal) 9. Best Language: Aphasia (description/naming/reading) - 0(No aphasia) 10. Dysarthria (speech clarity - read or repeat words) - 0(Normal) 11. Extinction and Inattention (visual/tactile/auditory/spatial/personal) - 0(No abnormality) Initials: se Signatures: Dispatcher [employer] Deirdre Matos Corey, MD MD cha Leal, Jahala RN RN jl7 Maria Alejandra Vasquze RN RN jg9 Marilyn Menon RN iw Corrections: (The following items were deleted from the chart) 16:14 15:45 niCARdipine 5 mg/hr IV at calculated rate in right wrist allie jl7
[2022-05-18] MEDS ORDERED: Nicardipine/NS 25 MG/250 ML KIT IV ONE (15:21)
[2022-05-18 15:26] LABS: Digoxin Level 0.2 ng/mL (0.80-2.00)
[2022-05-18] MEDS ORDERED: CEFTRIAXONE 1000 MG/VIAL ONE (15:32)
[2022-05-18] MEDS ORDERED: NA CHLORIDE 0.9% 50 ML ONE ×2 (15:33→15:53)
[2022-05-18] MEDS ORDERED: LEVETIRACETAM 500 MG/5 ML VIAL IV ONE ×2 (15:52→16:19)
[2022-05-18] MEDS ORDERED: DIGOXIN 0.25 MG/ML AMP ONE (15:56)
[2022-05-18 17:18] VITALS: BP 133/95; O2SAT 100
--- NOTE | 2022-05-19 07:20 | EKG ---
Test Date: 2022-05-18 Test Time: 13:19:17 Park Maintenance Technician: [place] MEASUREMENT RESULTS: Intervals: Rate: 102 IL: QRSD: 76 QT: 308 QTc: 401 [place]: P: IL: QRS: -13 T: 2 INTERPRETIVE STATEMENTS: Atrial fibrillation with rapid ventricular response Abnormal ECG Compared to ECG 02/20/2022 19:35:55 No significant changes Electronically Signed On 05-19-22 07:17:31 CDT by Rafael Caldera
== END 2022-05-18 16:30 | disposition short-term general hospital (02) ==
LOC: ER 12:51
DX: I62.9 Nontraumatic intracranial hemorrhage, unspecified (principal); I10 Essential (primary) hypertension; R29.702 NIHSS score 2; I48.19 Other persistent atrial fibrillation; I50.9 Heart failure, unspecified; I25.2 Old myocardial infarction; Z79.01 Long term (current) use of anticoagulants; Z20.822 Contact with and (suspected) exposure to COVID-19; Z88.0 Allergy status to penicillin; Z88.3 Allergy status to other anti-infective agents; Z88.8 Allergy status to other drugs, medicaments and biological substances; Z91.048 Other nonmedicinal substance allergy status
CPT/HCPCS: 93005; 87088; 85025; 87086; 80048; 36415; 86900; 83735; 85610; 80162; 86901; 82947; 80076; 81003; 84484; 83690; 83880; 70450; 71045; U0003; J1160; J1953 ×2; J7030

== ENCOUNTER 2022-07-21 11:03 | Observation (INO) | payer OTHER ==
--- OUTSIDE RECORDS SUMMARY | 2022-07-21 11:06 | XMS REPORT | Continuity of Care Document ---
:1935 Author Organization [facility] t Address [address] [place] [address] Care Team Providers Name Role Phone Gilbert Peña MD Primary Care Physician Dereck Romero MD Attending Clinician BRANDY WHITE Attending Clinician Unavailable WASHINGTON GODDARD Admitting Clinician Unavailable Payers Payer Name Policy Type Policy Number Effective Date Expiration Date S ource Problems Condition Condition Condition Status Onset Resolution Last Treating Co mments Source Name Details Category Date Date Treatment Clinician Date Angina Angina Disease Active [facility] pectoris pectoris 9 [facility] 00 l Abnormal Abnormal Disease Active Metho di stress stress 904 st test test 00:00: Hospita 00 l SOB SOB Disease Active Methodi (shortness (shortness 7-31 st of breath) of breath) 00:00: Ho spita 00 l Atrial Atrial Disease Active [facility] fibrillati fibrillati 06-27 st on on 00:00: Hospita 00 l No known No known Disease UT active active Health problems problems Allergies, Adverse Reactions, Alerts Allergy Allergy Status Severity Reaction(s) Onset Inactive Treating Comm ents Source Name Type Date Date Clinician Codeine Allergy Active [facility] to 8-12 Health substanc 00:00: e 00 Iodide Propensi Active UT ty to 8-12 Health adverse 00:00: reaction 00 s Doxycycl Allergy Active Unknown Other UT ine to 2-19 reaction( Health substanc 00:00: s): e 00 swelling, peeling of skin, hair loss, fingernai l/toenail loss Iodine Allergy Active Other [place] to 01-16 reaction( Health substanc 00:00: s): e 00 Hives/Jaime h Gentamic Allergy Active Rash Other UT in to 08-01 reaction( Health substanc 00:00: s): e 00 Itching/H mariama/Rash Levoflox Allergy Active Rash Other UT acin to 08-01 reaction( Health substanc 00:00: s): e 00 Itching/H mariama/Rash Penicill Allergy Active Rash Other UT ins to 08-01 reaction( Health substanc 00:00: s): e 00 rashes Gentamic Propensi Active Rash Method i in ty to 08-01 adverse 00:00: Hospita reaction 00 l s to drug Iodine Propensi Active Rash Methodi And ty to 08-01 Iodide adverse 00:00: Hospita Containi reaction 00 l ng s to Products drug Levoflox Propensi Active Rash Method i acin ty to 08-01 st adverse 00:00: Hospita reaction 00 l s to drug Penicill Propensi Active Rash Method i ins ty to 08-01 adverse 00:00: Hospita reaction 00 l s to drug Family History Family Member Diagnosis Comments Start Date Stop Date Source Natural father Stroke [facility] mother [facility] Social History Social Habit Start Date Stop Date Quantity Comments Source Exposure to 2022-06-29 2022-07-09 Not sure [facility] SARS-CoV-2 (event) 00:00:00 14:01:00 Tobacco use and 2022-07-09 2022-07-09 Smokeless tobacco [facility] exposure 00:00:00 00:00:00 non-user Alcohol intake 2022-07-09 2022-07-09 Ex-drinker [facility] 00:00:00 00:00:00 (finding) Sex Ass[birth year] At [birth year] [facility] 00:00:00 00:00:00 Smoking Status Start Date Stop Date Source Never smoked tobacco [facility] Medications Ordered Filled Start Stop Current Ordering Indication Dosage Frequency Signature Comments Components Source Medication Medication Date Date Medication? Clinician (SIG) Name Name levETIRAcet Yes 500mg QD Take 500 U T am (Keppra) 8-12 mg by Health 500 MG 14:39: mouth 1 tablet 39 (one) time each day. metoprolol Yes 25mg Q.5D Take 25 mg U T tartrate 8-02 by mouth Health (Lopressor) 00:00: in the 25 MG 00 morning tablet and 25 mg in the evening. furosemide Yes 40mg Q.5D Take 40 mg U T (Lasix) 40 5-20 by mouth Healt h MG tablet 00:00: in the 00 morning and 40 mg before bedtime. atorvastati Yes 80mg Take 80 mg UT n (Lipitor) 3-29 by mouth Heal th 80 MG 00:00: every tablet 00 night. metoprolol Yes TAKE 1 Metho di tartrate [...] Source Future Scheduled 2021-11-18 COVID-19 VACCINE (1) [facility] Test 18:22:21 [code = COVID-19 VACCINE (1)] Future Scheduled 2021-11-18 65+ [facility] 18:22:21 VACCINE (1 of 2 - PPSV23) [code = 65+ PNEUMOCOCCAL VACCINE (1 of 2 - PPSV23)] Future Scheduled 2021-11-18 SHINGLES VACCINES (#1) [facility] Test 18:22:21 [code = SHINGLES VACCINES (#1)] Future Scheduled 2021-11-18 [facility]ACCINE [facility] 18:22:21 [code = INFLUENZA VACCINE] Encounters Start End Encounter Admission Attending Care Care Encounter Source Date/Time Date/Time Type Type Clinicians Facility Department ID 2021-12-23 Outpatient [facility] [id number] Common 14:25:00 [id number] [facility] 2022-07-09 2022-07-09 Telemedici Heather, [facility] [id number] [place] 14:00:00 14:30:[address] [id number] [facility] [id number] 2022-05-18 2022-05-26 Inpatient U [facility] [address] [facility] 17:14:00 18:53:00 BRANDY Results This patient has no known results.
[2022-07-21 13:21] LABS: Absolute Lymphocytes (CBC) 1.6 K/uL (0.7-4.9); Hematocrit 41.3 % (36.0-45.0); Lymphocytes % 29.6 % (15.3-44.8); MCV 90.4 fL (80-100); MPV 9.4 fL (7.6-11.3); RBC Red Blood Cell Count 4.57 M/uL (3.86-4.86)
[2022-07-21 13:33] LABS: Protime INR 1.1
[2022-07-21 13:37] LABS: Albumin 3.5 g/dL (3.4-5.0); Bilirubin Total 0.8 mg/dL (0.2-1.0); Potassium 3.8 mmol/L (3.5-5.1); Protein, Total 6.9 g/dL (6.4-8.2)
--- NOTE | 2022-07-21 13:52 | RAD REPORT ---
EXAM DESCRIPTION: US - Extremity Venous Uni Ltd - 07/21/2022 1:42 pm CLINICAL HISTORY: Pain COMPARISON: None. TECHNIQUE: Real-time sonographic evaluation of the left lower extremity deep venous system was perfo rmed. FINDINGS: Normal compressibility, flow augmentation, phasic flow and spontaneous flow is identified in the left lower extremity deep venous system. No intraluminal filling defects seen. IMPRESSION: No DVT in the left lower extremity.
--- NOTE | 2022-07-21 13:54 | RAD REPORT ---
EXAM DESCRIPTION: US - Lower Extremity Artery Uni Ltd - 07/21/2022 1:42 pm CLINICAL HISTORY: Leg pain COMPARISON: None FINDINGS: Color Doppler, grayscale, and spectral analysis was performed. The common femoral artery has biphasic waveforms. The superficial femoral artery, popliteal artery, a nd posterior tibial artery has triphasic waveforms. The dorsalis pedis artery has monophasic waveform s. IMPRESSION: Monophasic waveform in the left dorsalis pedis artery is consistent with at least a mode rate stenosis. No flow limiting stenosis in the left lower extremity is otherwise identified.
[2022-07-21] MEDS ORDERED: ACETAMINOPHEN 500 MG TAB PO PRN (15:29)
[2022-07-21 16:27] LABS: SARS-CoV-2 Antigen Rapid Res Negative (Negative)
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
--- NOTE | 2022-07-21 16:50 | RAD REPORT ---
EXAM DESCRIPTION: RAD - Foot Left 3 View - 07/21/2022 4:42 pm CLINICAL HISTORY: Pain COMPARISON: No comparisons FINDINGS/IMPRESSION: No acute fracture.Pes planus. Midfoot degenerative changes. No radiographic claudette dence of osteomyelitis. MRI is more sensitive in the acute phase.
[2022-07-21] MEDS ORDERED: NA CHLORIDE 0.9% 100 ML ONE (17:59)
[2022-07-21] MEDS ORDERED: CEFAZOLIN SODIUM 1 GM/VIAL ONE (17:59)
[2022-07-21 18:29] VITALS: BMI 27.1
--- NOTE | 2022-07-21 21:22 | CON ---
Date of Consultation: 07/21/2022 Reason For Consultation: Possible limb ischemia. History Of Present Illness: This is an 87-year-old female, very poor historian. She presented to [facility] because of increased swelling of the left lower extremity and left foot, has been going on for significant time. She has an ulceration on the dorsal aspect of her left foot and denies having any significant pain, but she claimed that it feels tingly and has some numbness to it with no resti ng pain. Able to move her toes very well. Denies having any fever. No other complaints. Past Medical History: Atrial fibrillation, diastolic heart failure, hypertension, dyslipidemia, diab etes. Medications: Refer reconciliation sheet for detailed list. Allergies: PENICILLINS, LEVAQUIN, IODINE, SILVADENE. Past Surgical History: Cataract surgery, thyroidectomy. Social History: Does not smoke or drink. Does not use drugs. Family History: No premature coronary artery disease or cancer. Review of Systems: All systems reviewed and they were negative except as mentioned in the HPI. Physical Examination: Vital Signs: Reviewed. Head and Neck: Pupils are equal, reactive to light. Intact eye movements. No JVD. No cervical lym phadenopathy. Neck is supple. Thyroid is not enlarged. Lungs: Clear to auscultation bilaterally. No rhonchi, wheezing, or crackles. No accessory muscle u se. Heart: Regular rate and rhythm. No extra sounds. Abdomen: Soft, nontender. Bowel sounds positive. No organomegaly. No mass or hernia. No rigidity or rebound. Extremities: Right lower extremity appears normal. Left lower extremity, she has swelling with outside sales professional lala ulcerations of the foot, however, with some surrounding redness and erythema, but there are no si gns of acute limb ischemia. Pulses are intact. Neurologic: Alert, awake, oriented x3. No acute focal deficits appreciated. Lymph Nodes: No cervical lymphadenopathy. Investigations: Venous Doppler of lower extremity, no DVT and the arterial Doppler of lower extremit y showed no severe focal stenosis whether is a monophasic waveform of the dorsalis pedis on the left. Assessment And Recommendations: 1.Diabetic foot ulcer not healing. I recommend hospitalization, IV antibiotics, and obtain possible MRI or bone scan to look for osteomyelitis. This patient will benefit from peripheral angiogram, wh ich we can plan for it to be done at a later time once the infection of the ulcer is under good contr ol. 2.Atrial fibrillation. She is in sinus rhythm right now. We will continue her home medications. 3.Hypertension. Blood pressure is acceptable. I will follow the patient with you. Thank you for the consult. /NING Voice ID: [id number] Report ID: [id number]
[2022-07-22] MEDS: CEFAZOLIN 1 GM in NA CHLORIDE 0.9% 50 ML IVPB SCH ×2 (01:06→09:27)
[2022-07-22 05:48] LABS: Absolute Lymphocytes (CBC) 1.3 K/uL (0.7-4.9); Hematocrit 36.3 % (36.0-45.0); Lymphocytes % 24.8 % (15.3-44.8); MCV 89.8 fL (80-100); MPV 9.8 fL (7.6-11.3); RBC Red Blood Cell Count 4.04 M/uL (3.86-4.86)
[2022-07-22 05:58] LABS: Potassium 3.3 mmol/L (3.5-5.1)
[2022-07-22] MEDS ORDERED: MAGNESIUM OXIDE 400 MG TAB PO SCH (09:00)
[2022-07-22] MEDS ORDERED: METOPROLOL TAR 25 MG TAB PO SCH (09:00)
[2022-07-22] MEDS ORDERED: levETIRAcetam 500 MG TAB PO SCH (09:00)
[2022-07-22] MEDS ORDERED: THYROID 30 MG TAB PO SCH (09:00)
[2022-07-22] MEDS ORDERED: FOLIC ACID 1 MG TABLET PO SCH (09:00)
[2022-07-22] MEDS ORDERED: FUROSEMIDE 40 MG TABLET PO SCH (09:00)
[2022-07-22] MEDS ORDERED: POTASSIUM CL SA 10 MEQ TAB PO SCH (09:00)
[2022-07-22 09:11] VITALS: O2SAT 91
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
[2022-07-22] MEDS: GABAPENTIN 100 MG CAP PO SCH ×2 (09:27→13:22)
[2022-07-22 12:16] VITALS: BP 107/62; TEMP 97
--- NOTE | 2022-07-22 14:32 | PN ---
Date of Progress Note: 07/22/2022 Ms. Zuleta is 87, was admitted with left foot pain. Arterial Doppler yesterday showed stenosis that is moderate in the left dorsalis pedis. Rest of the arteries appeared to be normal. She is on Synt hroid, Pravachol, metoprolol, Keppra, and Eliquis. I think we need to continue her present regimen. She is allergic to iodine and she is on Eliquis. We will eventually consider an abdominal angiogram as an outpatient, at which time, she needs to be treated with steroids and her Eliquis held, but she can go home from our standpoint and we will see her in the office as an outpatient. GEETHA/NING Voice ID: [id number] Report ID: [id number]
--- NOTE | 2022-07-22 16:11 | RAD REPORT ---
EXAM DESCRIPTION: MRI - Foot Left Wo Cont - 07/22/2022 3:42 pm CLINICAL HISTORY: Left foot pain and swelling COMPARISON: X-ray June 2022 TECHNIQUE: Axial, sagittal and coronal magnetic resonance imaging left foot FINDINGS: No significant abnormal signal within the bones to suggest osteomyelitis No fracture or dislocation Edema within the subcutaneous tissues. This may indicate a cellulitis or venous stasis No abscess IMPRESSION: No evidence of osteomyelitis
--- NOTE | 2022-07-22 16:12 | RAD REPORT ---
EXAM DESCRIPTION: MRI - Ankle Left Wo Cont - 07/22/2022 3:42 pm CLINICAL HISTORY: Ankle pain and swelling COMPARISON: 2018 TECHNIQUE: Axial, sagittal, and coronal magnetic images of the left ankle obtained FINDINGS: Soft tissue ulceration involves lateral aspect of ankle. The adjacent lateral malleolus does not demonstrate significant abnormal signal to suggest osteomyeli tis. Areas of ill-defined increased signal are present within portions of the distal fibula and tibia as w ell as the calcaneus. This is without significant change from prior exam. It is of uncertain etiology but is unlikely to indicate osteomyelitis No soft tissue abscess IMPRESSION: Soft tissue ulceration lateral aspect of ankle No evidence of osteomyelitis
[2022-07-22] MEDS ORDERED: ATORVASTATIN 80 MG TAB PO SCH (21:00)
--- NOTE | 2022-07-23 03:22 | DS ---
Date of Discharge: 07/22/2022 Disposition: Discharged to go home. Physical Examination: HEENT: Unremarkable. Lungs: Clear to auscultation. Heart: Sounds normal. Abdomen: Soft. No guarding, rigidity, tenderness, distention. Extremities: No leg edema. Superficial wound on the left lower medial and lateral aspect remains un changed from yesterday in the left foot fourth toe and lateral aspect of the left foot. Redness has resolved and soft tissue swelling also has completely resolved. Discharge Diagnoses: 1.Cellulitis, left foot. 2.Left leg wound, chronic. 3.Peripheral arterial disease, left leg. 4.Hypothyroidism. 5.Type 2 diabetes mellitus. 6.Hypertension. 7.Hyperlipidemia. 8.Chronic diastolic heart failure. 9.Chronic atrial fibrillation. 10.Osteoarthritis, multiple sites. 11.History of stroke and transient ischemic attack. Discharge Medications/instruction: Continue all prior home medications that after she cam e into emergency room with left foot problem. Please see dictated H and P for more information. Aft er patient was evaluated in the ER, she was admitted to the hospital. Cardiology consultation from Jose Honeycutt was obtained and he has suggested elective outpatient evaluation for peripheral vascular di sease problem. The patient has mild to moderate stenosis of left dorsalis pedis artery, otherwise, n o other significant flow restrictive lesion noted. So at this point, I really do not believe that th e patient will need to undergo any angiogram or any intervention and medical management will be recom mended and I did call the patient's daughter and discussed details with her and she also understands and agrees and she has informed me that this is nothing new for patient and she does not wish to have patient undergo any intervention unless it is absolutely necessary and I agree with that also. The patient will come see me next week for followup and I will have further discussion with the patient a t that time. MRI of the foot was ordered to rule out any osteomyelitis and we will follow up on the results on outpatient basis. If the patient has any osteomyelitis in view of her chronic left leg wo und, the best thing which we may need to do is, probably chronic suppressive antibiotic and all these details were discussed with the patient's daughter. LOVE/MODL Voice ID: [id number] Report ID: [id number]
== END 2022-07-22 16:37 | disposition home health service (06) ==
LOC: ER 11:03 → INTOOBSV 15:30 → ERHOLD 15:30 → 2ND 21:02
PROVIDERS: ADMIT Internal Medicine; ATTEND Internal Medicine
DX: E11.621 Type 2 diabetes mellitus with foot ulcer (principal); L03.116 Cellulitis of left lower limb; I70.202 Unspecified atherosclerosis of native arteries of extremities, left leg; I11.0 Hypertensive heart disease with heart failure; I50.32 Chronic diastolic (congestive) heart failure; I48.19 Other persistent atrial fibrillation; E78.5 Hyperlipidemia, unspecified; E89.0 Postprocedural hypothyroidism; R56.9 Unspecified convulsions; I25.2 Old myocardial infarction; M15.9 Polyosteoarthritis, unspecified; I49.5 Sick sinus syndrome; E83.42 Hypomagnesemia; D64.9 Anemia, unspecified; F32.A Depression, unspecified; Z86.73 Personal history of transient ischemic attack (TIA), and cerebral infarction without residual deficits; Z85.850 Personal history of malignant neoplasm of thyroid; Z79.01 Long term (current) use of anticoagulants; Z79.899 Other long term (current) drug therapy; Z88.0 Allergy status to penicillin; Z88.1 Allergy status to other antibiotic agents; Z91.041 Radiographic dye allergy status; Z28.310 Unvaccinated for COVID-19; Z20.822 Contact with and (suspected) exposure to COVID-19; Z82.3 Family history of stroke; Z82.49 Family history of ischemic heart disease and other diseases of the circulatory system
CPT/HCPCS: 96365; 87070; 85025 ×2; 80048; 36415; 87205; 85610; 87077; 87186; 80053; 73630; 93926; 93971; 73721; 73718; 99284; 87811; J0690 ×4; G0378 ×3

== ENCOUNTER 2022-08-15 11:40 | Emergency (ER) | payer OTHER ==
--- OUTSIDE RECORDS SUMMARY | 2022-08-15 11:48 | XMS REPORT | Continuity of Care Document ---
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 Coumadin) Famotidine No Notes: Memor ia 20 MG Oral 7-12 (Same as: l Tablet 18:00: Pepcid) [place] No Notes: [facility] Thyroid 7-12 (Same As: l 18:00: [place] Thyroid, S-P-T) Famotidine No Notes: Memor ia 20 MG Oral 7-12 (Same as: l Tablet 18:00: Pepcid) No Notes: [facility] Thyroid 7-12 (Same As: l 18:00: [place] 00 Thyroid, S-P-T) Aspirin No Notes: Do Memor ia -12 not crush l 17:39: or chew. [place] 00 (Same As: Ecotrin) Aspirin No Notes: Do Memor ia 7-12 not crush l 17:39: or chew. [place] 00 (Same As: Ecotrin) Lyrica No Notes: Memoria 7-12 Same as l 17:37: Lyrica Nik 00 Lyrica No Notes: Memoria 7-12 Same as l 17:37: Lyrica [place] 00 tramadol No Notes: Not Mem oria hydrochlori 12 to exceed l de 50 MG 17:32: 400mg/day. Her luis Oral Tablet 00 (Same As: Ultram) tramadol No Notes: Not Mem oria hydrochlori 12 to exceed l de 50 MG 17:32: 400mg/day. Her luis Oral Tablet 00 (Same As: Ultram) thyroid Yes 120 mg = 1 Brenton kota (FPC) 120 12 tab, PO, l MG Oral 17:07: Daily, 0 Norman n Tablet 00 Refill(s) [[place] Thyroid] metoprolol No Notes: Memor ia tartrate 12 (Same as: l 17:07: Lopressor) Nik 00 12.5mg=1/4 X 50 mg tab. Famotidine Yes 20 mg = 1 Me moria 20 MG Oral 12 tab, PO, l Tablet 17:07: Daily, 0 Nik 00 Refill(s) Clotrimazol Yes 10 mg, PO, Memoria e 7-12 5X Day, 0 l 17:07: Refill(s) [place] 00 Voltaren Yes 2 gm =, Memori a Topical 712 TOP, TID, l 17:07: PRN Pain [place] 00 Score 1-3, 0 Refill(s) pravastatin No 40 mg = 1 M emoria 40 mg oral 7-12 tab, PO, l tablet 17:07: Daily, 0 Nik 00 Refill(s) metoprolol No 12.5 mg = Me moria tartrate 25 7-12 0.5 tab, l mg oral 17:07: PO, BID, 0 Herm dorina tablet 00 Refill(s) tramadol Yes 1-2 tabs, Brenton kota hydrochlori 7-12 PO, Q8H, l de 50 MG 17:07: PRN Pain Giovanna nn Oral Tablet 00 Score 1-5, 0 Refill(s) pregabalin Yes 50 mg = 1 Me moria 50 MG Oral 7-12 cap, PO, l Capsule 17:07: BID, 0 Nik [Lyrica] 00 Refill(s) digoxin 125 Yes 125 Memori a mcg (0.125 7-12 microgram l mg) oral 17:07: = 1 tab, Giovanna nn tablet 00 PO, Daily, 0 Refill(s) warfarin 3 No 3 mg = 1 Mem oria mg oral 7-12 tab, PO, l tablet 17:07: Daily, 0 Nik 00 Refill(s) metoprolol No Notes: Memor ia tartrate 12 (Same as: l 17:07: Lopressor) [place] 00 12.5mg=1/4 X 50 mg tab. Famotidine Yes 20 mg = 1 Me moria 20 MG Oral 7-12 tab, PO, l Tablet 17:07: Daily, 0 [place] 00 Refill(s) Clotrimazol Yes 10 mg, PO, Memoria e 712 5X Day, 0 l 17:07: Refill(s) [place] 00 Voltaren Yes 2 gm =, Memori a Topical 712 TOP, TID, l 17:07: PRN Pain [place] 00 Score 1-3, 0 Refill(s) pravastatin No 40 mg = 1 M emoria 40 mg oral 7-12 tab, PO, l tablet 17:07: Daily, 0 [place] 00 Refill(s) metoprolol No 12.5 mg = Me moria tartrate 25 -12 0.5 tab, l mg oral 17:07: PO, BID, 0 Herm dorina tablet 00 Refill(s) tramadol Yes 1-2 tabs, Brenton kota hydrochlori 7-12 PO, Q8H, l de 50 MG 17:07: PRN Pain Giovanna nn Oral Tablet 00 Score 1-5, 0 Refill(s) pregabalin Yes 50 mg = 1 Me moria 50 MG Oral 7-12 cap, PO, l Capsule 17:07: BID, 0 Nik [Lyrica] 00 Refill(s) digoxin 125 Yes 125 Memori a mcg (0.125 7-12 microgram l mg) oral 17:07: = 1 tab, Giovanna nn tablet 00 PO, Daily, 0 Refill(s) warfarin 3 No 3 mg = 1 Mem oria mg oral 7-12 tab, PO, l tablet 17:07: Daily, 0 Nik 00 Refill(s) thyroid Yes 120 mg = 1 Brenton kota (FPC) 120 7-12 tab, PO, l MG Oral 17:07: Daily, 0 Norman n Tablet 00 Refill(s) [[place] Thyroid] iodixanol No Notes: Memori a 7-12 (Same as: l 14:32: Visipaque) [place] 00 . iodixanol No Notes: Memori a 7-12 (Same as: l 14:32: Visipaque) [place] 00 . Aspirin 325 No Notes: (Do Memoria MG Enteric 7-12 Not Crush) l Coated 14:00: Do not Nik Tablet 00 crush or chew. pneumococca No Notes: Brenton kota l capsular 7-12 (Same as: l polysacchar 14:00: Pneumovax H ermann noreen type 1 00 23) vaccine / Refrigerat pneumococca e l capsular polysacchar noreen type 10A vaccine / pneumococca l capsular polysacchar noreen type 11A vaccine / pneumococca l capsular polysacchar noreen type 12F vaccine / pneumococca l capsular polysacchar Lipitor No Notes: Memoria 7-12 Same as l 14:00: Lipitor Nik 00 docusate No Notes: [facility]oria sodium 100 7-12 (Same as: l mg oral 14:00: Colace) [place] capsule 00 (Do Not Crush) senna 8.6 No Notes: Memori a mg oral 7-12 (Same as: l tablet 14:00: Senokot) [place] 00 Aspirin 325 No Notes: (Do Memoria MG Enteric 7-12 Not Crush) l Coated 14:00: Do not [place] Tablet 00 crush or chew. pneumococca No Notes: Brenton kota l capsular 7-12 (Same as: l polysacchar 14:00: Pneumovax H ermann noreen type 1 00 23) vaccine / Refrigerat pneumococca e l capsular polysacchar noreen type 10A vaccine / pneumococca l capsular polysacchar noreen type 11A vaccine / pneumococca l capsular polysacchar noreen type 12F vaccine / pneumococca l capsular polysacchar Lipitor No Notes: [facility]oria 7-12 Same as l 14:00: Lipitor [place] 00 docusate No Notes: [facility] sodium 100 7-12 (Same as: l mg oral 14:00: Colace) Nik capsule 00 (Do Not Crush) senna 8.6 No Notes: Memori a mg oral 7-12 (Same as: l tablet 14:00: Senokot) Nik 00 heparin No Notes: Memoria 7-12 porcine l 05:00: heparin [place] 00 heparin No Notes: Memoria 7-12 porcine l 05:00: heparin [place] 00 Saline No Notes: [facility] Flush 0.9% 7-12 (Same as: l 02:00: BD [place] 00 Posiflush) Saline No Notes: [facility]oria Flush 0.9% 7-12 (Same as: l 02:00: BD [place] 00 Posiflush) Labetalol No 10 mg, 2 Brenton kota 7-12 mL, Route: l 00:06: IVP, Drug [place] 00 form: INJ, Q15Min, kg, PRN Hypertensi on, Start date: 06/07/15 19:06:00, Duration: 30 day, Stop date: 07/07/15 19:05:00 Labetalol No 10 mg, 2 Brenton kota 7-12 mL, Route: l 00:06: IVP, Drug [place] 00 form: INJ, Q15Min, kg, PRN Hypertensi on, Start date: 06/07/15 19:06:00, Duration: 30 day, Stop date: 07/07/15 19:05:00 Saline No Notes: [facility] Flush 0.9% 7-12 (Same as: l 00:03: BD Nik 00 Posiflush) Acetaminoph No Notes: Do M emoria en 06-08 not exceed l 00:03: 4 gm/day. [place] 00 (Same as: Tylenol) Sodium No 1,000 mL, Memori a Chloride 7-12 Rate: 75 l 0.154 00:03: ml/hr, [place] MEQ/ML 00 Infuse Injectable over: 13.3 Solution hr, Route: IV, Total Volume: 1,000, Start date: 06/07/15 19:03:00, Duration: 30 day, Stop date: 07/07/15 19:02:00 Saline No Notes: [facility] Flush 0.9% 7-12 (Same as: l 00:03: BD [place] 00 Posiflush) Acetaminoph No Notes: Do M emoria en 06-08 not exceed l 00:03: 4 gm/day. Nik 00 (Same as: Tylenol) Sodium No 1,000 mL, Memori a Chloride 7-12 Rate: 75 l 0.154 00:03: ml/hr, [place] MEQ/ML 00 Infuse Injectable over: 13.3 Solution hr, Route: IV, Total Volume: 1,000, Start date: 06/07/15 19:03:00, Duration: 30 day, Stop date: 07/07/15 19:02:00 Immunizations Ordered Immunization Filled Immunization Date Status Commen ts Source Name Name pneumococcal 2015-06-08 Completed [facility] 23-valent vaccine 14:09:00 Nik pneumococcal 2015-06-08 Completed [facility] 23-valent vaccine 14:09:00 Nik Vital Signs Vital Name Observation Time Observation Value Comments Source Systolic blood 2022-07-26 14:37:00 93 mm[Hg] [facility] pressure Diastolic blood 2022-07-26 14:37:00 63 mm[Hg] [facility] pressure Heart rate 2022-07-26 14:37:00 72 /[facility] height 2022-07-26 14:37:00 152.4 [facility] Body weight 2022-07-26 14:37:00 81.194 kg [facility] BMI 2022-07-26 14:37:00 34.96 kg/m2 [facility] Oxygen saturation in 2022-07-26 14:37:00 95 /min [facility] Arterial blood by Pulse oximetry Heart Rate 2022-05-27 01:13:53 [facility] [place] Respitory Rate 2022-05-27 01:13:53 Memori al Nik Temperature Oral (F) 2022-05-27 01:13:39 99.6 F [facility] Nik Systolic (mm Hg) 2022-05-27 01:13:19 Brenton rial Nik Diastolic (mm Hg) 2022-05-27 01:13:19 Mem orial Nik Heart Rate 2022-05-27 01:13:19 [facility] Nik Heart Rate 2022-05-26 16:27:29 [facility] Nik Respitory Rate 2022-05-26 16:27:29 Memori al Nik Temperature Oral (F) 2022-05-26 16:27:18 98.1 F [facility] [place] Systolic (mm Hg) 2022-05-26 16:26:55 Brenton rial [place] Diastolic (mm Hg) 2022-05-26 16:26:55 Mem orial [place] Respitory Rate 2022-05-26 12:54:55 Memori al [place] Temperature Oral (F) 2022-05-26 12:53:58 98.1 F [facility] [place] Systolic (mm Hg) 2022-05-26 12:53:28 Brenton rial Nik Diastolic (mm Hg) 2022-05-26 12:53:28 Mem orial Nik Heart Rate 2022-05-24 05:13:19 [facility] Nik Respitory Rate 2022-05-24 05:13:19 Memori al Nik Systolic (mm Hg) 2022-05-24 05:13:03 Brenton rial [place] Diastolic (mm Hg) 2022-05-24 05:13:03 Mem orial Nik Heart Rate 2022-05-24 05:13:03 [facility] [place] Temperature Oral (F) 2022-05-24 05:13:00 97.7 F [facility] [place] Heart Rate 2022-05-24 00:51:48 [facility] Nik Systolic (mm Hg) 2022-05-24 00:51:44 Brenton rial Nik Diastolic (mm Hg) 2022-05-24 00:51:44 Mem orial [place] Temperature Oral (F) 2022-05-24 00:51:34 98 F [facility] Nik Systolic (mm Hg) 2022-05-23 20:17:56 Brenton rial Nik Diastolic (mm Hg) 2022-05-23 20:17:56 Mem orial Nik Temperature Oral (F) 2022-05-23 20:17:42 98.2 F [facility] [place] Respitory Rate 2022-05-23 08:50:00 Memori al [place] Respitory Rate 2022-05-23 04:10:00 Memori al Nik Height 2022-05-18 22:41:00 165.1 cm [facility] [place] Weight 2022-05-18 22:41:00 [facility] Nik BMI Calculated 2022-05-18 22:41:00 Memori al Nik Systolic (mm Hg) 2015-07-01 12:19:00 Brenton rial Nik Diastolic (mm Hg) 2015-07-01 12:19:00 Mem orial [place] Respitory Rate 2015-07-01 12:19:00 Memori al [place] Temperature Oral (F) 2015-07-01 12:19:00 95.9 F [facility] Nik Heart Rate 2015-07-01 12:19:00 [facility] Nik Temperature Oral (F) 2015-07-01 09:15:00 97.0 F [facility] [place] Respitory Rate 2015-07-01 09:15:00 Memori al [place] Systolic (mm Hg) 2015-07-01 09:15:00 Brenton rial Nik Diastolic (mm Hg) 2015-07-01 09:15:00 Mem orial Nik Respitory Rate 2015-07-01 06:28:00 Memori al [place] Systolic (mm Hg) 2015-07-01 06:28:00 Brenton rial Nik Diastolic (mm Hg) 2015-07-01 06:28:00 Mem orial [place] Heart Rate 2015-07-01 06:28:00 [facility] Nik Height 2015-07-01 02:24:00 165.1 cm [facility] [place] Weight 2015-07-01 02:24:00 [facility] [place] BMI Calculated 2015-07-01 02:24:00 Memori al [place] BMI Calculated 2015-07-01 02:23:00 Memori al [place] Height 2015-07-01 02:23:00 165.1 cm [facility] [place] Weight 2015-07-01 02:23:00 [facility] Nik Temperature Oral (F) 2015-07-01 01:17:00 97.6 F [facility] [place] Heart Rate 2015-06-30 18:14:00 [facility] [place] Systolic (mm Hg) 2015-06-09 23:00:00 Brenton rial [place] Diastolic (mm Hg) 2015-06-09 23:00:00 Mem orial [place] Respitory Rate 2015-06-09 23:00:00 Memori al Nik Systolic (mm Hg) 2015-06-09 22:00:00 Brenton rial Nik Diastolic (mm Hg) 2015-06-09 22:00:00 Mem orial [place] Respitory Rate 2015-06-09 22:00:00 Memori al [place] Temperature Oral (F) 2015-06-09 21:00:00 97.4 F [facility] Nik Respitory Rate 2015-06-09 21:00:00 Memori al [place] Systolic (mm Hg) 2015-06-09 21:00:00 Brenton rial [place] Diastolic (mm Hg) 2015-06-09 21:00:00 Mem orial [place] Temperature Oral (F) 2015-06-09 17:00:00 97.3 F [facility] Nik Temperature Oral (F) 2015-06-09 13:00:00 97.2 F [facility] Nik BMI Calculated 2015-06-08 14:00:00 Memori al Nik Weight 2015-06-08 14:00:00 [facility] [place] Height 2015-06-08 14:00:00 162.56 cm [facility] Nik Heart Rate 2015-06-08 07:57:00 [facility] [place] Heart Rate 2015-06-08 07:51:00 [facility] [place] Heart Rate 2015-06-08 07:38:00 [facility] Nik BMI Calculated 2015-06-08 04:06:00 Memori al Nik Weight 2015-06-08 04:06:00 [facility] [place] Height 2015-06-08 04:06:00 162.56 cm [facility] [place] Procedures Procedure Date / Time Performing Clinician Source Performed T3 2022-07-26 16:34:00 Vignesh Nunez T4 2022-07-26 16:34:00 Vignesh Nunez COMPREHENSIVE METABOLIC 2022-07-26 16:34:00 Vignesh Nunez [facility] PANEL [place] LIPID PANEL 2022-07-26 16:34:00 Vignesh Nunez HEMOGLOBIN A1C 2022-07-26 16:34:00 Vignesh Nunez THYROID STIMULATING 2022-07-26 16:34[facility] [place] [facility] COMPLETE BLD COUNT 2022-07-26 16:34:00 Vignesh Nunez [facility] W/AUTO DIFF [place] ESTIMATED GFR 2022-07-26 16:34:00 Vignesh Nunez ECG 12-LEAD 2022-07-26 14:36:34 Vignesh Nunez Skin grafting<sup>1</sup> Varun al [place] Thyroidectomy [facility] Plan of Care Planned Activity Planned Date Details Comments Source Future Scheduled Test 2022-08-14 HEPATITIS B VACCINES [facility] 09:37:09 (1 of 3 - 3-dose series) [code = HEPATITIS B VACCINES (1 of 3 - 3-dose series)] Future Scheduled Test 2022-08-14 COVID-19 VACCINE (#1) [facility] 09:37:09 [code = COVID-19 VACCINE (#1)] Future Scheduled Test 2022-08-14 SHINGLES VACCINES (1 [facility] 09:37:09 of 2) [code = SHINGLES VACCINES (1 of 2)] Future Scheduled Test 2022-08-14 65+ PNEUMOCOCCAL [facility] 09:37:09 VACCINE (2 - PCV) [code = 65+ PNEUMOCOCCAL VACCINE (2 - PCV)] Future Scheduled Test 2022-08-14 INFLUENZA VACCINE [facility] 09:37:09 [code = INFLUENZA VACCINE] Future Scheduled Test 2021-11-18 COVID-19 VACCINE (1) [facility] 18:22:21 [code = COVID-19 VACCINE (1)] Future Scheduled Test 2021-11-18 65+ PNEUMOCOCCAL [facility] 18:22:21 VACCINE (1 of 2 - PPSV23) [code = 65+ PNEUMOCOCCAL VACCINE (1 of 2 - PPSV23)] Future Scheduled Test 2021-11-18 SHINGLES VACCINES [facility] 18:22:21 (#1) [code = SHINGLES VACCINES (#1)] Future Scheduled Test 2021-11-18 INFLUENZA VACCINE [facility] 18:22:21 [code = INFLUENZA VACCINE] Future Appointment 2022-08-16 Vignesh Nunez MD, [facility] 11:45:[address] [place] [address]; [address], [place] [address] Encounters Start End Encounter Admission Attending Care Care Encounter Source Date/Time Date/Time Type Type Clinicians Facility Department ID 2021-12-23 [facility] [id number] Common 14:25:00 [id number] [facility] 2022-08-13 2022-08-13 Telephone [place] 1.2.840.1 [id number] Methodi 00:00:00 00:00:00 , Mary Lou [address].1.[address] 3.430.2.7 Hospit a .3.248954 l .8 2022-08-09 2022-08-09 Travel 1.2.840.1 1.2.936.398 [id number] Methodi 00:00:00 00:00:[address] 3.430.2.7 0.2.7.3.698 spita .3.844016 084.8 l .8 2022-07-26 2022-07-26 Lab Mayra 1.2.840.1 [id number] Methodi 11:10:00 11:15:00 Vignesh Lloyd [address].1.[address] 3.430.2.7 Hospit a .3.008593 l .8 2022-07-26 2022-07-26 Office Mayra 1.2.840.1 [id number] Methodi 09:40:00 11:04:51 Visit Vignesh Ashley.1.[address] 3.430.2.7 Hospit a .3.069222 l .8 2022-07-26 2022-07-26 Outpatient [facility] [id number] [place] 00:00:00 00:00:00 VIGNESH Mistry[address] [facility] 2022-07-26 2022-07-26 Telephone Michele, 1.2.840.1 [id number] Methodi 00:00:00 00:00:[address] 3.430.2.7 Hospit a .3.275026 l .8 2022-07-26 2022-07-26 Travel 1.2.840.1 1.2.443.011 [id number] Methodi 00:00:00 00:00:[address] 3.430.2.7 0.2.7.3.698 Ho spita .3.223438 084.8 l .8 2022-07-26 2022-07-26 Outpatient [facility] [id number] [place] 00:00:00 00:00:00 VIGNESH Reed [facility] 2022-07-09 2022-07-09 Telemedici Katelyn, UTP 6410 1.2.840.114 [id number] [place] 14:00:00 14:30:[address] 350.1.13.58 Health 9.2.7.2.686 [id number] 8 2022-06-21 2022-06-21 Travel 1.2.840.1 1.2.356.049 [id number] Methodi 00:00:00 00:00:[address] 3.430.2.7 0.2.7.3.698 Ho spita .3.671471 084.8 l .8 2022-05-18 2022-05-26 [facility]patient [facility] [id number] Memoria 22:14:00 23:53:00 kandi Zaragoza 72 l [facility] 2022-05-18 2022-05-26 Inpatient [facility] hospital [id number] Memoria 22:14:00 23:53:00 kandi SultanaNik 72 l [facility] 2022-05-18 2022-05-26 Inpatient U [id number] 17:14:00 18:53:00 BRANDY 2022-05-18 2022-05-26 Outpatient Christopher [facility] [id number] 17:14:00 18:53:00 Brandy Winters Abbi 2022-05-18 2022-05-26 Outpatient Christopher [facility] [id number] 17:14:00 18:53:00 Brandy Winters [facility] 2022-05-18 2022-05-18 Outpatient Shankar [facility] [id number] 17:14:00 17:14:00 [place] 2015-07-14 2015-07-15 Outpatient nullFlavo [facility] [id number] Memoria 18:00:00 04:59:00 r [facility] 00 l [facility] 2015-07-14 2015-07-15 Outpatient nullFlavo [facility] [id number] Memoria 18:00:00 04:59:00 r [facility] 00 l [facility] 2015-07-14 2015-07-14 Outpatient Physician, M[facility] M[facility] [id number] 13:00:00 23:59:00 Non 00 Associated 2015-06-30 2015-07-01 OBS nullFlavo [facility] [id number] Memoria 18:11:00 17:00:00 Observatio r Nik 15 l n [facility] 2015-06-30 2015-07-01 OBS nullFlavo [facility] [id number] Memoria 18:11:00 17:00:00 Observatio r [place] 15 l n [facility] 2015-06-30 2015-07-01 Outpatient Tj [facility] [id number] 13:11:00 12:00:00 Benjamin Abreu 2015-06-08 2015-06-09 OBS nullFlavo [facility] [id number] Memoria 00:05:00 23:35:00 Observatio r [place] 92 l n [facility] 2015-06-08 2015-06-09 OBS nullFlavo [facility] [id number] Memoria 00:05:00 23:35:00 Observatio Nik 92 l n Patient [facility] 2015-06-07 2015-06-09 Outpatient Skyler [facility] [id number] 19:05:00 18:35:00 Ron Jones 92 Results Test Description Test Time Test Comments Results Result Comments Source ECG 12 lead 2022-07-27 03:49:32 Test Item Value Reference Range Interpretation Comme nts Ventricular rate (test code = 253) Atrial rate (test code = 255) QRSD interval (test code = 260) QT interval (test code = 264) QTC interval (test code = 265) QRS axis 1 (test code = 268) T wave axis (test code = 270) EKG impression (test code = 273) Atrial fibrillation with premature ventricular or aberrantly conducted complexes-Low voltage QRS-Abnormal ECG-In automated comparison with ECG of 10-AUG-2018 11:28,-QRS voltage has decreased-Criteria for Septal infarct are no longer present-Nonspecific T wave abnormality no longer evident in Inferior leads-T wave inversion no longer evident in Anterolateral leads- [facility]6048-44-74 17:00:00 Test Item Value Reference Range Interpretation Comments Coronavirus (COVID-19) Not Detected (05/26/22 MAMADOU (test code = 12:00 PM) Coronavirus (COVID-19) MAMADOU) [facility] 17:00:00 Test Item Value Reference Range Interpretation Comments Coronavirus (COVID-19) Not Detected (05/26/22 MAMADOU (test code = 12:00 PM) Coronavirus (COVID-19) MAMADOU) [facility]LE[facility]IL[facility]PS3888-72-28 08:14:00 Test Item Value Reference Range Interpretation Comments RDW (test code = RDW) 14.6 11.5-14.5 [facility] CenterZcxhlioCMKOKAZOBN7596-19-36 08:14:00 Test Item Value Reference Range Interpretation Comments Platelet (test code = Platelet) 169 133-450 [facility] Center[facility]ikzycdOKFNDURMLF1494-41-45 08:14:00 Test Item Value Reference Range Interpretation Comments MPV (test code = MPV) 9.5 7.4-10.4 [place] 00928-06-25 08:14:00 Test Item Value Reference Range Interpretation Comments Segs (test code = Segs) 65.6 45.0-75.0 [place] 612592-06-25 08:14:00 Test Item Value Reference Range Interpretation Comments Lymphocytes (test code = Lymphocytes) 21.3 20.0-40.0 [place] 00928-06-25 08:14:00 Test Item Value Reference Range Interpretation Comments Monocytes (test code = Monocytes) 10.4 2.0-12.0 [place] 00928-06-25 08:14:00 Test Item Value Reference Range Interpretation Comments Eosinophils (test code = 2.3 See_Comment [A utomated message] The Eosinophils) system which ge nerated this result tra nsmitted reference range : <=4.0. The reference r pearl was not used to int erpret this result as normal/abnormal . [place] 00928-06-25 08:14:00 Test Item Value Reference Range Interpretation Comments Basophils (test code = 0.4 See_Comment [Aut omated message] The Basophils) system which ge nerated this result tra nsmitted reference range : <=1.0. The reference r pearl was not used to int erpret this result as normal/abnormal . [place] 00928-06-25 08:14:00 Test Item Value Reference Range Interpretation Comments Neutrophils # (test code = Neutrophils 4.3 1.5-8.1 #) [place] 00928-06-25 08:14:00 Test Item Value Reference Range Interpretation Comments Lymphocytes # (test code = Lymphocytes 1.4 1.0-5.5 #) [place] 00928-06-25 08:14:00 Test Item Value Reference Range Interpretation Comments Monocytes # (test code 0.7 See_Comment [Aut omated message] The = Monocytes #) system which generated this result tra nsmitted reference range : <=0.8. The reference r pearl was not used to int erpret this result as normal/abnormal . [place] 00928-06-25 08:14:00 Test Item Value Reference Range Interpretation Comments Eosinophils # (test code 0.2 See_Comment [A utomated message] The = Eosinophils #) system whic h generated this result tra nsmitted reference range : <=0.5. The reference r pearl was not used to int erpret this result as normal/abnormal . [place] 201022-06-25 08:14:00 Test Item Value Reference Range Interpretation Comments Magnesium Lvl (test code = Magnesium 2.1 1.8-2.4 Lvl) [place] 201022-06-25 08:14:00 Test Item Value Reference Range Interpretation Comments Phosphorus (test code = Phosphorus) 4.3 2.5-4.5 [place] 201022-06-25 08:14:00 Test Item Value Reference Range Interpretation Comments Glucose Lvl (test code = Glucose Lvl) 104 70-99 [place] 201022-06-25 08:14:00 Test Item Value Reference Range Interpretation Comments BUN (test code = BUN) 23 7-22 [place] 201022-06-25 08:14:00 Test Item Value Reference Range Interpretation Comments Creatinine Lvl (test code = Creatinine 0.82 0.50-1.40 Lvl) [place] 201022-06-25 08:14:00 Test Item Value Reference Range Interpretation Comments Sodium Lvl (test code = Sodium Lvl) 141 135-145 [place] 201022-06-25 08:14:00 Test Item Value Reference Range Interpretation Comments Potassium Lvl (test code = Potassium 4.2 3.5-5.1 Lvl) [place] 201022-06-25 08:14:00 Test Item Value Reference Range Interpretation Comments Chloride Lvl (test code = Chloride Lvl) 107 95-109 [place] 201022-06-25 08:14:00 Test Item Value Reference Range Interpretation Comments CO2 (test code = CO2) 27 24-32 [place] 201022-06-25 08:14:00 Test Item Value Reference Range Interpretation Comments Calcium Lvl (test code = Calcium Lvl) 8.3 8.5-10.5 [place] 201022-06-25 08:14:00 Test Item Value Reference Range Interpretation Comments AGAP (test code = AGAP) 11.2 10.0-20.0 [place] 201022-06-25 08:14:00 Test Item Value Reference Range Interpretation Comments eGFR (test code = eGFR) 65 [facility]:14:00 Test Item Value Reference Range Interpretation Comments WBC (test code = WBC) 6.6 3.7-10.4 [facility]UK[facility]SD8588[facility]13-80 08:14:00 Test Item Value Reference Range Interpretation Comments RBC (test code = RBC) 4.09 4.20-5.40 [facility]JNPTYMVST9123-47-77 08:14:00 Test Item Value Reference Range Interpretation Comments Hgb (test code = Hgb) 12.2 12.0-16.0 [place] 612592-06-25 08:14:00 Test Item Value Reference Range Interpretation Comments Hct (test code = Hct) 36.8 36.0-48.0 [place] 612592-06-25 08:14:00 Test Item Value Reference Range Interpretation Comments MCV (test code = MCV) 90.0 80.0-98.0 [place] 612592-06-25 08:14:00 Test Item Value Reference Range Interpretation Comments MCH (test code = MCH) 29.9 pg 27.0-31.0 [facility]XGSPDXURAJ6411-93-76 08:14:00 Test Item Value Reference Range Interpretation Comments MCHC (test code = MCHC) 33.2 32.0-36.0 [facility] CenterBlmbnhcIVXHIKTBDX9029-94-26 08:14:00 Test Item Value Reference Range Interpretation Comments RDW (test code = RDW) 14.6 11.5-14.5 [facility] CenterXkpmzsyGYIBYOJVCT1982-75-36 08:14:00 Test Item Value Reference Range Interpretation Comments Platelet (test code = Platelet) 169 133-450 [facility] CenterOrdilqbFOEFOSBBAZ4624-70-93 08:14:00 Test Item Value Reference Range Interpretation Comments MPV (test code = MPV) 9.5 7.4-10.4 [place] 612592-06-25 08:14:00 Test Item Value Reference Range Interpretation Comments Segs (test code = Segs) 65.6 45.0-75.0 [place] 612592-06-25 08:14:00 Test Item Value Reference Range Interpretation Comments Lymphocytes (test code = Lymphocytes) 21.3 20.0-40.0 [place] 612592-06-25 08:14:00 Test Item Value Reference Range Interpretation Comments Monocytes (test code = Monocytes) 10.4 2.0-12.0 [place] [address]-06-25 08:14:00 Test Item Value Reference Range Interpretation Comments Eosinophils (test code = 2.3 See_Comment [A utomated message] The Eosinophils) system which ge nerated this result tra nsmitted reference range : <=4.0. The reference r pearl was not used to int erpret this result as normal/abnormal . [place] [address]-06-25 08:14:00 Test Item Value Reference Range Interpretation Comments Basophils (test code = 0.4 See_Comment [Aut omated message] The Basophils) system which ge nerated this result tra nsmitted reference range : <=1.0. The reference r pearl was not used to int erpret this result as normal/abnormal . [place] [address]-06-25 08:14:00 Test Item Value Reference Range Interpretation Comments Neutrophils # (test code = Neutrophils 4.3 1.5-8.1 #) [place] [address]-06-25 08:14:00 Test Item Value Reference Range Interpretation Comments Lymphocytes # (test code = Lymphocytes 1.4 1.0-5.5 #) [place] [address]-06-25 08:14:00 Test Item Value Reference Range Interpretation Comments Monocytes # (test code 0.7 See_Comment [Aut omated message] The = Monocytes #) system which generated this result tra nsmitted reference range : <=0.8. The reference r pearl was not used to int erpret this result as normal/abnormal . [place] [address]-06-25 08:14:00 Test Item Value Reference Range Interpretation Comments Eosinophils # (test code 0.2 See_Comment [A utomated message] The = Eosinophils #) system whic h generated this result tra nsmitted reference range : <=0.5. The reference r pearl was not used to int erpret this result as normal/abnormal . [facility]Work[facility] [id number] 08:14:00 Test Item Value Reference Range Interpretation Comments Magnesium Lvl (test code = Magnesium 2.1 1.8-2.4 Lvl) [place] 2010[address]-06-25 08:14:00 Test Item Value Reference Range Interpretation Comments Phosphorus (test code = Phosphorus) 4.3 2.5-4.5 [place] 2010[address]-06-25 08:14:00 Test Item Value Reference Range Interpretation Comments Glucose Lvl (test code = Glucose Lvl) 104 70-99 [place] 201022-06-25 08:14:00 Test Item Value Reference Range Interpretation Comments BUN (test code = BUN) 23 7-22 [place] 201022-06-25 08:14:00 Test Item Value Reference Range Interpretation Comments Creatinine Lvl (test code = Creatinine 0.82 0.50-1.40 Lvl) [place] 2010[address]-06-25 08:14:00 Test Item Value Reference Range Interpretation Comments Sodium Lvl (test code = Sodium Lvl) 141 135-145 [place] 201022-06-25 08:14:00 Test Item Value Reference Range Interpretation Comments Potassium Lvl (test code = Potassium 4.2 3.5-5.1 Lvl) [place] 2010[address]-06-25 08:14:00 Test Item Value Reference Range Interpretation Comments Chloride Lvl (test code = Chloride Lvl) 107 95-109 [place] 201022-06-25 08:14:00 Test Item Value Reference Range Interpretation Comments CO2 (test code = CO2) 27 24-32 [place] 201022-06-25 08:14:00 Test Item Value Reference Range Interpretation Comments Calcium Lvl (test code = Calcium Lvl) 8.3 8.5-10.5 [place] 201022-06-25 08:14:00 Test Item Value Reference Range Interpretation Comments AGAP (test code = AGAP) 11.2 10.0-20.0 [place] 201022-06-25 08:14:00 Test Item Value Reference Range Interpretation Comments eGFR (test code = eGFR) 65 [place] 612592-06-25 08:14:00 Test Item Value Reference Range Interpretation Comments WBC (test code = WBC) 6.6 3.7-10.4 [place] [address]-06-25 08:14:00 Test Item Value Reference Range Interpretation Comments RBC (test code = RBC) 4.09 4.20-5.40 [place] [address]-06-25 08:14:00 Test Item Value Reference Range Interpretation Comments Hgb (test code = Hgb) 12.2 12.0-16.0 [place] [address]-06-25 08:14:00 Test Item Value Reference Range Interpretation Comments Hct (test code = Hct) 36.8 36.0-48.0 [place] [address]-06-25 08:14:00 Test Item Value Reference Range Interpretation Comments MCV (test code = MCV) 90.0 80.0-98.0 [place] [address]-06-25 08:14:00 Test Item Value Reference Range Interpretation Comments MCH (test code = MCH) 29.9 pg 27.0-31.0 [place] [address]-06-25 08:14:00 Test Item Value Reference Range Interpretation Comments MCHC (test code = MCHC) 33.2 32.0-36.0 [place] 2010[address]-06-24 06:28:00 Test Item Value Reference Range Interpretation Comments Phosphorus (test code = Phosphorus) 4.0 2.5-4.5 [place] 201022-06-24 06:28:00 Test Item Value Reference Range Interpretation Comments Magnesium Lvl (test code = Magnesium 2.1 1.8-2.4 Lvl) [place] 2010[address]-06-24 06:28:00 Test Item Value Reference Range Interpretation Comments Glucose Lvl (test code = Glucose Lvl) 109 70-99 [place] 201022-06-24 06:28:00 Test Item Value Reference Range Interpretation Comments BUN (test code = BUN) 21 7-22 [place] 201022-06-24 06:28:00 Test Item Value Reference Range Interpretation Comments Creatinine Lvl (test code = Creatinine 0.93 0.50-1.40 Lvl) [place] 2010[address]-06-24 06:28:00 Test Item Value Reference Range Interpretation Comments Sodium Lvl (test code = Sodium Lvl) 140 135-145 [place] 201022-06-24 06:28:00 Test Item Value Reference Range Interpretation Comments Potassium Lvl (test code = Potassium 4.0 3.5-5.1 Lvl) [place] 201022-06-24 06:28:00 Test Item Value Reference Range Interpretation Comments Chloride Lvl (test code = Chloride Lvl) 105 95-109 [facility] [id number] 06:28:00 Test Item Value Reference Range Interpretation Comments CO2 (test code = CO2) 30 24-32 [place] 201022-06-24 06:28:00 Test Item Value Reference Range Interpretation Comments Calcium Lvl (test code = Calcium Lvl) 8.3 8.5-10.5 [place] 201022-06-24 06:28:00 Test Item Value Reference Range Interpretation Comments AGAP (test code = AGAP) 9.0 10.0-20.0 [facility]2022-06-24 06:28:00 Test Item Value Reference Range Interpretation Comments eGFR (test code = eGFR) 56 [facility] CenterPoavkgtXQKBYJCIWV9529-68-18 06:28:00 Test Item Value Reference Range Interpretation Comments WBC (test code = WBC) 5.9 3.7-10.4 [place] 612592-06-24 06:28:00 Test Item Value Reference Range Interpretation Comments RBC (test code = RBC) 3.97 4.20-5.40 [facility] CenterQaxmvjbCFGRZVRCOY5112-83-55 06:28:00 Test Item Value Reference Range Interpretation Comments Hgb (test code = Hgb) 12.1 12.0-16.0 [place] 612592-06-24 06:28:00 Test Item Value Reference Range Interpretation Comments Hct (test code = Hct) 36.0 36.0-48.0 [place] 612592-06-24 06:28:00 Test Item Value Reference Range Interpretation Comments MCV (test code = MCV) 90.6 80.0-98.0 [place] 612592-06-24 06:28:00 Test Item Value Reference Range Interpretation Comments MCH (test code = MCH) 30.5 pg 27.0-31.0 [place] 612592-06-24 06:28:00 Test Item Value Reference Range Interpretation Comments MCHC (test code = MCHC) 33.7 32.0-36.0 [place] 612592-06-24 06:28:00 Test Item Value Reference Range Interpretation Comments RDW (test code = RDW) 14.8 11.5-14.5 [place] 612592-06-24 06:28:00 Test Item Value Reference Range Interpretation Comments Platelet (test code = Platelet) 173 133-450 [place] 612592-06-24 06:28:00 Test Item Value Reference Range Interpretation Comments MPV (test code = MPV) 9.5 7.4-10.4 [place] 612592-06-24 06:28:00 Test Item Value Reference Range Interpretation Comments Segs (test code = Segs) 61.1 45.0-75.0 [place] 612592-06-24 06:28:00 Test Item Value Reference Range Interpretation Comments Lymphocytes (test code = Lymphocytes) 25.3 20.0-40.0 [place] 612592-06-24 06:28:00 Test Item Value Reference Range Interpretation Comments Monocytes (test code = Monocytes) 11.1 2.0-12.0 [place] 612592-06-24 06:28:00 Test Item Value Reference Range Interpretation Comments Eosinophils (test code = 2.0 See_Comment [A utomated message] The Eosinophils) system which ge nerated this result tra nsmitted reference range : <=4.0. The reference r pearl was not used to int erpret this result as normal/abnormal . [facility] CenterVlmluelLAUPNZOTFU1910-50-18 06:28:00 Test Item Value Reference Range Interpretation Comments Basophils (test code = 0.5 See_Comment [Aut omated message] The Basophils) system which ge nerated this result tra nsmitted reference range : <=1.0. The reference r pearl was not used to int erpret this result as normal/abnormal . [facility] CenterVdnjmmxGWOAJPUWRM3013-32-03 06:28:00 Test Item Value Reference Range Interpretation Comments Neutrophils # (test code = Neutrophils 3.6 1.5-8.1 #) [place] 612592-06-24 06:28:00 Test Item Value Reference Range Interpretation Comments Lymphocytes # (test code = Lymphocytes 1.5 1.0-5.5 #) [place] 612592-06-24 06:28:00 Test Item Value Reference Range Interpretation Comments Monocytes # (test code 0.7 See_Comment [Aut omated message] The = Monocytes #) system which generated this result tra nsmitted reference range : <=0.8. The reference r pearl was not used to int erpret this result as normal/abnormal . [facility] CenterUsdlxdcHWJXIYQTPW0005-34-41 06:28:00 Test Item Value Reference Range Interpretation Comments Eosinophils # (test code 0.1 See_Comment [A utomated message] The = Eosinophils #) system [employer] h generated this result tra nsmitted reference range : <=0.5. The reference r pearl was not used to int erpret this result as normal/abnormal . [facility]2022-06-24 06:28:00 Test Item Value Reference Range Interpretation Comments Phosphorus (test code = Phosphorus) 4.0 2.5-4.5 [place] 2010[address]-06-24 06:28:00 Test Item Value Reference Range Interpretation Comments Magnesium Lvl (test code = Magnesium 2.1 1.8-2.4 Lvl) [facility]2022-06-24 06:28:00 Test Item Value Reference Range Interpretation Comments Glucose Lvl (test code = Glucose Lvl) 109 70-99 [place] 201022-06-24 06:28:00 Test Item Value Reference Range Interpretation Comments BUN (test code = BUN) 21 7-22 [place] 201022-06-24 06:28:00 Test Item Value Reference Range Interpretation Comments Creatinine Lvl (test code = Creatinine 0.93 0.50-1.40 Lvl) [place] 201022-06-24 06:28:00 Test Item Value Reference Range Interpretation Comments Sodium Lvl (test code = Sodium Lvl) 140 135-145 [place] 201022-06-24 06:28:00 Test Item Value Reference Range Interpretation Comments Potassium Lvl (test code = Potassium 4.0 3.5-5.1 Lvl) [place] 201022-06-24 06:28:00 Test Item Value Reference Range Interpretation Comments Chloride Lvl (test code = Chloride Lvl) 105 95-109 [place] 201022-06-24 06:28:00 Test Item Value Reference Range Interpretation Comments CO2 (test code = CO2) 30 24-32 [place] 201022-06-24 06:28:00 Test Item Value Reference Range Interpretation Comments Calcium Lvl (test code = Calcium Lvl) 8.3 8.5-10.5 [facility]2022-06-24 06:28:00 Test Item Value Reference Range Interpretation Comments AGAP (test code = AGAP) 9.0 10.0-20.0 [facility]2022-06-24 06:28:00 Test Item Value Reference Range Interpretation Comments eGFR (test code = eGFR) 56 [facility] CenterRymyzlsZTVWVVXKNC4950-36-56 06:28:00 Test Item Value Reference Range Interpretation Comments WBC (test code = WBC) 5.9 3.7-10.4 [place] 612592-06-24 06:28:00 Test Item Value Reference Range Interpretation Comments RBC (test code = RBC) 3.97 4.20-5.40 [place] 612592-06-24 06:28:00 Test Item Value Reference Range Interpretation Comments Hgb (test code = Hgb) 12.1 12.0-16.0 [place] 612592-06-24 06:28:00 Test Item Value Reference Range Interpretation Comments Hct (test code = Hct) 36.0 36.0-48.0 [place] 612592-06-24 06:28:00 Test Item Value Reference Range Interpretation Comments MCV (test code = MCV) 90.6 80.0-98.0 [place] 612592-06-24 06:28:00 Test Item Value Reference Range Interpretation Comments MCH (test code = MCH) 30.5 pg 27.0-31.0 [place] 612592-06-24 06:28:00 Test Item Value Reference Range Interpretation Comments MCHC (test code = MCHC) 33.7 32.0-36.0 [place] 612592-06-24 06:28:00 Test Item Value Reference Range Interpretation Comments RDW (test code = RDW) 14.8 11.5-14.5 [place] 612592-06-24 06:28:00 Test Item Value Reference Range Interpretation Comments Platelet (test code = Platelet) 173 133-450 [place] 612592-06-24 06:28:00 Test Item Value Reference Range Interpretation Comments MPV (test code = MPV) 9.5 7.4-10.4 [place] 612592-06-24 06:28:00 Test Item Value Reference Range Interpretation Comments Segs (test code = Segs) 61.1 45.0-75.0 [place] 612592-06-24 06:28:00 Test Item Value Reference Range Interpretation Comments Lymphocytes (test code = Lymphocytes) 25.3 20.0-40.0 [place] 612592-06-24 06:28:00 Test Item Value Reference Range Interpretation Comments Monocytes (test code = Monocytes) 11.1 2.0-12.0 [place] 612592-06-24 06:28:00 Test Item Value Reference Range Interpretation Comments Eosinophils (test code = 2.0 See_Comment [A utomated message] The Eosinophils) system which ge nerated this result tra nsmitted reference range : <=4.0. The reference r pearl was not used to int erpret this result as normal/abnormal . [place] 612592-06-24 06:28:00 Test Item Value Reference Range Interpretation Comments Basophils (test code = 0.5 See_Comment [Aut omated message] The Basophils) system which ge nerated this result tra nsmitted reference range : <=1.0. The reference r pearl was not used to int erpret this result as normal/abnormal . [facility] CenterVmcolleHUQUBAKYBT1994-50-40 06:28:00 Test Item Value Reference Range Interpretation Comments Neutrophils # (test code = Neutrophils 3.6 1.5-8.1 #) [place] 612592-06-24 06:28:00 Test Item Value Reference Range Interpretation Comments Lymphocytes # (test code = Lymphocytes 1.5 1.0-5.5 #) [place] 612592-06-24 06:28:00 Test Item Value Reference Range Interpretation Comments Monocytes # (test code 0.7 See_Comment [Aut omated message] The = Monocytes #) system which generated this result tra nsmitted reference range : <=0.8. The reference r pearl was not used to int erpret this result as normal/abnormal . [facility] CenterNqvpattSHROJQTTAI6694-40-24 06:28:00 Test Item Value Reference Range Interpretation Comments Eosinophils # (test code 0.1 See_Comment [A utomated message] The = Eosinophils #) system wh h generated this result tra nsmitted reference range : <=0.5. The reference r pearl was not used to int erpret this result as normal/abnormal . [facility]2022-06-23 10:23:00 Test Item Value Reference Range Interpretation Comments Magnesium Lvl (test code = Magnesium 2.0 1.8-2.4 Lvl) [place] 201022-06-23 10:23:00 Test Item Value Reference Range Interpretation Comments Phosphorus (test code = Phosphorus) 4.6 2.5-4.5 [place] 201022-06-23 10:23:00 Test Item Value Reference Range Interpretation Comments Glucose Lvl (test code = Glucose Lvl) 116 70-99 [facility]2022-06-23 10:23:00 Test Item Value Reference Range Interpretation Comments BUN (test code = BUN) 15 7-22 [facility]2022-06-23 10:23:00 Test Item Value Reference Range Interpretation Comments Creatinine Lvl (test code = Creatinine 0.87 0.50-1.40 Lvl) [facility]2022-06-23 10:23:00 Test Item Value Reference Range Interpretation Comments Sodium Lvl (test code = Sodium Lvl) 143 135-145 [facility]2022-06-23 10:23:00 Test Item Value Reference Range Interpretation Comments Potassium Lvl (test code = Potassium 3.7 3.5-5.1 Lvl) [facility]2022-06-23 10:23:00 Test Item Value Reference Range Interpretation Comments Chloride Lvl (test code = Chloride Lvl) 106 95-109 [facility]2022-06-23 10:23:00 Test Item Value Reference Range Interpretation Comments CO2 (test code = CO2) 29 24-32 [place] 201022-06-23 10:23:00 Test Item Value Reference Range Interpretation Comments Calcium Lvl (test code = Calcium Lvl) 8.2 8.5-10.5 [place] 201022-06-23 10:23:00 Test Item Value Reference Range Interpretation Comments AGAP (test code = AGAP) 11.7 10.0-20.0 [facility]2022-06-23 10:23:00 Test Item Value Reference Range Interpretation Comments eGFR (test code = eGFR) 61 [facility] CenterSzabuayVQVCHPBVLB3882-22-36 10:23:00 Test Item Value Reference Range Interpretation Comments WBC (test code = WBC) 5.5 3.7-10.4 [facility] CenterGuwefewORSIKRVWYJ9352-00-38 10:23:00 Test Item Value Reference Range Interpretation Comments RBC (test code = RBC) 4.11 4.20-5.40 [facility] CenterWxgnwpvVJTYEDLUJU1580-49-09 10:23:00 Test Item Value Reference Range Interpretation Comments Hgb (test code = Hgb) 12.2 12.0-16.0 [facility] CenterLobqkgcFADKOQXRRA4999-80-23 10:23:00 Test Item Value Reference Range Interpretation Comments Hct (test code = Hct) 37.0 36.0-48.0 [facility] CenterNiznzojBSCKKKPQOV2105-88-65 10:23:00 Test Item Value Reference Range Interpretation Comments MCV (test code = MCV) 90.0 80.0-98.0 [facility] CenterBnuccvrHKZMGFUAVT6826-80-85 10:23:00 Test Item Value Reference Range Interpretation Comments MCH (test code = MCH) 29.7 pg 27.0-31.0 [facility] CenterFxzvtiuOFTBGNGMQI2171-05-91 10:23:00 Test Item Value Reference Range Interpretation Comments MCHC (test code = MCHC) 33.0 32.0-36.0 [facility] CenterCsvgqroLSJMDERTZK8595-53-04 10:23:00 Test Item Value Reference Range Interpretation Comments RDW (test code = RDW) 14.8 11.5-14.5 [facility] CenterOgbyzvgGTOPZGSIYN6594-09-00 10:23:00 Test Item Value Reference Range Interpretation Comments Platelet (test code = Platelet) 167 133-450 [facility] CenterNlchziyMJWZSNZYIW5658-36-12 10:23:00 Test Item Value Reference Range Interpretation Comments MPV (test code = MPV) 9.0 7.4-10.4 [facility] CenterGhvgfpwOLGUQGFTNE3661-60-54 10:23:00 Test Item Value Reference Range Interpretation Comments Segs (test code = Segs) 59.1 45.0-75.0 [facility] CenterCvztuhlKSBCUXBRKJ7037-82-69 10:23:00 Test Item Value Reference Range Interpretation Comments Lymphocytes (test code = Lymphocytes) 28.0 20.0-40.0 [facility] CenterNmjyfgyTIVDIFLKQW7491-45-60 10:23:00 Test Item Value Reference Range Interpretation Comments Monocytes (test code = Monocytes) 10.8 2.0-12.0 [facility] CenterIcqsckmEKTDPUTZXJ8741-93-33 10:23:00 Test Item Value Reference Range Interpretation Comments Eosinophils (test code = 1.7 See_Comment [A utomated message] The Eosinophils) system which ge nerated this result tra nsmitted reference range : <=4.0. The reference r pearl was not used to int erpret this result as normal/abnormal . [facility] CenterLnaoliqOVAXBTGSZC4610-29-53 10:23:00 Test Item Value Reference Range Interpretation Comments Basophils (test code = 0.4 See_Comment [Aut omated message] The Basophils) system which ge nerated this result tra nsmitted reference range : <=1.0. The reference r pearl was not used to int erpret this result as normal/abnormal . [facility] CenterXgbpmxfFIHMJXUOQM3256-14-19 10:23:00 Test Item Value Reference Range Interpretation Comments Neutrophils # (test code = Neutrophils 3.3 1.5-8.1 #) [facility] CenterFlevzvtAYLJLFLJBI0260-28-86 10:23:00 Test Item Value Reference Range Interpretation Comments Lymphocytes # (test code = Lymphocytes 1.6 1.0-5.5 #) [facility] CenterGwxdrznIJDXSYGXZN6279-72-66 10:23:00 Test Item Value Reference Range Interpretation Comments Monocytes # (test code 0.6 See_Comment [Aut omated message] The = Monocytes #) system which generated this result tra nsmitted reference range : <=0.8. The reference r pearl was not used to int erpret this result as normal/abnormal . [facility] CenterOrabhfpCKIRVEIBFZ0726-13-88 10:23:00 Test Item Value Reference Range Interpretation Comments Eosinophils # (test code 0.1 See_Comment [A utomated message] The = Eosinophils #) system whic h generated this result tra nsmitted reference range : <=0.5. The reference r pearl was not used to int erpret this result as normal/abnormal . [facility]Work[facility] TCULE8518-39-13 10:23:00 Test Item Value Reference Range Interpretation Comments Magnesium Lvl (test code = Magnesium 2.0 1.8-2.4 Lvl) [facility] HospitalWork[facility]ce.[facility] JJTYR3316-06-85 10:23:00 Test Item Value Reference Range Interpretation Comments Phosphorus (test code = Phosphorus) 4.6 2.5-4.5 [place] 201022-06-23 10:23:00 Test Item Value Reference Range Interpretation Comments Glucose Lvl (test code = Glucose Lvl) 116 70-99 [place] 201022-06-23 10:23:00 Test Item Value Reference Range Interpretation Comments BUN (test code = BUN) 15 7-22 [place] 201022-06-23 10:23:00 Test Item Value Reference Range Interpretation Comments Creatinine Lvl (test code = Creatinine 0.87 0.50-1.40 Lvl) [place] 201022-06-23 10:23:00 Test Item Value Reference Range Interpretation Comments Sodium Lvl (test code = Sodium Lvl) 143 135-145 [place] 201022-06-23 10:23:00 Test Item Value Reference Range Interpretation Comments Potassium Lvl (test code = Potassium 3.7 3.5-5.1 Lvl) [place] 201022-06-23 10:23:00 Test Item Value Reference Range Interpretation Comments Chloride Lvl (test code = Chloride Lvl) 106 95-109 [place] 201022-06-23 10:23:00 Test Item Value Reference Range Interpretation Comments CO2 (test code = CO2) 29 24-32 [place] 201022-06-23 10:23:00 Test Item Value Reference Range Interpretation Comments Calcium Lvl (test code = Calcium Lvl) 8.2 8.5-10.5 [place] 201022-06-23 10:23:00 Test Item Value Reference Range Interpretation Comments AGAP (test code = AGAP) 11.7 10.0-20.0 [place] 201022-06-23 10:23:00 Test Item Value Reference Range Interpretation Comments eGFR (test code = eGFR) 61 [place] 612592-06-23 10:23:00 Test Item Value Reference Range Interpretation Comments WBC (test code = WBC) 5.5 3.7-10.4 [place] 612592-06-23 10:23:00 Test Item Value Reference Range Interpretation Comments RBC (test code = RBC) 4.11 4.20-5.40 [place] 612592-06-23 10:23:00 Test Item Value Reference Range Interpretation Comments Hgb (test code = Hgb) 12.2 12.0-16.0 [place] 612592-06-23 10:23:00 Test Item Value Reference Range Interpretation Comments Hct (test code = Hct) 37.0 36.0-48.0 [facility] CenterTozsaaqWBCAHKZQKU5201-15-45 10:23:00 Test Item Value Reference Range Interpretation Comments MCV (test code = MCV) 90.0 80.0-98.0 [place] 612592-06-23 10:23:00 Test Item Value Reference Range Interpretation Comments MCH (test code = MCH) 29.7 pg 27.0-31.0 [place] [id number] 10:23:00 Test Item Value Reference Range Interpretation Comments MCHC (test code = MCHC) 33.0 32.0-36.0 [place] 612592-06-23 10:23:00 Test Item Value Reference Range Interpretation Comments RDW (test code = RDW) 14.8 11.5-14.5 [place] 612592-06-23 10:23:00 Test Item Value Reference Range Interpretation Comments Platelet (test code = Platelet) 167 133-450 [facility]JsrbdnfEJHEYFVRFQ3356-11-48 10:23:00 Test Item Value Reference Range Interpretation Comments MPV (test code = MPV) 9.0 7.4-10.4 [place] 612592-06-23 10:23:00 Test Item Value Reference Range Interpretation Comments Segs (test code = Segs) 59.1 45.0-75.0 [place] 612592-06-23 10:23:00 Test Item Value Reference Range Interpretation Comments Lymphocytes (test code = Lymphocytes) 28.0 20.0-40.0 [place] 612592-06-23 10:23:00 Test Item Value Reference Range Interpretation Comments Monocytes (test code = Monocytes) 10.8 2.0-12.0 [place] 00928-06-23 10:23:00 Test Item Value Reference Range Interpretation Comments Eosinophils (test code = 1.7 See_Comment [A utomated message] The Eosinophils) system which ge nerated this result tra nsmitted reference range : <=4.0. The reference r pearl was not used to int erpret this result as normal/abnormal . [facility]LIMNKU3782[facility]97-90 10:23:00 Test Item Value Reference Range Interpretation Comments Basophils (test code = 0.4 See_Comment [Aut omated message] The Basophils) system which ge nerated this result tra nsmitted reference range : <=1.0. The reference r pearl was not used to int erpret this result as normal/abnormal . [facility]KxknmdfAHDTEELIFO8868-41-72 10:23:00 Test Item Value Reference Range Interpretation Comments Neutrophils # (test code = Neutrophils 3.3 1.5-8.1 #) [facility]MxdualeWZWWTDBNYF2532-92-28 10:23:00 Test Item Value Reference Range Interpretation Comments Lymphocytes # (test code = Lymphocytes 1.6 1.0-5.5 #) [facility]CjbwidcAPRTFTXPJI1796-75-08 10:23:00 Test Item Value Reference Range Interpretation Comments Monocytes # (test code 0.6 See_Comment [Aut omated message] The = Monocytes #) system which generated this result tra nsmitted reference range : <=0.8. The reference r pearl was not used to int erpret this result as normal/abnormal . [facility] CenterFeynrwcYDOYIJHYGF8498-76-13 10:23:00 Test Item Value Reference Range Interpretation Comments Eosinophils # (test code 0.1 See_Comment [A utomated message] The = Eosinophils #) system whic h generated this result tra nsmitted reference range : <=0.5. The reference r pearl was not used to int erpret this result as normal/abnormal . [facility]LdnexehSMXQNMWHPK1140-44-73 10:42:00 Test Item Value Reference Range Interpretation Comments Coronavirus (COVID-19) Not Detected (05/19/22 MAMADOU (test code = 5:42 AM) Coronavirus (COVID-19) MAMADOU) [facility] HospitalQukvznyGBGPXDXNQS9402-24-04 10:42:00 Test Item Value Reference Range Interpretation Comments Coronavirus (COVID-19) Not Detected (05/19/22 MAMADOU (test code = 5:42 AM) Coronavirus (COVID-19) MAMADOU) [facility] HospitalCARDIAC [id number] 06:49:00 Test Item Value Reference Range Interpretation Comments proBNP (test code = 1773 See_Comment [Automa ori message] The proBNP) system which ge nerated this result tra nsmitted reference range : <=450. The reference r pearl was not used to int erpret this result as augustin l/abnormal. [facility]CprtomzYEJJCJCNGU8239-89-40 06:49:00 Test Item Value Reference Range Interpretation Comments ACT (TEG) Rapid (test code = ACT (TEG) 105 s 86-118 Rapid) [facility]CgxiijuNZNMWMDPBK2135-19-15 06:49:00 Test Item Value Reference Range Interpretation Comments Split Point Rapid (test code = Split 0.5 min Point Rapid) [facility] CenterHkshijkEFUHBSHPTX7337-00-17 06:49:00 Test Item Value Reference Range Interpretation Comments R-time Rapid (test code = R-time 0.6 min 0.4-0.7 Rapid) [facility] CenterEyaeifhRQGSYPKQHP4341-32-52 06:49:00 Test Item Value Reference Range Interpretation Comments K-time Rapid (test code = K-time 1.0 min 0.6-2.3 Rapid) [facility] CenterSkscyxtLDATPPAJHN7147-63-17 06:49:00 Test Item Value Reference Range Interpretation Comments Angle Rapid (test code = Angle 78 degrees 64-80 Rapid) [facility] CenterMtlzcewYNLJBOXGTG1625-12-19 06:49:00 Test Item Value Reference Range Interpretation Comments Max Amplitude Rapid (test code = Max 69 mm 52-71 Amplitude Rapid) [facility] CenterLmyffbnAVBFSWMYMW0380-15-78 06:49:00 Test Item Value Reference Range Interpretation Comments G-value Rapid (test code = G-value 11.2 5.0-11.6 Rapid) [facility] CenterKwqahtfRVODVBMYEW9299-97-42 06:49:00 Test Item Value Reference Range Interpretation Comments Estimated % Lysis Rapid 0.1 See_Comment [Au tomated message] The (test code = Estimated syste m which generated % Lysis Rapid) this result t ransmitted reference range : <=7.5. The reference r pearl was not used to int erpret this result as normal/abnormal . [facility] HospitalDIM[facility] [id number] 06:49:00 Test Item Value Reference Range Interpretation Comments proBNP (test code = 1773 See_Comment [Automa ori message] The proBNP) system which ge nerated this result tra nsmitted reference range : <=450. The reference r pearl was not used to int erpret this result as augustin l/abnormal. [facility] CenterMwgllhdPMLVBAECHK3404-19-82 06:49:00 Test Item Value Reference Range Interpretation Comments ACT (TEG) Rapid (test code = ACT (TEG) 105 s 86-118 Rapid) [place] 612592-06-22 06:49:00 Test Item Value Reference Range Interpretation Comments Split Point Rapid (test code = Split 0.5 min Point Rapid) [place] 612592-06-22 06:49:00 Test Item Value Reference Range Interpretation Comments R-time Rapid (test code = R-time 0.6 min 0.4-0.7 Rapid) [place] 612592-06-22 06:49:00 Test Item Value Reference Range Interpretation Comments K-time Rapid (test code = K-time 1.0 min 0.6-2.3 Rapid) [place] 00928-06-22 06:49:00 Test Item Value Reference Range Interpretation Comments Angle Rapid (test code = Angle 78 degrees 64-80 Rapid) [place] 612592-06-22 06:49:00 Test Item Value Reference Range Interpretation Comments Max Amplitude Rapid (test code = Max 69 mm 52-71 Amplitude Rapid) [place] 612592-06-22 06:49:00 Test Item Value Reference Range Interpretation Comments G-value Rapid (test code = G-value 11.2 5.0-11.6 Rapid) [place] 612592-06-22 06:49:00 Test Item Value Reference Range Interpretation Comments Estimated % Lysis Rapid 0.1 See_Comment [Au tomated message] The (test code = Estimated syste m which generated % Lysis Rapid) this result t ransmitted reference range : <=7.5. The reference r pearl was not used to int erpret this result as normal/abnormal . [facility] HospitalWork4ce.me [id number] 23:57:00 Test Item Value Reference Range Interpretation Comments Total Protein (test code = Total 6.6 6.4-8.4 Protein) [facility] HospitalWork4ce.me [id number] 23:57:00 Test Item Value Reference Range Interpretation Comments Albumin Lvl (test code = Albumin Lvl) 3.3 3.5-5.0 [facility] HospitalWork4ce.me [id number] 23:57:00 Test Item Value Reference Range Interpretation Comments ALT (test code = ALT) 18 See_Comment [Auto mated message] The system which ge nerated this result transmit ori reference range : <=65. The reference range was not used to interpr et this result as augustin l/abnormal. [facility] [employer] [id number] 23:57:00 Test Item Value Reference Range Interpretation Comments AST (test code = AST) 16 See_Comment [Auto mated message] The system which ge nerated this result transmit ori reference range : <=37. The reference range was not used to interpr et this result as augustin l/abnormal. [facility] [employer] [id number] 23:57:00 Test Item Value Reference Range Interpretation Comments Alk Phos (test code = Alk Phos) 87 39-136 [facility] [employer] [id number] 23:57:00 Test Item Value Reference Range Interpretation Comments Bili Total (test code = Bili Total) 0.8 0.2-1.3 [facility] [employer] [id number] 23:57:00 Test Item Value Reference Range Interpretation Comments Bili Direct (test code 0.2 See_Comment [Aut omated message] The = Bili Direct) system which generated this result tra nsmitted reference range : <=0.3. The reference r pearl was not used to int erpret this result as augustin l/abnormal. [facility] [employer] [id number] 23:57:00 Test Item Value Reference Range Interpretation Comments Bili Indirect (test 0.6 See_Comment [Automa ori message] The code = Bili Indirect) system which generated this result tra nsmitted reference range : <=1.0. The reference r pearl was not used to int erpret this result as normal/abnormal . [facility] [employer] [id number] 23:57:00 Test Item Value Reference Range Interpretation Comments Globulin (test code = Globulin) 3.3 2.7-4.2 [facility] [employer] [id number] 23:57:00 Test Item Value Reference Range Interpretation Comments A/G Ratio (test code = A/G Ratio) 1.0 1 0.7-1.6 [facility] [employer] [id number] 23:57:00 Test Item Value Reference Range Interpretation Comments U Amph Scr (test code Negative *NA*(05/18/22 = U Amph Scr) 6:57 PM) [facility] [id number] 23:57:00 Test Item Value Reference Range Interpretation Comments U Luci Scr (test code Negative *NA*(05/18/22 = U Luci Scr) 6:57 PM) [facility] [id number] 23:57:00 Test Item Value Reference Range Interpretation Comments U Benzodiaz Scr (test Negative *NA*(05/18/22 code = U Benzodiaz Scr) 6:57 PM) [facility] [id number] 23:57:00 Test Item Value Reference Range Interpretation Comments U Cocaine Scr (test Negative *NA*(05/18/22 code = U Cocaine Scr) 6:57 PM) [facility] [id number] 23:57:00 Test Item Value Reference Range Interpretation Comments U Cannab Scr (test Negative *NA*(05/18/22 code = U Cannab Scr) 6:57 PM) [facility] [id number] 23:57:00 Test Item Value Reference Range Interpretation Comments U Opiate Scr (test Positive *ABN*(05/18/22 code = U Opiate Scr) 6:57 PM) [facility] [id number] 23:57:00 Test Item Value Reference Range Interpretation Comments U Phencyclidine Scr (test Negative code = U Phencyclidine *NA*(05/18/22 6:57 Scr) PM) [facility] [id number] 23:57:00 Test Item Value Reference Range Interpretation Comments UDS Note (test code = See Note (05/18/22 6:57 UDS Note) PM) [facility] Ho[id number] 23:57:00 Test Item Value Reference Range Interpretation Comments PT (test code = PT) 13.9 s 12.0-14.7 [facility] HospitalPltffotFKYLXGGLGN6800-91-09 23:57:00 Test Item Value Reference Range Interpretation Comments INR (test code = INR) 1.08 1 0.85-1.17 [facility] HospitalOsyeaqbEGRQQIYSWC5523-56-12 23:57:00 Test Item Value Reference Range Interpretation Comments PTT (test code = PTT) 31.6 s 22.9-35.8 [facility] [id number] 23:57:00 Test Item Value Reference Range Interpretation Comments Hgb A1C (test code = Hgb A1C) 6.0 [facility] AND [id number] 23:57:00 Test Item Value Reference Range Interpretation Comments UA Color (test code = Light Yellow UA Color) *NA*(05/18/22 6:57 PM) [facility] AND [id number] 23:57:00 Test Item Value Reference Range Interpretation Comments UA Turbidity (test code = Clear (05/18/22 6:57 UA Turbidity) PM) [facility] AND [id number] 23:57:00 Test Item Value Reference Range Interpretation Comments UA Spec Grav (test code = UA Spec 1.010 1 Grav) [facility] AND [id number] 23:57:00 Test Item Value Reference Range Interpretation Comments UA pH (test code = UA pH) 8.0 1 5.0-8.0 [facility] AND [id number] 23:57:00 Test Item Value Reference Range Interpretation Comments UA Protein (test code = UA Negative mg/dL Protein) [facility] AND [id number] 23:57:00 Test Item Value Reference Range Interpretation Comments UA Glucose (test code = UA Negative mg/dL Glucose) [facility] AND [id number] 23:57:00 Test Item Value Reference Range Interpretation Comments UA Ketones (test code = UA Trace mg/dL Ketones) [facility] AND [id number] 23:57:00 Test Item Value Reference Range Interpretation Comments UA Bili (test code = Negative *NA*(05/18/22 UA Bili) 6:57 PM) [facility] AND [id number] 23:57:00 Test Item Value Reference Range Interpretation Comments UA Blood (test code = Small *ABN*(05/18/22 UA Blood) 6:57 PM) [facility] AND [id number] 23:57:00 Test Item Value Reference Range Interpretation Comments UA Urobilinogen (test code = UA no gt 0.1-1.0 Urobilinogen) [facility] AND [id number] 23:57:00 Test Item Value Reference Range Interpretation Comments UA Nitrite (test code Negative (05/18/22 6:57 = UA Nitrite) PM) [facility] AND [id number] 23:57:00 Test Item Value Reference Range Interpretation Comments UA Leuk Est (test Negative (05/18/22 6:57 code = UA Leuk Est) PM) [facility] AND [id number] 23:57:00 Test Item Value Reference Range Interpretation Comments UA Sq Epi (test code = UA Sq Occasional /LPF Epi) [employer] AND [id number] 23:57:00 Test Item Value Reference Range Interpretation Comments UA WBC (test code = 4 See_Comment [Automa ori message] The UA WBC) system which ge nerated this result transmit ori reference range : <=5. The reference range was not used to interpr et this result as augustin l/abnormal. [employer] AND [id number] 23:57:00 Test Item Value Reference Range Interpretation Comments UA RBC (test code = 4 See_Comment [Automa ori message] The UA RBC) system which ge nerated this result transmit ori reference range : <=2. The reference range was not used to interpr et this result as augustin l/abnormal. [employer] AND [id number] 23:57:00 Test Item Value Reference Range Interpretation Comments UA Trans Epi (test code = UA Trans Epi) 1 [facility] [id number] 23:57:00 Test Item Value Reference Range Interpretation Comments Total Protein (test code = Total 6.6 6.4-8.4 Protein) [facility] [id number] 23:57:00 Test Item Value Reference Range Interpretation Comments Albumin Lvl (test code = Albumin Lvl) 3.3 3.5-5.0 [facility] [id number] 23:57:00 Test Item Value Reference Range Interpretation Comments ALT (test code = ALT) 18 See_Comment [Auto mated message] The system which ge nerated this result transmit ori reference range : <=65. The reference range was not used to interpr et this result as augustin l/abnormal. [facility] [employer] [id number] 23:57:00 Test Item Value Reference Range Interpretation Comments AST (test code = AST) 16 See_Comment [Auto mated message] The system which ge nerated this result transmit ori reference range : <=37. The reference range was not used to interpr et this result as augustin l/abnormal. [facility] [employer] [id number] 23:57:00 Test Item Value Reference Range Interpretation Comments Alk Phos (test code = Alk Phos) 87 39-136 [facility] [employer] [id number] 23:57:00 Test Item Value Reference Range Interpretation Comments Bili Total (test code = Bili Total) 0.8 0.2-1.3 [facility] [employer] [id number] 23:57:00 Test Item Value Reference Range Interpretation Comments Bili Direct (test code 0.2 See_Comment [Aut omated message] The = Bili Direct) system which generated this result tra nsmitted reference range : <=0.3. The reference r pearl was not used to int erpret this result as augustin l/abnormal. [facility] [employer] [id number] 23:57:00 Test Item Value Reference Range Interpretation Comments Bili Indirect (test 0.6 See_Comment [Automa ori message] The code = Bili Indirect) system which generated this result tra nsmitted reference range : <=1.0. The reference r pearl was not used to int erpret this result as normal/abnormal . [facility] [employer] [id number] 23:57:00 Test Item Value Reference Range Interpretation Comments Globulin (test code = Globulin) 3.3 2.7-4.2 [facility] [employer] [id number] 23:57:00 Test Item Value Reference Range Interpretation Comments A/G Ratio (test code = A/G Ratio) 1.0 1 0.7-1.6 [facility] [employer] [id number] 23:57:00 Test Item Value Reference Range Interpretation Comments U Amph Scr (test code Negative *NA*(05/18/22 = U Amph Scr) 6:57 PM) [facility] [employer] [id number] 23:57:00 Test Item Value Reference Range Interpretation Comments U Luci Scr (test code Negative *NA*(05/18/22 = U Luci Scr) 6:57 PM) [facility] [employer] [id number] 23:57:00 Test Item Value Reference Range Interpretation Comments U Benzodiaz Scr (test Negative *NA*(05/18/22 code = U Benzodiaz Scr) 6:57 PM) [facility] [id number] 23:57:00 Test Item Value Reference Range Interpretation Comments U Cocaine Scr (test Negative *NA*(05/18/22 code = U Cocaine Scr) 6:57 PM) [facility] [id number] 23:57:00 Test Item Value Reference Range Interpretation Comments U Cannab Scr (test Negative *NA*(05/18/22 code = U Cannab Scr) 6:57 PM) [facility] [id number] 23:57:00 Test Item Value Reference Range Interpretation Comments U Opiate Scr (test Positive *ABN*(05/18/22 code = U Opiate Scr) 6:57 PM) [facility] [id number] 23:57:00 Test Item Value Reference Range Interpretation Comments U Phencyclidine Scr (test Negative code = U Phencyclidine *NA*(05/18/22 6:57 Scr) PM) [facility] [id number] 23:57:00 Test Item Value Reference Range Interpretation Comments UDS Note (test code = See Note (05/18/22 6:57 UDS Note) PM) [facility] [id number] 23:57:00 Test Item Value Reference Range Interpretation Comments PT (test code = PT) 13.9 s 12.0-14.7 [facility] [id number] 23:57:00 Test Item Value Reference Range Interpretation Comments INR (test code = INR) 1.08 1 0.85-1.17 [facility] [id number] 23:57:00 Test Item Value Reference Range Interpretation Comments PTT (test code = PTT) 31.6 s 22.9-35.8 [facility] [id number] 23:57:00 Test Item Value Reference Range Interpretation Comments Hgb A1C (test code = Hgb A1C) 6.0 [facility] [id number] 23:57:00 Test Item Value Reference Range Interpretation Comments UA Color (test code = Light Yellow UA Color) *NA*(05/18/22 6:57 PM) [facility] [id number] 23:57:00 Test Item Value Reference Range Interpretation Comments UA Turbidity (test code = Clear (05/18/22 6:57 UA Turbidity) PM) [facility] AND [id number] 23:57:00 Test Item Value Reference Range Interpretation Comments UA Spec Grav (test code = UA Spec 1.010 1 Grav) [facility] AND [id number] 23:57:00 Test Item Value Reference Range Interpretation Comments UA pH (test code = UA pH) 8.0 1 5.0-8.0 [facility] AND [id number] 23:57:00 Test Item Value Reference Range Interpretation Comments UA Protein (test code = UA Negative mg/dL Protein) [facility] AND [id number] 23:57:00 Test Item Value Reference Range Interpretation Comments UA Glucose (test code = UA Negative mg/dL Glucose) [facility] AND [id number] 23:57:00 Test Item Value Reference Range Interpretation Comments UA Ketones (test code = UA Trace mg/dL Ketones) [facility] AND [id number] 23:57:00 Test Item Value Reference Range Interpretation Comments UA Bili (test code = Negative *NA*(05/18/22 UA Bili) 6:57 PM) [facility] AND [id number] 23:57:00 Test Item Value Reference Range Interpretation Comments UA Blood (test code = Small *ABN*(05/18/22 UA Blood) 6:57 PM) [facility] AND [id number] 23:57:00 Test Item Value Reference Range Interpretation Comments UA Urobilinogen (test code = UA no gt 0.1-1.0 Urobilinogen) [facility] AND [id number] 23:57:00 Test Item Value Reference Range Interpretation Comments UA Nitrite (test code Negative (05/18/22 6:57 = UA Nitrite) PM) [facility] AND [id number] 23:57:00 Test Item Value Reference Range Interpretation Comments UA Leuk Est (test Negative (05/18/22 6:57 code = UA Leuk Est) PM) [facility] AND [id number] 23:57:00 Test Item Value Reference Range Interpretation Comments UA Sq Epi (test code = UA Sq Occasional /LPF Epi) [facility] AND [id number] 23:57:00 Test Item Value Reference Range Interpretation Comments UA WBC (test code = 4 See_Comment [Automa ori message] The UA WBC) system which ge nerated this result transmit ori reference range : <=5. The reference range was not used to interpr et this result as augustin l/abnormal. [facility] AND [id number] 23:57:00 Test Item Value Reference Range Interpretation Comments UA RBC (test code = 4 See_Comment [Automa ori message] The UA RBC) system which ge nerated this result transmit ori reference range : <=2. The reference range was not used to interpr et this result as augustin l/abnormal. [facility] AND [id number] 23:57:00 Test Item Value Reference Range Interpretation Comments UA Trans Epi (test code = UA Trans Epi) 1 [facility] [id number] 13:21:00 Test Item Value Reference Range Interpretation Comments UA Urobilinogen (test code = UA <=1.0 mg/dL 0.1-1.0 Urobilinogen) [facility] AND [id number] 13:21:00 Test Item Value Reference Range Interpretation Comments UA Nitrite (test code Negative (07/01/15 8:21 = UA Nitrite) AM) [facility] [id number] 13:21:00 Test Item Value Reference Range Interpretation Comments UA Mucus (test code = UA Mucus) Few /LPF [facility] AND [id number] 13:21:00 Test Item Value Reference Range Interpretation Comments UA Renal Epi (test code = UA Renal Epi) 1 [facility] AND [id number] 13:21:00 Test Item Value Reference Range Interpretation Comments UA Leuk Est (test Negative (07/01/15 8:21 code = UA Leuk Est) AM) [facility] [id number] 13:21:00 Test Item Value Reference Range Interpretation Comments UA Sq Epi (test code = UA Sq Moderate /LPF Epi) [facility] [id number] 13:21:00 Test Item Value Reference Range Interpretation Comments UA Protein (test code = UA Negative mg/dL Protein) [facility] AND [id number] 13:21:00 Test Item Value Reference Range Interpretation Comments UA Bili (test code = Negative *NA*(07/01/15 UA Bili) 8:21 AM) [facility] AND [id number] 13:21:00 Test Item Value Reference Range Interpretation Comments UA WBC (test code = 3 See_Comment [Automa ori message] The UA WBC) system which ge nerated this result transmit ori reference range : <=5. The reference range was not used to interpr et this result as augustin l/abnormal. [facility] AND [id number] 13:21:00 Test Item Value Reference Range Interpretation Comments UA Blood (test code = Negative (07/01/15 8:21 UA Blood) AM) [facility] AND [id number] 13:21:00 Test Item Value Reference Range Interpretation Comments UA RBC (test code = no gt See_Comment [Automa ori message] The UA RBC) system which ge nerated this result transmit ori reference range : <=2. The reference range was not used to interpr et this result as augustin l/abnormal. [facility] AND [id number] 13:21:00 Test Item Value Reference Range Interpretation Comments UA Glucose (test code = UA Negative mg/dL Glucose) [facility] AND [id number] 13:21:00 Test Item Value Reference Range Interpretation Comments UA pH (test code = UA pH) 7.0 5.0-8.0 [facility] AND [id number] 13:21:00 Test Item Value Reference Range Interpretation Comments UA Ketones (test code = UA Negative mg/dL Ketones) [facility] AND [id number] 13:21:00 Test Item Value Reference Range Interpretation Comments UA Spec Grav (test code = UA Spec Grav) 1.017 [facility] AND [id number] 13:21:00 Test Item Value Reference Range Interpretation Comments UA Turbidity (test code = Clear (07/01/15 8:21 UA Turbidity) AM) [facility] AND [id number] 13:21:00 Test Item Value Reference Range Interpretation Comments UA Color (test code = Yellow *NA*(07/01/15 8:21 UA Color) AM) [facility] AND [id number] 13:21:00 Test Item Value Reference Range Interpretation Comments UA Urobilinogen (test code = UA <=1.0 mg/dL 0.1-1.0 Urobilinogen) [facility] AND [id number] 13:21:00 Test Item Value Reference Range Interpretation Comments UA Nitrite (test code Negative (07/01/15 8:21 = UA Nitrite) AM) [facility] AND [id number] 13:21:00 Test Item Value Reference Range Interpretation Comments UA Mucus (test code = UA Mucus) Few /LPF [facility] AND [id number] 13:21:00 Test Item Value Reference Range Interpretation Comments UA Renal Epi (test code = UA Renal Epi) 1 [facility] AND [id number] 13:21:00 Test Item Value Reference Range Interpretation Comments UA Leuk Est (test Negative (07/01/15 8:21 code = UA Leuk Est) AM) [facility] AND [id number] 13:21:00 Test Item Value Reference Range Interpretation Comments UA Sq Epi (test code = UA Sq Moderate /LPF Epi) [facility] AND [id number] 13:21:00 Test Item Value Reference Range Interpretation Comments UA Protein (test code = UA Negative mg/dL Protein) [facility] AND [id number] 13:21:00 Test Item Value Reference Range Interpretation Comments UA Bili (test code = Negative *NA*(07/01/15 UA Bili) 8:21 AM) [facility] AND [id number] 13:21:00 Test Item Value Reference Range Interpretation Comments UA WBC (test code = 3 See_Comment [Automa ori message] The UA WBC) system which ge nerated this result transmit ori reference range : <=5. The reference range was not used to interpr et this result as augustin l/abnormal. [facility] AND [id number] 13:21:00 Test Item Value Reference Range Interpretation Comments UA Blood (test code = Negative (07/01/15 8:21 UA Blood) AM) [facility] AND [id number] 13:21:00 Test Item Value Reference Range Interpretation Comments UA RBC (test code = no gt See_Comment [Automa ori message] The UA RBC) system which ge nerated this result transmit ori reference range : <=2. The reference range was not used to interpr et this result as augustin l/abnormal. [facility] AND [id number] 13:21:00 Test Item Value Reference Range Interpretation Comments UA Glucose (test code = UA Negative mg/dL Glucose) [facility] AND [id number] 13:21:00 Test Item Value Reference Range Interpretation Comments UA pH (test code = UA pH) 7.0 5.0-8.0 [facility] AND [id number] 13:21:00 Test Item Value Reference Range Interpretation Comments UA Ketones (test code = UA Negative mg/dL Ketones) [facility] AND [id number] 13:21:00 Test Item Value Reference Range Interpretation Comments UA Spec Grav (test code = UA Spec Grav) 1.017 [facility] AND [id number] 13:21:00 Test Item Value Reference Range Interpretation Comments UA Turbidity (test code = Clear (07/01/15 8:21 UA Turbidity) AM) [facility] AND [id number] 13:21:00 Test Item Value Reference Range Interpretation Comments UA Color (test code = Yellow *NA*(07/01/15 8:21 UA Color) AM) [id number] 23:32:00 Test Item Value Reference Range Interpretation Comments AGAP (test code = AGAP) 11.2 10.0-20.0 [facility] CenterZbungpqQFODGIZHWNEM3713-19-74 23:32:00 Test Item Value Reference Range Interpretation Comments eGFR (test code = eGFR) 48 [facility] CenterZhyocupDOOKLWRGNDLB2241-93-26 23:32:00 Test Item Value Reference Range Interpretation Comments Calcium Lvl (test code = Calcium Lvl) 8.4 8.5-10.5 [facility] CenterRbyfqbmQBWVUOONEGJD2606-03-40 23:32:00 Test Item Value Reference Range Interpretation Comments CO2 (test code = CO2) 32 24-32 [facility] CenterPgyxplwPPNUANPKBQKV3835-75-27 23:32:00 Test Item Value Reference Range Interpretation Comments Chloride Lvl (test code = Chloride Lvl) 104 95-109 [facility] CenterVjopvnoKPREKHWNDMGA0452-34-94 23:32:00 Test Item Value Reference Range Interpretation Comments Potassium Lvl (test code = Potassium 4.2 3.5-5.1 Lvl) [facility] CenterJfjegslAUAPDTIBIJTI8250-56-09 23:32:00 Test Item Value Reference Range Interpretation Comments BUN (test code = BUN) 35 7-22 [facility] CenterAxxobceDYNQYSRCVZBX7830-58-39 23:32:00 Test Item Value Reference Range Interpretation Comments Sodium Lvl (test code = Sodium Lvl) 143 135-145 [facility] CenterAymnmvuNAQVGPMYSKOG1608-43-00 23:32:00 Test Item Value Reference Range Interpretation Comments Creatinine Lvl (test code = Creatinine 1.1 0.5-1.4 Lvl) [facility] CenterEqrzdpeVJVCOTLFUGKV5757-39-27 23:32:00 Test Item Value Reference Range Interpretation Comments Glucose Lvl (test code = Glucose Lvl) 153 70-99 [facility] CenterVkcxagdXIITNZDGBA9619-20-69 23:32:00 Test Item Value Reference Range Interpretation Comments MCHC (test code = MCHC) 31.7 32.0-36.0 [facility] CenterAlrfvaqEOVBYRNHBL8421-01-68 23:32:00 Test Item Value Reference Range Interpretation Comments RDW (test code = RDW) 16.6 11.5-14.5 [facility] CenterRpjjxtyQKLCHALGYM2003-61-13 23:32:00 Test Item Value Reference Range Interpretation Comments MPV (test code = MPV) 9.3 7.4-10.4 [facility] CenterSafmgidRUXPSWICAB4356-07-78 23:32:00 Test Item Value Reference Range Interpretation Comments MCH (test code = MCH) 28.8 pg 27.0-31.0 [facility] CenterHfvegqnHFIOZSOJAT3285-51-01 23:32:00 Test Item Value Reference Range Interpretation Comments MCV (test code = MCV) 90.7 80.0-98.0 [facility] CenterKijodviDHQAYAFEPN5352-26-89 23:32:00 Test Item Value Reference Range Interpretation Comments RBC (test code = RBC) 4.42 4.20-5.40 [facility] CenterVorfsciXEYPTTGBIN4384-50-32 23:32:00 Test Item Value Reference Range Interpretation Comments WBC (test code = WBC) 9.4 3.7-10.4 [facility] CenterHqbqhxqXJYRLACMTQ2152-28-49 23:32:00 Test Item Value Reference Range Interpretation Comments Hct (test code = Hct) 40.1 36.0-48.0 [facility] CenterPclbgveERQNZMOHDA3692-61-87 23:32:00 Test Item Value Reference Range Interpretation Comments Hgb (test code = Hgb) 12.7 12.0-16.0 [facility] CenterWwupppvCJVQRORQHD0664-24-70 23:32:00 Test Item Value Reference Range Interpretation Comments Platelet (test code = Platelet) 177 133-450 [facility] CenterGubrawlTGTQBQMIRU9336-43-80 23:32:00 Test Item Value Reference Range Interpretation Comments Basophils # (test code 0.1 See_Comment [Aut omated message] The = Basophils #) system which generated this result tra nsmitted reference range : <=0.2. The reference r pearl was not used to int erpret this result as normal/abnormal . [facility] CenterGcvlarfYUFJCRPKEF2642-85-35 23:32:00 Test Item Value Reference Range Interpretation Comments Segs (test code = Segs) 69.8 45.0-75.0 [facility] CenterNwjdrnnIPEDYLKWVJ0894-51-14 23:32:00 Test Item Value Reference Range Interpretation Comments Lymphocytes (test code = Lymphocytes) 21.1 20.0-40.0 [facility] CenterCqlnkaqCOHTGSEHQW7621-40-94 23:32:00 Test Item Value Reference Range Interpretation Comments Segs-Bands # (test code = Segs-Bands #) 6.6 1.5-8.1 [facility] CenterQyqvegjKTCWLMPUBL0748-02-94 23:32:00 Test Item Value Reference Range Interpretation Comments Basophils (test code = 0.9 See_Comment [Aut omated message] The Basophils) system which ge nerated this result tra nsmitted reference range : <=1.0. The reference r pearl was not used to int erpret this result as normal/abnormal . [facility] CenterNcbfgniATLOOLVCVD1554-55-00 23:32:00 Test Item Value Reference Range Interpretation Comments Lymphocytes # (test code = Lymphocytes 2.0 1.0-5.5 #) [facility] CenterCwtzwqgSLZOJHFVRY9284-99-87 23:32:00 Test Item Value Reference Range Interpretation Comments Monocytes # (test code 0.6 See_Comment [Aut omated message] The = Monocytes #) system which generated this result tra nsmitted reference range : <=0.8. The reference r pearl was not used to int erpret this result as normal/abnormal . [facility] CenterXlpcwpaJFQJVAEMPG1097-54-78 23:32:00 Test Item Value Reference Range Interpretation Comments Monocytes (test code = Monocytes) 6.1 2.0-12.0 [facility] CenterVnvokrmVBZQDUMKNZ7901-37-44 23:32:00 Test Item Value Reference Range Interpretation Comments Eosinophils (test code = 2.1 See_Comment [A utomated message] The Eosinophils) system which ge nerated this result tra nsmitted reference range : <=4.0. The reference r pearl was not used to int erpret this result as normal/abnormal . [facility] CenterTjfimlqPGALCHFJMS6794-92-74 23:32:00 Test Item Value Reference Range Interpretation Comments Eosinophils # (test code 0.2 See_Comment [A utomated message] The = Eosinophils #) system whic h generated this result tra nsmitted reference range : <=0.5. The reference r pearl was not used to int erpret this result as normal/abnormal . [facility] CenterPrlvhldBQXDNFAHCDCP9081-59-71 23:32:00 Test Item Value Reference Range Interpretation Comments AGAP (test code = AGAP) 11.2 10.0-20.0 [facility] CenterYoktasqCMHZWRDDTLTE4773-47-81 23:32:00 Test Item Value Reference Range Interpretation Comments eGFR (test code = eGFR) 48 [facility] CenterMvsrrovNJKHQCLUSBMK6035-30-24 23:32:00 Test Item Value Reference Range Interpretation Comments Calcium Lvl (test code = Calcium Lvl) 8.4 8.5-10.5 [facility] CenterFxzeqzyHRBNDPEAMBFD5217-69-68 23:32:00 Test Item Value Reference Range Interpretation Comments CO2 (test code = CO2) 32 24-32 [facility] CenterWqtlfnlRYAMMLHGNVFH4407-13-99 23:32:00 Test Item Value Reference Range Interpretation Comments Chloride Lvl (test code = Chloride Lvl) 104 95-109 [facility] CenterKoghtkxZSLBSBUBQXUA4377-70-80 23:32:00 Test Item Value Reference Range Interpretation Comments Potassium Lvl (test code = Potassium 4.2 3.5-5.1 Lvl) [facility] CenterUvxpkuiNKHESJYFTLHC5927-22-13 23:32:00 Test Item Value Reference Range Interpretation Comments BUN (test code = BUN) 35 7-22 [facility] CenterSjgnftqQSVGJKIGTLGY6647-88-71 23:32:00 Test Item Value Reference Range Interpretation Comments Sodium Lvl (test code = Sodium Lvl) 143 135-145 [facility] CenterIsfjowvLNCLRRJNHATL4973-33-78 23:32:00 Test Item Value Reference Range Interpretation Comments Creatinine Lvl (test code = Creatinine 1.1 0.5-1.4 Lvl) [facility] CenterGztpnvgVJPETDBKUASB2873-09-49 23:32:00 Test Item Value Reference Range Interpretation Comments Glucose Lvl (test code = Glucose Lvl) 153 70-99 [facility] CenterSovrpwuSHRCMTXSUU7745-77-46 23:32:00 Test Item Value Reference Range Interpretation Comments MCHC (test code = MCHC) 31.7 32.0-36.0 [facility] CenterGsfhqkpYLIGGRSSFY3483-07-95 23:32:00 Test Item Value Reference Range Interpretation Comments RDW (test code = RDW) 16.6 11.5-14.5 [facility] CenterBgbqytqKQNBGRGYJG1667-22-32 23:32:00 Test Item Value Reference Range Interpretation Comments MPV (test code = MPV) 9.3 7.4-10.4 [facility] CenterTfrpxosIVNLTKRMLA1414-19-16 23:32:00 Test Item Value Reference Range Interpretation Comments MCH (test code = MCH) 28.8 pg 27.0-31.0 [facility] CenterSbnwfzqZUKETVXYGK3994-25-19 23:32:00 Test Item Value Reference Range Interpretation Comments MCV (test code = MCV) 90.7 80.0-98.0 [facility] CenterWogrxoqKGLVSICLXW5265-49-25 23:32:00 Test Item Value Reference Range Interpretation Comments RBC (test code = RBC) 4.42 4.20-5.40 [facility] CenterRjihevgAGBIHUOKTW3975-79-68 23:32:00 Test Item Value Reference Range Interpretation Comments WBC (test code = WBC) 9.4 3.7-10.4 [facility] CenterNahvbpmNKBDTXZYZG6262-66-51 23:32:00 Test Item Value Reference Range Interpretation Comments Hct (test code = Hct) 40.1 36.0-48.0 [facility] CenterVyipmgsIOLTTWFMUQ9668-40-20 23:32:00 Test Item Value Reference Range Interpretation Comments Hgb (test code = Hgb) 12.7 12.0-16.0 [facility] CenterWhcmkkiBEECVUYDFG5240-63-20 23:32:00 Test Item Value Reference Range Interpretation Comments Platelet (test code = Platelet) 177 133-450 [facility] CenterDnsfipuRYXKMEWOEK4018-73-18 23:32:00 Test Item Value Reference Range Interpretation Comments Basophils # (test code 0.1 See_Comment [Aut omated message] The = Basophils #) system which generated this result tra nsmitted reference range : <=0.2. The reference r pearl was not used to int erpret this result as normal/abnormal . [facility] CenterXahcfjjQMXUYJGPIQ0416-95-02 23:32:00 Test Item Value Reference Range Interpretation Comments Segs (test code = Segs) 69.8 45.0-75.0 [facility] CenterYpfpioaRBSPKBJENV1286-52-00 23:32:00 Test Item Value Reference Range Interpretation Comments Lymphocytes (test code = Lymphocytes) 21.1 20.0-40.0 [facility] CenterYduvkcuMGEVGPVYEX5019-63-55 23:32:00 Test Item Value Reference Range Interpretation Comments Segs-Bands # (test code = Segs-Bands #) 6.6 1.5-8.1 [facility] CenterEehvhnwECHVTEJYUC0978-02-73 23:32:00 Test Item Value Reference Range Interpretation Comments Basophils (test code = 0.9 See_Comment [Aut omated message] The Basophils) system which ge nerated this result tra nsmitted reference range : <=1.0. The reference r pearl was not used to int erpret this result as normal/abnormal . [facility] CenterXonkqibUGEBTWBBGC5763-90-78 23:32:00 Test Item Value Reference Range Interpretation Comments Lymphocytes # (test code = Lymphocytes 2.0 1.0-5.5 #) [facility] CenterIyluqqzOBYRAKZYIG8427-99-34 23:32:00 Test Item Value Reference Range Interpretation Comments Monocytes # (test code 0.6 See_Comment [Aut omated message] The = Monocytes #) system which generated this result tra nsmitted reference range : <=0.8. The reference r pearl was not used to int erpret this result as normal/abnormal . [facility] CenterTqtgzwtLTDGILERMT4242-41-03 23:32:00 Test Item Value Reference Range Interpretation Comments Monocytes (test code = Monocytes) 6.1 2.0-12.0 [facility] CenterDwdnyvoAWGZREJLYM5391-19-39 23:32:00 Test Item Value Reference Range Interpretation Comments Eosinophils (test code = 2.1 See_Comment [A utomated message] The Eosinophils) system which ge nerated this result tra nsmitted reference range : <=4.0. The reference r pearl was not used to int erpret this result as normal/abnormal . [facility]AwcsrkhADZLLIXVEG4851-54-49 23:32:00 Test Item Value Reference Range Interpretation Comments Eosinophils # (test code 0.2 See_Comment [A utomated message] The = Eosinophils #) system [employer] h generated this result tra nsmitted reference range : <=0.5. The reference r pearl was not used to int erpret this result as normal/abnormal . [facility]2015-07-13 09:34:00 Test Item Value Reference Range Interpretation Comments Magnesium Lvl (test code = Magnesium 1.9 1.8-2.4 Lvl) [facility]2015-07-13 09:34:00 Test Item Value Reference Range Interpretation Comments Phosphorus (test code = Phosphorus) 4.2 2.5-4.5 [facility] CenterPkjmhgsGAZLGKPWQMPF8771-45-45 09:34:00 Test Item Value Reference Range Interpretation Comments AGAP (test code = AGAP) 11.1 10.0-20.0 [facility] CenterWeseseyAFKTQDASFMBG5330-24-54 09:34:00 Test Item Value Reference Range Interpretation Comments eGFR (test code = eGFR) 61 [facility] CenterOebjmjrHUPUOTAPFKYI5728-75-98 09:34:00 Test Item Value Reference Range Interpretation Comments Creatinine Lvl (test code = Creatinine 0.9 0.5-1.4 Lvl) [facility] CenterFxdeevdDYQZBLGMGMUP1034-32-70 09:34:00 Test Item Value Reference Range Interpretation Comments BUN (test code = BUN) 20 7-22 [facility] CenterOzefsohSSJVGPBEIAUF8380-58-40 09:34:00 Test Item Value Reference Range Interpretation Comments Glucose Lvl (test code = Glucose Lvl) 116 70-99 [facility] CenterGlfpxvfPLUIIXVOPLUU8617-25-31 09:34:00 Test Item Value Reference Range Interpretation Comments CO2 (test code = CO2) 27 24-32 [facility] CenterAsxpkpyIEXSPGNKBFIQ5840-22-15 09:34:00 Test Item Value Reference Range Interpretation Comments Chloride Lvl (test code = Chloride Lvl) 108 95-109 [facility] CenterKjszarsJIQGTZICWAHK6795-68-85 09:34:00 Test Item Value Reference Range Interpretation Comments Potassium Lvl (test code = Potassium 4.1 3.5-5.1 Lvl) [facility] CenterAngwmyiXYDSTDZZAHRS6433-68-54 09:34:00 Test Item Value Reference Range Interpretation Comments Sodium Lvl (test code = Sodium Lvl) 142 135-145 [facility] CenterIdcoqkjAZFDIHJLTFDS4022-86-67 09:34:00 Test Item Value Reference Range Interpretation Comments Calcium Lvl (test code = Calcium Lvl) 8.6 8.5-10.5 [facility] CenterRrzzfuvXEVHLEPMYR0538-59-79 09:34:00 Test Item Value Reference Range Interpretation Comments PTT (test code = PTT) 40.9 s 22.9-35.8 [facility] CenterAnnkaspOUDYUVIRFZ3850-48-50 09:34:00 Test Item Value Reference Range Interpretation Comments INR (test code = INR) 1.45 0.85-1.17 [facility] CenterNafolpkNIMVBGWIHY8334-52-34 09:34:00 Test Item Value Reference Range Interpretation Comments PT (test code = PT) 17.9 s 12.0-14.7 [facility] CenterTnhomieYWLDVKFIQO3237-44-33 09:34:00 Test Item Value Reference Range Interpretation Comments RDW (test code = RDW) 15.2 11.5-14.5 [facility] CenterCoxthvhMGKRJGICZV7641-23-37 09:34:00 Test Item Value Reference Range Interpretation Comments Platelet (test code = Platelet) 181 133-450 [facility] CenterGekuhtvGPRIYCESOI3392-34-75 09:34:00 Test Item Value Reference Range Interpretation Comments MCHC (test code = MCHC) 32.9 32.0-36.0 [facility] CenterAwmniajMIOJEVTIBO2512-24-95 09:34:00 Test Item Value Reference Range Interpretation Comments MCH (test code = MCH) 29.0 pg 27.0-31.0 [facility] CenterIaoohfpSZAHNIZEOE5269-17-84 09:34:00 Test Item Value Reference Range Interpretation Comments WBC (test code = WBC) 7.2 3.7-10.4 [facility] CenterBqmanjmFJXBCMBQLP4697-82-85 09:34:00 Test Item Value Reference Range Interpretation Comments MPV (test code = MPV) 9.6 7.4-10.4 [facility] CenterVtrlmmrCDHAHARMGM3949-82-39 09:34:00 Test Item Value Reference Range Interpretation Comments Hct (test code = Hct) 39.9 36.0-48.0 [place] 008875-07-13 09:34:00 Test Item Value Reference Range Interpretation Comments MCV (test code = MCV) 88.2 80.0-98.0 [facility] CenterEyhgsqdUTAGKGAMNK2205-35-86 09:34:00 Test Item Value Reference Range Interpretation Comments Hgb (test code = Hgb) 13.1 12.0-16.0 [facility] CenterGotofilFDGPSFJDDQ4645-16-28 09:34:00 Test Item Value Reference Range Interpretation Comments RBC (test code = RBC) 4.52 4.20-5.40 [facility] CenterXdvjtckLHESZYDRSY2015-02-27 09:34:00 Test Item Value Reference Range Interpretation Comments Monocytes # (test code 0.7 See_Comment [Aut omated message] The = Monocytes #) system which generated this result tra nsmitted reference range : <=0.8. The reference r pearl was not used to int erpret this result as normal/abnormal . [facility] CenterDoeqscuSUYMVEOFVF0373-59-97 09:34:00 Test Item Value Reference Range Interpretation Comments Basophils # (test code 0.1 See_Comment [Aut omated message] The = Basophils #) system which generated this result tra nsmitted reference range : <=0.2. The reference r pearl was not used to int erpret this result as normal/abnormal . [facility] CenterYwofgakGFAZNNWPDI1041-91-89 09:34:00 Test Item Value Reference Range Interpretation Comments Eosinophils # (test code 0.2 See_Comment [A utomated message] The = Eosinophils #) system whic h generated this result tra nsmitted reference range : <=0.5. The reference r pearl was not used to int erpret this result as normal/abnormal . [facility] CenterPgmrvblNGNYUZMFTT5278-83-21 09:34:00 Test Item Value Reference Range Interpretation Comments Lymphocytes (test code = Lymphocytes) 24.6 20.0-40.0 [facility] CenterRsngabyRPDIGIOUZF3100-13-50 09:34:00 Test Item Value Reference Range Interpretation Comments Segs (test code = Segs) 62.5 45.0-75.0 [facility] CenterHaaxcwpKSIAMVTMMT3279-64-11 09:34:00 Test Item Value Reference Range Interpretation Comments Monocytes (test code = Monocytes) 9.8 2.0-12.0 [facility] CenterXhqaicySYJYQPWRQF1806-30-42 09:34:00 Test Item Value Reference Range Interpretation Comments Basophils (test code = 0.8 See_Comment [Aut omated message] The Basophils) system which ge nerated this result tra nsmitted reference range : <=1.0. The reference r pearl was not used to int erpret this result as normal/abnormal . [facility] CenterNaqwmbvYPJVCOQHYA5693-63-28 09:34:00 Test Item Value Reference Range Interpretation Comments Eosinophils (test code = 2.3 See_Comment [A utomated message] The Eosinophils) system which ge nerated this result tra nsmitted reference range : <=4.0. The reference r pearl was not used to int erpret this result as normal/abnormal . [facility] CenterUkowvtrESMVHHDKPH5332-36-20 09:34:00 Test Item Value Reference Range Interpretation Comments Lymphocytes # (test code = Lymphocytes 1.8 1.0-5.5 #) [facility] CenterLlxdlhuPCJRSAVVTA2322-86-72 09:34:00 Test Item Value Reference Range Interpretation Comments Segs-Bands # (test code = Segs-Bands #) 4.5 1.5-8.1 [facility]2015-07-13 09:34:00 Test Item Value Reference Range Interpretation Comments Magnesium Lvl (test code = Magnesium 1.9 1.8-2.4 Lvl) [facility]2015-07-13 09:34:00 Test Item Value Reference Range Interpretation Comments Phosphorus (test code = Phosphorus) 4.2 2.5-4.5 [facility]xd[facility]oROXIZCUQFPUO1669-[facility] 09:34:00 Test Item Value Reference Range Interpretation Comments AGAP (test code = AGAP) 11.1 10.0-20.0 [facility]TqcmfqzFATSINPJLSXW9706-06-09 09:34:00 Test Item Value Reference Range Interpretation Comments eGFR (test code = eGFR) 61 [facility]EfgznknJMTEEYERHXDU3475-81-80 09:34:00 Test Item Value Reference Range Interpretation Comments Creatinine Lvl (test code = Creatinine 0.9 0.5-1.4 Lvl) [facility]KzpfydnBGHONHBAYPYF5137-02-25 09:34:00 Test Item Value Reference Range Interpretation Comments BUN (test code = BUN) 20 7-22 [facility] CenterKymiltbOKXAVYNSCDKE5025-73-24 09:34:00 Test Item Value Reference Range Interpretation Comments Glucose Lvl (test code = Glucose Lvl) 116 70-99 [facility] CenterTktclhaNXROHIALOYEP3475-39-70 09:34:00 Test Item Value Reference Range Interpretation Comments CO2 (test code = CO2) 27 24-32 [facility] CenterLqkwokaAIQMQOGNHJQX0702-76-21 09:34:00 Test Item Value Reference Range Interpretation Comments Chloride Lvl (test code = Chloride Lvl) 108 95-109 [facility] CenterUueksvqQBEKWOZNHFIA2054-67-98 09:34:00 Test Item Value Reference Range Interpretation Comments Potassium Lvl (test code = Potassium 4.1 3.5-5.1 Lvl) [facility] CenterBabhkhqKDHQWKVNQHCA7486-46-81 09:34:00 Test Item Value Reference Range Interpretation Comments Sodium Lvl (test code = Sodium Lvl) 142 135-145 [facility] CenterKfmqldnPAWVGPBYFOWS2106-61-62 09:34:00 Test Item Value Reference Range Interpretation Comments Calcium Lvl (test code = Calcium Lvl) 8.6 8.5-10.5 [facility]UasrtbiHUKHTJMXCV5732-33-34 09:34:00 Test Item Value Reference Range Interpretation Comments PTT (test code = PTT) 40.9 s 22.9-35.8 [facility] CenterVduvuqfTWGFYZXRGB7904-62-73 09:34:00 Test Item Value Reference Range Interpretation Comments INR (test code = INR) 1.45 0.85-1.17 [facility] CenterBhjgabaUKHLBXMQZH5913-33-29 09:34:00 Test Item Value Reference Range Interpretation Comments PT (test code = PT) 17.9 s 12.0-14.7 [facility] CenterIzpvibjLUZOMBKUMK8473-10-60 09:34:00 Test Item Value Reference Range Interpretation Comments RDW (test code = RDW) 15.2 11.5-14.5 [facility] CenterTebezcvLTWHRUMYPV4617-81-30 09:34:00 Test Item Value Reference Range Interpretation Comments Platelet (test code = Platelet) 181 133-450 [facility] CenterWjveaecNGIIRDTFOF6608-17-11 09:34:00 Test Item Value Reference Range Interpretation Comments MCHC (test code = MCHC) 32.9 32.0-36.0 [facility] CenterWaczdraSGNMUCTEHN1755-84-62 09:34:00 Test Item Value Reference Range Interpretation Comments MCH (test code = MCH) 29.0 pg 27.0-31.0 [place] 008875-07-13 09:34:00 Test Item Value Reference Range Interpretation Comments WBC (test code = WBC) 7.2 3.7-10.4 [facility] CenterJtfqbzgGYZLMLXKQC3878-48-78 09:34:00 Test Item Value Reference Range Interpretation Comments MPV (test code = MPV) 9.6 7.4-10.4 [facility] CenterQnrpiwzGTHWKGZCZN6871-77-03 09:34:00 Test Item Value Reference Range Interpretation Comments Hct (test code = Hct) 39.9 36.0-48.0 [place] 008875-07-13 09:34:00 Test Item Value Reference Range Interpretation Comments MCV (test code = MCV) 88.2 80.0-98.0 [place] 008875-07-13 09:34:00 Test Item Value Reference Range Interpretation Comments Hgb (test code = Hgb) 13.1 12.0-16.0 [facility] CenterWhkbnvgZVHTMJGMZG0271-18-15 09:34:00 Test Item Value Reference Range Interpretation Comments RBC (test code = RBC) 4.52 4.20-5.40 [facility] CenterGqcewkxRYLBHPYBCA7196-36-93 09:34:00 Test Item Value Reference Range Interpretation Comments Monocytes # (test code 0.7 See_Comment [Aut omated message] The = Monocytes #) system which generated this result tra nsmitted reference range : <=0.8. The reference r pearl was not used to int erpret this result as normal/abnormal . [facility] CenterFlngydbKBPSCDBULR3248-94-49 09:34:00 Test Item Value Reference Range Interpretation Comments Basophils # (test code 0.1 See_Comment [Aut omated message] The = Basophils #) system which generated this result tra nsmitted reference range : <=0.2. The reference r pearl was not used to int erpret this result as normal/abnormal . [facility] CenterDbmskllHGZAZCUENC9725-41-50 09:34:00 Test Item Value Reference Range Interpretation Comments Eosinophils # (test code 0.2 See_Comment [A utomated message] The = Eosinophils #) system whic h generated this result tra nsmitted reference range : <=0.5. The reference r pearl was not used to int erpret this result as normal/abnormal . [facility] CenterUvwsxmlNPPUVZOZCQ5640-44-02 09:34:00 Test Item Value Reference Range Interpretation Comments Lymphocytes (test code = Lymphocytes) 24.6 20.0-40.0 [facility] CenterZwddrfnNGBXJGMLZG4844-93-99 09:34:00 Test Item Value Reference Range Interpretation Comments Segs (test code = Segs) 62.5 45.0-75.0 [facility] CenterRtaskgeHFFBQKEQQJ7385-38-08 09:34:00 Test Item Value Reference Range Interpretation Comments Monocytes (test code = Monocytes) 9.8 2.0-12.0 [facility] CenterXlguxrrTSXFYZIPGC2441-52-42 09:34:00 Test Item Value Reference Range Interpretation Comments Basophils (test code = 0.8 See_Comment [Aut omated message] The Basophils) system which ge nerated this result tra nsmitted reference range : <=1.0. The reference r pearl was not used to int erpret this result as normal/abnormal . [facility] CenterEnhqvwkTLPBLDCKHQ1880-19-94 09:34:00 Test Item Value Reference Range Interpretation Comments Eosinophils (test code = 2.3 See_Comment [A utomated message] The Eosinophils) system which ge nerated this result tra nsmitted reference range : <=4.0. The reference r pearl was not used to int erpret this result as normal/abnormal . [facility] CenterPxvwdavMUKTUUSCGG9439-55-95 09:34:00 Test Item Value Reference Range Interpretation Comments Lymphocytes # (test code = Lymphocytes 1.8 1.0-5.5 #) [facility] CenterJklgzsnLQIGBWIMMG3284-91-85 09:34:00 Test Item Value Reference Range Interpretation Comments Segs-Bands # (test code = Segs-Bands #) 4.5 1.5-8.1 [facility]2015-07-12 06:39:00 Test Item Value Reference Range Interpretation Comments eGFR (test code = eGFR) 54 [facility]2015-07-12 06:39:00 Test Item Value Reference Range Interpretation Comments Potassium Lvl (test code = Potassium 4.0 3.5-5.1 Lvl) [facility]2015-07-12 06:39:00 Test Item Value Reference Range Interpretation Comments CO2 (test code = CO2) 26 24-32 [facility]2015-07-12 06:39:00 Test Item Value Reference Range Interpretation Comments Calcium Lvl (test code = Calcium Lvl) 8.0 8.5-10.5 [facility]2015-07-12 06:39:00 Test Item Value Reference Range Interpretation Comments Total Protein (test code = Total 6.1 6.4-8.4 Protein) [facility]2015-07-12 06:39:00 Test Item Value Reference Range Interpretation Comments Chloride Lvl (test code = Chloride Lvl) 107 95-109 [facility]2015-07-12 06:39:00 Test Item Value Reference Range Interpretation Comments Alk Phos (test code = Alk Phos) 72 39-136 [facility]2015-07-12 06:39:00 Test Item Value Reference Range Interpretation Comments AST (test code = AST) 19 See_Comment [Auto mated message] The system which ge nerated this result transmit ori reference range : <=37. The reference range was not used to interpr et this result as augustin l/abnormal. [facility]2015-07-12 06:39:00 Test Item Value Reference Range Interpretation Comments Bili Total (test code = Bili Total) 0.7 0.2-1.3 [facility]2015-07-12 06:39:00 Test Item Value Reference Range Interpretation Comments Albumin Lvl (test code = Albumin Lvl) 2.9 3.5-5.0 [facility]2015-07-12 06:39:00 Test Item Value Reference Range Interpretation Comments ALT (test code = ALT) 23 See_Comment [Auto mated message] The system which ge nerated this result transmit ori reference range : <=65. The reference range was not used to interpr et this result as augustin l/abnormal. [facility]2015-07-12 06:39:00 Test Item Value Reference Range Interpretation Comments Glucose Lvl (test code = Glucose Lvl) 177 70-99 [facility]2015-07-12 06:39:00 Test Item Value Reference Range Interpretation Comments BUN (test code = BUN) 23 7-22 [facility]2015-07-12 06:39:00 Test Item Value Reference Range Interpretation Comments Sodium Lvl (test code = Sodium Lvl) 142 135-145 [facility]2015-07-12 06:39:00 Test Item Value Reference Range Interpretation Comments Creatinine Lvl (test code = Creatinine 1.0 0.5-1.4 Lvl) [facility] [id number] 06:39:00 Test Item Value Reference Range Interpretation Comments AGAP (test code = AGAP) 13.0 10.0-20.0 [facility]annCHE[facility] [id number] 06:39:00 Test Item Value Reference Range Interpretation Comments A/G Ratio (test code = A/G Ratio) 0.9 0.7-1.6 [facility]annCHE[facility] [id number] 06:39:00 Test Item Value Reference Range Interpretation Comments Globulin (test code = Globulin) 3.2 2.0-4.0 [facility]annCHE[facility] [id number] 06:39:00 Test Item Value Reference Range Interpretation Comments B/C Ratio (test code = B/C Ratio) 23 6-25 [facility]annDR[facility] [id number] 06:39:00 Test Item Value Reference Range Interpretation Comments UDS Note (test code = See Note *NA*(06/08/15 UDS Note) 1:39 AM) [facility]ann[facility] [id number] 06:39:00 Test Item Value Reference Range Interpretation Comments U Opiate Scr (test Negative *NA*(06/08/15 code = U Opiate Scr) 1:39 AM) [facility]ann[facility] [id number] 06:39:00 Test Item Value Reference Range Interpretation Comments U Cocaine Scr (test Negative *NA*(06/08/15 code = U Cocaine Scr) 1:39 AM) [facility]ann[facility] [id number] 06:39:00 Test Item Value Reference Range Interpretation Comments U Cannab Scr (test Negative *NA*(06/08/15 code = U Cannab Scr) 1:39 AM) [facility]ann[facility] [id number] 06:39:00 Test Item Value Reference Range Interpretation Comments U Phencyc Scr (test Negative *NA*(06/08/15 code = U Phencyc Scr) 1:39 AM) [facility]ann[facility] [id number] 06:39:00 Test Item Value Reference Range Interpretation Comments U Amph Scr (test code Negative *NA*(06/08/15 = U Amph Scr) 1:39 AM) [facility] [id number] 06:39:00 Test Item Value Reference Range Interpretation Comments U Benzodia Scr (test Negative *NA*(06/08/15 code = U Benzodia Scr) 1:39 AM) [facility]2015-07-12 06:39:00 Test Item Value Reference Range Interpretation Comments U Luci Scr (test code Negative *NA*(06/08/15 = U Luci Scr) 1:39 AM) [facility] CenterKcjtkxkDUSFWWBMST1692-38-37 06:39:00 Test Item Value Reference Range Interpretation Comments Lymphocytes # (test code = Lymphocytes 2.2 1.0-5.5 #) [facility] CenterAquseibEPWZAORUQJ3603-55-33 06:39:00 Test Item Value Reference Range Interpretation Comments Basophils # (test code 0.1 See_Comment [Aut omated message] The = Basophils #) system which generated this result tra nsmitted reference range : <=0.2. The reference r pearl was not used to int erpret this result as normal/abnormal . [facility] CenterNjxixizRRIRARZAKN8669-22-94 06:39:00 Test Item Value Reference Range Interpretation Comments Eosinophils # (test code 0.2 See_Comment [A utomated message] The = Eosinophils #) system whic h generated this result tra nsmitted reference range : <=0.5. The reference r pearl was not used to int erpret this result as normal/abnormal . [facility] CenterTnhzpzwQFSHKNAOLN7409-52-67 06:39:00 Test Item Value Reference Range Interpretation Comments Monocytes # (test code 0.6 See_Comment [Aut omated message] The = Monocytes #) system which generated this result tra nsmitted reference range : <=0.8. The reference r pearl was not used to int erpret this result as normal/abnormal . [facility] CenterPzcervtTKLFCUBBNV8509-02-92 06:39:00 Test Item Value Reference Range Interpretation Comments Monocytes (test code = Monocytes) 7.9 2.0-12.0 [facility] CenterCfzfsfjOBKISXYBRS6971-35-67 06:39:00 Test Item Value Reference Range Interpretation Comments Segs-Bands # (test code = Segs-Bands #) 4.5 1.5-8.1 [facility] CenterQmqbpwoDFZIMOZTGZ3851-29-38 06:39:00 Test Item Value Reference Range Interpretation Comments Eosinophils (test code = 2.4 See_Comment [A utomated message] The Eosinophils) system which ge nerated this result tra nsmitted reference range : <=4.0. The reference r pearl was not used to int erpret this result as normal/abnormal . [facility] CenterBxgcukuAOZPDUPECC8871-42-71 06:39:00 Test Item Value Reference Range Interpretation Comments Basophils (test code = 0.8 See_Comment [Aut omated message] The Basophils) system which ge nerated this result tra nsmitted reference range : <=1.0. The reference r pearl was not used to int erpret this result as normal/abnormal . [facility] CenterNjrwvwqNILLETOBCA8686-81-68 06:39:00 Test Item Value Reference Range Interpretation Comments Segs (test code = Segs) 59.7 45.0-75.0 [facility] CenterLbauxonMKVABNBMXF5631-94-96 06:39:00 Test Item Value Reference Range Interpretation Comments Lymphocytes (test code = Lymphocytes) 29.2 20.0-40.0 [facility] CenterZbqjfeqBYFRQCMWAN7720-84-00 06:39:00 Test Item Value Reference Range Interpretation Comments PT (test code = PT) 21.6 s 12.0-14.7 [facility] CenterOjydnjvXDIVNTLPMO9984-71-52 06:39:00 Test Item Value Reference Range Interpretation Comments INR (test code = INR) 1.83 0.85-1.17 [facility] CenterQyhghuiCLIVQHIFTL6162-46-40 06:39:00 Test Item Value Reference Range Interpretation Comments Platelet (test code = Platelet) 187 133-450 [facility] CenterHfeumjeEOQCTTZGFW4636-81-22 06:39:00 Test Item Value Reference Range Interpretation Comments RDW (test code = RDW) 14.9 11.5-14.5 [facility] CenterYwqzosqFNJDLFRVLN7899-15-12 06:39:00 Test Item Value Reference Range Interpretation Comments Hct (test code = Hct) 39.8 36.0-48.0 [facility] CenterHzucctaUZEOXXVAJA6335-44-10 06:39:00 Test Item Value Reference Range Interpretation Comments MPV (test code = MPV) 10.0 7.4-10.4 [facility] CenterYfybuedSJOFQNNMMN0860-95-68 06:39:00 Test Item Value Reference Range Interpretation Comments MCHC (test code = MCHC) 32.9 32.0-36.0 [facility] CenterUgtmzgtFCIAGIQXGK4651-87-13 06:39:00 Test Item Value Reference Range Interpretation Comments MCH (test code = MCH) 29.4 pg 27.0-31.0 [facility]DA[facility]WHYR4486[facility]64[facility]13 06:39:00 Test Item Value Reference Range Interpretation Comments MCV (test code = MCV) 89.4 80.0-98.0 [facility] MichiganRbjzssnXLWNGDGSQA6358-02-03 06:39:00 Test Item Value Reference Range Interpretation Comments Hgb (test code = Hgb) 13.1 12.0-16.0 [facility]CmxllcrBHSZOJFKGG6362-81-36 06:39:00 Test Item Value Reference Range Interpretation Comments RBC (test code = RBC) 4.45 4.20-5.40 [facility]YzqywabQSIVQVRXKX3888-53-61 06:39:00 Test Item Value Reference Range Interpretation Comments WBC (test code = WBC) 7.6 3.7-10.4 [facility] MichiganWglomhaNKOVJZROYQ4498-08-29 06:39:00 Test Item Value Reference Range Interpretation Comments PTT (test code = PTT) 38.9 s 22.9-35.8 [facility]GusoaywIEYDAP1325-61-54 06:39:00 Test Item Value Reference Range Interpretation Comments CHD Risk (test code = CHD Risk) 3.33 3.90-5.80 [facility] HospitalAvcmhfxVPOVIR8354-22-91 06:39:00 Test Item Value Reference Range Interpretation Comments VLDL (test code = VLDL) 28 [facility] HospitalFarivggBSGSCC2358-65-36 06:39:00 Test Item Value Reference Range Interpretation Comments LDL (Calculated) (test code = LDL 72 (Calculated)) [facility] HospitalZvtsoytRJULWA5136-88-04 06:39:00 Test Item Value Reference Range Interpretation Comments Chol (test code = Chol) 143 [facility] HospitalExxpsghLJONGV7407-56-59 06:39:00 Test Item Value Reference Range Interpretation Comments Trig (test code = Trig) 141 [facility] HospitalPtauydsARKRLN4663-68-96 06:39:00 Test Item Value Reference Range Interpretation Comments HDL (test code = HDL) 43 [facility] OTDKXMICD7858-36-94 06:39:00 Test Item Value Reference Range Interpretation Comments Hgb A1C (test code = Hgb A1C) 6.4 [facility] HospitalURINE AND [id number] 06:39:00 Test Item Value Reference Range Interpretation Comments UA Bacteria (test code = UA Occasional /HPF Bacteria) [facility] AND [id number] 06:39:00 Test Item Value Reference Range Interpretation Comments UA Mucus (test code = UA Mucus) Few /LPF [facility] AND [id number] 06:39:00 Test Item Value Reference Range Interpretation Comments UA WBC (test code = 1 See_Comment [Automa ori message] The UA WBC) system which ge nerated this result transmit ori reference range : <=5. The reference range was not used to interpr et this result as augustin l/abnormal. [facility] AND [id number] 06:39:00 Test Item Value Reference Range Interpretation Comments UA Sq Epi (test code = UA Sq Epi) Few /LPF [facility] AND [id number] 06:39:00 Test Item Value Reference Range Interpretation Comments UA Nitrite (test code Negative (06/08/15 1:39 = UA Nitrite) AM) [facility] AND [id number] 06:39:00 Test Item Value Reference Range Interpretation Comments UA Leuk Est (test Negative (06/08/15 1:39 code = UA Leuk Est) AM) [facility] AND [id number] 06:39:00 Test Item Value Reference Range Interpretation Comments UA Urobilinogen (test code = UA 0.2 0.1-1.0 Urobilinogen) [facility] AND [id number] 06:39:00 Test Item Value Reference Range Interpretation Comments UA Spec Grav (test code = UA Spec 1.010 1 Grav) [facility] AND [id number] 06:39:00 Test Item Value Reference Range Interpretation Comments UA pH (test code = UA pH) 6.0 1 5.0-8.0 [facility] AND [id number] 06:39:00 Test Item Value Reference Range Interpretation Comments UA Protein (test code = UA Negative mg/dL Protein) [facility] AND [id number] 06:39:00 Test Item Value Reference Range Interpretation Comments UA Glucose (test code = UA Negative mg/dL Glucose) [facility] AND [id number] 06:39:00 Test Item Value Reference Range Interpretation Comments UA Ketones (test code = UA Negative mg/dL Ketones) [facility] AND [id number] 06:39:00 Test Item Value Reference Range Interpretation Comments UA Blood (test code = Negative (06/08/15 1:39 UA Blood) AM) [facility] AND [id number] 06:39:00 Test Item Value Reference Range Interpretation Comments UA Bili (test code = Negative *NA*(06/08/15 UA Bili) 1:39 AM) [facility] AND [id number] 06:39:00 Test Item Value Reference Range Interpretation Comments UA Turbidity (test code Slight Cloudy = UA Turbidity) (06/08/15 1:39 AM) [facility] AND [id number] 06:39:00 Test Item Value Reference Range Interpretation Comments UA Color (test code = Yellow *NA*(06/08/15 UA Color) 1:39 AM) [facility]2015-07-12 06:39:00 Test Item Value Reference Range Interpretation Comments eGFR (test code = eGFR) 54 [facility]2015-07-12 06:39:00 Test Item Value Reference Range Interpretation Comments Potassium Lvl (test code = Potassium 4.0 3.5-5.1 Lvl) [facility]2015-07-12 06:39:00 Test Item Value Reference Range Interpretation Comments CO2 (test code = CO2) 26 24-32 [facility]2015-07-12 06:39:00 Test Item Value Reference Range Interpretation Comments Calcium Lvl (test code = Calcium Lvl) 8.0 8.5-10.5 [facility]2015-07-12 06:39:00 Test Item Value Reference Range Interpretation Comments Total Protein (test code = Total 6.1 6.4-8.4 Protein) [facility]2015-07-12 06:39:00 Test Item Value Reference Range Interpretation Comments Chloride Lvl (test code = Chloride Lvl) 107 95-109 [facility]2015-07-12 06:39:00 Test Item Value Reference Range Interpretation Comments Alk Phos (test code = Alk Phos) 72 39-136 [facility]2015-07-12 06:39:00 Test Item Value Reference Range Interpretation Comments AST (test code = AST) 19 See_Comment [Auto mated message] The system which ge nerated this result transmit ori reference range : <=37. The reference range was not used to interpr et this result as augustin l/abnormal. [facility]2015-07-12 06:39:00 Test Item Value Reference Range Interpretation Comments Bili Total (test code = Bili Total) 0.7 0.2-1.3 [facility]2015-07-12 06:39:00 Test Item Value Reference Range Interpretation Comments Albumin Lvl (test code = Albumin Lvl) 2.9 3.5-5.0 [facility]2015-07-12 06:39:00 Test Item Value Reference Range Interpretation Comments ALT (test code = ALT) 23 See_Comment [Auto mated message] The system which ge nerated this result transmit ori reference range : <=65. The reference range was not used to interpr et this result as augustin l/abnormal. [facility]2015-07-12 06:39:00 Test Item Value Reference Range Interpretation Comments Glucose Lvl (test code = Glucose Lvl) 177 70-99 [facility]2015-07-12 06:39:00 Test Item Value Reference Range Interpretation Comments BUN (test code = BUN) 23 7-22 [facility]2015-07-12 06:39:00 Test Item Value Reference Range Interpretation Comments Sodium Lvl (test code = Sodium Lvl) 142 135-145 [facility]2015-07-12 06:39:00 Test Item Value Reference Range Interpretation Comments Creatinine Lvl (test code = Creatinine 1.0 0.5-1.4 Lvl) [facility]2015-07-12 06:39:00 Test Item Value Reference Range Interpretation Comments AGAP (test code = AGAP) 13.0 10.0-20.0 [facility]2015-07-12 06:39:00 Test Item Value Reference Range Interpretation Comments A/G Ratio (test code = A/G Ratio) 0.9 0.7-1.6 [facility]2015-07-12 06:39:00 Test Item Value Reference Range Interpretation Comments Globulin (test code = Globulin) 3.2 2.0-4.0 [facility]2015-07-12 06:39:00 Test Item Value Reference Range Interpretation Comments B/C Ratio (test code = B/C Ratio) 23 6-25 [facility] [id number] 06:39:00 Test Item Value Reference Range Interpretation Comments UDS Note (test code = See Note *NA*(06/08/15 UDS Note) 1:39 AM) [facility] [id number] 06:39:00 Test Item Value Reference Range Interpretation Comments U Opiate Scr (test Negative *NA*(06/08/15 code = U Opiate Scr) 1:39 AM) [facility] [id number] 06:39:00 Test Item Value Reference Range Interpretation Comments U Cocaine Scr (test Negative *NA*(06/08/15 code = U Cocaine Scr) 1:39 AM) [facility] [id number] 06:39:00 Test Item Value Reference Range Interpretation Comments U Cannab Scr (test Negative *NA*(06/08/15 code = U Cannab Scr) 1:39 AM) [facility] [id number] 06:39:00 Test Item Value Reference Range Interpretation Comments U Phencyc Scr (test Negative *NA*(06/08/15 code = U Phencyc Scr) 1:39 AM) [facility] [id number] 06:39:00 Test Item Value Reference Range Interpretation Comments U Amph Scr (test code Negative *NA*(06/08/15 = U Amph Scr) 1:39 AM) [facility] [id number] 06:39:00 Test Item Value Reference Range Interpretation Comments U Benzodia Scr (test Negative *NA*(06/08/15 code = U Benzodia Scr) 1:39 AM) [facility] [id number] 06:39:00 Test Item Value Reference Range Interpretation Comments U Luci Scr (test code Negative *NA*(06/08/15 = U Luci Scr) 1:39 AM) [id number] 06:39:00 Test Item Value Reference Range Interpretation Comments Lymphocytes # (test code = Lymphocytes 2.2 1.0-5.5 #) [facility] [id number] 06:39:00 Test Item Value Reference Range Interpretation Comments Basophils # (test code 0.1 See_Comment [Aut omated message] The = Basophils #) system which generated this result tra nsmitted reference range : <=0.2. The reference r pearl was not used to int erpret this result as normal/abnormal . [id number] 06:39:00 Test Item Value Reference Range Interpretation Comments Eosinophils # (test code 0.2 See_Comment [A utomated message] The = Eosinophils #) system wh h generated this result tra nsmitted reference range : <=0.5. The reference r pearl was not used to int erpret this result as normal/abnormal . [facility] Cent[id number] 06:39:00 Test Item Value Reference Range Interpretation Comments Monocytes # (test code 0.6 See_Comment [Aut omated message] The = Monocytes #) system which generated this result tra nsmitted reference range : <=0.8. The reference r pearl was not used to int erpret this result as normal/abnormal . [facility] [id number] 06:39:00 Test Item Value Reference Range Interpretation Comments Monocytes (test code = Monocytes) 7.9 2.0-12.0 [facility] CenterXugfwywNFQFPUSEYX8236-31-20 06:39:00 Test Item Value Reference Range Interpretation Comments Segs-Bands # (test code = Segs-Bands #) 4.5 1.5-8.1 [facility] CenterHzpvetsWDKWDLJZYA0912-24-29 06:39:00 Test Item Value Reference Range Interpretation Comments Eosinophils (test code = 2.4 See_Comment [A utomated message] The Eosinophils) system which ge nerated this result tra nsmitted reference range : <=4.0. The reference r pearl was not used to int erpret this result as normal/abnormal . [facility] CenterNeoovhwGIQSOPWZLU2313-66-91 06:39:00 Test Item Value Reference Range Interpretation Comments Basophils (test code = 0.8 See_Comment [Aut omated message] The Basophils) system which ge nerated this result tra nsmitted reference range : <=1.0. The reference r pearl was not used to int erpret this result as normal/abnormal . [facility] CenterMydgnrwTHREKYEFQQ1366-32-50 06:39:00 Test Item Value Reference Range Interpretation Comments Segs (test code = Segs) 59.7 45.0-75.0 [facility] CenterDizdyqbDPRDTJYVLJ6489-39-38 06:39:00 Test Item Value Reference Range Interpretation Comments Lymphocytes (test code = Lymphocytes) 29.2 20.0-40.0 [facility] CenterBqcqadeEMUYFUJFSV6329-26-63 06:39:00 Test Item Value Reference Range Interpretation Comments PT (test code = PT) 21.6 s 12.0-14.7 [facility] CenterUiqmmbcYMUNXWIHFY8179-69-11 06:39:00 Test Item Value Reference Range Interpretation Comments INR (test code = INR) 1.83 0.85-1.17 [facility] CenterRoygxgpCUNFZWGEVR5546-64-73 06:39:00 Test Item Value Reference Range Interpretation Comments Platelet (test code = Platelet) 187 133-450 [facility] CenterWltitzeDMPYIHRCWV0852-58-75 06:39:00 Test Item Value Reference Range Interpretation Comments RDW (test code = RDW) 14.9 11.5-14.5 [facility] CenterFhbpfpmXTQURNJOHG5134-31-60 06:39:00 Test Item Value Reference Range Interpretation Comments Hct (test code = Hct) 39.8 36.0-48.0 [facility] CenterKxmrdrxPMSCFBAZEH4016-62-67 06:39:00 Test Item Value Reference Range Interpretation Comments MPV (test code = MPV) 10.0 7.4-10.4 [facility] CenterZgwvlokJCZNKSROTQ7907-51-43 06:39:00 Test Item Value Reference Range Interpretation Comments MCHC (test code = MCHC) 32.9 32.0-36.0 [facility] CenterCerghrmOITPXNBVQS3253-00-97 06:39:00 Test Item Value Reference Range Interpretation Comments MCH (test code = MCH) 29.4 pg 27.0-31.0 [facility] CenterKvmmcybIVPJLPGTDO1849-63-94 06:39:00 Test Item Value Reference Range Interpretation Comments MCV (test code = MCV) 89.4 80.0-98.0 [facility] CenterNuvzijqOZIKCTSVDT1474-85-12 06:39:00 Test Item Value Reference Range Interpretation Comments Hgb (test code = Hgb) 13.1 12.0-16.0 [facility] CenterKtmcjjwUNSHLPBKUF5591-74-28 06:39:00 Test Item Value Reference Range Interpretation Comments RBC (test code = RBC) 4.45 4.20-5.40 [facility] CenterAuwvikqGEWRVACHYH6484-93-75 06:39:00 Test Item Value Reference Range Interpretation Comments WBC (test code = WBC) 7.6 3.7-10.4 [facility]bl[facility]jvCNYOUGSSVM7858-05-79 06:39:00 Test Item Value Reference Range Interpretation Comments PTT (test code = PTT) 38.9 s 22.9-35.8 [facility] HospitalUvxoxgpCPUCEY0267-59-98 06:39:00 Test Item Value Reference Range Interpretation Comments CHD Risk (test code = CHD Risk) 3.33 3.90-5.80 [facility] HospitalKjqbpbyMKZPWF4667-07-04 06:39:00 Test Item Value Reference Range Interpretation Comments VLDL (test code = VLDL) 28 [facility] HospitalIlgulkzEPGJIO6290-11-01 06:39:00 Test Item Value Reference Range Interpretation Comments LDL (Calculated) (test code = LDL 72 (Calculated)) [facility] HospitalXkljnmcKSWJQB6522-45-99 06:39:00 Test Item Value Reference Range Interpretation Comments Chol (test code = Chol) 143 [facility] HospitalDzwrzfnFGBVUU0559-81-22 06:39:00 Test Item Value Reference Range Interpretation Comments Trig (test code = Trig) 141 [facility] HospitalAfvxbgdBPHJIF1600-40-21 06:39:00 Test Item Value Reference Range Interpretation Comments HDL (test code = HDL) 43 [facility] [id number] 06:39:00 Test Item Value Reference Range Interpretation Comments Hgb A1C (test code = Hgb A1C) 6.4 [facility] AND [id number] 06:39:00 Test Item Value Reference Range Interpretation Comments UA Bacteria (test code = UA Occasional /HPF Bacteria) [facility] AND [id number] 06:39:00 Test Item Value Reference Range Interpretation Comments UA Mucus (test code = UA Mucus) Few /LPF [facility] AND [id number] 06:39:00 Test Item Value Reference Range Interpretation Comments UA WBC (test code = 1 See_Comment [Automa ori message] The UA WBC) system which ge nerated this result transmit ori reference range : <=5. The reference range was not used to interpr et this result as augustin l/abnormal. [facility] [id number] 06:39:00 Test Item Value Reference Range Interpretation Comments UA Sq Epi (test code = UA Sq Epi) Few /LPF [facility] AND [id number] 06:39:00 Test Item Value Reference Range Interpretation Comments UA Nitrite (test code Negative (06/08/15 1:39 = UA Nitrite) AM) [facility] AND [id number] 06:39:00 Test Item Value Reference Range Interpretation Comments UA Leuk Est (test Negative (06/08/15 1:39 code = UA Leuk Est) AM) [facility] AND [id number] 06:39:00 Test Item Value Reference Range Interpretation Comments UA Urobilinogen (test code = UA 0.2 0.1-1.0 Urobilinogen) [facility] AND [id number] 06:39:00 Test Item Value Reference Range Interpretation Comments UA Spec Grav (test code = UA Spec 1.010 1 Grav) [facility] AND [id number] 06:39:00 Test Item Value Reference Range Interpretation Comments UA pH (test code = UA pH) 6.0 1 5.0-8.0 [facility] AND [id number] 06:39:00 Test Item Value Reference Range Interpretation Comments UA Protein (test code = UA Negative mg/dL Protein) [facility] AND [id number] 06:39:00 Test Item Value Reference Range Interpretation Comments UA Glucose (test code = UA Negative mg/dL Glucose) [facility] AND [id number] 06:39:00 Test Item Value Reference Range Interpretation Comments UA Ketones (test code = UA Negative mg/dL Ketones) [facility] AND [id number] 06:39:00 Test Item Value Reference Range Interpretation Comments UA Blood (test code = Negative (06/08/15 1:39 UA Blood) AM) [facility] AND [id number] 06:39:00 Test Item Value Reference Range Interpretation Comments UA Bili (test code = Negative *NA*(06/08/15 UA Bili) 1:39 AM) [facility] AND [id number] 06:39:00 Test Item Value Reference Range Interpretation Comments UA Turbidity (test code Slight Cloudy = UA Turbidity) (06/08/15 1:39 AM) [facility] AND [id number] 06:39:00 Test Item Value Reference Range Interpretation Comments UA Color (test code = Yellow *NA*(06/08/15 UA Color) 1:39 AM) [facility]
[2022-08-15 12:57] LABS: Hematocrit 38.4 % (36.0-45.0); Lymphocytes % 17.6 % (15.3-44.8); MCV 90.4 fL (80-100); MPV 9.7 fL (7.6-11.3); RBC Red Blood Cell Count 4.25 M/uL (3.86-4.86)
--- NOTE | 2022-08-15 13:42 | RAD REPORT ---
EXAM DESCRIPTION: US - Lower Extremity Artery Uni Ltd - 08/15/2022 1:21 pm CLINICAL HISTORY: Pain , history of vascular surgery in the distal lower extremity with soft tissue scarring COMPARISON: <Comparisons> Left lower extremity arterial study 07/21/2022 TECHNIQUE: Doppler evaluation of the left lower arterial tree performed. Waveforms and velocity valu es were obtained along with visual inspection. FINDINGS: Biphasic waveform pattern seen in the common femoral artery with the superficial femoral a nd popliteal arteries biphasic to triphasic in appearance. Posterior tibial artery is biphasic. Dorsa lis pedis artery was biphasic predominantly.No occlusion or focal flow restricting lesion identifiabl e. No suspicious velocity value or waveform pattern seen. IMPRESSION: No occlusion or focal flow restricting lesion identifiable. Significant change from the July 21 study is not identified.
--- NOTE | 2022-08-15 13:44 | RAD REPORT ---
EXAM DESCRIPTION: US - Extremity Venous Uni Ltd - 08/15/2022 1:21 pm CLINICAL HISTORY: Pain, history left lower extremity vascular surgery COMPARISON: July 21 TECHNIQUE: Real-time sonographic evaluation of the left lower extremity deep venous system was perfo rmed. FINDINGS: Normal compressibility, flow augmentation, phasic flow and spontaneous flow are identified in the left lower extremity common femoral, superficial femoral, popliteal and posterior tibial vein s. No intraluminal filling defects seen. IMPRESSION: No DVT in the left lower extremity.
--- NOTE | 2022-08-15 13:48 | RAD REPORT ---
EXAM DESCRIPTION: RAD - Foot Left 2 View - 08/15/2022 1:40 pm CLINICAL HISTORY: PAIN, nonhealing wound left foot, location not specified COMPARISON: July 21 FINDINGS: No acute or subacute fracture changes seen. No periosteal reaction or bone destructive pro cess seen. Pes planus configuration again noted. A very minimal plantar spur is present. Midfoot haresh articular marginal spurring noted. Dense arterial tree calcifications are present. No air or foreign body seen in the soft tissues. IMPRESSION: Osteopenic and degenerative bony changes are present with no destructive or pathologic b one process seen. Site of wound was not specified. No air or abnormal fluid collections seen in the soft tissues.
--- NOTE | 2022-08-15 14:34 | EDPHYS ---
Physician Documentation [facility] Name: Lilo Zuleta Age: 87 yrs Sex: Female : 1935 Arrival Date: 08/15/2022 Time: 11:42 Bed 16 Private MD: Gilbert Peña ED Physician Michele Thornton HPI: 08/15 12:27 This 87 yrs old Female presents to ER via Wheelchair with complaints of Foot Pain - ms3 swelling. 12:27 87-year-old female with past medical history of atrial fibrillation, CVA, myocardial ms3 infarction presents for left foot erythema and swelling for 3 weeks. Patient's daughter states patient has taken Keflex 500 mg, Cipro 500 mg, and is currently taking Cipro 750 mg. Patient states her left foot pain is a 7/10 and described as sharp. Patient states it is painful to walk. Patient denies alleviating factors.. Historical: - Allergies: 12:02 gentamicin sulfate (PF); iw 12:02 Iodine; iw 12:02 Levofloxacin; iw 12:02 PENICILLINS; iw - PMHx: 12:02 Atrial fibrillation; Cerebrovascular accident; Myocardial infarction; Seizures; iw Congestive heart failure; Hypertension; TIA; - PSHx: 12:02 skin grafts on left leg; Thyroidectomy; iw - Immunization history:: Adult Immunizations up to date. - Social history:: Smoking status: Patient denies any tobacco usage or history of. ROS: 12:27 Constitutional: Negative for fever, and chills. Neck: Negative for injury, pain, and ms3 swelling, Cardiovascular: Negative for chest pain, and palpitations. Respiratory: Negative for shortness of breath, cough, wheezing, and pleuritic chest pain, Abdomen/GI: Negative for abdominal pain, nausea, vomiting, diarrhea, and constipation. 12:27 Psych: Negative for depression, anxiety, suicide ideation, homicidal ideation, and hallucinations. 12:27 MS/extremity: Positive for Left foot swelling and erythema. 12:27 All other systems are negative. Exam: 12:27 Constitutional: This is a well developed, well nourished patient who is awake, alert, ms3 and in no acute distress. Head/Face: Normocephalic, atraumatic. Neck: Trachea midline, no cervical lymphadenopathy. Supple, full range of motion without nuchal rigidity, or vertebral point tenderness. No Meningismus. Chest/axilla: Normal chest wall appearance and motion. Nontender with no deformity. Cardiovascular: Regular rate and rhythm with a normal S1 and S2. No gallops, murmurs, or rubs. Normal PMI, no JVD. No pulse deficits. Respiratory: Lungs have equal breath sounds bilaterally, clear to auscultation and percussion. No rales, rhonchi or wheezes noted. No increased work of breathing, no retractions or nasal flaring. Back: No spinal tenderness. No costovertebral tenderness. Full range of motion. 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 12:27 Skin: Erythema of distal left foot.. Vital Signs: 11:59 BP 95 / 72; Pulse 82; Resp 20 S; Temp 98.3; Pulse Ox 96% on R/A; Weight 79.38 kg; iw Height 5 ft. 5 in. (165.10 cm); 13:06 BP 108 / 70; Pulse 59; Resp 16; Pulse Ox 95% ; bp 14:08 BP 99 / 66; Pulse 73; Resp 16; Pulse Ox 94% ; bp 11:59 Body Mass Index 29.12 (79.38 kg, 165.10 cm) iw MDM: 12:27 Patient medically screened. ms3 12:30 Differential diagnosis: PAD vs Venous insufficiency vs DVT vs Osteomyelitis. ms3 18:03 Data reviewed: vital signs, nurses notes, lab test result(s), radiologic studies, and ms3 as a result, I will discharge patient. Counseling: I had a detailed discussion with the patient and/or guardian regarding: the historical points, exam findings, and any diagnostic results supporting the discharge/admit diagnosis, lab results, radiology results, the need for outpatient follow up, to return to the emergency department if symptoms worsen or persist or if there are any questions or concerns that arise at home. ED course: Labs and imaging were discussed with patient and her daughter. Patient to follow-up with her primary care physician in 2 to 3 days. Patient and her daughter understand and agree with plan. All questions were answered. Return precautions discussed include worsening symptoms, or any other concerns. 08/15 12:27 Order name: CBC with Diff; Complete Time: 13:10 ms3 08/15 12:27 Order name: BMP; Complete Time: 13:10 ms3 08/15 12:27 Order name: Lower Extremity Artery Uni Ltd US; Complete Time: 13:58 ms3 08/15 12:27 Order name: Extremity Venous Uni Ltd US; Complete Time: 13:58 ms3 08/15 12:31 Order name: XRAY Foot LEFT 2 View; Complete Time: 13:58 ms3 Administered Medications: No medications were administered Disposition Summary: 08/15/22 14:33 Discharge Ordered Location: Home ms3 Condition: Stable ms3 Diagnosis - Pain in left foot ms3 - Left foot swelling ms3 Followup: ms3 - With: Gilbert Peña MD - When: 2 - 3 days - Reason: Recheck today's complaints Discharge Instructions: - Discharge Summary Sheet ms3 - Foot Pain ms3 Forms: - Medication Reconciliation Form ms3 - Thank You Letter ms3 - Antibiotic Education ms3 - Prescription Opioid Use ms3 Signatures: Dispatcher [employer] Marilyn Fregoso RN RN iw Peltier, Brian, RN RN bp Sims, Marcus, DO DO ms3
--- NOTE | 2022-08-15 14:34 | ER ---
Nurse's Notes [facility] Name: Lilo Zuleta Age: 87 yrs Sex: Female : 1935 Arrival Date: 08/15/2022 Time: 11:42 Bed 16 Private MD: Gilbert Peña Diagnosis: Pain in left foot;Left foot swelling Presentation: 08/15 12:00 Chief complaint: Patient states: has a sore left foot, on 3rd course of abx and has not iw healed up , Dr. Worthy and Dr. Peña manage her care of the foot , has taken cipro 500, cipro 750, cephalexin 500. Coronavirus screen: At this time, the client does not indicate any symptoms associated with coronavirus-19. Ebola Screen: Patient negative for fever greater than or equal to 101.5 degrees Fahrenheit, and additional compatible Ebola Virus Disease symptoms Patient denies exposure to infectious person. Patient denies travel to an Ebola-affected area in the 21 days before illness onset. No symptoms or risks identified at this time. Initial Sepsis Screen: Does the patient meet any 2 criteria? No. Patient's initial sepsis screen is negative. Does the patient have a suspected source of infection? No. Patient's initial sepsis screen is negative. Risk Assessment: Do you want to hurt yourself or someone else? Patient reports no desire to harm self or others. Onset of symptoms. 12:00 Method Of Arrival: Wheelchair iw 12:00 Acuity: HAVEN 3 iw Triage Assessment: 12:08 General: Appears in no apparent distress. uncomfortable, Behavior is appropriate for bp age. Pain: Complains of pain in left foot. EENT: No deficits noted. Neuro: No deficits noted. Cardiovascular: No deficits noted. Respiratory: No deficits noted. GI: No signs and/or symptoms were reported involving the gastrointestinal system. : No signs and/or symptoms were reported regarding the genitourinary system. Derm: Wound noted left foot. Musculoskeletal: No deficits noted. Historical: - Allergies: 12:02 gentamicin sulfate (PF); iw 12:02 Iodine; iw 12:02 Levofloxacin; iw 12:02 PENICILLINS; iw - PMHx: 12:02 Atrial fibrillation; Cerebrovascular accident; Myocardial infarction; Seizures; iw Congestive heart failure; Hypertension; TIA; - PSHx: 12:02 skin grafts on left leg; Thyroidectomy; iw - Immunization history:: Adult Immunizations up to date. - Social history:: Smoking status: Patient denies any tobacco usage or history of. Screenin:08 Abuse screen: Denies threats or abuse. Denies injuries from another. Nutritional bp screening: No deficits noted. Tuberculosis screening: No symptoms or risk factors identified. Fall Risk None identified. Assessment: 12:08 General: SEE TRIAGE NOTE. bp 13:05 Reassessment: U/S AT BS. bp 14:08 Reassessment: No changes from previously documented assessment. Patient and/or family bp updated on plan of care and expected duration. Pain level reassessed. Vital Signs: 11:59 BP 95 / 72; Pulse 82; Resp 20 S; Temp 98.3; Pulse Ox 96% on R/A; Weight 79.38 kg; iw Height 5 ft. 5 in. (165.10 cm); 13:06 BP 108 / 70; Pulse 59; Resp 16; Pulse Ox 95% ; bp 14:08 BP 99 / 66; Pulse 73; Resp 16; Pulse Ox 94% ; bp 11:59 Body Mass Index 29.12 (79.38 kg, 165.10 cm) iw ED Course: 11:42 Patient arrived in ED. as 11:42 Gilbert Peña MD is Private Physician. as 12:01 Triage completed. iw 12:03 Michele Thornton DO is Attending Physician. ms3 12:07 Sam Grey, ANASTASIIA is Primary Nurse. bp 12:08 Patient has correct armband on for positive identification. Bed in low position. Call bp light in reach. Side rails up X2. 12:30 Inserted saline lock: 22 gauge in left forearm, using aseptic technique. Blood bp collected. 13:23 Lower Extremity Artery Uni Ltd US In Process Unspecified. EDMS 13:23 Extremity Venous Uni Ltd US In Process Unspecified. EDMS 13:42 XRAY Foot LEFT 2 View In Process Unspecified. EDMS 14:33 Gilbert Peña MD is Referral Physician. ms3 Administered Medications: No medications were administered Medication: 12:08 VIS not applicable for this client. bp Outcome: 14:33 Discharge ordered by . ms3 15:27 Patient left the ED. ss Signatures: Dispatcher [employer] Danette Pineda as Marilyn Menon, ANASTASIIA Jackie Covington, Sam Garrido RN, Michele Palomo RN, DO ms3 Corrections: (The following items were deleted from the chart) 12: 12:00 Chief complaint: Patient states: has a sore left foot, on 3rd course of abx and iw has not healed up , Dr. Worthy and Dr. Peña manage her care of the foot iw : 11:59 Pulse Ox 96% RA; Temp 98.3F; iw iw
[2022-08-17 01:08] VITALS: TEMP 98.3
[2022-08-17 01:13] VITALS: BP 99/66; O2SAT 94
== END 2022-08-15 15:27 | disposition home or self-care (01) ==
LOC: ER 11:40
DX: M79.672 Pain in left foot (principal); R22.42 Localized swelling, mass and lump, left lower limb; I10 Essential (primary) hypertension; Z88.0 Allergy status to penicillin; Z88.1 Allergy status to other antibiotic agents; Z91.048 Other nonmedicinal substance allergy status
CPT/HCPCS: 36415; 80048; 85025; 93926; 93971; 99283

== ENCOUNTER 2022-08-17 14:47 | Inpatient (IN) | payer OTHER ==
[2022-08-17 15:31] LABS: SARS-CoV-2 Antigen Rapid Res Negative (Negative)
--- OUTSIDE RECORDS SUMMARY | 2022-08-17 16:16 | XMS REPORT | Continuity of Care Document ---
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 kota hydrochlori 12 PO, Q8H, l de 50 MG 17:07: PRN Pain Giovanna nn Oral Tablet 00 Score 1-5, 0 Refill(s) pregabalin Yes 50 mg = 1 Me moria 50 MG Oral 712 cap, PO, l Capsule 17:07: BID, 0 Campbell [Lyrica] 00 Refill(s) digoxin 125 Yes 125 Memori a mcg (0.125 7-12 microgram l mg) oral 17:07: = 1 tab, Giovanna nn tablet 00 PO, Daily, 0 Refill(s) warfarin 3 No 3 mg = 1 Mem oria mg oral 712 tab, PO, l tablet 17:07: Daily, 0 Nik 00 Refill(s) Clotrimazol Yes 10 mg, PO, Memoria e 7-12 5X Day, 0 l 17:07: Refill(s) Nik 00 Voltaren Yes 2 gm =, Memori a Topical 7-12 TOP, TID, l 17:07: PRN Pain Nik 00 Score 1-3, 0 Refill(s) pravastatin No 40 mg = 1 M emoria 40 mg oral 7-12 tab, PO, l tablet 17:07: Daily, 0 [place] 00 Refill(s) metoprolol No 12.5 mg = [...] tab, PO, l tablet 17:07: Daily, 0 [place] 00 Refill(s) thyroid Yes 120 mg = 1 Brenton kota (PRISON) 120 7-12 tab, PO, l MG Oral 17:07: Daily, 0 Norman n Tablet 00 Refill(s) [[place] Thyroid] metoprolol No Notes: Memor ia tartrate 12 (Same as: l 17:07: Lopressor) Campbell 00 12.5mg=1/4 X 50 mg tab. Famotidine Yes 20 mg = 1 Me moria 20 MG Oral 7-12 tab, PO, l Tablet 17:07: Daily, 0 Nik 00 Refill(s) iodixanol No Notes: Memori a 7-12 (Same as: l 14:32: Visipaque) Nik 00 . iodixanol No Notes: Memori a 7-12 (Same as: l 14:32: Visipaque) Campbell 00 . Aspirin 325 No Notes: (Do Memoria MG Enteric 12 Not Crush) l Coated 14:00: Do not [...] Memoria 7-12 Same as l 14:00: Lipitor Campbell 00 docusate No Notes: Memoria sodium 100 7-12 (Same as: l mg oral 14:00: Colace) Nik capsule 00 (Do Not Crush) senna 8.6 No Notes: Memori a mg oral 7-12 (Same as: l tablet 14:00: Senokot) Nik 00 Aspirin 325 No Notes: (Do Memoria [...] Memoria 7-12 Same as l 14:00: Lipitor [place] docusate No Notes: Memoria sodium 100 7-12 (Same as: l mg oral 14:00: Colace) Campbell capsule 00 (Do Not Crush) senna 8.6 No Notes: Memori a mg oral 7-12 (Same as: l tablet 14:00: Senokot) Nik heparin No Notes: Memoria 7-12 porcine l 05:00: heparin Nik heparin No Notes: Memoria 7-12 porcine l 05:00: heparin Nik Saline No Notes: Memoria Flush 0.9% 7-12 (Same as: l 02:00: BD Nik 00 Posiflush) Saline No Notes: Memoria Flush 0.9% 7-12 (Same as: l 02:00: BD Nik 00 Posiflush) Labetalol No 10 mg, 2 Brenton kota 7-12 mL, Route: l 00:06: IVP, Drug Campbell 00 form: INJ, Q15Min, kg, PRN Hypertensi on, Start date: 06/07/15 19:06:00, Duration: 30 day, Stop date: 07/07/15 19:05:00 Labetalol No 10 mg, 2 Brenton kota 7-12 mL, Route: l 00:06: IVP, Drug Campbell 00 form: INJ, Q15Min, kg, PRN Hypertensi on, Start date: 06/07/15 19:06:00, Duration: 30 day, Stop date: 07/07/15 19:05:00 Saline No Notes: Memoria Flush 0.9% 7-12 (Same as: l 00:03: BD Nik 00 Posiflush) Acetaminoph No Notes: Do M emoria en 06-08 not exceed l 00:03: 4 gm/day. Campbell 00 (Same as: Tylenol) Sodium No 1,000 mL, Memori a Chloride 7-12 Rate: 75 l 0.154 00:03: ml/hr, Nik MEQ/ML 00 Infuse Injectable over: 13.3 Solution hr, Route: IV, Total Volume: 1,000, Start date: 06/07/15 19:03:00, Duration: 30 day, Stop date: 07/07/15 19:02:00 Saline No Notes: Memoria Flush 0.9% 7-12 (Same as: l 00:03: BD Campbell 00 Posiflush) Acetaminoph No Notes: Do M emoria en 06-08 not exceed l 00:03: 4 gm/day. Campbell 00 (Same as: Tylenol) Sodium No 1,000 mL, Memori a Chloride 7-12 Rate: 75 l 0.154 00:03: ml/hr, Nik MEQ/ML 00 Infuse Injectable over: 13.3 Solution hr, Route: IV, Total Volume: 1,000, Start date: 06/07/15 19:03:00, Duration: 30 day, Stop date: 07/07/15 19:02:00 Immunizations Ordered Immunization Filled Immunization Date Status Commen ts Source Name Name pneumococcal 2015-06-08 Completed [facility] 23-valent vaccine 14:09:00 Nik pneumococcal 2015-06-08 Completed [facility] 23-valent vaccine 14:09:00 [place] Vital Signs Vital Name Observation Time Observation Value Comments Source Systolic blood 2022-07-26 14:37:00 93 mm[Hg] Method [facility] pressure Diastolic blood 2022-07-26 14:37:00 63 mm[facility]Hg[facility] pressure Heart rate 2022-07-26 14:37:00 72 /min [facility] Body height 2022-07-26 14:37:00 152.4 cm [facility] Body weight 2022-07-26 14:37:00 81.194 kg [facility] BMI 2022-07-26 14:37:00 34.96 kg/m2 [facility] Oxygen saturation in 2022-07-26 14:37:00 95 /min [facility] Arterial blood by Pulse oximetry Heart Rate 2022-05-27 01:13:53 [facility] Nik Respitory Rate 2022-05-27 01:13:53 Memori al [place] Temperature Oral (F) 2022-05-27 01:13:39 99.6 F [facility] [place] Systolic (mm Hg) 2022-05-27 01:13:19 Brenton rial Campbell Diastolic (mm Hg) 2022-05-27 01:13:19 Mem orial [place] Heart Rate 2022-05-27 01:13:19 [facility] [place] Heart Rate 2022-05-26 16:27:29 [facility] Nik Respitory Rate 2022-05-26 16:27:29 Memori al Nik Temperature Oral (F) 2022-05-26 16:27:18 98.1 F [facility] Nik Systolic (mm Hg) 2022-05-26 16:26:55 Brenton rial Campbell Diastolic (mm Hg) 2022-05-26 16:26:55 Mem orial Nik Respitory Rate 2022-05-26 12:54:55 Memori al Nik Temperature Oral (F) 2022-05-26 12:53:58 98.1 F [facility] Nik Systolic (mm Hg) 2022-05-26 12:53:28 Brenton rial Campbell Diastolic (mm Hg) 2022-05-26 12:53:28 Mem orial [place] Heart Rate 2022-05-24 05:13:19 [facility] Nik Respitory Rate 2022-05-24 05:13:19 Memori al [place] Systolic (mm Hg) 2022-05-24 05:13:03 Brenton rial Nik Diastolic (mm Hg) 2022-05-24 05:13:03 Mem orial [place] Heart Rate 2022-05-24 05:13:03 [facility] [place] Temperature Oral (F) 2022-05-24 05:13:00 97.7 F [facility] Nik Heart Rate 2022-05-24 00:51:48 [facility] [place] Systolic (mm Hg) 2022-05-24 00:51:44 Brenton rial Nik Diastolic (mm Hg) 2022-05-24 00:51:44 Mem orial Nik Temperature Oral (F) 2022-05-24 00:51:34 98 F [facility] [place] Systolic (mm Hg) 2022-05-23 20:17:56 Brenton rial Nik Diastolic (mm Hg) 2022-05-23 20:17:56 Mem orial [place] Temperature Oral (F) 2022-05-23 20:17:42 98.2 F [facility] [place] Respitory Rate 2022-05-23 08:50:00 Memori al [place] Respitory Rate 2022-05-23 04:10:00 Memori al [place] Height 2022-05-18 22:41:00 165.1 cm [facility] Nik Weight 2022-05-18 22:41:00 [facility] Nik BMI Calculated 2022-05-18 22:41:00 Memori al Nik Systolic (mm Hg) 2015-07-01 12:19:00 Brenton rial Nik Diastolic (mm Hg) 2015-07-01 12:19:00 Mem orial Nik Respitory Rate 2015-07-01 12:19:00 Memori al Nik Temperature Oral (F) 2015-07-01 12:19:00 95.9 F [facility] Nik Heart Rate 2015-07-01 12:19:00 Memorial Nik Temperature Oral (F) 2015-07-01 09:15:00 97.0 F [facility] [place] Respitory Rate 2015-07-01 09:15:00 Memori al Nik Systolic (mm Hg) 2015-07-01 09:15:00 Brenton rial Campbell Diastolic (mm Hg) 2015-07-01 09:15:00 Mem orial Nik Respitory Rate 2015-07-01 06:28:00 Memori al Nik Systolic (mm Hg) 2015-07-01 06:28:00 Brenton rial Nik Diastolic (mm Hg) 2015-07-01 06:28:00 Mem orial [place] Heart Rate 2015-07-01 06:28:00 Memorial Nik Height 2015-07-01 02:24:00 165.1 cm [facility] Nik Weight 2015-07-01 02:24:00 [facility] [place] BMI Calculated 2015-07-01 02:24:00 Memori al Nik BMI Calculated 2015-07-01 02:23:00 Memori al [place] Height 2015-07-01 02:23:00 165.1 cm [facility] Nik Weight 2015-07-01 02:23:00 Memorial Nik Temperature Oral (F) 2015-07-01 01:17:00 97.6 F [facility] Nik Heart Rate 2015-06-30 18:14:00 [facility] Nik Systolic (mm Hg) 2015-06-09 23:00:00 Brenton rial Nik Diastolic (mm Hg) 2015-06-09 23:00:00 Mem orial [place] Respitory Rate 2015-06-09 23:00:00 Memori al Nik Systolic (mm Hg) 2015-06-09 22:00:00 Brenton rial Nik Diastolic (mm Hg) 2015-06-09 22:00:00 Mem orial [place] Respitory Rate 2015-06-09 22:00:00 Memori al Nik Temperature Oral (F) 2015-06-09 21:00:00 97.4 F [facility] Nik Respitory Rate 2015-06-09 21:00:00 Memori al Nik Systolic (mm Hg) 2015-06-09 21:00:00 Brenton rial Nik Diastolic (mm Hg) 2015-06-09 21:00:00 Mem orial Nik Temperature Oral (F) 2015-06-09 17:00:00 97.3 F [facility] [place] Temperature Oral (F) 2015-06-09 13:00:00 97.2 F [facility] Nik BMI Calculated 2015-06-08 14:00:00 Memori al [place] Weight 2015-06-08 14:00:00 [facility] Nik Height 2015-06-08 14:00:00 162.56 cm [facility] Nik Heart Rate 2015-06-08 07:57:00 [facility] [place] Heart Rate 2015-06-08 07:51:00 Memorial Nik Heart Rate 2015-06-08 07:38:00 [facility] Nik BMI Calculated 2015-06-08 04:06:00 Memori al [place] Weight 2015-06-08 04:06:00 Memorial Nik Height 2015-06-08 04:06:[address] [facility] [place] Procedures Procedure Date / Time Performing Clinician Source Performed T3 2022-07-26 16:34:00 Dewayne Nunez T4 2022-07-26 16:34:00 Dewayne Nunez COMPREHENSIVE METABOLIC 2022-07-26 16:34:00 Dewayne Nunez [facility] PANEL [place] LIPID PANEL 2022-07-26 16:34:00 Dewayne Nunez HEMOGLOBIN A1C 2022-07-26 16:34:00 Dewayne Nunez THYROID STIMULATING 2022-07-26 16:34[facility] [place] [facility] COMPLETE BLD COUNT 2022-07-26 16:34:00 Dewayne Nunez [facility] W/AUTO DIFF [place] ESTIMATED GFR 2022-07-26 16:34:00 Dewayne Nunez ECG 12-LEAD 2022-07-26 14:36:34 Dewayne Nunez Skin grafting<sup>1</sup> Selenethuan sheridan [place] Thyroidectomy [facility] Plan of Care Planned Activity Planned Date Details Comments Source Future Scheduled 2022-08-16 HEPATITIS B VACCINES [facility] Test 08:24:52 (1 of 3 - 3-dose series) [code = HEPATITIS B VACCINES (1 of 3 - 3-dose series)] Future Scheduled 2022-08-16 COVID-19 VACCINE (#1) [facility] Test 08:24:52 [code = COVID-19 VACCINE (#1)] Future Scheduled 2022-08-16 SHINGLES VACCINES (1 [facility] Test 08:24:52 of 2) [code = SHINGLES VACCINES (1 of 2)] Future Scheduled 2022-08-16 65+ P[facility]UMOCOCCAL [facility] Test 08:24:52 VACCINE (2 - PCV) [code = 65+ PNEUMOCOCCAL VACCINE (2 - PCV)] Future Scheduled 2022-08-16 INFLUENZA VACCINE [facility] Test 08:24:52 [code = INFLUENZA VACCINE] Future Scheduled 2022-08-14 HEPATITIS B VACCINES [facility] Test 09:37:09 (1 of 3 - 3-dose series) [code = HEPATITIS B VACCINES (1 of 3 - 3-dose series)] Future Scheduled 2022-08-14 COVID-19 VACCINE (#1) [facility] Test 09:37:09 [code = COVID-19 VACCINE (#1)] Future Scheduled 2022-08-14 SHINGLES VACCINES (1 Met [facility] Test 09:37:09 of 2) [code = SHINGLES VACCINES (1 of 2)] Future Scheduled 2022-08-14 65+ P[facility]UMOCOCCAL [facility] Test 09:37:09 VACCINE (2 - PCV) [code = 65+ PNEUMOCOCCAL VACCINE (2 - PCV)] Future Scheduled 2022-08-14 INFLUENZA VACCINE [facility] Test 09:37:09 [code = INFLUENZA VACCINE] Future Scheduled 2021-11-18 COVID-19 VACCINE (1) [facility] Test 18:22:21 [code = COVID-19 VACCINE (1)] Future Scheduled 2021-11-18 65+ P[facility]UMOCOCCAL [facility] Test 18:22:21 VACCINE (1 of 2 - PPSV23) [code = 65+ PNEUMOCOCCAL VACCINE (1 of 2 - PPSV23)] Future Scheduled 2021-11-18 SHINGLES VACCINES (#1) [facility] Test 18:22:21 [code = SHINGLES VACCINES (#1)] Future Scheduled 2021-11-18 INFLUENZA VACCINE [facility] Test 18:22:21 [code = INFLUENZA VACCINE] Encounters Start End Encounter Admission Attending Care Care Encounter Source Date/Time Date/Time Type Type Clinicians Facility Department ID 2021-12-23 Outpatient [facility] [id number] Common 14:25:00 [id number] [facility] 2022-08-16 2022-08-16 [facility], 1.2.840.1 [id number] Methodi 11:45:00 11:45:00 Encounter Dewayne Lloyd 97934.1.[address] 3.430.2.7 Hospit a .3.823883 l .8 2022-08-13 2022-08-13 Telephone [place] 1.2.840.1 [id number] Methodi 00:00:00 00:00:00 , Mary Lou 18744.1.[address] 3.430.2.7 Hospit a .3.362525 l .8 2022-08-13 2022-08-13 Telephone [place] 1.2.840.1 [id number] Methodi 00:00:00 00:00:00 , Mary Lou 69305.1.[address] 3.430.2.7 Hospit a .3.341326 l .8 2022-08-09 2022-08-09 Travel 1.2.840.1 1.2.574.910 [id number] Methodi 00:00:00 00:00:[address] 3.430.2.7 0.2.7.3.698 Ho spita .3.792624 084.8 l .8 2022-08-09 2022-08-09 Travel 1.2.840.1 1.2.867.045 9993 [id number] Methodi 00:00:00 00:00:[address] 3.430.2.7 0.2.7.3.698 Ho spita .3.436580 084.8 l .8 2022-07-26 2022-07-26 [facility] 1.2.840.1 [id number] Methodi 11:10:00 11:15:[address] 3.430.2.7 Hospit a .3.294108 l .8 2022-07-26 2022-07-26 [facility] [id number] Methodi 11:10:00 11:15:[address] 3.430.2.7 Hospit a .3.926104 l .8 2022-07-26 2022-07-26 [facility] 1.2.840.1 [id number] Methodi 09:40:00 11:04:51 Visit Dewayne Ashley.1.[address] 3.430.2.7 Hospit a .3.712286 l .8 2022-07-26 2022-07-26 [facility].840[facility]1 [id number] Methodi 09:40:00 11:04:51 Visit Dewayne Ashley.1.[address] 3.430.2.7 Hospit a .3.561829 l .8 2022-07-26 2022-07-26 Telephone Michele, 1.2.840.1 [id number] Methodi 00:00:00 00:00:[address] 3.430.2.7 Hospit a .3.413346 l .8 2022-07-26 2022-07-26 Travel 1.2.840.1 1.2.397.274 0395 [id number] Methodi 00:00:00 00:00:[address] 3.430.2.7 0.2.7.3.698 Ho spita .3.828929 084.8 l .8 2022-07-26 2022-07-26 Telephone Michele, 1.2.840.1 [id number] [id number] Methodi 00:00:00 00:00:[address] 3.430.2.7 Hospit a .3.888325 l .8 2022-07-262022-07-26 Travel 1.2.840.1 1.2.485.301 3430 [id number] Methodi 00:00:00 00:00:[address] 3.430.2.7 0.2.7.3.698 Ho spita .3.904392 084.8 l .8 2022-07-09 2022-07-09 Telemedici Heather, [facility] [id number] 1.2.840.114 [id number] [place] 14:00:00 14:30:[address] 350.1.13.58 Health 9.2.7.2.686 [id number] 8 2022-06-21 2022-06-21 Travel 1.2.840.1 1.2.834.241 2422 [id number] Methodi 00:00:00 00:00:[address] 3.430.2.7 0.2.7.3.698 Ho spita .3.750415 084.8 l .8 2022-06-21 2022-06-21 Travel 1.2.840.1 1.2.062.920 3758 [id number] Methodi 00:00:00 00:00:[address] 3.430.2.7 0.2.7.3.698 Ho spita .3.430526 084.8 l .8 2022-05-18 2022-05-26 Inpatient [facility] [id number] Memoria 22:14:00 23:53:[address] 2022-05-18 2022-05-26 Inpatient [facility] [id number] Memoria 22:14:00 23:53:[address] 2022-05-18 2022-05-26 Inpatient U [facility] [id number] 17:14:00 18:53:00 BRANDY 2022-05-18 2022-05-26 Outpatient Christopher [facility] [id number] 17:14:00 18:53:00 Brandy Go 2022-05-18 2022-05-26 Outpatient Christopher [facility] [id number] 17:14:00 18:53:00 Brandy Go 2022-05-18 2022-05-18 Outpatient Shankar [facility] [id number] 17:14:00 17:14:00 [place] 2015-07-14 2015-07-15 Outpatient nullFlavo [facility] [id number] Memoria 18:00:00 04:59:[address] [facility] 00 l [facility] 2015-07-14 2015-07-15 Outpatient nullFlavo [facility] [id number] Memoria 18:00:00 04:59:[address] [facility] 00 [facility] 2015-07-14 2015-07-14 [id number] 13:00:00 23:59:00 Non 00 Associated 2015-06-30 2015-07-01 OBS nullFlavo [facility] [id number] Memoria 18:11:00 17:00:00 Observatio r Nik 15 l n Patient Hospital [facility] 2015-06-30 2015-07-01 OBS nullFlavo [facility] [id number] Memoria 18:11:00 17:00:00 Observatio r [place] 15 l n Patient Hospital [facility] 2015-06-30 2015-07-01 Outpatient Tj [facility] [id number] 13:11:00 12:00:00 Benjamin Abreu 2015-06-08 2015-06-09 OBS nullFlavo [facility] [id number] Memoria 00:05:00 23:35:00 Observatio r Nik 92 l n Patient Hospital [facility] 2015-06-08 2015-06-09 OBS nullFlavo [facility] [id number] Memoria 00:05:00 23:35:00 Observatio r Campbell 92 l n Patient Hospital [facility] 2015-06-07 2015-06-09 Outpatient Skyler [facility] [id number] 19:05:00 18:35:00 Ron Robert 92 Results Test Description Test Time Test [...] inversion no longer evident in Anterolateral leads- [facility] 12 [id number] 03:49:32 Test Item Value Reference Range Interpretation Comments Ventricular rate (test code = 253) Atrial rate (test code = 255) QRSD interval (test code = 260) QT interval (test code = 264) QTC interval (test code = 265) QRS axis 1 (test code = 268) T wave axis (test code = 270) EKG impression (test Atrial fibrillation code = 273) with premature ventricular or aberrantly conducted complexes-Low voltage QRS-Abnormal ECG-In automated comparison with ECG of 10-AUG-2018 11:28,-QRS voltage has decreased-Criteria for Septal infarct are no longer present-Nonspecific T wave abnormality no longer evident in Inferior leads-T wave inversion no longer evident in [facility]terolateral leads- [facility] 17:00:00 Test Item Value Reference Range Interpretation Comments Coronavirus (COVID-19) Not Detected (05/26/22 MAMADOU (test code = 12:00 PM) Coronavirus (COVID-19) MAMADOU) [facility]89-00 17:00:00 Test Item Value Reference Range Interpretation Comments Coronavirus (COVID-19) Not Detected (05/26/22 MAMADOU (test code = 12:00 PM) Coronavirus (COVID-19) MAMADOU) [place] 141542-06-25 08:14:00 Test Item Value Reference Range Interpretation Comments Magnesium Lvl (test code = Magnesium 2.1 1.8-2.4 Lvl) [place] 141542-06-25 08:14:00 Test Item Value Reference Range Interpretation Comments Phosphorus (test code = Phosphorus) 4.3 2.5-4.5 [place] 141542-06-25 08:14:00 Test Item Value Reference Range Interpretation Comments Glucose Lvl (test code = Glucose Lvl) 104 70-99 [place] [address]-06-25 08:14:00 Test Item Value Reference Range Interpretation Comments BUN (test code = BUN) 23 7-22 [place] 141542-06-25 08:14:00 Test Item Value Reference Range Interpretation Comments Creatinine Lvl (test code = Creatinine 0.82 0.50-1.40 Lvl) [place] 141542-06-25 08:14:00 Test Item Value Reference Range Interpretation Comments Sodium Lvl (test code = Sodium Lvl) 141 135-145 [place] 141542-06-25 08:14:00 Test Item Value Reference Range Interpretation Comments Potassium Lvl (test code = Potassium 4.2 3.5-5.1 Lvl) [place] 141542-06-25 08:14:00 Test Item Value Reference Range Interpretation Comments Chloride Lvl (test code = Chloride Lvl) 107 95-109 [place] 141542-06-25 08:14:00 Test Item Value Reference Range Interpretation Comments CO2 (test code = CO2) 27 24-32 [place] 141542-06-25 08:14:00 Test Item Value Reference Range Interpretation Comments Calcium Lvl (test code = Calcium Lvl) 8.3 8.5-10.5 [place] 141542-06-25 08:14:00 Test Item Value Reference Range Interpretation Comments AGAP (test code = AGAP) 11.2 10.0-20.0 [place] 141542-06-25 08:14:00 Test Item Value Reference Range Interpretation Comments eGFR (test code = eGFR) 65 [facility]23-96 08:14:00 Test Item Value Reference Range Interpretation Comments WBC (test code = WBC) 6.6 3.7-10.4 [facility]XYHPJAGS2173[facility]01-87 08:14:00 Test Item Value Reference Range Interpretation Comments RBC (test code = RBC) 4.09 4.20-5.40 [facility] DallasWbuwcywPEHWOGJIZP3421-52-55 08:14:00 Test Item Value Reference Range Interpretation Comments Hgb (test code = Hgb) 12.2 12.0-16.0 [place] 196662-06-25 08:14:00 Test Item Value Reference Range Interpretation Comments Hct (test code = Hct) 36.8 36.0-48.0 [facility] DallasUzvbvbdWZBOJKAZXA0674-34-30 08:14:00 Test Item Value Reference Range Interpretation Comments MCV (test code = MCV) 90.0 80.0-98.0 [facility] DallasPyywxdzZRQVMMSJKH3143-26-23 08:14:00 Test Item Value Reference Range Interpretation Comments MCH (test code = MCH) 29.9 pg 27.0-31.0 [facility] DallasOkslbboDTZFAOBXYL9574-80-20 08:14:00 Test Item Value Reference Range Interpretation Comments MCHC (test code = MCHC) 33.2 32.0-36.0 [facility] DallasQrrkoccERODCVXGZL0066-61-64 08:14:00 Test Item Value Reference Range Interpretation Comments RDW (test code = RDW) 14.6 11.5-14.5 [facility] DallasNywnsphJTHQOWFAIO9141-02-77 08:14:00 Test Item Value Reference Range Interpretation Comments Platelet (test code = Platelet) 169 133-450 [facility] DallasEuiywrmMVYIKHZXEG4879-92-53 08:14:00 Test Item Value Reference Range Interpretation Comments MPV (test code = MPV) 9.5 7.4-10.4 [place] 196662-06-25 08:14:00 Test Item Value Reference Range Interpretation Comments Segs (test code = Segs) 65.6 45.0-75.0 [facility] DallasGrtykwaEMEWODSTCA0245-49-91 08:14:00 Test Item Value Reference Range Interpretation Comments Lymphocytes (test code = Lymphocytes) 21.3 20.0-40.0 [facility] DallasKtqebjkPFEJDSAVTX8007-98-27 08:14:00 Test Item Value Reference Range Interpretation Comments Monocytes (test code = Monocytes) 10.4 2.0-12.0 [place] [address]-06-25 08:14:00 Test Item Value Reference Range Interpretation Comments Eosinophils (test code = 2.3 See_Comment [A utomated message] The Eosinophils) system which ge nerated this result tra nsmitted reference range : <=4.0. The reference r pearl was not used to int erpret this result as normal/abnormal . [place] [address]-06-25 08:14:00 Test Item Value Reference Range Interpretation Comments Basophils (test code = 0.4 See_Comment [Aut omated message] The Basophils) system which ge nerated this result tra nsmitted reference range : <=1.0. The reference r pearl was not used to int erpret this result as normal/abnormal . [place] [address]-06-25 08:14:00 Test Item Value Reference Range Interpretation Comments Neutrophils # (test code = Neutrophils 4.3 1.5-8.1 #) [address]06-25 08:14:00 Test Item Value Reference Range Interpretation Comments Lymphocytes # (test code = Lymphocytes 1.4 1.0-5.5 #) [address]06-25 08:14:00 Test Item Value Reference Range Interpretation Comments Monocytes # (test code 0.7 See_Comment [Aut omated message] The = Monocytes #) system which generated this result tra nsmitted reference range : <=0.8. The reference r pearl was not used to int erpret this result as normal/abnormal . [place] [address]-06-25 08:14:00 Test Item Value Reference Range Interpretation Comments Eosinophils # (test code 0.2 See_Comment [A utomated message] The = Eosinophils #) system whic h generated this result tra nsmitted reference range : <=0.5. The reference r pearl was not used to int erpret this result as normal/abnormal . [facility] [employer] [employer] [id number] 08:14:00 Test Item Value Reference Range Interpretation Comments Magnesium Lvl (test code = Magnesium 2.1 1.8-2.4 Lvl) [address]06-25 08:14:00 Test Item Value Reference Range Interpretation Comments Phosphorus (test code = Phosphorus) 4.3 2.5-4.5 [place] [id number] 08:14:00 Test Item Value Reference Range Interpretation Comments Glucose Lvl (test code = Glucose Lvl) 104 70-99 [place] 141542-06-25 08:14:00 Test Item Value Reference Range Interpretation Comments BUN (test code = BUN) 23 7-22 [place] 141542-06-25 08:14:00 Test Item Value Reference Range Interpretation Comments Creatinine Lvl (test code = Creatinine 0.82 0.50-1.40 Lvl) [place] 141542-06-25 08:14:00 Test Item Value Reference Range Interpretation Comments Sodium Lvl (test code = Sodium Lvl) 141 135-145 [place] 141542-06-25 08:14:00 Test Item Value Reference Range Interpretation Comments Potassium Lvl (test code = Potassium 4.2 3.5-5.1 Lvl) [place] 141542-06-25 08:14:00 Test Item Value Reference Range Interpretation Comments Chloride Lvl (test code = Chloride Lvl) 107 95-109 [place] 141542-06-25 08:14:00 Test Item Value Reference Range Interpretation Comments CO2 (test code = CO2) 27 24-32 [place] 141542-06-25 08:14:00 Test Item Value Reference Range Interpretation Comments Calcium Lvl (test code = Calcium Lvl) 8.3 8.5-10.5 [place] 141542-06-25 08:14:00 Test Item Value Reference Range Interpretation Comments AGAP (test code = AGAP) 11.2 10.0-20.0 [place] 141542-06-25 08:14:00 Test Item Value Reference Range Interpretation Comments eGFR (test code = eGFR) 65 [place] 196662-06-25 08:14:00 Test Item Value Reference Range Interpretation Comments WBC (test code = WBC) 6.6 3.7-10.4 [place] 196662-06-25 08:14:00 Test Item Value Reference Range Interpretation Comments RBC (test code = RBC) 4.09 4.20-5.40 [place] 196662-06-25 08:14:00 Test Item Value Reference Range Interpretation Comments Hgb (test code = Hgb) 12.2 12.0-16.0 [place] [address]-06-25 08:14:00 Test Item Value Reference Range Interpretation Comments Hct (test code = Hct) 36.8 36.0-48.0 [place] [address]-06-25 08:14:00 Test Item Value Reference Range Interpretation Comments MCV (test code = MCV) 90.0 80.0-98.0 [place] [address]-06-25 08:14:00 Test Item Value Reference Range Interpretation Comments MCH (test code = MCH) 29.9 pg 27.0-31.0 [place] [address]-06-25 08:14:00 Test Item Value Reference Range Interpretation Comments MCHC (test code = MCHC) 33.2 32.0-36.0 [place] [address]-06-25 08:14:00 Test Item Value Reference Range Interpretation Comments RDW (test code = RDW) 14.6 11.5-14.5 [place] [address]-06-25 08:14:00 Test Item Value Reference Range Interpretation Comments Platelet (test code = Platelet) 169 133-450 [place] 196662-06-25 08:14:00 Test Item Value Reference Range Interpretation Comments MPV (test code = MPV) 9.5 7.4-10.4 [place] [address]-06-25 08:14:00 Test Item Value Reference Range Interpretation Comments Segs (test code = Segs) 65.6 45.0-75.0 [place] [address]-06-25 08:14:00 Test Item Value Reference Range Interpretation Comments Lymphocytes (test code = Lymphocytes) 21.3 20.0-40.0 [place] [address]-06-25 08:14:00 Test Item Value Reference Range Interpretation Comments Monocytes (test code = Monocytes) 10.4 2.0-12.0 [place] [address]-06-25 08:14:00 Test Item Value Reference Range Interpretation Comments Eosinophils (test code = 2.3 See_Comment [A utomated message] The Eosinophils) system which ge nerated this result tra nsmitted reference range : <=4.0. The reference r pearl was not used to int erpret this result as normal/abnormal . [place] 196662-06-25 08:14:00 Test Item Value Reference Range Interpretation Comments Basophils (test code = 0.4 See_Comment [Aut omated message] The Basophils) system which ge nerated this result tra nsmitted reference range : <=1.0. The reference r pearl was not used to int erpret this result as normal/abnormal . [place] [address]-06-25 08:14:00 Test Item Value Reference Range Interpretation Comments Neutrophils # (test code = Neutrophils 4.3 1.5-8.1 #) [place] 196662-06-25 08:14:00 Test Item Value Reference Range Interpretation Comments Lymphocytes # (test code = Lymphocytes 1.4 1.0-5.5 #) [place] [address]-06-25 08:14:00 Test Item Value Reference Range Interpretation Comments Monocytes # (test code 0.7 See_Comment [Aut omated message] The = Monocytes #) system which generated this result tra nsmitted reference range : <=0.8. The reference r pearl was not used to int erpret this result as normal/abnormal . [place] [address]-06-25 08:14:00 Test Item Value Reference Range Interpretation Comments Eosinophils # (test code 0.2 See_Comment [A utomated message] The = Eosinophils #) system whic h generated this result tra nsmitted reference range : <=0.5. The reference r pearl was not used to int erpret this result as normal/abnormal . [place] 141542-06-24 06:28:00 Test Item Value Reference Range Interpretation Comments Phosphorus (test code = Phosphorus) 4.0 2.5-4.5 [place] [address]-06-24 06:28:00 Test Item Value Reference Range Interpretation Comments Magnesium Lvl (test code = Magnesium 2.1 1.8-2.4 Lvl) [place] 141542-06-24 06:28:00 Test Item Value Reference Range Interpretation Comments Glucose Lvl (test code = Glucose Lvl) 109 70-99 [place] 141542-06-24 06:28:00 Test Item Value Reference Range Interpretation Comments BUN (test code = BUN) 21 7-22 [place] 141542-06-24 06:28:00 Test Item Value Reference Range Interpretation Comments Creatinine Lvl (test code = Creatinine 0.93 0.50-1.40 Lvl) [place] 141542-06-24 06:28:00 Test Item Value Reference Range Interpretation Comments Sodium Lvl (test code = Sodium Lvl) 140 135-145 [place] 141542-06-24 06:28:00 Test Item Value Reference Range Interpretation Comments Potassium Lvl (test code = Potassium 4.0 3.5-5.1 Lvl) [place] 141542-06-24 06:28:00 Test Item Value Reference Range Interpretation Comments Chloride Lvl (test code = Chloride Lvl) 105 95-109 [place] 141542-06-24 06:28:00 Test Item Value Reference Range Interpretation Comments CO2 (test code = CO2) 30 24-32 [place] 141542-06-24 06:28:00 Test Item Value Reference Range Interpretation Comments Calcium Lvl (test code = Calcium Lvl) 8.3 8.5-10.5 [place] 141542-06-24 06:28:00 Test Item Value Reference Range Interpretation Comments AGAP (test code = AGAP) 9.0 10.0-20.0 [place] 141542-06-24 06:28:00 Test Item Value Reference Range Interpretation Comments eGFR (test code = eGFR) 56 [place] 196662-06-24 06:28:00 Test Item Value Reference Range Interpretation Comments WBC (test code = WBC) 5.9 3.7-10.4 [place] 196662-06-24 06:28:00 Test Item Value Reference Range Interpretation Comments RBC (test code = RBC) 3.97 4.20-5.40 [place] 196662-06-24 06:28:00 Test Item Value Reference Range Interpretation Comments Hgb (test code = Hgb) 12.1 12.0-16.0 [place] [address]-06-24 06:28:00 Test Item Value Reference Range Interpretation Comments Hct (test code = Hct) 36.0 36.0-48.0 [place] [address]-06-24 06:28:00 Test Item Value Reference Range Interpretation Comments MCV (test code = MCV) 90.6 80.0-98.0 [place] 196662-06-24 06:28:00 Test Item Value Reference Range Interpretation Comments MCH (test code = MCH) 30.5 pg 27.0-31.0 [facility]PldpanaDXYXBGVMGA7605-44-97 06:28:00 Test Item Value Reference Range Interpretation Comments MCHC (test code = MCHC) 33.7 32.0-36.0 [facility] DallasFcfliuwBSTIWIDZAS1108-05-88 06:28:00 Test Item Value Reference Range Interpretation Comments RDW (test code = RDW) 14.8 11.5-14.5 [facility] DallasDndoxdvJXEOBBIFOO5520-05-89 06:28:00 Test Item Value Reference Range Interpretation Comments Platelet (test code = Platelet) 173 133-450 [facility] DallasWfseysdYMYKQGXIMB3557-96-33 06:28:00 Test Item Value Reference Range Interpretation Comments MPV (test code = MPV) 9.5 7.4-10.4 [facility] DallasTqullnwTRVMRNZIIT2917-24-44 06:28:00 Test Item Value Reference Range Interpretation Comments Segs (test code = Segs) 61.1 45.0-75.0 [facility] DallasCiysgcsPAPGTVOLLP4351-74-45 06:28:00 Test Item Value Reference Range Interpretation Comments Lymphocytes (test code = Lymphocytes) 25.3 20.0-40.0 [facility] DallasWtstcbeHBKMZUSNJZ0008-99-68 06:28:00 Test Item Value Reference Range Interpretation Comments Monocytes (test code = Monocytes) 11.1 2.0-12.0 [facility] DallasEgciyfjVQPRRLIPJP8825-55-29 06:28:00 Test Item Value Reference Range Interpretation Comments Eosinophils (test code = 2.0 See_Comment [A utomated message] The Eosinophils) system which ge nerated this result tra nsmitted reference range : <=4.0. The reference r pearl was not used to int erpret this result as normal/abnormal . [facility] DallasEeodgpaORYAOMTSXY8160-13-44 06:28:00 Test Item Value Reference Range Interpretation Comments Basophils (test code = 0.5 See_Comment [Aut omated message] The Basophils) system which ge nerated this result tra nsmitted reference range : <=1.0. The reference r pearl was not used to int erpret this result as normal/abnormal . [facility] DallasKfgolohWXRHTJSNAA4269-96-71 06:28:00 Test Item Value Reference Range Interpretation Comments Neutrophils # (test code = Neutrophils 3.6 1.5-8.1 #) [place] 196662-06-24 06:28:00 Test Item Value Reference Range Interpretation Comments Lymphocytes # (test code = Lymphocytes 1.5 1.0-5.5 #) [place] 196662-06-24 06:28:00 Test Item Value Reference Range Interpretation Comments Monocytes # (test code 0.7 See_Comment [Aut omated message] The = Monocytes #) system which generated this result tra nsmitted reference range : <=0.8. The reference r pearl was not used to int erpret this result as normal/abnormal . [place] 196662-06-24 06:28:00 Test Item Value Reference Range Interpretation Comments Eosinophils # (test code 0.1 See_Comment [A utomated message] The = Eosinophils #) system whic h generated this result tra nsmitted reference range : <=0.5. The reference r pearl was not used to int erpret this result as normal/abnormal . [place] 141542-06-24 06:28:00 Test Item Value Reference Range Interpretation Comments Phosphorus (test code = Phosphorus) 4.0 2.5-4.5 [place] [address]-06-24 06:28:00 Test Item Value Reference Range Interpretation Comments Magnesium Lvl (test code = Magnesium 2.1 1.8-2.4 Lvl) [place] 141542-06-24 06:28:00 Test Item Value Reference Range Interpretation Comments Glucose Lvl (test code = Glucose Lvl) 109 70-99 [place] 141542-06-24 06:28:00 Test Item Value Reference Range Interpretation Comments BUN (test code = BUN) 21 7-22 [place] [address]-06-24 06:28:00 Test Item Value Reference Range Interpretation Comments Creatinine Lvl (test code = Creatinine 0.93 0.50-1.40 Lvl) [place] 141542-06-24 06:28:00 Test Item Value Reference Range Interpretation Comments Sodium Lvl (test code = Sodium Lvl) 140 135-145 [place] 141542-06-24 06:28:00 Test Item Value Reference Range Interpretation Comments Potassium Lvl (test code = Potassium 4.0 3.5-5.1 Lvl) [place] 141542-06-24 06:28:00 Test Item Value Reference Range Interpretation Comments Chloride Lvl (test code = Chloride Lvl) 105 95-109 [place] 141542-06-24 06:28:00 Test Item Value Reference Range Interpretation Comments CO2 (test code = CO2) 30 24-32 [place] 141542-06-24 06:28:00 Test Item Value Reference Range Interpretation Comments Calcium Lvl (test code = Calcium Lvl) 8.3 8.5-10.5 [place] 141542-06-24 06:28:00 Test Item Value Reference Range Interpretation Comments AGAP (test code = AGAP) 9.0 10.0-20.0 [place] 141542-06-24 06:28:00 Test Item Value Reference Range Interpretation Comments eGFR (test code = eGFR) 56 [place] 196662-06-24 06:28:00 Test Item Value Reference Range Interpretation Comments WBC (test code = WBC) 5.9 3.7-10.4 [place] 196662-06-24 06:28:00 Test Item Value Reference Range Interpretation Comments RBC (test code = RBC) 3.97 4.20-5.40 [place] 196662-06-24 06:28:00 Test Item Value Reference Range Interpretation Comments Hgb (test code = Hgb) 12.1 12.0-16.0 [place] 196662-06-24 06:28:00 Test Item Value Reference Range Interpretation Comments Hct (test code = Hct) 36.0 36.0-48.0 [place] 196662-06-24 06:28:00 Test Item Value Reference Range Interpretation Comments MCV (test code = MCV) 90.6 80.0-98.0 [place] 196662-06-24 06:28:00 Test Item Value Reference Range Interpretation Comments MCH (test code = MCH) 30.5 pg 27.0-31.0 [place] 196662-06-24 06:28:00 Test Item Value Reference Range Interpretation Comments MCHC (test code = MCHC) 33.7 32.0-36.0 [place] 196662-06-24 06:28:00 Test Item Value Reference Range Interpretation Comments RDW (test code = RDW) 14.8 11.5-14.5 [place] 196662-06-24 06:28:00 Test Item Value Reference Range Interpretation Comments Platelet (test code = Platelet) 173 133-450 [place] 196662-06-24 06:28:00 Test Item Value Reference Range Interpretation Comments MPV (test code = MPV) 9.5 7.4-10.4 [place] 196662-06-24 06:28:00 Test Item Value Reference Range Interpretation Comments Segs (test code = Segs) 61.1 45.0-75.0 [place] 196662-06-24 06:28:00 Test Item Value Reference Range Interpretation Comments Lymphocytes (test code = Lymphocytes) 25.3 20.0-40.0 [place] 196662-06-24 06:28:00 Test Item Value Reference Range Interpretation Comments Monocytes (test code = Monocytes) 11.1 2.0-12.0 [place] 196662-06-24 06:28:00 Test Item Value Reference Range Interpretation Comments Eosinophils (test code = 2.0 See_Comment [A utomated message] The Eosinophils) system which ge nerated this result tra nsmitted reference range : <=4.0. The reference r pearl was not used to int erpret this result as normal/abnormal . [facility] DallasPbkbkxoAZOBNQOWTY3524-60-18 06:28:00 Test Item Value Reference Range Interpretation Comments Basophils (test code = 0.5 See_Comment [Aut omated message] The Basophils) system which ge nerated this result tra nsmitted reference range : <=1.0. The reference r pearl was not used to int erpret this result as normal/abnormal . [place] 196662-06-24 06:28:00 Test Item Value Reference Range Interpretation Comments Neutrophils # (test code = Neutrophils 3.6 1.5-8.1 #) [place] 196662-06-24 06:28:00 Test Item Value Reference Range Interpretation Comments Lymphocytes # (test code = Lymphocytes 1.5 1.0-5.5 #) [place] 196662-06-24 06:28:00 Test Item Value Reference Range Interpretation Comments Monocytes # (test code 0.7 See_Comment [Aut omated message] The = Monocytes #) system which generated this result tra nsmitted reference range : <=0.8. The reference r pearl was not used to int erpret this result as normal/abnormal . [facility] DallasJcvxhxtCHKPSGUNNJ6423-72-61 06:28:00 Test Item Value Reference Range Interpretation Comments Eosinophils # (test code 0.1 See_Comment [A utomated message] The = Eosinophils #) system whic h generated this result tra nsmitted reference range : <=0.5. The reference r pearl was not used to int erpret this result as normal/abnormal . [facility]2022-06-23 10:23:00 Test Item Value Reference Range Interpretation Comments Magnesium Lvl (test code = Magnesium 2.0 1.8-2.4 Lvl) [facility]2022-06-23 10:23:00 Test Item Value Reference Range Interpretation Comments Phosphorus (test code = Phosphorus) 4.6 2.5-4.5 [facility]2022-06-23 10:23:00 Test Item Value Reference Range Interpretation Comments Glucose Lvl (test code = Glucose Lvl) 116 70-99 [facility]2022-06-23 10:23:00 Test Item Value Reference Range Interpretation Comments BUN (test code = BUN) 15 7-22 [place] 141542-06-23 10:23:00 Test Item Value Reference Range Interpretation Comments Creatinine Lvl (test code = Creatinine 0.87 0.50-1.40 Lvl) [place] 141542-06-23 10:23:00 Test Item Value Reference Range Interpretation Comments Sodium Lvl (test code = Sodium Lvl) 143 135-145 [place] 141542-06-23 10:23:00 Test Item Value Reference Range Interpretation Comments Potassium Lvl (test code = Potassium 3.7 3.5-5.1 Lvl) [place] 141542-06-23 10:23:00 Test Item Value Reference Range Interpretation Comments Chloride Lvl (test code = Chloride Lvl) 106 95-109 [place] 141542-06-23 10:23:00 Test Item Value Reference Range Interpretation Comments CO2 (test code = CO2) 29 24-32 [place] 141542-06-23 10:23:00 Test Item Value Reference Range Interpretation Comments Calcium Lvl (test code = Calcium Lvl) 8.2 8.5-10.5 [facility]2022-06-23 10:23:00 Test Item Value Reference Range Interpretation Comments AGAP (test code = AGAP) 11.7 10.0-20.0 [facility]2022-06-23 10:23:00 Test Item Value Reference Range Interpretation Comments eGFR (test code = eGFR) 61 [facility] DallasAkutxkqEHGXXLADDZ2513-17-45 10:23:00 Test Item Value Reference Range Interpretation Comments WBC (test code = WBC) 5.5 3.7-10.4 [place] 196662-06-23 10:23:00 Test Item Value Reference Range Interpretation Comments RBC (test code = RBC) 4.11 4.20-5.40 [facility] DallasQxejwlcNMMFRRCHKW9746-95-01 10:23:00 Test Item Value Reference Range Interpretation Comments Hgb (test code = Hgb) 12.2 12.0-16.0 [place] 196662-06-23 10:23:00 Test Item Value Reference Range Interpretation Comments Hct (test code = Hct) 37.0 36.0-48.0 [facility] DallasXcihgcyKOBDSTYQPY2117-93-73 10:23:00 Test Item Value Reference Range Interpretation Comments MCV (test code = MCV) 90.0 80.0-98.0 [facility] DallasPismhaaVIJEOVEAMT6521-67-93 10:23:00 Test Item Value Reference Range Interpretation Comments MCH (test code = MCH) 29.7 pg 27.0-31.0 [facility] DallasAbovkaiSECPFQSMGO3758-06-30 10:23:00 Test Item Value Reference Range Interpretation Comments MCHC (test code = MCHC) 33.0 32.0-36.0 [place] 196662-06-23 10:23:00 Test Item Value Reference Range Interpretation Comments RDW (test code = RDW) 14.8 11.5-14.5 [facility] DallasMegkmxiNFYTCVHDTQ0248-71-77 10:23:00 Test Item Value Reference Range Interpretation Comments Platelet (test code = Platelet) 167 133-450 [facility] DallasGsbxdydYYMLDJBEJK5176-69-01 10:23:00 Test Item Value Reference Range Interpretation Comments MPV (test code = MPV) 9.0 7.4-10.4 [place] 196662-06-23 10:23:00 Test Item Value Reference Range Interpretation Comments Segs (test code = Segs) 59.1 45.0-75.0 [facility] DallasNvsgjxuSOFDRFMXLO3487-79-08 10:23:00 Test Item Value Reference Range Interpretation Comments Lymphocytes (test code = Lymphocytes) 28.0 20.0-40.0 [place] 196662-06-23 10:23:00 Test Item Value Reference Range Interpretation Comments Monocytes (test code = Monocytes) 10.8 2.0-12.0 [place] 196662-06-23 10:23:00 Test Item Value Reference Range Interpretation Comments Eosinophils (test code = 1.7 See_Comment [A utomated message] The Eosinophils) system which ge nerated this result tra nsmitted reference range : <=4.0. The reference r pearl was not used to int erpret this result as normal/abnormal . [facility] DallasBzyirvmYQHTQURPCR8550-73-40 10:23:00 Test Item Value Reference Range Interpretation Comments Basophils (test code = 0.4 See_Comment [Aut omated message] The Basophils) system which ge nerated this result tra nsmitted reference range : <=1.0. The reference r pearl was not used to int erpret this result as normal/abnormal . [facility] DallasNkpxxqkWSKLLNPOPR2184-16-68 10:23:00 Test Item Value Reference Range Interpretation Comments Neutrophils # (test code = Neutrophils 3.3 1.5-8.1 #) [facility] DallasBsdrmcjCOCERWPQWO8659-56-79 10:23:00 Test Item Value Reference Range Interpretation Comments Lymphocytes # (test code = Lymphocytes 1.6 1.0-5.5 #) [place] 196662-06-23 10:23:00 Test Item Value Reference Range Interpretation Comments Monocytes # (test code 0.6 See_Comment [Aut omated message] The = Monocytes #) system which generated this result tra nsmitted reference range : <=0.8. The reference r pearl was not used to int erpret this result as normal/abnormal . [facility] DallasPjfjowzIKEQHXZGET1646-44-41 10:23:00 Test Item Value Reference Range Interpretation Comments Eosinophils # (test code 0.1 See_Comment [A utomated message] The = Eosinophils #) system whic h generated this result tra nsmitted reference range : <=0.5. The reference r pearl was not used to int erpret this result as normal/abnormal . [facility]2022-06-23 10:23:00 Test Item Value Reference Range Interpretation Comments Magnesium Lvl (test code = Magnesium 2.0 1.8-2.4 Lvl) [place]1542-06-23 10:23:00 Test Item Value Reference Range Interpretation Comments Phosphorus (test code = Phosphorus) 4.6 2.5-4.5 [place] 141542-06-23 10:23:00 Test Item Value Reference Range Interpretation Comments Glucose Lvl (test code = Glucose Lvl) 116 70-99 [place] 141542-06-23 10:23:00 Test Item Value Reference Range Interpretation Comments BUN (test code = BUN) 15 -22 [facility]2022-06-23 10:23:00 Test Item Value Reference Range Interpretation Comments Creatinine Lvl (test code = Creatinine 0.87 0.50-1.40 Lvl) [facility]2022-06-23 10:23:00 Test Item Value Reference Range Interpretation Comments Sodium Lvl (test code = Sodium Lvl) 143 135-145 [facility]2022-06-23 10:23:00 Test Item Value Reference Range Interpretation Comments Potassium Lvl (test code = Potassium 3.7 3.5-5.1 Lvl) [facility]2022-06-23 10:23:00 Test Item Value Reference Range Interpretation Comments Chloride Lvl (test code = Chloride Lvl) 106 95-109 [facility]2022-06-23 10:23:00 Test Item Value Reference Range Interpretation Comments CO2 (test code = CO2) 29 24-32 [facility]2022-06-23 10:23:00 Test Item Value Reference Range Interpretation Comments Calcium Lvl (test code = Calcium Lvl) 8.2 8.5-10.5 [facility]2022-06-23 10:23:00 Test Item Value Reference Range Interpretation Comments AGAP (test code = AGAP) 11.7 10.0-20.0 [facility]2022-06-23 10:23:00 Test Item Value Reference Range Interpretation Comments eGFR (test code = eGFR) 61 [facility] DallasRvkrzbdKVBKMYXWAI8495-11-12 10:23:00 Test Item Value Reference Range Interpretation Comments WBC (test code = WBC) 5.5 3.7-10.4 [facility] DallasIlqtjerKORBERDWRA6760-29-19 10:23:00 Test Item Value Reference Range Interpretation Comments RBC (test code = RBC) 4.11 4.20-5.40 [facility] DallasAcsdicyYZOCJJIZAJ0386-97-37 10:23:00 Test Item Value Reference Range Interpretation Comments Hgb (test code = Hgb) 12.2 12.0-16.0 [facility] DallasXnveeexFFZLIBAUAF4025-18-97 10:23:00 Test Item Value Reference Range Interpretation Comments Hct (test code = Hct) 37.0 36.0-48.0 [facility] DallasSiwudedYWQWADBECN4907-45-41 10:23:00 Test Item Value Reference Range Interpretation Comments MCV (test code = MCV) 90.0 80.0-98.0 [facility] DallasRvvljkhDPNGRYJHFB7836-73-29 10:23:00 Test Item Value Reference Range Interpretation Comments MCH (test code = MCH) 29.7 pg 27.0-31.0 [facility] DallasKcrciwzNANWMKVJVI9461-07-95 10:23:00 Test Item Value Reference Range Interpretation Comments MCHC (test code = MCHC) 33.0 32.0-36.0 [facility] DallasYpfwabgJIJCYPHDEQ6741-79-16 10:23:00 Test Item Value Reference Range Interpretation Comments RDW (test code = RDW) 14.8 11.5-14.5 [facility] DallasBsmwtodWCIJEVXDRM4981-60-82 10:23:00 Test Item Value Reference Range Interpretation Comments Platelet (test code = Platelet) 167 133-450 [facility] DallasOebjmliCWZNEZTARJ5737-35-41 10:23:00 Test Item Value Reference Range Interpretation Comments MPV (test code = MPV) 9.0 7.4-10.4 [facility] DallasRnuajpwIPIBIYVDGX3110-40-33 10:23:00 Test Item Value Reference Range Interpretation Comments Segs (test code = Segs) 59.1 45.0-75.0 [facility] DallasBxcgjdjKMDQFTQLSX5482-97-74 10:23:00 Test Item Value Reference Range Interpretation Comments Lymphocytes (test code = Lymphocytes) 28.0 20.0-40.0 [facility] DallasYaogdgcUYZXMOSBZH7970-28-31 10:23:00 Test Item Value Reference Range Interpretation Comments Monocytes (test code = Monocytes) 10.8 2.0-12.0 [facility] DallasRrnvskbAHRWEDVLGC2178-02-75 10:23:00 Test Item Value Reference Range Interpretation Comments Eosinophils (test code = 1.7 See_Comment [A utomated message] The Eosinophils) system which ge nerated this result tra nsmitted reference range : <=4.0. The reference r pearl was not used to int erpret this result as normal/abnormal . [facility]ZpjkdjdWYITHTIUBR5056-95-17 10:23:00 Test Item Value Reference Range Interpretation Comments Basophils (test code = 0.4 See_Comment [Aut omated message] The Basophils) system which ge nerated this result tra nsmitted reference range : <=1.0. The reference r pearl was not used to int erpret this result as normal/abnormal . [facility] DallasSbvrhhkDOVMGMJYVY3745-92-43 10:23:00 Test Item Value Reference Range Interpretation Comments Neutrophils # (test code = Neutrophils 3.3 1.5-8.1 #) [facility] DallasIqpsqsuRWSJTHQYRR3541-75-58 10:23:00 Test Item Value Reference Range Interpretation Comments Lymphocytes # (test code = Lymphocytes 1.6 1.0-5.5 #) [facility] DallasGjfkzlpEGWREUQGUR4940-35-96 10:23:00 Test Item Value Reference Range Interpretation Comments Monocytes # (test code 0.6 See_Comment [Aut omated message] The = Monocytes #) system which generated this result tra nsmitted reference range : <=0.8. The reference r pearl was not used to int erpret this result as normal/abnormal . [facility] DallasZamyojrIZVSMSYIKR4772-72-40 10:23:00 Test Item Value Reference Range Interpretation Comments Eosinophils # (test code 0.1 See_Comment [A utomated message] The = Eosinophils #) system whic h generated this result tra nsmitted reference range : <=0.5. The reference r pearl was not used to int erpret this result as normal/abnormal . [facility]villeOlsscgiKWODKBJKDG3997-70-47 10:42:00 Test Item Value Reference Range Interpretation Comments Coronavirus (COVID-19) Not Detected (05/19/22 MAMADOU (test code = 5:42 AM) Coronavirus (COVID-19) MAMADOU) [facility]villeRztyxgtAGUNVTKHZR7834-37-71 10:42:00 Test Item Value Reference Range Interpretation Comments Coronavirus (COVID-19) Not Detected (05/19/22 MAMADOU (test code = 5:42 AM) Coronavirus (COVID-19) MAMADOU) [facility]villeCARDIAC [id number] 06:49:00 Test Item Value Reference Range Interpretation Comments proBNP (test code = 1773 See_Comment [Automa ori message] The proBNP) system which ge nerated this result tra nsmitted reference range : <=450. The reference r pearl was not used to int erpret this result as augustin l/abnormal. [facility] DallasQqbbqowRDYNCMLDIM9162-78-70 06:49:00 Test Item Value Reference Range Interpretation Comments ACT (TEG) Rapid (test code = ACT (TEG) 105 s 86-118 Rapid) [facility] DallasVguvtutZCYILIJLFB9782-28-01 06:49:00 Test Item Value Reference Range Interpretation Comments Split Point Rapid (test code = Split 0.5 min Point Rapid) [facility] DallasSofeznaORTDJZMLYG0034-75-80 06:49:00 Test Item Value Reference Range Interpretation Comments R-time Rapid (test code = R-time 0.6 min 0.4-0.7 Rapid) [facility] DallasVwclfygHKLOCVTDTN2173-66-84 06:49:00 Test Item Value Reference Range Interpretation Comments K-time Rapid (test code = K-time 1.0 min 0.6-2.3 Rapid) [facility] DallasCqwcnezRVIWAHLPWJ5243-04-00 06:49:00 Test Item Value Reference Range Interpretation Comments Angle Rapid (test code = Angle 78 degrees 64-80 Rapid) [facility] DallasWquuexrRCTKVKNCKH4389-31-51 06:49:00 Test Item Value Reference Range Interpretation Comments Max Amplitude Rapid (test code = Max 69 mm 52-71 Amplitude Rapid) [facility] DallasMayxdbfUFKIENFIXU5479-75-89 06:49:00 Test Item Value Reference Range Interpretation Comments G-value Rapid (test code = G-value 11.2 5.0-11.6 Rapid) [facility] DallasDutcjiwUPAVWXPVDM9096-91-58 06:49:00 Test Item Value Reference Range Interpretation Comments Estimated % Lysis Rapid 0.1 See_Comment [Au tomated message] The (test code = Estimated syste m which generated % Lysis Rapid) this result t ransmitted reference range : <=7.5. The reference r pearl was not used to int erpret this result as normal/abnormal . [facility]2022-06-22 06:49:00 Test Item Value Reference Range Interpretation Comments proBNP (test code = 1773 See_Comment [Automa ori message] The proBNP) system which ge nerated this result tra nsmitted reference range : <=450. The reference r pearl was not used to int erpret this result as augustin l/abnormal. [facility] DallasOjqndhhGTZCHSKVLU6896-60-82 06:49:00 Test Item Value Reference Range Interpretation Comments ACT (TEG) Rapid (test code = ACT (TEG) 105 s 86-118 Rapid) [facility] [id number] 06:49:00 Test Item Value Reference Range Interpretation Comments Split Point Rapid (test code = Split 0.5 min Point Rapid) [facility] DallasDcxtaxdYFMJPRZXDH6886-15-38 06:49:00 Test Item Value Reference Range Interpretation Comments R-time Rapid (test code = R-time 0.6 min 0.4-0.7 Rapid) [facility] DallasQzwgjgfURGFJSQYAB0755-50-99 06:49:00 Test Item Value Reference Range Interpretation Comments K-time Rapid (test code = K-time 1.0 min 0.6-2.3 Rapid) [place]62-06-22 06:49:00 Test Item Value Reference Range Interpretation Comments Angle Rapid (test code = Angle 78 degrees 64-80 Rapid) [facility] DallasHkobjydLXPQPKCSYC1553-77-57 06:49:00 Test Item Value Reference Range Interpretation Comments Max Amplitude Rapid (test code = Max 69 mm 52-71 Amplitude Rapid) [facility] DallasTgvppqzXYYBFHTQBH0804-42-67 06:49:00 Test Item Value Reference Range Interpretation Comments G-value Rapid (test code = G-value 11.2 5.0-11.6 Rapid) [place] 196662-06-22 06:49:00 Test Item Value Reference Range Interpretation Comments Estimated % Lysis Rapid 0.1 See_Comment [Au tomated message] The (test code = Estimated syste m which generated % Lysis Rapid) this result t ransmitted reference range : <=7.5. The reference r pearl was not used to int erpret this result as normal/abnormal . [place] 141542-06-21 23:57:00 Test Item Value Reference Range Interpretation Comments Total Protein (test code = Total 6.6 6.4-8.4 Protein) [address]06-21 23:57:00 Test Item Value Reference Range Interpretation Comments Albumin Lvl (test code = Albumin Lvl) 3.3 3.5-5.[address]06-21 23:57:00 Test Item Value Reference Range Interpretation Comments ALT (test code = ALT) 18 See_Comment [Auto mated message] The system which ge nerated this result transmit ori reference range : <=65. The reference range was not used to interpr et this result as augustin l/abnormal. [facility]villeV[facility] [employer] [employer] [id number] 23:57:00 Test Item Value Reference Range Interpretation Comments AST (test code = AST) 16 See_Comment [Auto mated message] The system which ge nerated this result transmit ori reference range : <=37. The reference range was not used to interpr et this result as augustin l/abnormal. [facility]villeV[facility] [id number] 23:57:00 Test Item Value Reference Range Interpretation Comments Alk Phos (test code = Alk Phos) 87 39-136 [email or web address] [id number] 23:57:00 Test Item Value Reference Range Interpretation Comments Bili Total (test code = Bili Total) 0.8 0.2-1.[address]06-21 23:57:00 Test Item Value Reference Range Interpretation Comments Bili Direct (test code 0.2 See_Comment [Aut omated message] The = Bili Direct) system which generated this result tra nsmitted reference range : <=0.3. The reference r pearl was not used to int erpret this result as augustin l/abnormal. [facility] [id number] 23:57:00 Test Item Value Reference Range Interpretation Comments Bili Indirect (test 0.6 See_Comment [Automa ori message] The code = Bili Indirect) system which generated this result tra nsmitted reference range : <=1.0. The reference r pearl was not used to int erpret this result as normal/abnormal . [facility] [employer] [id number] 23:57:00 Test Item Value Reference Range Interpretation Comments Globulin (test code = Globulin) 3.3 2.7-4.2 [facility] [id number] 23:57:00 Test Item Value Reference Range Interpretation Comments A/G Ratio (test code = A/G Ratio) 1.0 1 0.7-1.6 [facility] [id number] 23:57:00 Test Item Value Reference Range Interpretation Comments U Amph Scr (test code Negative *NA*(05/18/22 = U Amph Scr) 6:57 PM) [facility] [id number] 23:57:00 Test Item Value Reference Range Interpretation Comments U Luci Scr (test code Negative *NA*(05/18/22 = U Luci Scr) 6:57 PM) [facility] [id number] 23:57:00 Test Item Value Reference Range Interpretation Comments U Benzodiaz Scr (test Negative *NA*(05/18/22 code = U Benzodiaz Scr) 6:57 PM) [facility] [id number] 23:57:00 Test Item Value Reference Range Interpretation Comments U Cocaine Scr (test Negative *NA*(05/18/22 code = U Cocaine Scr) 6:57 PM) [facility] [id number] 23:57:00 Test Item Value Reference Range Interpretation Comments U Cannab Scr (test Negative *NA*(05/18/22 code = U Cannab Scr) 6:57 PM) [facility] [id number] 23:57:00 Test Item Value Reference Range Interpretation Comments U Opiate Scr (test Positive *ABN*(05/18/22 code = U Opiate Scr) 6:57 PM) [facility] [id number] 23:57:00 Test Item Value Reference Range Interpretation Comments U Phencyclidine Scr (test Negative code = U Phencyclidine *NA*(05/18/22 6:57 Scr) PM) [facility] [id number] 23:57:00 Test Item Value Reference Range Interpretation Comments UDS Note (test code = See Note (05/18/22 6:57 UDS Note) PM) [facility] CenterDccirrmUNRLTVPMTU8101-54-01 23:57:00 Test Item Value Reference Range Interpretation Comments PT (test code = PT) 13.9 s 12.0-14.7 [facility]villeYeawyyfHBTXLWSAGY6640-87-71 23:57:00 Test Item Value Reference Range Interpretation Comments INR (test code = INR) 1.08 1 0.85-1.17 [facility] BrownsvilleXxqdxagKBMDOVLMXG8440-77-51 23:57:00 Test Item Value Reference Range Interpretation Comments PTT (test code = PTT) 31.6 s 22.9-35.8 [facility] [id number] 23:57:00 Test Item Value Reference Range Interpretation Comments Hgb A1C (test code = Hgb A1C) 6.0 [facility] AND [id number] 23:57:00 Test Item Value Reference Range Interpretation Comments UA Color (test code = Light Yellow UA Color) *NA*(05/18/22 6:57 PM) [facility] AND [id number] 23:57:00 Test Item Value Reference Range Interpretation Comments UA Turbidity (test code = Clear (05/18/22 6:57 UA Turbidity) PM) [facility] AND [id number] 23:57:00 Test Item Value Reference Range Interpretation Comments UA Spec Grav (test code = UA Spec 1.010 1 Grav) [facility] AND [id number] 23:57:00 Test Item Value Reference Range Interpretation Comments UA pH (test code = UA pH) 8.0 1 5.0-8.0 [facility] AND [id number] 23:57:00 Test Item Value Reference Range Interpretation Comments UA Protein (test code = UA Negative mg/dL Protein) [facility] AND [id number] 23:57:00 Test Item Value Reference Range Interpretation Comments UA Glucose (test code = UA Negative mg/dL Glucose) [facility] AND [id number] 23:57:00 Test Item Value Reference Range Interpretation Comments UA Ketones (test code = UA Trace mg/dL Ketones) [facility] AND [id number] 23:57:00 Test Item Value Reference Range Interpretation Comments UA Bili (test code = Negative *NA*(05/18/22 UA Bili) 6:57 PM) [facility] AND [id number] 23:57:00 Test Item Value Reference Range Interpretation Comments UA Blood (test code = Small *ABN*(05/18/22 UA Blood) 6:57 PM) [facility] [id number] 23:57:00 Test Item Value Reference Range Interpretation Comments UA Urobilinogen (test code = UA no gt 0.1-1.0 Urobilinogen) [facility] [id number] 23:57:00 Test Item Value Reference Range Interpretation Comments UA Nitrite (test code Negative (05/18/22 6:57 = UA Nitrite) PM) [facility] AND [id number] 23:57:00 Test Item Value Reference Range Interpretation Comments UA Leuk Est (test Negative (05/18/22 6:57 code = UA Leuk Est) PM) [facility] AND [id number] 23:57:00 Test Item Value Reference Range Interpretation Comments UA Sq Epi (test code = UA Sq Occasional /LPF Epi) [facility] [id number] 23:57:00 Test Item Value Reference Range Interpretation Comments UA WBC (test code = 4 See_Comment [Automa ori message] The UA WBC) system which ge nerated this result transmit ori reference range : <=5. The reference range was not used to interpr et this result as augustin l/abnormal. [facility] AND [id number] 23:57:00 Test Item Value Reference Range Interpretation Comments UA RBC (test code = 4 See_Comment [Automa ori message] The UA RBC) system which ge nerated this result transmit ori reference range : <=2. The reference range was not used to interpr et this result as augustin l/abnormal. [facility] [id number] 23:57:00 Test Item Value Reference Range Interpretation Comments UA Trans Epi (test code = UA Trans Epi) 1 [email or web address] [id number] 23:57:00 Test Item Value Reference Range Interpretation Comments Total Protein (test code = Total 6.6 6.4-8.4 Protein) [facility] [id number] 23:57:00 Test Item Value Reference Range Interpretation Comments Albumin Lvl (test code = Albumin Lvl) 3.3 3.5-5.0 [facility] [id number] 23:57:00 Test Item Value Reference Range Interpretation Comments ALT (test code = ALT) 18 See_Comment [Auto mated message] The system which ge nerated this result transmit ori reference range : <=65. The reference range was not used to interpr et this result as augustin l/abnormal. [facility] [employer] [id number] 23:57:00 Test Item Value Reference Range Interpretation Comments AST (test code = AST) 16 See_Comment [Auto mated message] The system which ge nerated this result transmit ori reference range : <=37. The reference range was not used to interpr et this result as augustin l/abnormal. [facility] [employer] [id number] 23:57:00 Test Item Value Reference Range Interpretation Comments Alk Phos (test code = Alk Phos) 87 39-136 [facility] [employer] [id number] 23:57:00 Test Item Value Reference Range Interpretation Comments Bili Total (test code = Bili Total) 0.8 0.2-1.3 [facility] [employer] [id number] 23:57:00 Test Item Value Reference Range Interpretation Comments Bili Direct (test code 0.2 See_Comment [Aut omated message] The = Bili Direct) system which generated this result tra nsmitted reference range : <=0.3. The reference r pearl was not used to int erpret this result as augustin l/abnormal. [facility] [employer] [id number] 23:57:00 Test Item Value Reference Range Interpretation Comments Bili Indirect (test 0.6 See_Comment [Automa ori message] The code = Bili Indirect) system which generated this result tra nsmitted reference range : <=1.0. The reference r pearl was not used to int erpret this result as normal/abnormal . [facility] [employer] [id number] 23:57:00 Test Item Value Reference Range Interpretation Comments Globulin (test code = Globulin) 3.3 2.7-4.2 [facility] [employer] [id number] 23:57:00 Test Item Value Reference Range Interpretation Comments A/G Ratio (test code = A/G Ratio) 1.0 1 0.7-1.6 [facility] [employer] [id number] 23:57:00 Test Item Value Reference Range Interpretation Comments U Amph Scr (test code Negative *NA*(05/18/22 = U Amph Scr) 6:57 PM) [facility] [id number] 23:57:00 Test Item Value Reference Range Interpretation Comments U Luci Scr (test code Negative *NA*(05/18/22 = U Luci Scr) 6:57 PM) [facility] [id number] 23:57:00 Test Item Value Reference Range Interpretation Comments U Benzodiaz Scr (test Negative *NA*(05/18/22 code = U Benzodiaz Scr) 6:57 PM) [facility] [id number] 23:57:00 Test Item Value Reference Range Interpretation Comments U Cocaine Scr (test Negative *NA*(05/18/22 code = U Cocaine Scr) 6:57 PM) [facility] [id number] 23:57:00 Test Item Value Reference Range Interpretation Comments U Cannab Scr (test Negative *NA*(05/18/22 code = U Cannab Scr) 6:57 PM) [facility] [id number] 23:57:00 Test Item Value Reference Range Interpretation Comments U Opiate Scr (test Positive *ABN*(05/18/22 code = U Opiate Scr) 6:57 PM) [facility] [id number] 23:57:00 Test Item Value Reference Range Interpretation Comments U Phencyclidine Scr (test Negative code = U Phencyclidine *NA*(05/18/22 6:57 Scr) PM) [facility] [id number] 23:57:00 Test Item Value Reference Range Interpretation Comments UDS Note (test code = See Note (05/18/22 6:57 UDS Note) PM) [facility] [id number] 23:57:00 Test Item Value Reference Range Interpretation Comments PT (test code = PT) 13.9 s 12.0-14.7 [facility] [id number] 23:57:00 Test Item Value Reference Range Interpretation Comments INR (test code = INR) 1.08 1 0.85-1.17 [facility] [id number] 23:57:00 Test Item Value Reference Range Interpretation Comments PTT (test code = PTT) 31.6 s 22.9-35.8 [facility]annSPECIAL [id number] 23:57:00 Test Item Value Reference Range Interpretation Comments Hgb A1C (test code = Hgb A1C) 6.0 [facility] AND [id number] 23:57:00 Test Item Value Reference Range Interpretation Comments UA Color (test code = Light Yellow UA Color) *NA*(05/18/22 6:57 PM) [facility] AND [id number] 23:57:00 Test Item Value Reference Range Interpretation Comments UA Turbidity (test code = Clear (05/18/22 6:57 UA Turbidity) PM) [facility] AND [id number] 23:57:00 Test Item Value Reference Range Interpretation Comments UA Spec Grav (test code = UA Spec 1.010 1 Grav) [facility] AND [id number] 23:57:00 Test Item Value Reference Range Interpretation Comments UA pH (test code = UA pH) 8.0 1 5.0-8.0 [facility] AND [id number] 23:57:00 Test Item Value Reference Range Interpretation Comments UA Protein (test code = UA Negative mg/dL Protein) [facility] AND [id number] 23:57:00 Test Item Value Reference Range Interpretation Comments UA Glucose (test code = UA Negative mg/dL Glucose) [facility] AND [id number] 23:57:00 Test Item Value Reference Range Interpretation Comments UA Ketones (test code = UA Trace mg/dL Ketones) [facility] AND [id number] 23:57:00 Test Item Value Reference Range Interpretation Comments UA Bili (test code = Negative *NA*(05/18/22 UA Bili) 6:57 PM) [facility] AND [id number] 23:57:00 Test Item Value Reference Range Interpretation Comments UA Blood (test code = Small *ABN*(05/18/22 UA Blood) 6:57 PM) [facility] AND [id number] 23:57:00 Test Item Value Reference Range Interpretation Comments UA Urobilinogen (test code = UA no gt 0.1-1.0 Urobilinogen) [facility] AND [id number] 23:57:00 Test Item Value Reference Range Interpretation Comments UA Nitrite (test code Negative (6/21/22 6:57 = UA Nitrite) PM) [facility] [id number] 23:57:00 Test Item Value Reference Range Interpretation Comments UA Leuk Est (test Negative (05/18/22 6:57 code = UA Leuk Est) PM) [facility] [id number] 23:57:00 Test Item Value Reference Range Interpretation Comments UA Sq Epi (test code = UA Sq Occasional /LPF Epi) [facility] AND [id number] 23:57:00 Test Item Value Reference Range Interpretation Comments UA WBC (test code = 4 See_Comment [Automa ori message] The UA WBC) system which ge nerated this result transmit ori reference range : <=5. The reference range was not used to interpr et this result as augustin l/abnormal. [facility] AND [id number] 23:57:00 Test Item Value Reference Range Interpretation Comments UA RBC (test code = 4 See_Comment [Automa ori message] The UA RBC) system which ge nerated this result transmit ori reference range : <=2. The reference range was not used to interpr et this result as augustin l/abnormal. [facility] [id number] 23:57:00 Test Item Value Reference Range Interpretation Comments UA Trans Epi (test code = UA Trans Epi) 1 [facility] AND [id number] 13:21:00 Test Item Value Reference Range Interpretation Comments UA Urobilinogen (test code = UA <=1.0 mg/dL 0.1-1.0 Urobilinogen) [facility] AND [id number] 13:21:00 Test Item Value Reference Range Interpretation Comments UA Nitrite (test code Negative (07/01/15 8:21 = UA Nitrite) AM) [facility] AND [id number] 13:21:00 Test Item Value Reference Range Interpretation Comments UA Mucus (test code = UA Mucus) Few /LPF [facility] [id number] 13:21:00 Test Item Value Reference Range Interpretation Comments UA Renal Epi (test code = UA Renal Epi) 1 [facility] [id number] 13:21:00 Test Item Value Reference Range Interpretation Comments UA Leuk Est (test Negative (07/01/15 8:21 code = UA Leuk Est) AM) [facility] AND [id number] 13:21:00 Test Item Value Reference Range Interpretation Comments UA Sq Epi (test code = UA Sq Moderate /LPF Epi) [facility] AND [id number] 13:21:00 Test Item Value Reference Range Interpretation Comments UA Protein (test code = UA Negative mg/dL Protein) [facility] AND [id number] 13:21:00 Test Item Value Reference Range Interpretation Comments UA Bili (test code = Negative *NA*(07/01/15 UA Bili) 8:21 AM) [facility] AND [id number] 13:21:00 Test Item Value Reference Range Interpretation Comments UA WBC (test code = 3 See_Comment [Automa ori message] The UA WBC) system which ge nerated this result transmit ori reference range : <=5. The reference range was not used to interpr et this result as augustin l/abnormal. [facility] AND [id number] 13:21:00 Test Item Value Reference Range Interpretation Comments UA Blood (test code = Negative (07/01/15 8:21 UA Blood) AM) [facility] AND [id number] 13:21:00 Test Item Value Reference Range Interpretation Comments UA RBC (test code = no gt See_Comment [Automa ori message] The UA RBC) system which ge nerated this result transmit ori reference range : <=2. The reference range was not used to interpr et this result as augustin l/abnormal. [facility] AND [id number] 13:21:00 Test Item Value Reference Range Interpretation Comments UA Glucose (test code = UA Negative mg/dL Glucose) [facility] AND [id number] 13:21:00 Test Item Value Reference Range Interpretation Comments UA pH (test code = UA pH) 7.0 5.0-8.0 [facility] [id number] 13:21:00 Test Item Value Reference Range Interpretation Comments UA Ketones (test code = UA Negative mg/dL Ketones) [facility] [id number] 13:21:00 Test Item Value Reference Range Interpretation Comments UA Spec Grav (test code = UA Spec Grav) 1.017 [facility] [id number] 13:21:00 Test Item Value Reference Range Interpretation Comments UA Turbidity (test code = Clear (07/01/15 8:21 UA Turbidity) AM) [facility] [id number] 13:21:00 Test Item Value Reference Range Interpretation Comments UA Color (test code = Yellow *NA*(07/01/15 8:21 UA Color) AM) [facility] [id number] 13:21:00 Test Item Value Reference Range Interpretation Comments UA Urobilinogen (test code = UA <=1.0 mg/dL 0.1-1.0 Urobilinogen) [facility] [id number] 13:21:00 Test Item Value Reference Range Interpretation Comments UA Nitrite (test code Negative (07/01/15 8:21 = UA Nitrite) AM) [facility] [id number] 13:21:00 Test Item Value Reference Range Interpretation Comments UA Mucus (test code = UA Mucus) Few /LPF [facility] [id number] 13:21:00 Test Item Value Reference Range Interpretation Comments UA Renal Epi (test code = UA Renal Epi) 1 [facility] [id number] 13:21:00 Test Item Value Reference Range Interpretation Comments UA Leuk Est (test Negative (07/01/15 8:21 code = UA Leuk Est) AM) [facility] [id number] 13:21:00 Test Item Value Reference Range Interpretation Comments UA Sq Epi (test code = UA Sq Moderate /LPF Epi) [facility] [id number] 13:21:00 Test Item Value Reference Range Interpretation Comments UA Protein (test code = UA Negative mg/dL Protein) [facility] [id number] 13:21:00 Test Item Value Reference Range Interpretation Comments UA Bili (test code = Negative *NA*(07/01/15 UA Bili) 8:21 AM) [facility] [id number] 13:21:00 Test Item Value Reference Range Interpretation Comments UA WBC (test code = 3 See_Comment [Automa ori message] The UA WBC) system which ge nerated this result transmit ori reference range : <=5. The reference range was not used to interpr et this result as augustin l/abnormal. [facility] [id number] 13:21:00 Test Item Value Reference Range Interpretation Comments UA Blood (test code = Negative (07/01/15 8:21 UA Blood) AM) [facility] [id number] 13:21:00 Test Item Value Reference Range Interpretation Comments UA RBC (test code = no gt See_Comment [Automa ori message] The UA RBC) system which ge nerated this result transmit ori reference range : <=2. The reference range was not used to interpr et this result as augustin l/abnormal. [facility] [id number] 13:21:00 Test Item Value Reference Range Interpretation Comments UA Glucose (test code = UA Negative mg/dL Glucose) [facility] [id number] 13:21:00 Test Item Value Reference Range Interpretation Comments UA pH (test code = UA pH) 7.0 5.0-8.0 [facility] [id number] 13:21:00 Test Item Value Reference Range Interpretation Comments UA Ketones (test code = UA Negative mg/dL Ketones) [facility] [id number] 13:21:00 Test Item Value Reference Range Interpretation Comments UA Spec Grav (test code = UA Spec Grav) 1.017 [facility] [id number] 13:21:00 Test Item Value Reference Range Interpretation Comments UA Turbidity (test code = Clear (07/01/15 8:21 UA Turbidity) AM) [facility] [id number] 13:21:00 Test Item Value Reference Range Interpretation Comments UA Color (test code = Yellow *NA*(07/01/15 8:21 UA Color) AM) [facility] HealthLuoydcnYUTEOGSUXAOW1475-04-91 23:32:00 Test Item Value Reference Range Interpretation Comments AGAP (test code = AGAP) 11.2 10.0-20.0 [facility] HealthAafrgqzVJMTYNVGPIGF5871-86-54 23:32:00 Test Item Value Reference Range Interpretation Comments eGFR (test code = eGFR) 48 [facility] HealthTzbahxqAMAWELZRICLF1748-42-48 23:32:00 Test Item Value Reference Range Interpretation Comments Calcium Lvl (test code = Calcium Lvl) 8.4 8.5-10.5 [facility] HealthRjorhzlBJZNNBVNOZYW1006-18-11 23:32:00 Test Item Value Reference Range Interpretation Comments CO2 (test code = CO2) 32 24-32 [facility] HealthNwzyehdFFTARDUXOHEM2063-09-24 23:32:00 Test Item Value Reference Range Interpretation Comments Chloride Lvl (test code = Chloride Lvl) 104 95-109 [facility] HealthMaoeelfBEVDKADXEFVS9276-05-47 23:32:00 Test Item Value Reference Range Interpretation Comments Potassium Lvl (test code = Potassium 4.2 3.5-5.1 Lvl) [facility] HealthMsvaptmJIOENBFEHGXL5569-90-41 23:32:00 Test Item Value Reference Range Interpretation Comments BUN (test code = BUN) 35 7-22 [facility] HealthFvzqoutSJFOBZCNYOZT9758-53-74 23:32:00 Test Item Value Reference Range Interpretation Comments Sodium Lvl (test code = Sodium Lvl) 143 135-145 [facility] HealthJpauncxOSCNAQMPEWKE4342-21-47 23:32:00 Test Item Value Reference Range Interpretation Comments Creatinine Lvl (test code = Creatinine 1.1 0.5-1.4 Lvl) [facility] HealthMswswpjPBNKUBAIVQKJ3609-94-68 23:32:00 Test Item Value Reference Range Interpretation Comments Glucose Lvl (test code = Glucose Lvl) 153 70-99 [facility]AmhmlaaCZXWGTZGWE9220-43-58 23:32:00 Test Item Value Reference Range Interpretation Comments MCHC (test code = MCHC) 31.7 32.0-36.0 [facility] DallasQxchwpcFEODDZWHZK2155-87-79 23:32:00 Test Item Value Reference Range Interpretation Comments RDW (test code = RDW) 16.6 11.5-14.5 [facility] DallasFxpgrqfIJRMSYTXWX3644-68-51 23:32:00 Test Item Value Reference Range Interpretation Comments MPV (test code = MPV) 9.3 7.4-10.4 [facility] DallasKpwfdvrNVGMDNGNOF5266-07-68 23:32:00 Test Item Value Reference Range Interpretation Comments MCH (test code = MCH) 28.8 pg 27.0-31.0 [facility] DallasBqlyysnYNZNNWGLRW7574-91-64 23:32:00 Test Item Value Reference Range Interpretation Comments MCV (test code = MCV) 90.7 80.0-98.0 [facility] DallasFpvwbzhHARIKXTQJW3112-73-59 23:32:00 Test Item Value Reference Range Interpretation Comments RBC (test code = RBC) 4.42 4.20-5.40 [facility] DallasXspqhqqNRDJQNFNTY6962-10-31 23:32:00 Test Item Value Reference Range Interpretation Comments WBC (test code = WBC) 9.4 3.7-10.4 [facility] DallasQpxszyyWAYCCIFNDX4355-87-75 23:32:00 Test Item Value Reference Range Interpretation Comments Hct (test code = Hct) 40.1 36.0-48.0 [facility] DallasQbrwmtpBOGYOXMNDZ1273-06-75 23:32:00 Test Item Value Reference Range Interpretation Comments Hgb (test code = Hgb) 12.7 12.0-16.0 [facility] DallasKycidfiSLPRBCEYPS7944-41-70 23:32:00 Test Item Value Reference Range Interpretation Comments Platelet (test code = Platelet) 177 133-450 [facility] DallasZrzosvxGNEPLMXDIW1748-09-86 23:32:00 Test Item Value Reference Range Interpretation Comments Basophils # (test code 0.1 See_Comment [Aut omated message] The = Basophils #) system which generated this result tra nsmitted reference range : <=0.2. The reference r pearl was not used to int erpret this result as normal/abnormal . [facility] DallasYqyicuyEUXWWJOQXA0468-61-82 23:32:00 Test Item Value Reference Range Interpretation Comments Segs (test code = Segs) 69.8 45.0-75.0 [facility] DallasEpzsqqeEPKPOEWSNM0081-58-87 23:32:00 Test Item Value Reference Range Interpretation Comments Lymphocytes (test code = Lymphocytes) 21.1 20.0-40.0 [facility] DallasHdhtnytUROJFWATMF9707-71-02 23:32:00 Test Item Value Reference Range Interpretation Comments Segs-Bands # (test code = Segs-Bands #) 6.6 1.5-8.1 [facility] DallasSdqasthSSZJHZKBFP4457-35-06 23:32:00 Test Item Value Reference Range Interpretation Comments Basophils (test code = 0.9 See_Comment [Aut omated message] The Basophils) system which ge nerated this result tra nsmitted reference range : <=1.0. The reference r pearl was not used to int erpret this result as normal/abnormal . [facility] DallasEnqedmsOKTJBCNQZD7844-08-42 23:32:00 Test Item Value Reference Range Interpretation Comments Lymphocytes # (test code = Lymphocytes 2.0 1.0-5.5 #) [facility] DallasFzledpcCNMCDVUFXO7274-67-87 23:32:00 Test Item Value Reference Range Interpretation Comments Monocytes # (test code 0.6 See_Comment [Aut omated message] The = Monocytes #) system which generated this result tra nsmitted reference range : <=0.8. The reference r pearl was not used to int erpret this result as normal/abnormal . [facility] DallasRlafvckMEWTVULEHC3738-99-22 23:32:00 Test Item Value Reference Range Interpretation Comments Monocytes (test code = Monocytes) 6.1 2.0-12.0 [facility] DallasZlujnijIYOKKQHDVE7959-32-79 23:32:00 Test Item Value Reference Range Interpretation Comments Eosinophils (test code = 2.1 See_Comment [A utomated message] The Eosinophils) system which ge nerated this result tra nsmitted reference range : <=4.0. The reference r pearl was not used to int erpret this result as normal/abnormal . [facility] DallasQahiakuMIIOZBRXNS5570-84-10 23:32:00 Test Item Value Reference Range Interpretation Comments Eosinophils # (test code 0.2 See_Comment [A utomated message] The = Eosinophils #) system whic h generated this result tra nsmitted reference range : <=0.5. The reference r pearl was not used to int erpret this result as normal/abnormal . [facility]HxxgvulXAJVMXOJDAJS8217-06-45 23:32:00 Test Item Value Reference Range Interpretation Comments AGAP (test code = AGAP) 11.2 10.0-20.0 [facility] HealthSaadpxdKWIZAZZVMYTW4150-11-81 23:32:00 Test Item Value Reference Range Interpretation Comments eGFR (test code = eGFR) 48 [facility]HzbwghfSONDSWOEJSYW8147-10-61 23:32:00 Test Item Value Reference Range Interpretation Comments Calcium Lvl (test code = Calcium Lvl) 8.4 8.5-10.5 [facility] HealthZpplxmoQKCBAMNGUUOP2218-53-43 23:32:00 Test Item Value Reference Range Interpretation Comments CO2 (test code = CO2) 32 24-32 [facility] HealthGawjxbeHKCETKGNOWOS6715-47-81 23:32:00 Test Item Value Reference Range Interpretation Comments Chloride Lvl (test code = Chloride Lvl) 104 95-109 [facility] HealthSgmtvqfNIVEICRDTBLU6904-54-01 23:32:00 Test Item Value Reference Range Interpretation Comments Potassium Lvl (test code = Potassium 4.2 3.5-5.1 Lvl) [facility] HealthLlzdvrbUWJVPEMMFEAD2076-08-41 23:32:00 Test Item Value Reference Range Interpretation Comments BUN (test code = BUN) 35 7-22 [facility] HealthEjgbfcuSIMTRZFIVJUD8444-15-15 23:32:00 Test Item Value Reference Range Interpretation Comments Sodium Lvl (test code = Sodium Lvl) 143 135-145 [facility] HealthMdijqkuTXRJZWHNYLHA0385-31-78 23:32:00 Test Item Value Reference Range Interpretation Comments Creatinine Lvl (test code = Creatinine 1.1 0.5-1.4 Lvl) [facility] HealthEdbwsvyZHGRZYVAHAHB3792-02-03 23:32:00 Test Item Value Reference Range Interpretation Comments Glucose Lvl (test code = Glucose Lvl) 153 70-99 [facility] DallasSafdoayHFLTQRBURG4699-62-78 23:32:00 Test Item Value Reference Range Interpretation Comments MCHC (test code = MCHC) 31.7 32.0-36.0 [facility] DallasJrnsvooQIIFAIWLCK1290-59-89 23:32:00 Test Item Value Reference Range Interpretation Comments RDW (test code = RDW) 16.6 11.5-14.5 [facility] DallasKprihwsRLDEDJWEYT1380-44-80 23:32:00 Test Item Value Reference Range Interpretation Comments MPV (test code = MPV) 9.3 7.4-10.4 [facility] DallasDkkktweSVWOQOZMJU1621-16-78 23:32:00 Test Item Value Reference Range Interpretation Comments MCH (test code = MCH) 28.8 pg 27.0-31.0 [facility] DallasBycvyfsLMOQWTUTIC9442-25-00 23:32:00 Test Item Value Reference Range Interpretation Comments MCV (test code = MCV) 90.7 80.0-98.0 [facility] DallasJtjmszvWAQNQKRKXU2495-77-43 23:32:00 Test Item Value Reference Range Interpretation Comments RBC (test code = RBC) 4.42 4.20-5.40 [facility] DallasMpxsfsgTFREJHWZZY6531-07-90 23:32:00 Test Item Value Reference Range Interpretation Comments WBC (test code = WBC) 9.4 3.7-10.4 [facility] DallasShvopnrQPPQLSQXQD6389-72-57 23:32:00 Test Item Value Reference Range Interpretation Comments Hct (test code = Hct) 40.1 36.0-48.0 [facility] DallasYshdxfeOTNIPYIHXQ8179-12-27 23:32:00 Test Item Value Reference Range Interpretation Comments Hgb (test code = Hgb) 12.7 12.0-16.0 [facility] DallasOdrfhgjMELSMBHEPG4460-05-42 23:32:00 Test Item Value Reference Range Interpretation Comments Platelet (test code = Platelet) 177 133-450 [facility] DallasDjtguwmQNHXLTEOFF5780-60-13 23:32:00 Test Item Value Reference Range Interpretation Comments Basophils # (test code 0.1 See_Comment [Aut omated message] The = Basophils #) system which generated this result tra nsmitted reference range : <=0.2. The reference r pearl was not used to int erpret this result as normal/abnormal . [facility] DallasVxargbuLDHUSHRLCT6747-30-47 23:32:00 Test Item Value Reference Range Interpretation Comments Segs (test code = Segs) 69.8 45.0-75.0 [facility] DallasHggbunkZIDBKRFBZN8049-22-86 23:32:00 Test Item Value Reference Range Interpretation Comments Lymphocytes (test code = Lymphocytes) 21.1 20.0-40.0 [facility] DallasKnlstqmOTUYDJKEKQ4673-89-41 23:32:00 Test Item Value Reference Range Interpretation Comments Segs-Bands # (test code = Segs-Bands #) 6.6 1.5-8.1 [facility] DallasNptwnliPCAVQLXNTS4246-26-14 23:32:00 Test Item Value Reference Range Interpretation Comments Basophils (test code = 0.9 See_Comment [Aut omated message] The Basophils) system which ge nerated this result tra nsmitted reference range : <=1.0. The reference r pearl was not used to int erpret this result as normal/abnormal . [facility] DallasDvclpsyYKAJAEXOII5556-15-69 23:32:00 Test Item Value Reference Range Interpretation Comments Lymphocytes # (test code = Lymphocytes 2.0 1.0-5.5 #) [facility] DallasHlfajskJYUUUTYBGE8611-12-00 23:32:00 Test Item Value Reference Range Interpretation Comments Monocytes # (test code 0.6 See_Comment [Aut omated message] The = Monocytes #) system which generated this result tra nsmitted reference range : <=0.8. The reference r pearl was not used to int erpret this result as normal/abnormal . [facility] DallasHhztzbkJBRNWHIQER0854-54-43 23:32:00 Test Item Value Reference Range Interpretation Comments Monocytes (test code = Monocytes) 6.1 2.0-12.0 [facility] DallasJnwqggaIQCGBVSVYD6354-34-04 23:32:00 Test Item Value Reference Range Interpretation Comments Eosinophils (test code = 2.1 See_Comment [A utomated message] The Eosinophils) system which ge nerated this result tra nsmitted reference range : <=4.0. The reference r pearl was not used to int erpret this result as normal/abnormal . [facility] DallasJdfmxflRCHXKYGOFQ8607-23-83 23:32:00 Test Item Value Reference Range Interpretation Comments Eosinophils # (test code 0.2 See_Comment [A utomated message] The = Eosinophils #) system whic h generated this result tra nsmitted reference range : <=0.5. The reference r pearl was not used to int erpret this result as normal/abnormal . [facility]2015-07-13 09:34:00 Test Item Value Reference Range Interpretation Comments Magnesium Lvl (test code = Magnesium 1.9 1.8-2.4 Lvl) [facility]2015-07-13 09:34:00 Test Item Value Reference Range Interpretation Comments Phosphorus (test code = Phosphorus) 4.2 2.5-4.5 [facility] HealthHijcgymSKOOKFZFGVSZ2153-74-85 09:34:00 Test Item Value Reference Range Interpretation Comments AGAP (test code = AGAP) 11.1 10.0-20.0 [facility] HealthNtujccrBFZQHCQXHKUS3005-66-28 09:34:00 Test Item Value Reference Range Interpretation Comments eGFR (test code = eGFR) 61 [facility] HealthGnfywqtFSCVCXBGZHSL2336-87-73 09:34:00 Test Item Value Reference Range Interpretation Comments Creatinine Lvl (test code = Creatinine 0.9 0.5-1.4 Lvl) [facility] HealthOytimveKCNRMYPWCNZD4591-32-29 09:34:00 Test Item Value Reference Range Interpretation Comments BUN (test code = BUN) 20 7-22 [facility] HealthMgnrmybVXWAFYCLGCEO4858-01-95 09:34:00 Test Item Value Reference Range Interpretation Comments Glucose Lvl (test code = Glucose Lvl) 116 70-99 [facility] HealthZnbhceyYRVOMKQINVZO6418-99-71 09:34:00 Test Item Value Reference Range Interpretation Comments CO2 (test code = CO2) 27 24-32 [facility] HealthMotvgqaBSXCPZDUIJVK3055-10-12 09:34:00 Test Item Value Reference Range Interpretation Comments Chloride Lvl (test code = Chloride Lvl) 108 95-109 [facility] HealthVselhjkIUXQEDUHUOUM6518-31-62 09:34:00 Test Item Value Reference Range Interpretation Comments Potassium Lvl (test code = Potassium 4.1 3.5-5.1 Lvl) [facility] HealthUgdtxavFTDRMPLFGZIT9831-21-88 09:34:00 Test Item Value Reference Range Interpretation Comments Sodium Lvl (test code = Sodium Lvl) 142 135-145 [facility] HealthFitjnsyWIXMNROKMPFX1162-90-09 09:34:00 Test Item Value Reference Range Interpretation Comments Calcium Lvl (test code = Calcium Lvl) 8.6 8.5-10.5 [facility] DallasOkexluxPCECLXGBGU9441-86-51 09:34:00 Test Item Value Reference Range Interpretation Comments PTT (test code = PTT) 40.9 s 22.9-35.8 [facility] DallasOudjvgoOGPADMTRJX1816-25-95 09:34:00 Test Item Value Reference Range Interpretation Comments INR (test code = INR) 1.45 0.85-1.17 [facility] DallasAikpwahSAMFKBFBXM9124-28-57 09:34:00 Test Item Value Reference Range Interpretation Comments PT (test code = PT) 17.9 s 12.0-14.7 [facility] DallasYkkcrnnAEDNSTYKKB7832-84-50 09:34:00 Test Item Value Reference Range Interpretation Comments RDW (test code = RDW) 15.2 11.5-14.5 [facility] DallasZrswvfnNRVXCSDAMY5376-16-92 09:34:00 Test Item Value Reference Range Interpretation Comments Platelet (test code = Platelet) 181 133-450 [facility] DallasEolubdeZRFAWETIPV2099-96-27 09:34:00 Test Item Value Reference Range Interpretation Comments MCHC (test code = MCHC) 32.9 32.0-36.0 [facility] DallasAcugjjfWZYMWELYMV1919-33-61 09:34:00 Test Item Value Reference Range Interpretation Comments MCH (test code = MCH) 29.0 pg 27.0-31.0 [facility] DallasKaoihcrGAXZNYQJMJ4995-43-25 09:34:00 Test Item Value Reference Range Interpretation Comments WBC (test code = WBC) 7.2 3.7-10.4 [facility] DallasUytucnnADBURMKBOT0345-32-40 09:34:00 Test Item Value Reference Range Interpretation Comments MPV (test code = MPV) 9.6 7.4-10.4 [facility] DallasEduanwvWBDYSVHRAJ4081-69-38 09:34:00 Test Item Value Reference Range Interpretation Comments Hct (test code = Hct) 39.9 36.0-48.0 [facility] DallasEdiqfqqPXLNNSEFNE6157-59-03 09:34:00 Test Item Value Reference Range Interpretation Comments MCV (test code = MCV) 88.2 80.0-98.0 [facility] DallasAmnwpicHWCXZJLLGS5013-75-74 09:34:00 Test Item Value Reference Range Interpretation Comments Hgb (test code = Hgb) 13.1 12.0-16.0 [facility] DallasAyssbriZKMYMDRGSL4002-49-33 09:34:00 Test Item Value Reference Range Interpretation Comments RBC (test code = RBC) 4.52 4.20-5.40 [facility] DallasYpgklauXVVKDNEBZT6134-44-48 09:34:00 Test Item Value Reference Range Interpretation Comments Monocytes # (test code 0.7 See_Comment [Aut omated message] The = Monocytes #) system which generated this result tra nsmitted reference range : <=0.8. The reference r pearl was not used to int erpret this result as normal/abnormal . [facility] DallasBpwugcwSBPRULLGNY4459-73-80 09:34:00 Test Item Value Reference Range Interpretation Comments Basophils # (test code 0.1 See_Comment [Aut omated message] The = Basophils #) system which generated this result tra nsmitted reference range : <=0.2. The reference r pearl was not used to int erpret this result as normal/abnormal . [facility] DallasGeaikhaXHMSKCWGUM7948-22-57 09:34:00 Test Item Value Reference Range Interpretation Comments Eosinophils # (test code 0.2 See_Comment [A utomated message] The = Eosinophils #) system whic h generated this result tra nsmitted reference range : <=0.5. The reference r pearl was not used to int erpret this result as normal/abnormal . [facility] DallasAkkkfytYWJQHTGADP3996-61-97 09:34:00 Test Item Value Reference Range Interpretation Comments Lymphocytes (test code = Lymphocytes) 24.6 20.0-40.0 [facility] DallasLckfbncEELZFIKEXD8017-91-29 09:34:00 Test Item Value Reference Range Interpretation Comments Segs (test code = Segs) 62.5 45.0-75.0 [facility] DallasKpzoutdUFDGVXAXOE2057-22-57 09:34:00 Test Item Value Reference Range Interpretation Comments Monocytes (test code = Monocytes) 9.8 2.0-12.0 [facility] DallasCdxerpoKLLERJMCUE5380-90-27 09:34:00 Test Item Value Reference Range Interpretation Comments Basophils (test code = 0.8 See_Comment [Aut omated message] The Basophils) system which ge nerated this result tra nsmitted reference range : <=1.0. The reference r pearl was not used to int erpret this result as normal/abnormal . [facility] DallasTuczqwwBQNJISTFOH0793-84-58 09:34:00 Test Item Value Reference Range Interpretation Comments Eosinophils (test code = 2.3 See_Comment [A utomated message] The Eosinophils) system which ge nerated this result tra nsmitted reference range : <=4.0. The reference r pearl was not used to int erpret this result as normal/abnormal . [facility] DallasLyvgaubHIZVLWESFY2920-01-87 09:34:00 Test Item Value Reference Range Interpretation Comments Lymphocytes # (test code = Lymphocytes 1.8 1.0-5.5 #) [facility] DallasNitrinjEQSFLUWZEF4227-71-78 09:34:00 Test Item Value Reference Range Interpretation Comments Segs-Bands # (test code = Segs-Bands #) 4.5 1.5-8.1 [facility] [employer] [facility] AGYZM4774-29-21 09:34:00 Test Item Value Reference Range Interpretation Comments Magnesium Lvl (test code = Magnesium 1.9 1.8-2.4 Lvl) [facility] CFEGU8915-77-46 09:34:00 Test Item Value Reference Range Interpretation Comments Phosphorus (test code = Phosphorus) 4.2 2.5-4.5 [facility] HealthJmriwgkCJMSYMPUCORQ1269-18-72 09:34:00 Test Item Value Reference Range Interpretation Comments AGAP (test code = AGAP) 11.1 10.0-20.0 [facility] HealthQobvzmiXJNKBNCNEBZV1188-06-18 09:34:00 Test Item Value Reference Range Interpretation Comments eGFR (test code = eGFR) 61 [facility] HealthDxtcyxoEAKTGNHSJNZX6606-81-60 09:34:00 Test Item Value Reference Range Interpretation Comments Creatinine Lvl (test code = Creatinine 0.9 0.5-1.4 Lvl) [facility] HealthDobzzcfOMFBWETHIMNW8011-27-22 09:34:00 Test Item Value Reference Range Interpretation Comments BUN (test code = BUN) 20 7-22 [facility] HealthTvyfeznIAWVDWRVLFNG3250-73-18 09:34:00 Test Item Value Reference Range Interpretation Comments Glucose Lvl (test code = Glucose Lvl) 116 70-99 [facility] HealthGjpndpuRGKBCRTGDLUE9486-52-84 09:34:00 Test Item Value Reference Range Interpretation Comments CO2 (test code = CO2) 27 24-32 [facility]CsnbbojCCSLLVMWAMDI5021-38-88 09:34:00 Test Item Value Reference Range Interpretation Comments Chloride Lvl (test code = Chloride Lvl) 108 95-109 [facility] HealthRsbuhfaCGYSYRDYOBCI2611-47-80 09:34:00 Test Item Value Reference Range Interpretation Comments Potassium Lvl (test code = Potassium 4.1 3.5-5.1 Lvl) [facility] HealthEdrltzoJARJKVTUALPN1577-15-92 09:34:00 Test Item Value Reference Range Interpretation Comments Sodium Lvl (test code = Sodium Lvl) 142 135-145 [facility] HealthEjvctwyLDSKTTNGLFOR0247-99-26 09:34:00 Test Item Value Reference Range Interpretation Comments Calcium Lvl (test code = Calcium Lvl) 8.6 8.5-10.5 [facility] DallasThscuwwZISMBZWUAZ9843-15-45 09:34:00 Test Item Value Reference Range Interpretation Comments PTT (test code = PTT) 40.9 s 22.9-35.8 [facility] DallasXbchkisAQUOTWJTAC7770-94-80 09:34:00 Test Item Value Reference Range Interpretation Comments INR (test code = INR) 1.45 0.85-1.17 [facility] DallasKqcadouWSCANRQHBW7970-49-05 09:34:00 Test Item Value Reference Range Interpretation Comments PT (test code = PT) 17.9 s 12.0-14.7 [facility] DallasJfsanjjCOSAWXRUER9379-60-17 09:34:00 Test Item Value Reference Range Interpretation Comments RDW (test code = RDW) 15.2 11.5-14.5 [place] [address]-07-13 09:34:00 Test Item Value Reference Range Interpretation Comments Platelet (test code = Platelet) 181 133-450 [facility] DallasInhflehZLRIJMPXYF8390-45-30 09:34:00 Test Item Value Reference Range Interpretation Comments MCHC (test code = MCHC) 32.9 32.0-36.0 [facility] DallasPnotmojZOGHFCDXEK6366-41-39 09:34:00 Test Item Value Reference Range Interpretation Comments MCH (test code = MCH) 29.0 pg 27.0-31.0 [facility] DallasIocbhceEHCZDISDFW3633-85-30 09:34:00 Test Item Value Reference Range Interpretation Comments WBC (test code = WBC) 7.2 3.7-10.4 [facility] DallasCnuuryvFPWDMOIGIE1570-58-89 09:34:00 Test Item Value Reference Range Interpretation Comments MPV (test code = MPV) 9.6 7.4-10.4 [facility] DallasZnqaakvSOJVZMELZG2524-92-52 09:34:00 Test Item Value Reference Range Interpretation Comments Hct (test code = Hct) 39.9 36.0-48.0 [facility] DallasZnjxdyjEDZNZVLYXB5054-05-88 09:34:00 Test Item Value Reference Range Interpretation Comments MCV (test code = MCV) 88.2 80.0-98.0 [facility] DallasQdhkkkxWFBVFZPUCZ2628-15-53 09:34:00 Test Item Value Reference Range Interpretation Comments Hgb (test code = Hgb) 13.1 12.0-16.0 [facility] DallasIhavvxxAAQGVWEAGZ7973-87-79 09:34:00 Test Item Value Reference Range Interpretation Comments RBC (test code = RBC) 4.52 4.20-5.40 [facility] DallasWnkdkhsHOKIEMRVIA1365-12-24 09:34:00 Test Item Value Reference Range Interpretation Comments Monocytes # (test code 0.7 See_Comment [Aut omated message] The = Monocytes #) system which generated this result tra nsmitted reference range : <=0.8. The reference r pearl was not used to int erpret this result as normal/abnormal . [facility] DallasWjczwpyCESAXDITOZ2447-78-28 09:34:00 Test Item Value Reference Range Interpretation Comments Basophils # (test code 0.1 See_Comment [Aut omated message] The = Basophils #) system which generated this result tra nsmitted reference range : <=0.2. The reference r pearl was not used to int erpret this result as normal/abnormal . [facility] DallasMzimjkjBAGYCJVDMY0566-02-48 09:34:00 Test Item Value Reference Range Interpretation Comments Eosinophils # (test code 0.2 See_Comment [A utomated message] The = Eosinophils #) system whic h generated this result tra nsmitted reference range : <=0.5. The reference r pearl was not used to int erpret this result as normal/abnormal . [facility] DallasPemdhsdZDIKVMDXNX0782-46-80 09:34:00 Test Item Value Reference Range Interpretation Comments Lymphocytes (test code = Lymphocytes) 24.6 20.0-40.0 [facility] DallasYrvnhyoZHGKRHPATN8044-81-73 09:34:00 Test Item Value Reference Range Interpretation Comments Segs (test code = Segs) 62.5 45.0-75.0 [facility] DallasAugwfjrWTMZFDGHLW0243-20-56 09:34:00 Test Item Value Reference Range Interpretation Comments Monocytes (test code = Monocytes) 9.8 2.0-12.0 [facility] DallasZlpgthnUANFUBXAJQ7540-73-68 09:34:00 Test Item Value Reference Range Interpretation Comments Basophils (test code = 0.8 See_Comment [Aut omated message] The Basophils) system which ge nerated this result tra nsmitted reference range : <=1.0. The reference r pearl was not used to int erpret this result as normal/abnormal . [facility] DallasWegwkiiGQBNPKYBTB2999-63-73 09:34:00 Test Item Value Reference Range Interpretation Comments Eosinophils (test code = 2.3 See_Comment [A utomated message] The Eosinophils) system which ge nerated this result tra nsmitted reference range : <=4.0. The reference r pearl was not used to int erpret this result as normal/abnormal . [facility] DallasQfevqydWVQFDORQSM3359-19-11 09:34:00 Test Item Value Reference Range Interpretation Comments Lymphocytes # (test code = Lymphocytes 1.8 1.0-5.5 #) [facility] DallasIcsxjkdVDJFFZKYWA1914-13-81 09:34:00 Test Item Value Reference Range Interpretation Comments Segs-Bands # (test code = Segs-Bands #) 4.5 1.5-8.1 [facility]2015-07-12 06:39:00 Test Item Value Reference Range Interpretation Comments UA WBC (test code = 1 See_Comment [Automa ori message] The UA WBC) system which ge nerated this result transmit ori reference range : <=5. The reference range was not used to interpr et this result as augustin l/abnormal. [facility] AND [id number] 06:39:00 Test Item Value Reference Range Interpretation Comments UA Sq Epi (test code = UA Sq Epi) Few /LPF [facility] AND [id number] 06:39:00 Test Item Value Reference Range Interpretation Comments UA Nitrite (test code Negative (06/08/15 1:39 = UA Nitrite) AM) [facility] AND [id number] 06:39:00 Test Item Value Reference Range Interpretation Comments UA Leuk Est (test Negative (06/08/15 1:39 code = UA Leuk Est) AM) [facility] AND [id number] 06:39:00 Test Item Value Reference Range Interpretation Comments UA Urobilinogen (test code = UA 0.2 0.1-1.0 Urobilinogen) [facility] AND [id number] 06:39:00 Test Item Value Reference Range Interpretation Comments UA Spec Grav (test code = UA Spec 1.010 1 Grav) [facility] AND [id number] 06:39:00 Test Item Value Reference Range Interpretation Comments UA pH (test code = UA pH) 6.0 1 5.0-8.0 [facility] AND [id number] 06:39:00 Test Item Value Reference Range Interpretation Comments UA Protein (test code = UA Negative mg/dL Protein) [facility] AND [id number] 06:39:00 Test Item Value Reference Range Interpretation Comments UA Glucose (test code = UA Negative mg/dL Glucose) [facility] AND [id number] 06:39:00 Test Item Value Reference Range Interpretation Comments UA Ketones (test code = UA Negative mg/dL Ketones) [facility] AND [id number] 06:39:00 Test Item Value Reference Range Interpretation Comments UA Blood (test code = Negative (06/08/15 1:39 UA Blood) AM) [facility] AND [id number] 06:39:00 Test Item Value Reference Range Interpretation Comments UA Bili (test code = Negative *NA*(06/08/15 UA Bili) 1:39 AM) [facility] AND [id number] 06:39:00 Test Item Value Reference Range Interpretation Comments UA Turbidity (test code Slight Cloudy = UA Turbidity) (06/08/15 1:39 AM) [facility] AND [id number] 06:39:00 Test Item Value Reference Range Interpretation Comments UA Color (test code = Yellow *NA*(06/08/15 UA Color) 1:39 AM) [facility]2015-07-12 06:39:00 Test Item Value Reference Range Interpretation Comments eGFR (test code = eGFR) 54 [facility]2015-07-12 06:39:00 Test Item Value Reference Range Interpretation Comments Potassium Lvl (test code = Potassium 4.0 3.5-5.1 Lvl) [facility]2015-07-12 06:39:00 Test Item Value Reference Range Interpretation Comments CO2 (test code = CO2) 26 24-32 [facility]2015-07-12 06:39:00 Test Item Value Reference Range Interpretation Comments Calcium Lvl (test code = Calcium Lvl) 8.0 8.5-10.5 [facility]2015-07-12 06:39:00 Test Item Value Reference Range Interpretation Comments Total Protein (test code = Total 6.1 6.4-8.4 Protein) [facility]2015-07-12 06:39:00 Test Item Value Reference Range Interpretation Comments Chloride Lvl (test code = Chloride Lvl) 107 95-109 [facility]2015-07-12 06:39:00 Test Item Value Reference Range Interpretation Comments Alk Phos (test code = Alk Phos) 72 39-136 [facility]2015-07-12 06:39:00 Test Item Value Reference Range Interpretation Comments AST (test code = AST) 19 See_Comment [Auto mated message] The system which ge nerated this result transmit ori reference range : <=37. The reference range was not used to interpr et this result as augustin l/abnormal. [facility]2015-07-12 06:39:00 Test Item Value Reference Range Interpretation Comments Bili Total (test code = Bili Total) 0.7 0.2-1.3 [facility] [employer] [id number] 06:39:00 Test Item Value Reference Range Interpretation Comments Albumin Lvl (test code = Albumin Lvl) 2.9 3.5-5.0 [facility] [id number] 06:39:00 Test Item Value Reference Range Interpretation Comments ALT (test code = ALT) 23 See_Comment [Auto mated message] The system which ge nerated this result transmit ori reference range : <=65. The reference range was not used to interpr et this result as augustin l/abnormal. [facility] [employer] [id number] 06:39:00 Test Item Value Reference Range Interpretation Comments Glucose Lvl (test code = Glucose Lvl) 177 70-99 [facility] [employer] [id number] 06:39:00 Test Item Value Reference Range Interpretation Comments BUN (test code = BUN) 23 7-22 [facility] [id number] 06:39:00 Test Item Value Reference Range Interpretation Comments Sodium Lvl (test code = Sodium Lvl) 142 135-145 [facility] [employer] [id number] 06:39:00 Test Item Value Reference Range Interpretation Comments Creatinine Lvl (test code = Creatinine 1.0 0.5-1.4 Lvl) [facility] [employer] [id number] 06:39:00 Test Item Value Reference Range Interpretation Comments AGAP (test code = AGAP) 13.0 10.0-20.0 [facility] [employer] [id number] 06:39:00 Test Item Value Reference Range Interpretation Comments A/G Ratio (test code = A/G Ratio) 0.9 0.7-1.6 [facility] [employer] [id number] 06:39:00 Test Item Value Reference Range Interpretation Comments Globulin (test code = Globulin) 3.2 2.0-4.0 [facility] [employer] [id number] 06:39:00 Test Item Value Reference Range Interpretation Comments B/C Ratio (test code = B/C Ratio) 23 6-25 [facility] CenterNetcordiaPRES[facility] [id number] 06:39:00 Test Item Value Reference Range Interpretation Comments UDS Note (test code = See Note *NA*(7/12/15 UDS Note) 1:39 AM) [facility] [id number] 06:39:00 Test Item Value Reference Range Interpretation Comments U Opiate Scr (test Negative *NA*(06/08/15 code = U Opiate Scr) 1:39 AM) [facility] [id number] 06:39:00 Test Item Value Reference Range Interpretation Comments U Cocaine Scr (test Negative *NA*(06/08/15 code = U Cocaine Scr) 1:39 AM) [facility] [id number] 06:39:00 Test Item Value Reference Range Interpretation Comments U Cannab Scr (test Negative *NA*(06/08/15 code = U Cannab Scr) 1:39 AM) [facility] [id number] 06:39:00 Test Item Value Reference Range Interpretation Comments U Phencyc Scr (test Negative *NA*(06/08/15 code = U Phencyc Scr) 1:39 AM) [facility] [id number] 06:39:00 Test Item Value Reference Range Interpretation Comments U Amph Scr (test code Negative *NA*(06/08/15 = U Amph Scr) 1:39 AM) [facility] [id number] 06:39:00 Test Item Value Reference Range Interpretation Comments U Benzodia Scr (test Negative *NA*(06/08/15 code = U Benzodia Scr) 1:39 AM) [facility] [id number] 06:39:00 Test Item Value Reference Range Interpretation Comments U Luci Scr (test code Negative *NA*(06/08/15 = U Luci Scr) 1:39 AM) [facility]villeYzeboahAZYKOXCVPB9594-40-58 06:39:00 Test Item Value Reference Range Interpretation Comments Lymphocytes # (test code = Lymphocytes 2.2 1.0-5.5 #) [facility]villeTfgpaejPVJMHFUEKN0304-68-09 06:39:00 Test Item Value Reference Range Interpretation Comments Basophils # (test code 0.1 See_Comment [Aut omated message] The = Basophils #) system which generated this result tra nsmitted reference range : <=0.2. The reference r pearl was not used to int erpret this result as normal/abnormal . [facility]FytjmuhWFMGTYXREW0067-73-09 06:39:00 Test Item Value Reference Range Interpretation Comments Eosinophils # (test code 0.2 See_Comment [A utomated message] The = Eosinophils #) system whic h generated this result tra nsmitted reference range : <=0.5. The reference r pearl was not used to int erpret this result as normal/abnormal . [facility] DallasTdicxuwGVAOGEZGWV3733-84-11 06:39:00 Test Item Value Reference Range Interpretation Comments Monocytes # (test code 0.6 See_Comment [Aut omated message] The = Monocytes #) system which generated this result tra nsmitted reference range : <=0.8. The reference r pearl was not used to int erpret this result as normal/abnormal . [facility] DallasKvovolmKSUJMKIEXF1542-14-46 06:39:00 Test Item Value Reference Range Interpretation Comments Monocytes (test code = Monocytes) 7.9 2.0-12.0 [facility] DallasPmbktldBHJVUTWTUA7321-86-80 06:39:00 Test Item Value Reference Range Interpretation Comments Segs-Bands # (test code = Segs-Bands #) 4.5 1.5-8.1 [facility] DallasMsnefoaRUDXOVVUSG7447-35-48 06:39:00 Test Item Value Reference Range Interpretation Comments Eosinophils (test code = 2.4 See_Comment [A utomated message] The Eosinophils) system which ge nerated this result tra nsmitted reference range : <=4.0. The reference r pearl was not used to int erpret this result as normal/abnormal . [facility] DallasWbblpfrEHRNMMAFOC1264-55-82 06:39:00 Test Item Value Reference Range Interpretation Comments Basophils (test code = 0.8 See_Comment [Aut omated message] The Basophils) system which ge nerated this result tra nsmitted reference range : <=1.0. The reference r pearl was not used to int erpret this result as normal/abnormal . [facility] DallasSptfttlWRCGMNMNLR6160-24-10 06:39:00 Test Item Value Reference Range Interpretation Comments Segs (test code = Segs) 59.7 45.0-75.0 [facility] DallasSmvjkjpLUHHDJWHJQ5045-32-47 06:39:00 Test Item Value Reference Range Interpretation Comments Lymphocytes (test code = Lymphocytes) 29.2 20.0-40.0 [facility] DallasHaovjphPVDQXAJBUG8943-11-77 06:39:00 Test Item Value Reference Range Interpretation Comments PT (test code = PT) 21.6 s 12.0-14.7 [facility] DallasHbjfkzsTWGQYDXKYN6941-67-05 06:39:00 Test Item Value Reference Range Interpretation Comments INR (test code = INR) 1.83 0.85-1.17 [facility] DallasTgcovsiKOAAANAMOI2289-37-90 06:39:00 Test Item Value Reference Range Interpretation Comments Platelet (test code = Platelet) 187 133-450 [facility] DallasZrjqkqlWHNZJFKWCS6172-51-21 06:39:00 Test Item Value Reference Range Interpretation Comments RDW (test code = RDW) 14.9 11.5-14.5 [facility] DallasCozdyssSHDJBJUTME1969-93-19 06:39:00 Test Item Value Reference Range Interpretation Comments Hct (test code = Hct) 39.8 36.0-48.0 [facility] DallasMheosqvJSOXBYRMIT8186-28-85 06:39:00 Test Item Value Reference Range Interpretation Comments MPV (test code = MPV) 10.0 7.4-10.4 [facility] DallasOjtxmjdPZNVRVNQMT8707-70-60 06:39:00 Test Item Value Reference Range Interpretation Comments MCHC (test code = MCHC) 32.9 32.0-36.0 [facility] DallasJvdrakjSDCWUTXLZY1528-48-29 06:39:00 Test Item Value Reference Range Interpretation Comments MCH (test code = MCH) 29.4 pg 27.0-31.0 [facility] DallasPbzdzswYQUDHRCTOM1532-65-94 06:39:00 Test Item Value Reference Range Interpretation Comments MCV (test code = MCV) 89.4 80.0-98.0 [facility] DallasXozmzdwOIIXVQKBYI1195-72-61 06:39:00 Test Item Value Reference Range Interpretation Comments Hgb (test code = Hgb) 13.1 12.0-16.0 [facility] DallasFvsdcmpLJFZIDXOOB8799-02-53 06:39:00 Test Item Value Reference Range Interpretation Comments RBC (test code = RBC) 4.45 4.20-5.40 [facility] DallasRcbeeitYREZNGMYJF6860-19-99 06:39:00 Test Item Value Reference Range Interpretation Comments WBC (test code = WBC) 7.6 3.7-10.4 [facility] DallasVjujnreQHXEFKZGIB9330-24-96 06:39:00 Test Item Value Reference Range Interpretation Comments PTT (test code = PTT) 38.9 s 22.9-35.8 [facility]villeTqaaereEUGUVY6620-55-36 06:39:00 Test Item Value Reference Range Interpretation Comments CHD Risk (test code = CHD Risk) 3.33 3.90-5.80 [facility] CenterEypuppgBTGKZO9139-39-70 06:39:00 Test Item Value Reference Range Interpretation Comments VLDL (test code = VLDL) 28 [facility] BrownsvilleBohobsfIOZLHC9818-88-48 06:39:00 Test Item Value Reference Range Interpretation Comments LDL (Calculated) (test code = LDL 72 (Calculated)) [facility] CenterIokttxfHXSMJI7877-74-03 06:39:00 Test Item Value Reference Range Interpretation Comments Chol (test code = Chol) 143 [facility] CenterOywdaoaTZMGQR1792-22-26 06:39:00 Test Item Value Reference Range Interpretation Comments Trig (test code = Trig) 141 [facility] CenterJzdpokiFNVKFA9377-00-94 06:39:00 Test Item Value Reference Range Interpretation Comments HDL (test code = HDL) 43 [facility]villeSPECIAL QLUJAPFHS5275-59-32 06:39:00 Test Item Value Reference Range Interpretation Comments Hgb A1C (test code = Hgb A1C) 6.4 [facility]annAT[facility] [id number] 06:39:00 Test Item Value Reference Range Interpretation Comments UA Bacteria (test code = UA Occasional /HPF Bacteria) [facility]annATL[facility] AND [id number] 06:39:00 Test Item Value Reference Range Interpretation Comments UA Mucus (test code = UA Mucus) Few /LPF [facility]annATL[facility] AND [id number] 06:39:00 Test Item Value Reference Range Interpretation Comments UA WBC (test code = 1 See_Comment [Automa ori message] The UA WBC) system which ge nerated this result transmit ori reference range : <=5. The reference range was not used to interpr et this result as augustin l/abnormal. [facility] [id number] 06:39:00 Test Item Value Reference Range Interpretation Comments UA Sq Epi (test code = UA Sq Epi) Few /LPF [facility]annUR[facility] AND [id number] 06:39:00 Test Item Value Reference Range Interpretation Comments UA Nitrite (test code Negative (06/08/15 1:39 = UA Nitrite) AM) [facility]annAT[facility] [id number] 06:39:00 Test Item Value Reference Range Interpretation Comments UA Leuk Est (test Negative (06/08/15 1:39 code = UA Leuk Est) AM) [facility] AND [id number] 06:39:00 Test Item Value Reference Range Interpretation Comments UA Urobilinogen (test code = UA 0.2 0.1-1.0 Urobilinogen) [facility] AND [id number] 06:39:00 Test Item Value Reference Range Interpretation Comments UA Spec Grav (test code = UA Spec 1.010 1 Grav) [facility] AND [id number] 06:39:00 Test Item Value Reference Range Interpretation Comments UA pH (test code = UA pH) 6.0 1 5.0-8.0 [facility] AND [id number] 06:39:00 Test Item Value Reference Range Interpretation Comments UA Protein (test code = UA Negative mg/dL Protein) [facility] AND [id number] 06:39:00 Test Item Value Reference Range Interpretation Comments UA Glucose (test code = UA Negative mg/dL Glucose) [facility] AND [id number] 06:39:00 Test Item Value Reference Range Interpretation Comments UA Ketones (test code = UA Negative mg/dL Ketones) [facility] AND [id number] 06:39:00 Test Item Value Reference Range Interpretation Comments UA Blood (test code = Negative (06/08/15 1:39 UA Blood) AM) [facility] AND [id number] 06:39:00 Test Item Value Reference Range Interpretation Comments UA Bili (test code = Negative *NA*(06/08/15 UA Bili) 1:39 AM) [facility] AND [id number] 06:39:00 Test Item Value Reference Range Interpretation Comments UA Turbidity (test code Slight Cloudy = UA Turbidity) (06/08/15 1:39 AM) [facility] AND [id number] 06:39:00 Test Item Value Reference Range Interpretation Comments UA Color (test code = Yellow *NA*(06/08/15 UA Color) 1:39 AM) [facility]villeCHEM [id number] 06:39:00 Test Item Value Reference Range Interpretation Comments eGFR (test code = eGFR) 54 [facility]villeCON[facility] HOSPITALOGHHM4474-96-55 06:39:00 Test Item Value Reference Range Interpretation Comments Potassium Lvl (test code = Potassium 4.0 3.5-5.1 Lvl) [place] 350465-07-12 06:39:00 Test Item Value Reference Range Interpretation Comments CO2 (test code = CO2) 26 24-32 [place] 350465-07-12 06:39:00 Test Item Value Reference Range Interpretation Comments Calcium Lvl (test code = Calcium Lvl) 8.0 8.5-10.5 [place] 350465-07-12 06:39:00 Test Item Value Reference Range Interpretation Comments Total Protein (test code = Total 6.1 6.4-8.4 Protein) [place] 350465-07-12 06:39:00 Test Item Value Reference Range Interpretation Comments Chloride Lvl (test code = Chloride Lvl) 107 95-109 [place] 350465-07-12 06:39:00 Test Item Value Reference Range Interpretation Comments Alk Phos (test code = Alk Phos) 72 39-136 [place] 350465-07-12 06:39:00 Test Item Value Reference Range Interpretation Comments AST (test code = AST) 19 See_Comment [Auto mated message] The system which ge nerated this result transmit ori reference range : <=37. The reference range was not used to interpr et this result as augustin l/abnormal. [place] 350465-07-12 06:39:00 Test Item Value Reference Range Interpretation Comments Bili Total (test code = Bili Total) 0.7 0.2-1.3 [place] 350465-07-12 06:39:00 Test Item Value Reference Range Interpretation Comments Albumin Lvl (test code = Albumin Lvl) 2.9 3.5-5.0 [place] 350465-07-12 06:39:00 Test Item Value Reference Range Interpretation Comments ALT (test code = ALT) 23 See_Comment [Auto mated message] The system which ge nerated this result transmit ori reference range : <=65. The reference range was not used to interpr et this result as augustin l/abnormal. [place] 350465-07-12 06:39:00 Test Item Value Reference Range Interpretation Comments Glucose Lvl (test code = Glucose Lvl) 177 70-99 [facility]2015-07-12 06:39:00 Test Item Value Reference Range Interpretation Comments BUN (test code = BUN) 23 7-22 [facility] [id number] 06:39:00 Test Item Value Reference Range Interpretation Comments Sodium Lvl (test code = Sodium Lvl) 142 135-145 [facility]2015-07-12 06:39:00 Test Item Value Reference Range Interpretation Comments Creatinine Lvl (test code = Creatinine 1.0 0.5-1.4 Lvl) [facility] [id number] 06:39:00 Test Item Value Reference Range Interpretation Comments AGAP (test code = AGAP) 13.0 10.0-20.0 [facility]2015-07-12 06:39:00 Test Item Value Reference Range Interpretation Comments A/G Ratio (test code = A/G Ratio) 0.9 0.7-1.6 [facility]2015-07-12 06:39:00 Test Item Value Reference Range Interpretation Comments Globulin (test code = Globulin) 3.2 2.0-4.0 [facility]2015-07-12 06:39:00 Test Item Value Reference Range Interpretation Comments B/C Ratio (test code = B/C Ratio) 23 6-25 [facility]2015-07-12 06:39:00 Test Item Value Reference Range Interpretation Comments UDS Note (test code = See Note *NA*(06/08/15 UDS Note) 1:39 AM) [facility] [id number] 06:39:00 Test Item Value Reference Range Interpretation Comments U Opiate Scr (test Negative *NA*(06/08/15 code = U Opiate Scr) 1:39 AM) [facility] [id number] 06:39:00 Test Item Value Reference Range Interpretation Comments U Cocaine Scr (test Negative *NA*(06/08/15 code = U Cocaine Scr) 1:39 AM) [facility] [id number] 06:39:00 Test Item Value Reference Range Interpretation Comments U Cannab Scr (test Negative *NA*(06/08/15 code = U Cannab Scr) 1:39 AM) [facility] [id number] 06:39:00 Test Item Value Reference Range Interpretation Comments U Phencyc Scr (test Negative *NA*(06/08/15 code = U Phencyc Scr) 1:39 AM) [facility] [id number] 06:39:00 Test Item Value Reference Range Interpretation Comments U Amph Scr (test code Negative *NA*(06/08/15 = U Amph Scr) 1:39 AM) [facility] [id number] 06:39:00 Test Item Value Reference Range Interpretation Comments U Benzodia Scr (test Negative *NA*(06/08/15 code = U Benzodia Scr) 1:39 AM) [facility] [id number] 06:39:00 Test Item Value Reference Range Interpretation Comments U Luci Scr (test code Negative *NA*(06/08/15 = U Luci Scr) 1:39 AM) [facility]CoquymfQHALEMDEAH1593-39-99 06:39:00 Test Item Value Reference Range Interpretation Comments Lymphocytes # (test code = Lymphocytes 2.2 1.0-5.5 #) [facility] DallasSiitjvsLPVBNKJSFM6106-41-34 06:39:00 Test Item Value Reference Range Interpretation Comments Basophils # (test code 0.1 See_Comment [Aut omated message] The = Basophils #) system which generated this result tra nsmitted reference range : <=0.2. The reference r pearl was not used to int erpret this result as normal/abnormal . [facility] DallasWayuxiyTDRGPTIHOR0009-02-85 06:39:00 Test Item Value Reference Range Interpretation Comments Eosinophils # (test code 0.2 See_Comment [A utomated message] The = Eosinophils #) system whic h generated this result tra nsmitted reference range : <=0.5. The reference r pearl was not used to int erpret this result as normal/abnormal . [facility] DallasZacieouVXYDWUHVPY4924-68-00 06:39:00 Test Item Value Reference Range Interpretation Comments Monocytes # (test code 0.6 See_Comment [Aut omated message] The = Monocytes #) system which generated this result tra nsmitted reference range : <=0.8. The reference r pearl was not used to int erpret this result as normal/abnormal . [facility] DallasWhctxcmFEMJXCBWVS0314-89-90 06:39:00 Test Item Value Reference Range Interpretation Comments Monocytes (test code = Monocytes) 7.9 2.0-12.0 [facility] DallasDixfcnpGABIJXELWX0853-74-09 06:39:00 Test Item Value Reference Range Interpretation Comments Segs-Bands # (test code = Segs-Bands #) 4.5 1.5-8.1 [facility] DallasKdckufoHIWWVWFMZM0937-21-11 06:39:00 Test Item Value Reference Range Interpretation Comments Eosinophils (test code = 2.4 See_Comment [A utomated message] The Eosinophils) system which ge nerated this result tra nsmitted reference range : <=4.0. The reference r pearl was not used to int erpret this result as normal/abnormal . [facility] DallasFwmwargQLBTWHBDBN1629-55-90 06:39:00 Test Item Value Reference Range Interpretation Comments Basophils (test code = 0.8 See_Comment [Aut omated message] The Basophils) system which ge nerated this result tra nsmitted reference range : <=1.0. The reference r pearl was not used to int erpret this result as normal/abnormal . [facility] DallasJidcxrhKEIHSOMLUZ8221-17-25 06:39:00 Test Item Value Reference Range Interpretation Comments Segs (test code = Segs) 59.7 45.0-75.0 [facility] DallasKbwgkaaOAPVEZENOS0626-59-40 06:39:00 Test Item Value Reference Range Interpretation Comments Lymphocytes (test code = Lymphocytes) 29.2 20.0-40.0 [facility] DallasBvrpqeuCKXJMVJLQE7099-17-73 06:39:00 Test Item Value Reference Range Interpretation Comments PT (test code = PT) 21.6 s 12.0-14.7 [facility] DallasAbylxfjQNMEADFXDV0862-26-93 06:39:00 Test Item Value Reference Range Interpretation Comments INR (test code = INR) 1.83 0.85-1.17 [facility] DallasDvispkcSICSQQSPIN9520-92-76 06:39:00 Test Item Value Reference Range Interpretation Comments Platelet (test code = Platelet) 187 133-450 [facility] DallasBgxbzpcPBFWZOULGJ9221-08-82 06:39:00 Test Item Value Reference Range Interpretation Comments RDW (test code = RDW) 14.9 11.5-14.5 [facility] DallasQvpfwkrZOYQPFWTHX5645-00-24 06:39:00 Test Item Value Reference Range Interpretation Comments Hct (test code = Hct) 39.8 36.0-48.0 [facility] DallasKbajgmxWYFNCOUTHV5578-43-64 06:39:00 Test Item Value Reference Range Interpretation Comments MPV (test code = MPV) 10.0 7.4-10.4 [facility] DallasClfsggvXEAPYZCKUU8581-38-83 06:39:00 Test Item Value Reference Range Interpretation Comments MCHC (test code = MCHC) 32.9 32.0-36.0 [facility] DallasRylnagvZFLNOWRPLU5664-07-00 06:39:00 Test Item Value Reference Range Interpretation Comments MCH (test code = MCH) 29.4 pg 27.0-31.0 [facility] DallasZezqkelOHCMIPSOJL5128-43-98 06:39:00 Test Item Value Reference Range Interpretation Comments MCV (test code = MCV) 89.4 80.0-98.0 [facility] DallasOlnasshEHQLCWPXYP9611-77-71 06:39:00 Test Item Value Reference Range Interpretation Comments Hgb (test code = Hgb) 13.1 12.0-16.0 [facility] DallasJaifeqdVGWEMUZZVQ1002-40-81 06:39:00 Test Item Value Reference Range Interpretation Comments RBC (test code = RBC) 4.45 4.20-5.40 [facility] DallasCdpfdfsZJERSAYPED6039-60-89 06:39:00 Test Item Value Reference Range Interpretation Comments WBC (test code = WBC) 7.6 3.7-10.4 [facility] DallasPunkyqjISUSBTFRHC1990-54-64 06:39:00 Test Item Value Reference Range Interpretation Comments PTT (test code = PTT) 38.9 s 22.9-35.8 [facility]QhyshahATHWRR3297-49-46 06:39:00 Test Item Value Reference Range Interpretation Comments CHD Risk (test code = CHD Risk) 3.33 3.90-5.80 [facility] CampusGzdrdakVZXOBW0038-35-60 06:39:00 Test Item Value Reference Range Interpretation Comments VLDL (test code = VLDL) 28 [facility] CampusXlequwhFYPFEL3243-25-80 06:39:00 Test Item Value Reference Range Interpretation Comments LDL (Calculated) (test code = LDL 72 (Calculated)) [facility] CampusKufydoyTJLOBS6887-02-70 06:39:00 Test Item Value Reference Range Interpretation Comments Chol (test code = Chol) 143 [facility] CampusDpqdvztKSNOVV5332-74-55 06:39:00 Test Item Value Reference Range Interpretation Comments Trig (test code = Trig) 141 [facility] CenterXavchghQOPKSM8038-23-24 06:39:00 Test Item Value Reference Range Interpretation Comments HDL (test code = HDL) 43 [facility]SPE[facility] QQLGWBQPT7096-31-60 06:39:00 Test Item Value Reference Range Interpretation Comments Hgb A1C (test code = Hgb A1C) 6.4 [facility] AND [id number] 06:39:00 Test Item Value Reference Range Interpretation Comments UA Bacteria (test code = UA Occasional /HPF Bacteria) [facility] AND [id number] 06:39:00 Test Item Value Reference Range Interpretation Comments UA Mucus (test code = UA Mucus) Few /LPF [facility]
[2022-08-17 17:01] LABS: Absolute Lymphocytes (CBC) 1.6 K/uL (0.7-4.9); Hematocrit 43.3 % (36.0-45.0); Lymphocytes % 28.4 % (15.3-44.8); MCV 90.7 fL (80-100); MPV 9.4 fL (7.6-11.3); RBC Red Blood Cell Count 4.77 M/uL (3.86-4.86)
[2022-08-17 17:13] VITALS: BMI 29.6
[2022-08-17 17:16] LABS: Bilirubin Total 0.6 mg/dL (0.2-1.0); Magnesium 2.3 mg/dL (1.8-2.4); Potassium 3.7 mmol/L (3.5-5.1); Protein, Total 7.7 g/dL (6.4-8.2)
[2022-08-17] MEDS: CEFTRIAXONE 1,000 MG in NA CHLORIDE 0.9% 50 ML IVPB SCH (20:15)
[2022-08-17] MEDS: NA CHLORIDE 0.9% 1,000 ML IV SCH (20:16)
[2022-08-17] MEDS: DOXYCYCLINE 100 MG in NA CHLORIDE 0.9% 100 ML IVPB SCH (20:16)
[2022-08-17] MEDS ORDERED: CEFTRIAXONE 1000 MG/VIAL ONE (20:21)
[2022-08-17] MEDS ORDERED: POTASSIUM 25 MEQ EFFERV TAB PO ONE (21:00)
[2022-08-18] MEDS: NA CHLORIDE 0.9% 1,000 ML IV SCH ×2 (06:09→08:29)
[2022-08-18] MEDS: THYROID 30 MG TAB PO SCH (06:41)
--- NOTE | 2022-08-18 08:10 | HP ---
Date of Admission: 08/17/2022 Chief Complaint: Redness, swelling of left foot with some pain. History Of Present Illness: This is an 87-year-old female patient who has had recurrent cellulitis p roblem of the left foot recently. She was in the hospital over a month ago for that and after her di scharge from the hospital, she took oral Cipro for 2 different times. Last time, she took Cipro was 750 mg 2 times a day, which was prescribed 10 days ago and her last dose of Cipro would have been tod ay. Meanwhile, 2 days ago, she ended up in emergency room with redness, swelling, and some pain of t he left foot. After she was evaluated in the ER, she was released to go back home without any new me dication. Today, she was brought into office with worsening problem of her left foot. After I saw h er, decision was made to admit her to the hospital. She denies any fall or injury. Allergies: IRON CAUSING RASH. PENICILLIN CAUSING RASH. SILVADENE CAUSING RASH AND ITCHING. LEVAQU IN CAUSING RASH AND IT IS IMPORTANT TO NOTE THAT THE PATIENT IS ABLE TO TAKE CIPRO WITHOUT ANY SIDE E FFECT. Medications: Cipro 750 mg 2 times a day; atorvastatin 80 mg daily at bedtime; hydrocodone 5 mg; aspi rin 325 mg daily; folic acid 1 mg; furosemide 40 mg 2 times a day; gabapentin 100 mg 3 times a day; l evetiracetam 250 mg 2 times a day; magnesium oxide 400 mg daily; metoprolol tartrate 25 mg, she takes half a tablet 2 times a day; potassium chloride 10 mEq 2 times a day; [place] Thyroid 90 mg daily. Review of Systems: Musculoskeletal: As mentioned above. Dermatology: As mentioned above. All other systems reviewed and negative. Past Medical History: Significant for TIA, thyroid cancer, hypothyroidism, type 2 diabetes mellitus, hypertension, hyperlipidemia, chronic diastolic heart failure, chronic atrial fibrillation, sick sin us syndrome, osteoarthritis at multiple sites, hypomagnesemia, anemia, depression. Past Surgical History: Cataract surgery, total thyroidectomy in 1969, and right foot surgery. Family History: Father had stroke. Mother, coronary artery disease and hypertension. Sister had st roke. Social History: Negative for smoking, alcohol use. Physical Examination: Vital Signs: Blood pressure 99/66 at office, pulse 57, respiratory rate 18, temperature 97.2. Heigh t 64 inches. General: Awake, alert, oriented, not in distress. HEENT: Head atraumatic, normocephalic. Conjunctivae nonerythematous. Sclerae white. Mouth, no thr ush or edema noted. Ears/Nose, no mass, lesion, discharge noted. Neck: Supple. No JVD, lymph nodes, bruit, thyromegaly noted. Lungs: Bilateral good equal air entry. Clear to auscultation. No rhonchi. No rales. Heart: Normal heart sounds, no murmur or gallop. Abdomen: Soft, bowel sounds normal. No guarding, rigidity, tenderness, mass, hepatosplenomegaly, di stention, or bruit noted. Extremities: Left foot has redness of third, fourth, and fifth toe with swelling involving distal an d lateral left foot. No open wound on the foot. Skin: Warm to touch. Lymphatics: No lymph node enlargement in neck, supraclavicular, infraclavicular region. Neuro: No focal neurological deficit. Chest: Unremarkable. External Genitalia: Deferred. Rectal: Deferred. Laboratory Data: White count 5.8, hemoglobin 14, platelets 186. Sodium 141, potassium 3.7, chloride 105, bicarb 32, BUN 36, creatinine 1.59, glucose 129. Liver function tests unremarkable. Impression: 1.Cellulitis, left foot. 2.Acute kidney injury. 3.Volume depletion. 4.Chronic atrial fibrillation. 5.Hypothyroidism, postsurgical. 6.Type 2 diabetes mellitus. 7.Thyroid cancer. 8.Sick sinus syndrome. 9.Hyperlipidemia. 10.Hypertension. 11.Osteoarthritis, multiple sites. 12.Hypomagnesemia. 13.Depression. Plan: Admit patient to hospital for further evaluation and management of this problem. Patient is a ppropriate for inpatient and is expected to spend 2 midnights in hospital. We will continue home med ications per order. We will hold blood pressure medication at this time. Continue her aspirin, leve tiracetam per order. We will continue her pain medication as per order. Thyroid medication will be continued. We will go ahead and follow up on blood culture results, empiric antibiotic, which is dox ycycline as well as ceftriaxone will be started. Daughter was concerned about Clostridium difficile colitis with antibiotic use and she was informed that unfortunately any antibiotics that one person m ay take for any reason, there is always a risk of Clostridium difficile colitis infection and at this time because of her cellulitis of the left foot problem, we have no choice but to use antibiotics an d if we ever have any concern about Clostridium difficile colitis, then appropriate testing will be d one and treatment will be provided if that is what she has in the future. At this point, she does no t have any diarrhea to indicate any such problem. When she was in the hospital emergency room 2 days ago, she had x-ray of the left foot, venous Doppler, and arterial Doppler and results reviewed. I w ill see her tomorrow morning for followup. We will go ahead and give IV fluid, repeat blood work arash orrow morning. LOVE/MODL Voice ID: [id number]
[2022-08-18] MEDS: GABAPENTIN 100 MG CAP PO SCH ×3 (08:21→21:12)
[2022-08-18] MEDS: FOLIC ACID 1 MG TABLET PO SCH (08:21)
[2022-08-18] MEDS: ASPIRIN 325 MG TAB PO SCH (08:21)
[2022-08-18] MEDS: levETIRAcetam 500 MG TAB PO SCH ×2 (08:22→21:12)
[2022-08-18] MEDS: CEFTRIAXONE 1,000 MG in NA CHLORIDE 0.9% 50 ML IVPB SCH ×2 (08:22→21:12)
[2022-08-18] MEDS: ENOXAPARIN 30 MG/0.3 ML SQ SCH (08:23)
[2022-08-18] MEDS: MAGNESIUM OXIDE 400 MG TAB PO SCH (08:24)
[2022-08-18] MEDS: DOXYCYCLINE 100 MG in NA CHLORIDE 0.9% 100 ML IVPB SCH ×2 (08:34→21:00)
[2022-08-18] MEDS: ATORVASTATIN 80 MG TAB PO SCH (21:12)
[2022-08-19] MEDS: THYROID 30 MG TAB PO SCH (05:05)
--- NOTE | 2022-08-19 06:25 | PN ---
Date of Progress Note: 08/18/2022 Subjective: The patient was seen this morning for followup. No new complaints or problems. The pat anaid is lying in bed, not in distress. Her vital signs reviewed. Blood pressure is better this morn ing than yesterday and she is getting IV fluid and IV antibiotics. Physical Examination: HEENT: Unremarkable. Lungs: Clear to auscultation. Heart: Sounds normal. Abdomen: Soft.. Bowel sounds normal. No guarding, rigidity, tenderness, or distention. Extremities: No leg edema. Left lower extremity has shown improvement in her redness and swelling o f the left foot and left lower leg has 2 ulcers, 1 on the medial aspect, which is significantly better and almost healed and lateral aspect has larger open wound superficial, and according to my discussion with the Wound Healing nurse, this is improving as well. Impression: 1.Cellulitis, left foot. 2.Chronic left leg wound. 3.Hypertension. 4.Hypothyroidism. Plan: We will go ahead and continue current medications follow up on blood culture result s. Reduce IV fluid to 75 cc/hour. I will see her tomorrow morning for followup. Possible discharge to go home tomorrow with oral antibiotics. LOVE/MODL Voice ID: [id number] Report ID: [id number]
[2022-08-19 06:53] LABS: Absolute Lymphocytes (CBC) 1.7 K/uL (0.7-4.9); Hematocrit 35.8 % (36.0-45.0); MCV 89.4 fL (80-100); MPV 9.6 fL (7.6-11.3); RBC Red Blood Cell Count 4.01 M/uL (3.86-4.86)
[2022-08-19 07:00] LABS: Magnesium 2.3 mg/dL (1.8-2.4); Potassium 3.7 mmol/L (3.5-5.1)
[2022-08-19] MEDS ORDERED: POTASSIUM CL SA 10 MEQ TAB PO ONE (08:00)
[2022-08-19] MEDS: CEFTRIAXONE 1,000 MG in NA CHLORIDE 0.9% 50 ML IVPB SCH ×2 (08:29→21:21)
[2022-08-19] MEDS: ASPIRIN 325 MG TAB PO SCH (08:30)
[2022-08-19] MEDS: levETIRAcetam 500 MG TAB PO SCH ×2 (08:30→21:20)
[2022-08-19] MEDS: MAGNESIUM OXIDE 400 MG TAB PO SCH (08:30)
[2022-08-19] MEDS: MUPIROCIN 2% OINT 22GM TUBE TOP SCH (08:31)
[2022-08-19] MEDS: ENOXAPARIN 30 MG/0.3 ML SQ SCH (08:31)
[2022-08-19] MEDS: FOLIC ACID 1 MG TABLET PO SCH (08:31)
[2022-08-19] MEDS: GABAPENTIN 100 MG CAP PO SCH ×3 (08:31→21:20)
[2022-08-19] MEDS: NA CHLORIDE 0.9% 1,000 ML IV SCH ×2 (08:32→09:58)
[2022-08-19] MEDS: DOXYCYCLINE 100 MG in NA CHLORIDE 0.9% 100 ML IVPB SCH ×2 (08:32→21:21)
[2022-08-19] MEDS ORDERED: NA CHLORIDE 0.9% 100 ML ONE (21:11)
[2022-08-19] MEDS: ATORVASTATIN 80 MG TAB PO SCH (21:20)
[2022-08-20] MEDS: THYROID 30 MG TAB PO SCH (06:05)
[2022-08-20] MEDS ORDERED: FUROSEMIDE 20 MG/ 2ML VIAL IV ONE (08:04)
[2022-08-20] MEDS ORDERED: POTASSIUM CL SA 10 MEQ TAB PO ONE (08:04)
[2022-08-20] MEDS ORDERED: METOPROLOL TAR 25 MG TAB PO ONE (08:05)
[2022-08-20] MEDS: MUPIROCIN 2% OINT 22GM TUBE TOP SCH (09:00)
[2022-08-20] MEDS: levETIRAcetam 500 MG TAB PO SCH (09:51)
[2022-08-20] MEDS: ASPIRIN 325 MG TAB PO SCH (09:51)
[2022-08-20] MEDS: CEFTRIAXONE 1,000 MG in NA CHLORIDE 0.9% 50 ML IVPB SCH (09:51)
[2022-08-20] MEDS: GABAPENTIN 100 MG CAP PO SCH ×2 (09:51→14:41)
[2022-08-20] MEDS: FOLIC ACID 1 MG TABLET PO SCH (09:51)
[2022-08-20] MEDS: MAGNESIUM OXIDE 400 MG TAB PO SCH (09:51)
[2022-08-20] MEDS: DOXYCYCLINE 100 MG in NA CHLORIDE 0.9% 100 ML IVPB SCH (09:52)
[2022-08-20] MEDS: ENOXAPARIN 30 MG/0.3 ML SQ SCH (09:52)
[2022-08-20 10:16] VITALS: TEMP 98.2
--- NOTE | 2022-08-20 11:52 | PN ---
Date of Progress Note: 08/19/2022 Subjective: Patient was seen this morning for followup. No new complaints or problems reported. She was lying in bed, not in distress. Objective: Vital Signs: Reviewed. HEENT: Unremarkable. Lungs: Clear to auscultation. Heart: Sounds normal. Abdomen: Soft. Bowel sounds normal. No guarding, rigidity, tenderness, or distention. Extremities: No leg edema. Left foot exam, redness and swelling have improved. Laboratory Data: White count 5.6, hemoglobin 11.8, platelets 105. Sodium 143, potassium 3.7, chloride 113, bicarb 26, BUN 20, creatinine 0.92 glucose 106. Impression: 1. Cellulitis of left foot. 2. Chronic left leg wound. 3. Hypothyroidism. 4. Hypertension. Plan: We will go ahead and continue current antibiotics. Follow up on culture results. Possible discharge to go home either today or tomorrow. Details were discussed with the patient. LOVE/NING Voice ID: [id number] Report ID: [id number] [facility]ITALJose
[2022-08-20 13:33] VITALS: BP 97/58
--- NOTE | 2022-08-21 13:54 | DS ---
Date of Discharge: 08/20/2022 Disposition: Discharged to go home. Physical Examination: HEENT: Unremarkable. Lungs: Clear to auscultation. Heart: Sounds normal. Abdomen: Soft. Bowel sounds normal. No guarding, rigidity, tenderness, distention. Extremity: No leg edema. Left foot exam, redness and swelling from left foot have almost completely resolved now. Laboratory Data: Upon admission; white count 5.8, hemoglobin 14, platelets 186. Yesterday; white count 5.6, hemoglobin 11.8, platelets 105. Upon admission; sodium 141, potassium 3.7, chloride 105, bicarb 32, BUN 36, creatinine 1.59, glucose 129. Liver function tests unremarkable. Yesterday; sodium 143, potassium 3.7, chloride 113, bicarb 26, BUN 20, creatinine 0.92, glucose 116. Hospital Course: This is an 87-year-old female patient, who is having recurrent cellulitis of the left foot, was evaluated in the office and admitted to the hospital with these complaints. The patient has redness and swelling and some discomfort of the left foot. She recently has received 2 different rounds of Cipro, first time it was 500 mg 2 times a day, second time it was 750 mg 2 times a day for 10 days and she was on her last day of Cipro when she was admitted to the hospital this time and in spite of taking this antibiotic, her foot problem has gotten worse some. After she was admitted to the hospital, she was started on IV antibiotic which is ceftriaxone and doxycycline. Overall, her condition has improved. She had low blood pressure when she first came in. IV fluid was given and overall her blood pressure has improved. Her other usual home medications were continued. Final Diagnoses: 1. Cellulitis, left foot. 2. Acute kidney injury. 3. Volume depletion. 4. Chronic atrial fibrillation. 5. Hypothyroidism, postsurgical. 6. Type 2 diabetes mellitus. 7. Thyroid cancer. 8. Sick sinus syndrome. 9. Hyperlipidemia. 10. Hypertension. 11. Osteoarthritis, multiple sites. 12. Depression. 13. Hypomagnesemia. Discharge Medications And Instructions: 1. Continue all prior home medications. 2. Take doxycycline 100 mg 1 capsule by mouth 2 times a day for 10 days. 3. Follow up at office next week. LOVE/MODL Voice ID: [id number] Report ID: [id number] MTDD
== END 2022-08-20 15:01 | disposition home health service (06) | DRG 603 ==
LOC: 4TH 16:07
PROVIDERS: ADMIT Internal Medicine; ATTEND Internal Medicine
DX: L03.116 Cellulitis of left lower limb (principal); I50.32 Chronic diastolic (congestive) heart failure; N17.9 Acute kidney failure, unspecified; I11.0 Hypertensive heart disease with heart failure; I48.20 Chronic atrial fibrillation, unspecified; E78.5 Hyperlipidemia, unspecified; M19.09 Primary osteoarthritis, other specified site; E86.9 Volume depletion, unspecified; I49.5 Sick sinus syndrome; F32.A Depression, unspecified; E83.42 Hypomagnesemia; E89.0 Postprocedural hypothyroidism; E11.9 Type 2 diabetes mellitus without complications; Z88.8 Allergy status to other drugs, medicaments and biological substances; Z88.0 Allergy status to penicillin; Z79.82 Long term (current) use of aspirin; Z86.73 Personal history of transient ischemic attack (TIA), and cerebral infarction without residual deficits; Z85.850 Personal history of malignant neoplasm of thyroid; Z79.899 Other long term (current) drug therapy; Z20.822 Contact with and (suspected) exposure to COVID-19
CPT/HCPCS: 36415; 80048; 80053; 82947; 83735; 85025; 87040; 87811; 93926; 93971; 99251; 99283; J1650; J1940; J7030